=== PATIENT | male | born 1960 | race Caucasian/White ===

== ENCOUNTER 2022-04-01 08:51 | Emergency (ER) | payer MEDICARE, OTHER, SELFPAY ==
[2022-04-01] VITALS (26 sets, daily range): BP systolic 88–108; BP diastolic 57–67; PULSE 87–106; RESP 18–20; TEMP 36.5; O2SAT 92–96; BMI 28.2
--- NOTE | 2022-04-01 09:00 | PC.NURSE ---
MIGUEL ROLLE at for patient eval
--- NOTE | 2022-04-01 09:02 | HMH.EDGENADL ---
Discharge Plan Disposition Patient Disposition: Xfer Other Prescriptions Prescriptions: No Action bupropion HCl 300 mg tablet extended release 24 hr 300 mg PO DAILY pioglitazone 15 mg tablet 15 mg PO DAILY pantoprazole 40 mg tablet,delayed release (DR/EC) 40 mg PO DAILY metoprolol succinate 25 mg tablet extended release 24 hr 25 mg PO DAILY tamsulosin 0.4 mg capsule 0.4 mg PO DAILY glimepiride 4 mg tablet 4 mg PO .twice Rx Instructions: morning and bedtime Eliquis 5 mg tablet 5 mg PO BID atorvastatin 40 mg tablet 40 mg PO DAILY trazodone 50 mg tablet 50 mg PO DAILY aripiprazole 15 mg tablet 15 mg PO HS Lantus U-100 Insulin 100 unit/mL solution 40 unit SQ ONCE Rx Instructions: bedtime polyethylene glycol 3350 17 gram/dose powder 17 g PO BID PRN (Reason: constipation) docusate sodium 100 mg capsule 100 mg PO BID PRN acetaminophen [Pain Relief (acetaminophen)] 650 mg tablet extended release 650 mg PO Q8H PRN (Reason: pain) gabapentin 300 mg capsule 300 mg PO TID Qty: 90 5RF Clinical Impressions Clinical Impression: Enterocutaneous fistula, Cellulitis, Abscess of skin or subcutaneous tissue, Bowel obstruction, Ascites Instructions Patient Instructions: DI for Skin Abscess Discharge ED Provider: Epifanio Caballero Adult HPI General Chief complaint: Skin/Abscess/Foreign Body Stated complaint: Abscess Time Seen by Provider: 04/01/22 09:03 Mode of Arrival: EMS Source of Information: Patient Limitations: No Limitations Description of Symptoms (Recalled from ER Triage Doc. by RN): pt to ed c/o abd abscess. pt states he first noticed the abscess x3 weeks ago and states today it started draining. redness and drainage noted on arrival. History of Present Illness HPI narrative: Patient is a 61-year-old male presents with anterior abdominal discomfort for the past 3 weeks. States that he has had increasing erythema and purulence coming from anterior abdominal wound with increasing pain. Denies any systemic symptoms including fever malaise or other discomfort. Denies any significant history of abdominal surgeries. Denies history of fistulas. Denies history of intra-abdominal abscesses. States his pain is moderate currently. States he is never been to [facility] before and that his medical history is obtainable from his halfway where he stays. He does endorse a history of diabetes. However does not know further medical history. Exam is limited as he is a difficult historian. Related Data Home Medications Medication Instructions Recorded Confirmed acetaminophen 650 mg 650 mg PO Q8H PRN pain 09/08/20 09/08/20 tablet,extended release (Pain Relief (acetaminophen)) apixaban 5 mg tablet (Eliquis) 5 mg PO BID 09/08/20 09/08/20 aripiprazole 15 mg tablet 15 mg PO HS 09/08/20 09/08/20 atorvastatin 40 mg tablet 40 mg PO DAILY 09/08/20 09/08/20 bupropion HCl 300 mg 24 hr tablet, 300 mg PO DAILY 09/08/20 09/08/20 extended release docusate sodium 100 mg capsule 100 mg PO BID PRN 09/08/20 09/08/20 glimepiride 4 mg tablet 4 mg PO .twice 09/08/20 09/08/20 insulin glargine 100 unit/mL 40 unit SQ ONCE 09/08/20 09/08/20 subcutaneous solution (Lantus U-100 Insulin) metoprolol succinate 25 mg 25 mg PO DAILY 09/08/20 09/08/20 tablet,extended release 24 hr pantoprazole 40 mg tablet,delayed 40 mg PO DAILY 09/08/20 09/08/20 release pioglitazone 15 mg tablet 15 mg PO DAILY 09/08/20 09/08/20 polyethylene glycol 3350 17 17 g PO BID PRN constipation 09/08/20 09/08/20 gram/dose oral powder tamsulosin 0.4 mg capsule 0.4 mg PO DAILY 09/08/20 09/08/20 trazodone 50 mg tablet 50 mg PO DAILY 09/08/20 09/08/20 Previous Rx's Medication Instructions Recorded gabapentin 300 mg capsule 300 mg PO TID #90 caps 01/24/22 Allergies Allergy/AdvReac Type Severity Reaction Status Date / Time No
--- NOTE | 2022-04-01 09:05 | CT_ITS ---
FINAL REPORT TECHNIQUE: Axial CT images of the abdomen and pelvis were obtained after the administration of oral and iv contrast. Coronal reformatted images were also obtained and reviewed.This study was performed with techniques to keep radiation doses as low as reasonably achievable (ALARA). Individualized dose reduction techniques using automated exposure control or adjustment of mA and/or kV according to the patient's size were employed. CLINICAL HISTORY: concern for abscess, EC fistula etc COMPARISON: None FINDINGS: CT OF THE ABDOMEN AND PELVIS WITH CONTRAST Abdomen: There is mild bibasilar atelectasis.. The heart is normal in size. The liver has an unremarkable appearance, without evidence of mass or biliary ductal dilatation. There is nonspecific gallbladder wall thickening. The spleen is unremarkable. No adrenal mass is present. The pancreas has an unremarkable appearance. The kidneys are normal, without evidence of mass or hydronephrosis. The aorta is normal in caliber. There is a small amount of ascites. There are multiple air and fluid-filled distal small bowel loops measuring up to 6.3 cm in diameter. Pelvis: There are multiple radiodensities in the distal ileum which likely represent ingested material. There is a high-grade small bowel obstruction at this level. There is wall thickening of the distal ileum, likely inflammatory. The appendix normal. The urinary bladder is unremarkable. There is an enteric cutaneous fistula identified in the midline anterior pelvis extending from small bowel loop to skin surface. This is well visualized on axial images 112-127. There is an air in fluid collection identified adjacent to this measuring 31 mm in the subcutaneous tissue worrisome for small abscess. IMPRESSION: High-grade distal small-bowel obstruction. Wall thickening of the distal ileum, likely inflammatory. May represent inflammatory bowel disease or other inflammatory process. 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 Small free fluid. Reviewed, Interpreted and Dictated by Sergio Briscoe III, MD Transcribed by Mahi Herron Authenticated and . [facility]
[2022-04-01 09:55] LABS: Basophils % 0.3 % (0.1-2.0); Eosinophils # 0.1 K/mm3 (0.0-0.4); Eosinophils % 0.9 % (0.1-12.0); Hematocrit 39.9 % (42.0-52.0); Hemoglobin 12.6 g/dL (14.1-18.0); Lymphocytes # 0.9 K/mm3 (0.7-4.5); Lymphocytes % 7.1 % (10-50); Mean Corpuscular HGB Conc 31.7 g/dL (31.8-35.4); Mean Corpuscular Hemoglobin 25.9 pg (27.0-31.2); Mean Corpuscular Volume 81.9 fl (80-94); Mean Platelet Volume 6.4 fl (7.4-10.4); Monocytes % 8.4 % (1.7-9.3); Neutrophils # 10.2 K/mm3 (1.8-7.8); Neutrophils % 83.3 % (37.0-80.0); Platelet Count 291 K/mm3 (142-424); Red Blood Count 4.87 M/mm3 (4.60-6.20); Red Cell Distribution Width 15.2 % (11.5-17.5); White Blood Count 12.3 K/mm3 (4.8-10.8)
[2022-04-01 10:03] LABS: Chloride 105 mmol/L (98-107)
[2022-04-01 10:04] LABS: Potassium 4.8 mmoL/L (3.5-5.1); Sodium 134 mmol/L (136-145)
[2022-04-01 10:06] LABS: Alanine Aminotransferase 54 U/L (12-78); Alkaline Phosphatase 120 U/L (38-126); Aspartate Amino Transferase 54 U/L (17-59); Blood Urea Nitrogen 22 mg/dl (9-20); Creatinine Clearance Estimated 91 mL/min (50-200); Estimated Glomerular Filt Rate 62 ml/min (>60); GFR (African American) 74 ML/MIN (>60)
[2022-04-01 10:07] LABS: Albumin Level 2.7 g/dl (3.5-5.0); Albumin/Globulin Ratio 0.9 (1.1-1.8); Anion Gap 5.8 mEq/L (5-15); Calcium 7.7 mg/dl (8.4-10.2); Carbon Dioxide 28 mmol/L (22.0-30.0); Globulin 2.9 g/dL (1.3-3.2); Glucose 138 mg/dl (74-100); Lactic Acid 1.2 mmol/L (0.7-2.1); Total Protein,Serum 5.6 g/dl (6.3-8.2)
--- NOTE | 2022-04-01 10:59 | PC.NURSE ---
Rounded on patient, pt resting on ED stretcher at this time, reporting he is hungry but he is aware that we are unable to eat at this time. Call light within reach, no other needs
--- NOTE | 2022-04-01 11:00 | PC.NURSE ---
Paged Dr. Pittman for phone consult
--- NOTE | 2022-04-01 11:04 | PC.NURSE ---
MIGUEL ROLLE speaking with Dr Pittman
--- NOTE | 2022-04-01 11:07 | PC.NURSE ---
MIGUEL ROLLE speaking with DR. Pittman
--- NOTE | 2022-04-01 11:11 | PC.NURSE ---
Contacting [facility] for consult
--- NOTE | 2022-04-01 11:14 | PC.NURSE ---
Xray power-sharing images at this time to [facility]
--- NOTE | 2022-04-01 11:25 | PC.NURSE ---
MIGUEL ROLLE speaking with General Surgery at this time
--- NOTE | 2022-04-01 11:49 | PC.NURSE ---
Family at BS
--- NOTE | 2022-04-01 11:56 | PC.NURSE ---
called radiology r/t needing results of CT
--- NOTE | 2022-04-01 11:58 | PC.NURSE ---
pts friend that sits with him, Aishwaryakirk Wyman would like to be called when he is transported to . p: [phone]
[2022-04-01 11:59] LABS: Coronavirus 19, PCR Not Detected (NotDetected); Influenza A, PCR Not Detected (NotDetected); Influenza B, PCR Not Detected (NotDetected)
--- NOTE | 2022-04-01 16:15 | PC.NURSE ---
Went in to clean patient up with Pauline. Cleaned patient up, changed linens as well as applied abdominal pad to help with patient leaking from abdomen. Kevin SCHMIDT came in to assess patient abdomen and leaking before bandage placed. Call light within reach warm blankets given
--- NOTE | 2022-04-01 18:37 | PC.NURSE ---
patient aware that we are still waiting on to call back with a bed assignment. Call light within reach, no other needs at this time
--- NOTE | 2022-04-01 18:58 | PC.NURSE ---
Calling MDs to check on bed assignment at this time
--- NOTE | 2022-04-01 19:07 | PC.NURSE ---
[facility] stated no update on bed assignment, notified MIGUEL ROLLE
--- NOTE | 2022-04-01 19:10 | PC.NURSE ---
[facility] called back at this itme, states pt is accepted to [facility]. Updated ER MD
== END 2022-04-01 22:19 | disposition other institution (70) ==
PROVIDERS: Emergency Provider Student in an Organized Health Care Education/Training Program
DX: L02.211 Cutaneous abscess of abdominal wall (principal); K63.2 Fistula of intestine; R18.8 Other ascites; K56.609 Unspecified intestinal obstruction, unspecified as to partial versus complete obstruction; L03.311 Cellulitis of abdominal wall; F17.210 Nicotine dependence, cigarettes, uncomplicated
CPT/HCPCS: 74177; 80053; 83605; 85025; 87040; 87077; 87186; 96365; 99285; C9803; J2543; Q9967; U0003; U0005

== ENCOUNTER 2022-11-22 11:38 | Observation (INO) | payer MEDICARE, OTHER, SELFPAY ==
[2022-11-22] VITALS (17 sets, daily range): BP systolic 77–123; BP diastolic 52–75; PULSE 67–92; RESP 16–19; TEMP 36.3–37; O2SAT 93–100; BMI 25.0; BMI 32.8
--- NOTE | 2022-11-22 11:54 | PC.NURSE ---
Dr. Perez at BS
--- NOTE | 2022-11-22 12:00 | XR_ITS ---
FINAL REPORT CLINICAL HISTORY: pain swelling, 4/5 toes drainage FINDINGS: AP, oblique, and lateral views of the left ankle were obtained. There is no prior exam for comparison. There is no fracture or dislocation. The ankle mortise is intact. There is diffuse soft tissue edema. IMPRESSION: No acute osseous abnormality of the left ankle. Reviewed, Interpreted and Dictated by Celi Rosario MD Transcribed by Tiffany Angeles Authenticated and [facility]
--- NOTE | 2022-11-22 12:00 | XR_ITS ---
FINAL REPORT CLINICAL HISTORY: pain swelling, 4/5 toes drainage FINDINGS: AP, oblique and lateral views of the left foot were obtained. There is no prior exam for comparison. There is no acute fracture or dislocation. The joint spaces are preserved. There is subchondral osteopenia across the 4th metatarsophalangeal joint. No gross bone destruction is identified. There is prominent soft tissue edema. IMPRESSION: Subchondral osteopenia across the 4th metatarsophalangeal joint which can be seen with early osteomyelitis. Consider MRI. Reviewed, Interpreted and Dictated by Celi Rosario MD Transcribed by Tiffany Angeles Authenticated and [facility]
--- NOTE | 2022-11-22 12:04 | PC.NURSE ---
notified pharmacy of [facility] consult
--- NOTE | 2022-11-22 12:11 | HMH.EDGENADL ---
Discharge Plan Disposition Patient Disposition: Still a Patient Prescriptions Prescriptions: No Action bupropion HCl 300 mg tablet extended release 24 hr 300 mg PO DAILY pioglitazone 15 mg tablet 15 mg PO DAILY pantoprazole 40 mg tablet,delayed release (DR/EC) 40 mg PO DAILY metoprolol succinate 25 mg tablet extended release 24 hr 25 mg PO DAILY tamsulosin 0.4 mg capsule 0.4 mg PO DAILY glimepiride 4 mg tablet 4 mg PO .twice Rx Instructions: morning and bedtime Eliquis 5 mg tablet 5 mg PO BID atorvastatin 40 mg tablet 40 mg PO DAILY trazodone 50 mg tablet 50 mg PO DAILY aripiprazole 15 mg tablet 15 mg PO HS Lantus U-100 Insulin 100 unit/mL solution 40 unit SQ ONCE Rx Instructions: bedtime polyethylene glycol 3350 17 gram/dose powder 17 g PO BID PRN (Reason: constipation) docusate sodium 100 mg capsule 100 mg PO BID PRN acetaminophen [Pain Relief (acetaminophen)] 650 mg tablet extended release 650 mg PO Q8H PRN (Reason: pain) gabapentin 300 mg capsule 300 mg PO TID Qty: 90 5RF Referrals Follow up/Referrals: Provider,Referral, MD [Primary Care Provider] - See instructions Clinical Impressions Clinical Impression: Cellulitis of foot Discharge ED Provider: Ricardo Mitchell General Adult HPI <Chapo Perez MD - Last Filed: 11/22/22 16:17> General Chief complaint: Extremity Problem,Nontraumatic Stated complaint: swelling in leg Time Seen by Provider: 11/22/22 11:38 Mode of Arrival: EMS Source of Information: Patient Limitations: No Limitations Description of Symptoms (Recalled from ER Triage Doc. by RN): Pt reports swelling on L foot up to just below knee. Pt reports swelling for approx 1 week. Pt reports feels like has neuropathy in his foot. Skin is red in color. Pt denies known fevers. Abrasions noted to top of 4th and 5th toes. History of Present Illness HPI narrative: 62-year-old male history of hypertension, hyperlipidemia, diabetes, on Eliquis for unknown reason presenting with left lower extremity pain and swelling. Patient states that started about a week ago. Was started on an antibiotic which he thinks he has been taking. Fourth and fifth toenails fell off, although patient thinks he has sustained minor traumas by walking barefoot on concrete. Denies fevers or chills, nausea or vomiting, abdominal pain, but has had diarrhea since starting the antibiotic. Pain is mild, does not radiate, located specifically in the top of his foot. Related Data Home Medications Medication Instructions Recorded Confirmed acetaminophen 650 mg 650 mg PO Q8H PRN pain 09/08/20 09/08/20 tablet,extended release (Pain Relief (acetaminophen)) apixaban 5 mg tablet (Eliquis) 5 mg PO BID 09/08/20 09/08/20 aripiprazole 15 mg tablet 15 mg PO HS 09/08/20 09/08/20 atorvastatin 40 mg tablet 40 mg PO DAILY 09/08/20 09/08/20 bupropion HCl 300 mg 24 hr tablet, 300 mg PO DAILY 09/08/20 09/08/20 extended release docusate sodium 100 mg capsule 100 mg PO BID PRN 09/08/20 09/08/20 glimepiride 4 mg tablet 4 mg PO .twice 09/08/20 09/08/20 insulin glargine 100 unit/mL 40 unit SQ ONCE 09/08/20 09/08/20 subcutaneous solution (Lantus U-100 Insulin) metoprolol succinate 25 mg 25 mg PO DAILY 09/08/20 09/08/20 tablet,extended release 24 hr pantoprazole 40 mg tablet,delayed 40 mg PO DAILY 09/08/20 09/08/20 release pioglitazone 15 mg tablet 15 mg PO DAILY 09/08/20 09/08/20 polyethylene glycol 3350 17 17 g PO BID PRN constipation 09/08/20 09/08/20 gram/dose oral powder tamsulosin 0.4 mg capsule 0.4 mg PO DAILY 09/08/20 09/08/20 trazodone 50 mg tablet 50 mg PO DAILY 09/08/20 09/08/20 Previous Rx's Medication Instructions Recorded gabapentin 300 mg capsule 300 mg PO TID #90 caps 01/24/22 Allergies Allergy/AdvReac Type Severity Reaction Status Date / Time No Known Allergies Allergy Verified 09/08/20
[2022-11-22 12:27] LABS: Basophils % 0.2 % (0.1-2.0); Eosinophils # 0.1 K/mm3 (0.0-0.4); Eosinophils % 1.4 % (0.1-12.0); Hematocrit 38.8 % (42.0-52.0); Hemoglobin 11.9 g/dL (14.1-18.0); Lymphocytes # 1.3 K/mm3 (0.7-4.5); Lymphocytes % 18.4 % (10-50); Mean Corpuscular HGB Conc 30.7 g/dL (31.8-35.4); Mean Corpuscular Hemoglobin 27.1 pg (27.0-31.2); Mean Corpuscular Volume 88.3 fl (80-94); Mean Platelet Volume 8.1 fl (7.4-10.4); Monocytes # 0.5 K/mm3 (0.1-1.0); Monocytes % 6.5 % (1.7-9.3); Neutrophils # 5.2 K/mm3 (1.8-7.8); Neutrophils % 73.4 % (37.0-80.0); Platelet Count 240 K/mm3 (142-424); Red Blood Count 4.39 M/mm3 (4.60-6.20); Red Cell Distribution Width 15.4 % (11.5-17.5); White Blood Count 7.1 K/mm3 (4.8-10.8)
[2022-11-22 12:29] LABS: Alanine Aminotransferase 18 U/L (12-78); Albumin Level 3.3 g/dl (3.5-5.0); Albumin/Globulin Ratio 1.1 (1.1-1.8); Alkaline Phosphatase 97 U/L (38-126); Anion Gap 11.6 mEq/L (5-15); Aspartate Amino Transferase 19 U/L (17-59); Bilirubin,Total 0.8 mg/dl (0.2-1.3); Blood Urea Nitrogen 15 mg/dl (9-20); Calcium 8.1 mg/dl (8.4-10.2); Carbon Dioxide 23 mmol/L (22.0-30.0); Chloride 109 mmol/L (98-107); Creatine Kinase 69 U/L (55-170); Creatinine Clearance Estimated 89 mL/min (50-200); Estimated Glomerular Filt Rate 68 ml/min (>60); GFR (African American) 82 ML/MIN (>60); Glucose 117 mg/dl (74-100); Potassium 3.6 mmoL/L (3.5-5.1); Sodium 140 mmol/L (136-145); Total Protein,Serum 6.3 g/dl (6.3-8.2)
[2022-11-22 12:30] LABS: Lactic Acid 1.3 mmol/L (0.7-2.1)
[2022-11-22 12:32] LABS: Acetone, Serum (Rapid) None Detected (None Detect)
--- NOTE | 2022-11-22 12:35 | PC.NURSE ---
rad at for portable xrays
[2022-11-22 12:55] LABS: Erythrocyte Sedimentation Rate 13 mm/hr (0-20)
--- NOTE | 2022-11-22 13:35 | EXP.PHA.CONS ---
Pharmacy Consult Date: 11/22/22 Time: 13:35 Referring provider: DR. MCPHERSON Reason for Consult:: VANCOMYCIN Allergies Allergy/AdvReac Type Severity Reaction Status Date / Time No Known Allergies Allergy Verified 09/08/20 11:08 Home Medications Medication Instructions Recorded Confirmed Type acetaminophen 650 mg 650 mg PO Q8H PRN pain 09/08/20 09/08/20 History tablet,extended release (Pain Relief (acetaminophen)) apixaban 5 mg tablet (Eliquis) 5 mg PO BID 09/08/20 09/08/20 History aripiprazole 15 mg tablet 15 mg PO HS 09/08/20 09/08/20 History atorvastatin 40 mg tablet 40 mg PO DAILY 09/08/20 09/08/20 History bupropion HCl 300 mg 24 hr tablet, 300 mg PO DAILY 09/08/20 09/08/20 History extended release docusate sodium 100 mg capsule 100 mg PO BID PRN 09/08/20 09/08/20 History glimepiride 4 mg tablet 4 mg PO .twice 09/08/20 09/08/20 History insulin glargine 100 unit/mL 40 unit SQ ONCE 09/08/20 09/08/20 History subcutaneous solution (Lantus U-100 Insulin) metoprolol succinate 25 mg 25 mg PO DAILY 09/08/20 09/08/20 History tablet,extended release 24 hr pantoprazole 40 mg tablet,delayed 40 mg PO DAILY 09/08/20 09/08/20 History release pioglitazone 15 mg tablet 15 mg PO DAILY 09/08/20 09/08/20 History polyethylene glycol 3350 17 17 g PO BID PRN constipation 09/08/20 09/08/20 History gram/dose oral powder tamsulosin 0.4 mg capsule 0.4 mg PO DAILY 09/08/20 09/08/20 History trazodone 50 mg tablet 50 mg PO DAILY 09/08/20 09/08/20 History gabapentin 300 mg capsule 300 mg PO TID #90 caps 01/24/22 Rx New Prescriptions to Start Prescriptions: Height: 1.91 m Weight: 90.718 kg Laboratory Results:: Laboratory Results - last 24 hr 11/22/22 11:50: WBC 7.1, RBC 4.39 L, Hgb 11.9 L, Hct 38.8 L, MCV 88.3, MCH 27.1, MCHC 30.7 L, RDW 15.4, Plt Count 240, MPV 8.1, Neut % (Auto) 73.4, Lymph % (Auto) 18.4, Moffat % (Auto) 6.5, Eos % (Auto) 1.4, Baso % (Auto) 0.2, Neut # (Auto) 5.2, Lymph # (Auto) 1.3, Moffat # (Auto) 0.5, Eos # (Auto) 0.1, Baso # (Auto) 0.0, ESR 13, Sodium 140, Potassium 3.6, Chloride 109 H, Carbon Dioxide 23, Anion Gap 11.6, BUN 15, Creatinine 1.10, Estimated Creat Clear 89, Estimated GFR 68, Est GFR ( Amer) 82, Glucose 117 H, Lactate 1.3, Calcium 8.1 L, Total Bilirubin 0.8, AST 19, ALT 18, Alkaline Phosphatase 97, Total Creatine Kinase 69, Total Protein 6.3, Albumin 3.3 L, Globulin 3.0, Albumin/Globulin Ratio 1.1, Acetone Level None detected Assessment and Plan Assessment and plan all Dx Assessment and Plan for all problems:: Pharmacokinetic dosing service Objective: Patient: Floor: Age: 62 yo Serum creatinine: 1.1 mg/dL Height: 75.0 Inches Weight (kg): 90.781 Assessment: IBW (kg): 84.50 Dosing wt(kg): 90.781 Estimated Creatinine clearance (ml/min): 83.2 CRCL method: Cockcroft and Gault using ibw(default). Drug selected: Vancomycin Loading dose (mg): 0 Vd (liters): 72.6 (factor used: 0.8 L/kg) Nader (hr-1): 0.073 Half life (hrs): 9.50 Recommended dose: 1500 mg Interval: 12 hrs Infusion time (hrs): 2.0 Predicted peak (mcg/mL): 32.9 Predicted trough (mcg/mL): 15.85 Total body weight is being used for vancomycin dosing. Recommendations: VANCOMYCIN 1750 MG GIVEN IN ER. RECOMMEND Vancomycin 1500 mg q 12 hrs STARTING AT 2300 TONIGHT with an expected Cpeak of 32.9 mcg/ml and an expected Ctrough of 15.85 mcg/ml ----Vanco only - ignore for aminoglycosides----- CLvanco= 5.30 L/hr AUC 0-24 /FAYE Data: FAYE 0.5 mcg/mL: AUC/FAYE: 1132.1 FAYE 1.0 mcg/mL: AUC/FAYE: 566.0 --------- FAYE 1.5 mcg/mL: AUC/FAYE: 377.4 FAYE 2.0 mcg/mL: AUC/FAYE: 283.0
--- NOTE | 2022-11-22 15:09 | PC.NURSE ---
Rounded on patient. Assisted to bathroom. No other needs at this time.
[2022-11-22 15:42] LABS: C-Reactive Protein 1.6 mg/L (0-4)
--- NOTE | 2022-11-22 15:46 | CT_ITS ---
PROCEDURE INFORMATION: Exam: CT Left Lower Extremity With Contrast; Lower Leg Exam date and time: 11/22/2022 4:09 PM Age: 62 years old Clinical indication: Other: Cellulitis vs abcess; Additional info: R/O osteo and abscess. Fourth and 5th toe drainage. TECHNIQUE: Imaging protocol: CT of the left lower extremity with intravenous contrast was performed. Exam focused on the lower leg. Radiation optimization: All CT scans at this facility use at least one of these dose optimization techniques: automated exposure control; mA and/or kV adjustment per patient size (includes targeted exams where dose is matched to clinical indication); or iterative reconstruction. Contrast material: ISOVUE; Contrast volume: 120 ml; Contrast route: IV; REPORTING DATA: Count of CT and Cardiac NM exams in prior 12 months: This patient has received [address] and 0 known cardiac nuclear medicine studies in the 12 months prior to the current study. COMPARISON: CR XR left ankle and left foot 11/22/2022 12:43 PM FINDINGS: Bones/joints: No CT evidence of osteomyelitis. Soft tissues: Diffuse [id number] superficial soft tissue edema noted involving the foot more pronounced dorsally with superior extension into the left lower leg to the proximal calf level. No evident soft tissue air. Focal subdermal soft tissue lesion inferior to the distal 5th metatarsal measuring 3.0 x 2.2 x 2.4 cm. No underlying bone destruction to suggest osteomyelitis. IMPRESSION: 1. Diffuse [id number] soft tissue edema of the foot and most of the left lower leg consistent with cellulitis. No definite abscess. 2. Focal 3 cm soft tissue density lesion inferior to the distal 5th metatarsal. Favored consideration is inflammatory process consistent with a phlegmon. The possibility of a developing mass not related to inflammation or infection can not be totally excluded. Follow-up to ensure resolution of this finding may be indicated. If further imaging desired MRI scan may provide additional information.
--- NOTE | 2022-11-22 15:47 | PC.NURSE ---
ER MD Perez spoke with Dr. Rios requests ct on pt and admit after Ct, states to call him back if abscess on ct notified rad staff of CT orders
--- NOTE | 2022-11-22 16:46 | PC.NURSE ---
contacted rad to check on status of ct results, rad staff reports ct images just recently finished sending images so no results yet
--- NOTE | 2022-11-22 17:47 | PC.NURSE ---
notified warehouse distribution specialist of admission
--- NOTE | 2022-11-22 18:05 | PC.NURSE ---
Report called to Kimberly on Med Surg.
--- NOTE | 2022-11-22 18:52 | EXP.HP ---
History of Present Illness *Admission Date: 11/22/22 *Reason for visit:: Chief complaint: Left foot swollen *History of present illness: This is a 62-year-old male that presents to [facility] emergency department for concerns of left foot swelling and erythema over several days. He reports seeing his PCP approximately 1 week ago and started on Omnicef. He reports that his foot is not improving. He describes crescendo edema from his foot up to his knee with associated erythema. He describes a past medical history for chronic venous insufficiency and varicose veins to left lower extremity. He reports a previous left lower extremity DVT with subsequent PE and currently on chronic Eliquis. He also reports diabetes, hypertension and ongoing tobacco dependence. He reports no associated fever, chills, falls and recalls no injury. He reports decreased sensation to his lower extremity. In the ED his fourth and fifth toes identify abrasions that are attributed to his desire to ambulate barefooted. In the ED he was afebrile with stable vital signs with an A1c 6.0% normal white blood cell count and negative lactic acid. His CRP and ESR were normal. CT of the left foot identified edema and concerns for a phlegmon at the distal fifth metatarsal. No osteomyelitis was identified. He was started on IV cefepime and vancomycin and admitted to the hospitalist service. [facility] Medical History (Updated 11/22/22 @ 18:59 by Cornell Loza MD) Acid reflux Chronic venous insufficiency Diabetes DVT (deep venous thrombosis) Hernia HLD (hyperlipidemia) Neuropathy Pulmonary embolism Smoker Urinary retention Varicose veins of both lower extremities Family History Other No significant family history Social History Smoking Status: Current every day smoker alcohol intake: never current occupational status: disabled Travel in the last 8 weeks: None housing: senior living Review of Systems Review of Systems Review of systems:: pertinent systems reviewed and negative unless documented below Meds Home Medications and Allergies Home Medications Medication Instructions Recorded Confirmed Type acetaminophen 650 mg 650 mg PO Q8H PRN pain 09/08/20 09/08/20 History tablet,extended release (Pain Relief (acetaminophen)) apixaban 5 mg tablet (Eliquis) 5 mg PO BID Blood Thinner 09/08/20 11/22/22 History aripiprazole 15 mg tablet 15 mg PO HS . 09/08/20 11/22/22 History atorvastatin 40 mg tablet 40 mg PO DAILY Cholesterol 09/08/20 11/22/22 History bupropion HCl 300 mg 24 hr tablet, 300 mg PO DAILY . 09/08/20 11/22/22 History extended release glimepiride 4 mg tablet 4 mg PO .twice Diabetes 09/08/20 11/22/22 History insulin glargine 100 unit/mL 40 unit SQ ONCE Diabetes 09/08/20 11/22/22 History subcutaneous solution (Lantus U-100 Insulin) metoprolol succinate 25 mg 25 mg PO DAILY BP 09/08/20 11/22/22 History tablet,extended release 24 hr pantoprazole 40 mg tablet,delayed 40 mg PO DAILY gerd 09/08/20 11/22/22 History release polyethylene glycol 3350 17 17 g PO BID PRN constipation 09/08/20 11/22/22 History gram/dose oral powder tamsulosin 0.4 mg capsule 0.4 mg PO DAILY urinary 09/08/20 11/22/22 History trazodone 50 mg tablet 50 mg PO DAILY . 09/08/20 11/22/22 History gabapentin 300 mg capsule 300 mg PO TID neuropathy 11/22/22 11/22/22 History oxybutynin chloride 10 mg 10 mg PO DAILY urinary 11/22/22 11/22/22 History tablet,extended release 24 hr New Prescriptions to Start Prescriptions: Allergies Allergy/AdvReac Type Severity Reaction Status Date / Time No Known Allergies Allergy Verified 11/22/22 18:46 Exam Data for Last 24 hours Vital signs and Labs for Last 24 Hours: Temp Pulse Resp BP Pulse Ox O2 Del Method 98.6 F 76 18 123/75 96 Room Air 11/22/22 18:24 11/22
[2022-11-22 20:35] LABS: POC Glucose,Bedside 151 (70-110)
[2022-11-23 04:00] VITALS: BP 135/72; PULSE 79; RESP 18; TEMP 36.4; O2SAT 90; BMI 33.3
[2022-11-23 05:35] LABS: POC Glucose,Bedside 79 (70-110)
--- NOTE | 2022-11-23 05:48 | PC.NURSE ---
no acute changes t/o shift. pt has slept well. denies pain. took a shower. bed locked/lowest position.
[2022-11-23 06:42] LABS: Basophils % 0.2 % (0.1-2.0); Eosinophils # 0.1 K/mm3 (0.0-0.4); Eosinophils % 2.2 % (0.1-12.0); Hematocrit 35.5 % (42.0-52.0); Hemoglobin 10.8 g/dL (14.1-18.0); Lymphocytes # 1.5 K/mm3 (0.7-4.5); Lymphocytes % 31.6 % (10-50); Mean Corpuscular HGB Conc 30.4 g/dL (31.8-35.4); Mean Corpuscular Hemoglobin 27.5 pg (27.0-31.2); Mean Corpuscular Volume 90.6 fl (80-94); Mean Platelet Volume 7.1 fl (7.4-10.4); Monocytes # 0.4 K/mm3 (0.1-1.0); Monocytes % 7.5 % (1.7-9.3); Neutrophils # 2.8 K/mm3 (1.8-7.8); Neutrophils % 58.4 % (37.0-80.0); Platelet Count 199 K/mm3 (142-424); Red Blood Count 3.92 M/mm3 (4.60-6.20); Red Cell Distribution Width 15.2 % (11.5-17.5); White Blood Count 4.8 K/mm3 (4.8-10.8)
[2022-11-23 06:43] LABS: Anion Gap 12.8 mEq/L (5-15); Blood Urea Nitrogen 12 mg/dl (9-20); Calcium 8.1 mg/dl (8.4-10.2); Carbon Dioxide 20 mmol/L (22.0-30.0); Chloride 113 mmol/L (98-107); Creatinine Clearance Estimated 131 mL/min (50-200); Estimated Glomerular Filt Rate 76 ml/min (>60); GFR (African American) 92 ML/MIN (>60); Glucose 72 mg/dl (74-100); Potassium 3.8 mmoL/L (3.5-5.1); Sodium 142 mmol/L (136-145)
[2022-11-23 08:00] VITALS: BP 120/70; PULSE 86; RESP 16; TEMP 36.9; O2SAT 91
--- NOTE | 2022-11-23 11:13 | HMH.PTWOUND ---
Rehab Inpt Wound Evaluation Rehab IP Wound Evaluation Start: 11/22/22 18:42 Freq: ONCE Status: Active Protocol: Document 11/23/22 11:10 PHOANNIE (Rec: 11/23/22 11:13 PHORNE [id number]) Rehab PT Wound Assessment Subjective Subjective 62 yowm adm to [facility] with L LE cellulitis. He presents with mild erythema to the L lower leg, but no open sores except on the L 4th toe. 1+ pitting edema noted. Wound Left Anterior Toe - 4th Digit Wound Type Blister Is This a Chronic Wound No Wound Length (cm) 1.7 Wound Width (cm) 0.8 Wound Depth (cm) 0.1 Wound Bed Appearance [place] Wound Margins Description Well Defined Surrounding Tissue Appearance [place] Edema Type Pitting Edema Degree 1+ Query Text:1+ Trace, Barely Detectable, Rebound 15-30 seconds 2+ Moderate, Slight Indentation, Rebound 10-20 seconds 3+ Deep, Deeper Indentation, Rebound > 30 seconds 4+ Very Deep, Rebound > 60 seconds Drainage Amount None Primary Dressing Composite Comment polymem Wound Secondary Dressing Type Adhering Gauze Roll Wound Debridement Amount of Tissue None Removed Dressing Change Patient Tolerance Tolerated Well Plan/Recommendation Comment Pt requires no debridement at this time. No further need for wound care team treatment. RN made aware of dressing and needs once daily change. Eval Complexity Eval Charge Codes 58382 - High Complexity PHYSICIAN CERTIFICATION: I certify the specified therapy services for Avi Maximiliano are required, authorized, and reviewed every 30 days.
[2022-11-23 11:18] VITALS: BP 119/70; PULSE 74; RESP 16; TEMP 36.9; O2SAT 92
[2022-11-23 11:22] LABS: POC Glucose,Bedside 72 (70-110)
--- NOTE | 2022-11-23 13:41 | EXP.PN ---
Subjective *Date: 11/23/22 *Time: 14:49 Interval history: The patient is seen and examined today. I am accompanied by nursing staff. The patient reports no acute events since admission. He is tolerating his therapy with no adverse events. PT/wound care is due to see the patient. Orthopedics is due to see the patient. Nursing staff report that he remains afebrile with stable vital signs and saturating appropriately on room air. His morning CBC identifies a normal white blood cell count, stable hemoglobin and normal platelets. His chemistry panel is normal with creatinine 1.0. Venous Dopplers identify no DVT of the left lower extremity. Exam Data for Last 24 hours Vital signs and Labs for Last 24 Hours: Temp Pulse Resp BP Pulse Ox O2 Del Method 98.5 F 74 16 119/70 92 L Room Air 11/23/22 11:18 11/23/22 11:18 11/23/22 11:18 11/23/22 11:18 11/23/22 11:18 11/23/22 12:36 Laboratory Results - last 24 hr 11/22/22 11:50: Hemoglobin A1c 6.0, C-Reactive Protein 1.6 11/22/22 20:28: POC Glucose 151 H 11/23/22 05:25: POC Glucose 79 11/23/22 05:42: WBC 4.8 D, RBC 3.92 L, Hgb 10.8 L, Hct 35.5 L, MCV 90.6, MCH 27.5, MCHC 30.4 L, RDW 15.2, Plt Count 199, MPV 7.1 L, Neut % (Auto) 58.4, Lymph % (Auto) 31.6, [place] % (Auto) 7.5, Eos % (Auto) 2.2, Baso % (Auto) 0.2, Neut # (Auto) 2.8, Lymph # (Auto) 1.5, [place] # (Auto) 0.4, Eos # (Auto) 0.1, Baso # (Auto) 0.0, Sodium 142, Potassium 3.8, Chloride 113 H, Carbon Dioxide 20 L, Anion Gap 12.8, BUN 12, Creatinine 1.00, Estimated Creat Clear 131, Estimated GFR 76, Est GFR ( Amer) 92, Glucose 72 L D, Calcium 8.1 L 11/23/22 11:08: POC Glucose 72 I & O for Last 24 hours: Intake & Output 11/20/22 11/21/22 11/22/22 11/23/22 23:59 23:59 23:59 23:59 Intake Total 987 / 987 1114 / 1114 Output Total 0 / 0 0 / 0 Balance 987 / 987 1114 / 1114 Weight 119.884 kg 121.336 kg Constitutional Constitutional: no acute distress and cooperative *Routine HEENT Exam Head: Present normocephalic Eye: Present EOMI and PERRL ENT: Present mucous membranes moist *Routine Respiratory Exam Respiratory: Present rhonchi, normal respiratory effort and symmetric chest movement *Routine Cardiovascular Exam Cardiovascular: Present RRR, Normal S1 and Normal S2 *Routine Extremities Exam Extremities: Present full ROM and pulses intact *Routine Skin Exam Skin: Present wounds; Absent rash Comments: Left foot fourth and fifth digit with abrasion *Routine Neurological Exam Neurological: Present alert, oriented X3 and moving all extremities Routine Psychiatric Exam Psychiatric: Present normal affect, normal thought process and cooperative Assessment and Plan *Assessment and plan (1) Cellulitis of foot: Status: Acute Category: Medical Code(s): L03.119 - Cellulitis of unspecified part of limb (2) Chronic venous insufficiency: Status: Acute Category: Medical Code(s): I87.2 - Venous insufficiency (chronic) (peripheral) (3) Diabetes: Status: Acute Category: Medical Code(s): E11.9 - Type 2 diabetes mellitus without complications (4) Chronic anticoagulation: Status: Acute Category: Medical Code(s): Z79.01 - buttermaker (current) use of anticoagulants (5) Mood disorder: Status: Acute Category: Medical Code(s): F39 - Unspecified mood [affective] disorder (6) Tobacco dependence: Status: Acute Category: Medical Code(s): F17.200 - Nicotine dependence, unspecified, uncomplicated Plan This is a 62-year-old male that presents to the emergency department with concerns of left foot edema and erythema. He resides at [facility] and describes chronic disability. He enjoys ambulating with no issues. Problems addressed as follows: Left lower extremity cellulitis Phlegmon left foot Chronic venous insufficiency ED ESR & CRP normal ED CT of left lower extremity with concerns for p
--- NOTE | 2022-11-23 14:01 | HMH.PTEV ---
Physical Therapy Evaluation Rehab PT IP Evaluation Start: 11/23/22 13:40 Freq: ONCE Status: Active Protocol: Document 11/23/22 13:56 ISAAK (Rec: 11/23/22 14:01 ISAAK [id number]) Subjective/History History History 62 yowm adm to [facility] with L LE cellulitis. He reports he lives at local personal long-term and is independent with all mobility at baseline. Subjective Subjective Pt has no c/o this pm, except I've been sleepy all day. New diagnosis of cancer in past 12 No months? Rehab PT IP Eval Objective Appearance Patient Behavior Appropriate Patient Orientation Person,Place,Time Difficulty following instructions none Speech Pattern Clear Ambulation Patient Able to Ambulate Yes Ambulation Observation IP General Gait Pattern Observation No Deviations/Normal Ambulation Distance (feet) 50 Ambulation Assistive Device None Ambulation Ability Independent Balance Ability to Arise Able, uses arms to help Sitting Balance Steady, safe Standing Balance Steady, wide stance Dynamic Sitting Balance Ability Good Dynamic Standing Balance Ability Good Transfers Bed Transfer Ability Independent Chair Transfer Ability Independent Sit to Stand Bed Transfer Ability Independent Sit to Stand Chair Transfer Ability Independent Rehab PT IP prob,goals,plan Problems Date of Evaluation: 11/23/22 Discharge Plan PT Discharge Plan Pt is currently at baseline for all mobility and is appropriate to return to personal long-term once medically stable for d/c. Eval Complexity Eval Charge Codes 67716 - High Complexity PHYSICIAN CERTIFICATION: I certify the specified therapy services for Avi Maximiliano are required, authorized, and reviewed every 30 days.
--- NOTE | 2022-11-23 15:10 | P.CONPHA_ITS ---
Pharmacy Intervention Comments: MEDICATION RECONCILIATION COMPLETED ON PATIENT USING MAR FROM LONG TERM. -AMIE SANDS, LAMARD
--- NOTE | 2022-11-23 15:10 | HMH.PHAINT1 ---
Pharmacy Intervention Comments: MEDICATION RECONCILIATION COMPLETED ON PATIENT USING MAR FROM HALF-WAY. -AMIE SANDS, LAMARD
[2022-11-23 15:14] VITALS: BP 108/62; PULSE 80; RESP 16; TEMP 36.5; O2SAT 96
--- NOTE | 2022-11-23 15:55 | EXP.ORTH.CON ---
History of Present Illness *Admission Date: 11/22/22 *History of present illness: This is a 62-year-old male that presents to [facility] emergency department for concerns of left foot swelling and erythema over several days. He reports seeing his PCP approximately 1 week ago and started on Omnicef. He reports that his foot is not improving. He describes crescendo edema from his foot up to his knee with associated erythema. He describes a past medical history for chronic venous insufficiency and varicose veins to left lower extremity. He reports a previous left lower extremity DVT with subsequent PE and currently on chronic Eliquis. He also reports diabetes, hypertension and ongoing tobacco dependence. He reports no associated fever, chills, falls and recalls no injury. He reports decreased sensation to his lower extremity. In the ED his fourth and fifth toes identify abrasions that are attributed to his desire to ambulate barefooted. In the ED he was afebrile with stable vital signs with an A1c 6.0% normal white blood cell count and negative lactic acid. His CRP and ESR were normal. CT of the left foot identified edema and concerns for a phlegmon at the distal fifth metatarsal. No osteomyelitis was identified. He was started on IV cefepime and vancomycin and admitted to the hospitalist service. Ortho consulted regarding possible surgical intervention [facility] Disclaimer: The information contained in this section may have been updated after the patient was seen, as this information can be updated by other users. Medical History (Updated 11/22/22 @ 21:28 by Jyotsna Baez RN) Acid reflux Chronic venous insufficiency Depression Diabetes DVT (deep venous thrombosis) Hernia HLD (hyperlipidemia) Neuropathy Pulmonary embolism Smoker Urinary retention Varicose veins of both lower extremities Family History Other No significant family history Social History Smoking Status: Current every day smoker alcohol intake: never current occupational status: disabled Travel in the last 8 weeks: None housing: detention Meds Home Medications and Allergies Home Medications Medication Instructions Recorded Confirmed Type acetaminophen 650 mg 650 mg PO Q8HP PRN Mild Pain 09/08/20 11/23/22 History tablet,extended release (Pain (Scale Score 1-4) Relief (acetaminophen)) apixaban 5 mg tablet (Eliquis) 5 mg PO BID Blood Thinner/Afib 09/08/20 11/22/22 History aripiprazole 15 mg tablet 15 mg PO HS Mood 09/08/20 11/22/22 History atorvastatin 40 mg tablet 40 mg PO HS Cholesterol 09/08/20 11/23/22 History bupropion HCl 300 mg 24 hr tablet, 300 mg PO DAILY Mood 09/08/20 11/22/22 History extended release glimepiride 4 mg tablet 4 mg PO DAILY Diabetes 09/08/20 11/23/22 History insulin glargine 100 unit/mL 10 unit SQ HS Diabetes 09/08/20 11/23/22 History subcutaneous solution (Lantus U-100 Insulin) metoprolol succinate 25 mg 25 mg PO DAILY High Blood Pressure 09/08/20 11/22/22 History tablet,extended release 24 hr pantoprazole 40 mg tablet,delayed 40 mg PO DAILY Acid Reflux 09/08/20 11/22/22 History release polyethylene glycol 3350 17 17 g PO BIDP PRN constipation 09/08/20 11/23/22 History gram/dose oral powder tamsulosin 0.4 mg capsule 0.4 mg PO DAILY Prostate 09/08/20 11/22/22 History trazodone 50 mg tablet 50 mg PO HS Sleep 09/08/20 11/23/22 History oxybutynin chloride 10 mg 10 mg PO DAILY Bladder 11/22/22 11/22/22 History tablet,extended release 24 hr New Prescriptions to Start Prescriptions: Allergies Allergy/AdvReac Type Severity Reaction Status Date / Time No Known Allergies Allergy Verified 11/22/22 18:46 Ortho Exam (Inpt) Vital signs and Labs for Last 24 Hours: Temp Pulse Resp BP Pulse Ox O2 Del Method 97.7 F 80 16 108/62 L 96 Room Air 11/23
[2022-11-23 16:17] LABS: POC Glucose,Bedside 58 (70-110)
--- NOTE | 2022-11-23 17:04 | PC.NURSE ---
Pt A/O x4 on RA and activity as tolerated, Pt lower left extremity remains swollen with redness, wound care placed dressing to toes to left foot, Pt FSBS results have remained within range this shift and pt hasnt required coverage with insulin, Pt was NPO for a majority of the shift and has been advanced to a diabetic diet. Ortho consulted with Pt and with recommend antibiotic therapy7 at this time. Pt denies pain and has no other needs at this time.
--- NOTE | 2022-11-23 18:42 | CA_ITS ---
FINAL REPORT CLINICAL HISTORY: varicose veins and edema, cellulitis of LLE/foot. Prev PE and DVT, DM, HTN, smoker, Eliquis COMPARISON: None FINDINGS: DUPLEX VENOUS SONOGRAPHY OF THE LEFT LOWER EXTREMITY Multiple transverse and longitudinal scans were performed of the femoropopliteal deep venous system, with augmentation and compression maneuvers. HISTORY: Pain, edema and cellulitis. FINDINGS: Normal phasic flow was noted in the visualized deep venous system. No intraluminal increased echogenicity is noted to suggest thrombus. There is normal compression and augmentation of the venous structures. No abnormal venous collaterals are seen. Visualization of the calf veins is slightly limited secondary to soft tissue swelling in the calf. IMPRESSION: No evidence of deep venous thrombosis of the left lower extremity. Reviewed, Interpreted and Dictated by Celi Rosario MD Transcribed by Blanquita Jimenez Authenticated and [facility]
[2022-11-23 20:00] VITALS: BP 129/75; PULSE 80; RESP 19; TEMP 36.4; O2SAT 90
[2022-11-23 21:40] LABS: POC Glucose,Bedside 223 (70-110)
[2022-11-23 22:43] LABS: Vancomycin,Trough 15.2 ug/mL (5.0-10.0)
[2022-11-24 03:58] LABS: MANUAL DIFFERENTIAL MANUAL DIFFERENTIAL (MANUAL DIFF)
[2022-11-24 04:00] VITALS: BP 133/69; PULSE 78; RESP 19; TEMP 36.8; O2SAT 96; BMI 33.3
[2022-11-24 04:01] LABS: Basophils % 0.3 % (0.1-2.0); Eosinophils # 0.1 K/mm3 (0.0-0.4); Eosinophils % 1.4 % (0.1-12.0); Hematocrit 39.7 % (42.0-52.0); Lymphocytes # 1.1 K/mm3 (0.7-4.5); Lymphocytes % 15.5 % (10-50); Mean Corpuscular HGB Conc 30.6 g/dL (31.8-35.4); Mean Corpuscular Hemoglobin 27.3 pg (27.0-31.2); Mean Corpuscular Volume 89.3 fl (80-94); Mean Platelet Volume 8.6 fl (7.4-10.4); Monocytes # 0.5 K/mm3 (0.1-1.0); Monocytes % 7.4 % (1.7-9.3); Neutrophils # 5.2 K/mm3 (1.8-7.8); Neutrophils % 75.4 % (37.0-80.0); Platelet Count 248 K/mm3 (142-424); Red Blood Count 4.45 M/mm3 (4.60-6.20); Red Cell Distribution Width 15.3 % (11.5-17.5); White Blood Count 6.9 K/mm3 (4.8-10.8)
[2022-11-24 04:07] LABS: Potassium 3.7 mmoL/L (3.5-5.1); Sodium 143 mmol/L (136-145)
[2022-11-24 04:08] LABS: Chloride 111 mmol/L (98-107)
[2022-11-24 04:10] LABS: Anion Gap 10.7 mEq/L (5-15); Blood Urea Nitrogen 9 mg/dl (9-20); Carbon Dioxide 25 mmol/L (22.0-30.0); Creatinine Clearance Estimated 131 mL/min (50-200); Estimated Glomerular Filt Rate 98 ml/min (>60); GFR (African American) 119 ML/MIN (>60)
[2022-11-24 04:11] LABS: Calcium 8.1 mg/dl (8.4-10.2); Glucose 74 mg/dl (74-100)
[2022-11-24 04:44] LABS: Hemoglobin 12.1 g/dL (14.1-18.0)
[2022-11-24 04:50] LABS: Vancomycin,Peak 24.9 ug/ml (11-39)
[2022-11-24 06:06] LABS: Eosinophils % 1 % (0-3); Lymphocytes % 19 % (10-50); Monocytes % 2 % (2-9); Neutrophils % 77 % (42-76); Total Cells Counted 100
[2022-11-24 06:08] LABS: Acanthocytes 2+; Platelet Estimate Normal
[2022-11-24 06:09] LABS: Anisocytosis 1+
[2022-11-24 06:32] LABS: POC Glucose,Bedside 99 (70-110)
--- NOTE | 2022-11-24 07:53 | SW/DCPLANNER ---
Addendum entered by Martha Cordon 11/24/22 11:24: I arranged [employer] for this patient. Addendum entered by Martha Cordon 11/24/22 10:05: The plan for this patient is to return to [facility] today. I have updated Ana that patient will return and [facility] will be set up by once patient is ready for discharge today. Original Note: Patient currently resides at [facility]. PT evaluated patient yesterday and stated that once medically stable for discharge patient is physically able to return to [facility]. I will update Ana kelley/ Sonu this AM regarding patient and plans.
[2022-11-24 08:00] VITALS: BP 124/52; PULSE 75; RESP 17; TEMP 36.2; O2SAT 100
--- NOTE | 2022-11-24 09:39 | EXP.PHA.CONS ---
Pharmacy Consult Date: 11/24/22 Time: 09:39 Referring provider: DR. KNIGHT Reason for Consult:: VANCOMYCIN Allergies Allergy/AdvReac Type Severity Reaction Status Date / Time No Known Allergies Allergy Verified 11/22/22 18:46 Home Medications Medication Instructions Recorded Confirmed Type acetaminophen 650 mg 650 mg PO Q8HP PRN Mild Pain 09/08/20 11/23/22 History tablet,extended release (Pain (Scale Score 1-4) Relief (acetaminophen)) apixaban 5 mg tablet (Eliquis) 5 mg PO BID Blood Thinner/Afib 09/08/20 11/22/22 History aripiprazole 15 mg tablet 15 mg PO HS Mood 09/08/20 11/22/22 History atorvastatin 40 mg tablet 40 mg PO HS Cholesterol 09/08/20 11/23/22 History bupropion HCl 300 mg 24 hr tablet, 300 mg PO DAILY Mood 09/08/20 11/22/22 History extended release glimepiride 4 mg tablet 4 mg PO DAILY Diabetes 09/08/20 11/23/22 History insulin glargine 100 unit/mL 10 unit SQ HS Diabetes 09/08/20 11/23/22 History subcutaneous solution (Lantus U-100 Insulin) metoprolol succinate 25 mg 25 mg PO DAILY High Blood Pressure 09/08/20 11/22/22 History tablet,extended release 24 hr pantoprazole 40 mg tablet,delayed 40 mg PO DAILY Acid Reflux 09/08/20 11/22/22 History release polyethylene glycol 3350 17 17 g PO BIDP PRN constipation 09/08/20 11/23/22 History gram/dose oral powder tamsulosin 0.4 mg capsule 0.4 mg PO DAILY Prostate 09/08/20 11/22/22 History trazodone 50 mg tablet 50 mg PO HS Sleep 09/08/20 11/23/22 History oxybutynin chloride 10 mg 10 mg PO DAILY Bladder 11/22/22 11/22/22 History tablet,extended release 24 hr New Prescriptions to Start Prescriptions: Height: 1.91 m Weight: 121.336 kg Laboratory Results:: Laboratory Results - last 24 hr 11/23/22 11:08: POC Glucose 72 11/23/22 15:53: POC Glucose 58 L 11/23/22 21:31: POC Glucose 223 H 11/23/22 22:05: Vancomycin Trough 15.2 H 11/24/22 03:55: WBC 6.9 D, RBC 4.45 L, Hgb 12.1 L D, Hct 39.7 L, MCV 89.3, MCH 27.3, MCHC 30.6 L, RDW 15.3, Plt Count 248, MPV 8.6, Neut % (Auto) 75.4, Lymph % (Auto) 15.5, [place] % (Auto) 7.4, Eos % (Auto) 1.4, Baso % (Auto) 0.3, Neut # (Auto) 5.2, Lymph # (Auto) 1.1, [place] # (Auto) 0.5, Eos # (Auto) 0.1, Baso # (Auto) 0.0, Total Counted 100, Neutrophils % (Manual) 77 H, Lymphocytes % (Manual) 19, Monocytes % (Manual) 2, Eosinophils % (Manual) 1, Basophils % (Manual) 1.0, Platelet Estimate Normal, RBC Morphology Not Reportable, Anisocytosis 1+, Acanthocytes (Spur) 2+, Sodium 143, Potassium 3.7, Chloride 111 H, Carbon Dioxide 25, Anion Gap 10.7, BUN 9, Creatinine 0.80, Estimated Creat Clear 131, Estimated GFR 98, Est GFR ( Amer) 119 D, Glucose 74, Calcium 8.1 L, Vancomycin Peak 24.9 11/24/22 06:16: POC Glucose 99 Medical History: Medical History (Updated 11/22/22 @ 21:28 by Jyotsna Baez, BRAYAN) Acid reflux Chronic venous insufficiency Depression Diabetes DVT (deep venous thrombosis) Hernia HLD (hyperlipidemia) Neuropathy Pulmonary embolism Smoker Urinary retention Varicose veins of both lower extremities Assessment and Plan Assessment and plan all Dx Assessment and Plan for all problems:: PATIENT'S VANCOMYCIN LEVELS WERE 15.2 MCG/ML AND 24.9 MCG/ML FOR TROUGH AND PEAK, RESPECTIVELY. CONTINUE CURRENT DOSE AND INTERVAL.
--- NOTE | 2022-11-24 10:57 | EXP.DC.SUM ---
General Admission date:: 11/22/22 Discharge date: 11/24/22 HPI HPI HPI: This is a 62-year-old male that presents to [facility] emergency department for concerns of left foot swelling and erythema over several days. He reports seeing his PCP approximately 1 week ago and started on Omnicef. He reports that his foot is not improving. He describes crescendo edema from his foot up to his knee with associated erythema. He describes a past medical history for chronic venous insufficiency and varicose veins to left lower extremity. He reports a previous left lower extremity DVT with subsequent PE and currently on chronic Eliquis. He also reports diabetes, hypertension and ongoing tobacco dependence. He reports no associated fever, chills, falls and recalls no injury. He reports decreased sensation to his lower extremity. In the ED his fourth and fifth toes identify abrasions that are attributed to his desire to ambulate barefooted. In the ED he was afebrile with stable vital signs with an A1c 6.0% normal white blood cell count and negative lactic acid. His CRP and ESR were normal. CT of the left foot identified edema and concerns for a phlegmon at the distal fifth metatarsal. No osteomyelitis was identified. He was started on IV cefepime and vancomycin and admitted to the hospitalist service. Ortho consulted regarding possible surgical intervention Hospital Course Hospital Course Hospital Course: This is a 62-year-old male that presents to the emergency department with concerns of left foot edema and erythema. He resides at [facility] and describes chronic disability. He enjoys ambulating barefoot with no issues. Problems addressed as follows: Left lower extremity cellulitis Phlegmon left foot Chronic venous insufficiency ED ESR & CRP normal ED CT of left lower extremity with concerns for phlegmon at the distal fifth metatarsal Orthopedic consult reviewed Wound care consult IV cefepime IV vancomycin Transitioned to Levaquin 750 mg p.o. daily for 10 days on discharge Antiplatelet therapy Statin therapy Blood cultures no growth to date MRSA screen no growth to date Trending labs and inflammatory markers Venous Doppler left lower extremity with no identified DVT Topical wound care Pain control Chronic factor Xa inhibitor therapy I encouraged the patient to wear shoes daily Diabetes Routine blood sugar monitoring Hemoglobin A1c 6.0% Basal insulin therapy Sliding scale insulin therapy Carbohydrate controlled diet Please wear shoes to protect her feet Mood disorder Resident of [facility] Abilify therapy Wellbutrin therapy Trazodone therapy Routine nursing interaction Tobacco dependence Tobacco cessation education Nicotine replacement therapy The patient was evaluated by orthopedic surgery and no surgical intervention is recommended. The patient identified improvement in his lower extremity and inquired about discharge home. He will be discharged home on a course of Levaquin p.o. and advised to follow-up with his PCP in 1 week. He understands the importance of wearing shoes daily to protect his feet. I spent 35 minutes in [id number] time with the patient and nursing staff concerning the discharge process. We discussed the admitting diagnoses and hospital course. We discussed identified improvement and the patient's desire to be discharged. We reviewed inpatient studies and imaging. The patient voiced understanding on the importance of follow-up with his primary care provider and [employer] rede[employer] specialist(s). The patient plans to be compliant with the medication regimen prescribed and follow-up appointments. He understands that he can return to the emergency department with any sudden changes or concerns. Exam Data for Last 24 hours Vital signs and Labs for Last 24 Hours: Temp Pulse Resp BP Pulse Ox O2 Del Method 97.2 F L 75 17 124/52 L 100 Room Air 11/24/22 08:00 11/24
[2022-11-24 11:29] LABS: POC Glucose,Bedside 210 (70-110)
--- NOTE | 2022-11-25 13:34 | CARE MANAGER ---
Called and spoke with patient regarding recent discharge. He stated his is doing well. No concerns voiced at time of call.
[2022-12-04 09:17] LABS: MRSA DNA PCR Negative
== END 2022-11-24 14:33 | disposition home or self-care (01) ==
LOC: ER 17:46 → 2ND 22:23
PROVIDERS: Emergency Medicine; Admitting Provider Family Medicine; Emergency Provider Emergency Medicine; Visit Provider Family Medicine
DX: L03.116 Cellulitis of left lower limb (principal); I87.2 Venous insufficiency (chronic) (peripheral); E11.9 Type 2 diabetes mellitus without complications; Z79.01 Long term (current) use of anticoagulants; F39 Unspecified mood [affective] disorder; L03.90 Cellulitis, unspecified; L02.91 Cutaneous abscess, unspecified; F17.210 Nicotine dependence, cigarettes, uncomplicated; Z79.899 Other long term (current) drug therapy; Z79.4 Long term (current) use of insulin
CPT/HCPCS: 36415; 73610; 73630; 73701; 80048; 80053; 80202; 82009; 82550; 82962; 83036; 83605; 85007; 85014; 85018; 85025; 85048; 85049; 85651; 86140; 87040; 87641; 93971; 97163; 99285; G0378; Q9967

== ENCOUNTER 2023-04-06 13:37 | Inpatient (IN) | payer MEDICARE, OTHER, SELFPAY ==
[2023-04-06] VITALS (13 sets, daily range): BP systolic 88–111; BP diastolic 58–80; PULSE 79–107; RESP 11–25; TEMP 36.5–36.7; O2SAT 88–95; BMI 45.2; BMI 44.1
--- NOTE | 2023-04-06 14:02 | HMH.EDGENADL ---
Discharge Plan Disposition Patient Disposition: Home, Self-Care Prescriptions Prescriptions: No Action bupropion HCl 300 mg tablet extended release 24 hr 300 mg PO DAILY pantoprazole 40 mg tablet,delayed release (DR/EC) 40 mg PO DAILY metoprolol succinate 25 mg tablet extended release 24 hr 25 mg PO DAILY tamsulosin 0.4 mg capsule 0.4 mg PO DAILY glimepiride 4 mg tablet 4 mg PO DAILY Rx Instructions: morning and bedtime Eliquis 5 mg tablet 5 mg PO BID atorvastatin 40 mg tablet 40 mg PO HS trazodone 50 mg tablet 50 mg PO HS aripiprazole 15 mg tablet 15 mg PO HS Lantus U-100 Insulin 100 unit/mL solution 10 unit SQ HS polyethylene glycol 3350 17 gram/dose powder 17 g PO BIDP PRN (Reason: constipation) acetaminophen [Pain Relief (acetaminophen)] 650 mg tablet extended release 650 mg PO Q8HP PRN (Reason: Mild Pain (Scale Score 1-4)) aspirin 81 mg tablet,delayed release (DR/EC) See Rx Instructions .ROUTE .COMPLEX Qty: 30 11RF Dose Instruction: GIVE 1 TABLET BY MOUTH ONCE DAILY Rx Instructions: GIVE 1 TABLET BY MOUTH ONCE DAILY oxybutynin chloride 10 mg tablet extended release 24hr 10 mg PO DAILY levofloxacin 750 mg tablet 750 mg PO DAILY Qty: 10 0RF Referrals Follow up/Referrals: Provider,Referral, [Primary Care Provider] - See instructions Activity Restrictions/Add. Instructions Additional Instructions/Restrictions: Call your family doctor to establish care for this visit to the emergency department and schedule follow-up within 48 hours to ensure improvement. If you have any worsening of your condition or any other concerning signs or symptoms, return to the emergency department or your primary care doctor for further evaluation. Clinical Impressions Clinical Impression: Cellulitis of left lower extremity, Abdominal wall cellulitis, Cellulitis of right thigh, Cellulitis of left thigh, UTI (urinary tract infection), Hypoxic respiratory failure, Pulmonary edema, Pleural effusion Discharge ED Provider: Chapo Perez General Adult HPI <Chapo Perez MD - Last Filed: 04/06/23 15:02> General Chief complaint: Extremity Problem,Nontraumatic Stated complaint: CELLUTLITIS Time Seen by Provider: 04/06/23 13:40 Mode of Arrival: EMS Source of Information: Patient, EMS and Medical Record Limitations: No Limitations Description of Symptoms (Recalled from ER Triage Doc. by RN): pt is a resident at [facility] and came in today with left leg cellulitis and left leg pain as well as new onset urinary incontence History of Present Illness HPI narrative: 62-year-old male history of hypertension, hyper low EMEA, DVT, PE on Eliquis, schizophrenia presenting with left lower extremity swelling. Patient states that he has had redness and discomfort in his left lower extremity for the past few days. Started developing a blister on it today. Post on the blister, it popped and leaked out clear fluid. Because of this, came to the emergency department for further evaluation. No fevers, chills, nausea, vomiting, dysuria, hematuria, trauma to the area. Patient has again all of his medications as prescribed and as he should. Related Data Home Medications Medication Instructions Recorded Confirmed acetaminophen 650 mg 650 mg PO Q8HP PRN Mild Pain 09/08/20 11/23/22 tablet,extended release (Pain (Scale Score 1-4) Relief (acetaminophen)) apixaban 5 mg tablet (Eliquis) 5 mg PO BID Blood Thinner/Afib 09/08/20 11/22/22 aripiprazole 15 mg tablet 15 mg PO HS Mood 09/08/20 11/22/22 atorvastatin 40 mg tablet 40 mg PO HS Cholesterol 09/08/20 11/23/22 bupropion HCl 300 mg 24 hr tablet, 300 mg PO DAILY Mood 09/08/20 11/22/22 extended release glimepiride 4 mg tablet 4 mg PO DAILY Diabetes 09/08/20 11/23/22 insulin glargine 100 unit/mL 10 unit SQ HS Diabetes 09/08/20 11/23/22 subcutaneous solution (Lantus U-100 Insulin) metoprolol succinate 25 mg 25 mg PO DAILY High Blood Pressure 09/08/20 11/22/22 tablet,extended release 24 hr pantoprazole 40 mg tablet,delayed 40 mg PO DAILY Acid Reflux 09/08/20 11/22/22 release polyethylene glycol 3350 17 17 g PO BIDP PRN constipation 09/08/20 11/23/22 gram/dose oral powder tamsulosin 0.4 mg capsule 0.4 mg PO DAILY Prostate 09/08/20 11/22/22 trazodone 50 mg tablet 50 mg PO HS Sleep 09/08/20 11/23/22 oxybutynin chloride 10 mg 10 mg PO DAILY Bladder 11/22/22 11/22/22 tablet,extended release 24 hr Previous Rx's Medication Instructions Recorded levofloxacin 750 mg tablet 750 mg PO DAILY #10 tabs 11/24/22 aspirin 81 mg tablet,delayed See Rx Instructions .Route 12/07/22 release .COMPLEX #30 ea Allergies Allergy/AdvReac Type Severity Reaction Status Date / Time No Known Allergies Allergy Verified 11/22/22 18:46 PFS <Chapo Perez MD - Last Filed: 04/06/23 15:02> [facility] Disclaimer: The information contained in this section may have been updated after the patient was seen, as this information can be updated by other users. Medical History (Updated 04/06/23 @ 16:42 by Ky Caballero MD) Acid reflux Chronic venous insufficiency Depression Diabetes DVT (deep venous thrombosis) Hernia HLD (hyperlipidemia) Neuropathy Pulmonary embolism Smoker Urinary retention Varicose veins of both lower extremities Family History Other No significant family history Social History Smoking Status: Current every day smoker alcohol intake: never current occupational status: disabled Travel in the last 8 weeks: None housing: [facility] <Chapo Perez MD - Last Filed: 04/06/23 15:02> ROS Obtained: Yes All systems reviewed & no additional complaints except as documented Physical Exam <Chapo Perez MD - Last Filed: 04/06/23 15:02> General General appearance: alert, in no apparent distress and obese Head Head exam: atraumatic and normocephalic Eye Eye exam: Present normal appearance, PERRL and EOMI ENT ENT exam: Present mucous membranes moist Neck Neck exam: Present normal inspection, full ROM and trachea midline Respiratory Respiratory exam: Absent respiratory distress, wheezes, stridor, accessory muscle use or prolonged expiratory phase Cardiovascular Cardiovascular exam: Present normal rhythm Abdominal Exam Abdominal exam: Present soft; Absent distention, tenderness, guarding, rebound or rigidity Extremities Exam Extremities exam: Present edema and other (Tenderness, erythema, desquamated blister left lower extremity anteriorly. Warm, brisk capillary refill. Concern for cellulitis. Bilateral 2+ lower extremity pitting edema) Neurological Exam Neurological exam: Present alert, oriented X3, CN II-XII intact and normal gait; Absent motor sensory deficit Skin Skin exam: Present warm and dry; Absent diaphoresis or erythema Medical Decision Making <Chapo Perez MD - Last Filed: 04/06/23 15:02> Medical Records Medical records reviewed: Yes I reviewed the patient's medical records. Jacinto Inquiry Pt receiving controlled substance: No Jacinto was queried for this patient: No Vital Signs: 04/06/23 13:38 04/06/23 13:39 04/06/23 14:07 Temperature 98.0 F Temperature Source Oral Pulse Rate 105 H 86 Pulse Rate [Right Radial] 107 H Respiratory Rate 20 13 Blood Pressure 109/80 L 111/70 Blood Pressure [Right Arm] 109/80 L Blood Pressure Mean 87 85 Blood Pressure Mean [Right Arm] 89 02 Sat by Pulse Oximetry 94 L 93 L 90 L Oxygen Delivery Method Room Air 04/06/23 14:31 04/06/23 15:01 Temperature Temperature Source Pulse Rate 92 H 97 H Pulse Rate [Right Radial] Respiratory Rate 17 11 L Blood Pressure 88/67 L 105/58 L Blood Pressure [Right Arm] Blood Pressure Mean 74 73 Blood Pressure Mean [Right Arm] 02 Sat by Pulse Oximetry 89 L 88 L Oxygen Delivery Method Lab Data Lab Results 04/06/23 13:50: WBC 5.5, RBC 4.06 L, Hgb 9.5 L, Hct 32.5 L, MCV 80.0, MCH 23.5 L, MCHC 29.4 L, RDW 16.7, Plt Count 286, MPV 6.9 L, Neut % (Auto) 68.1, Lymph % (Auto) 18.8, [place] % (Auto) 11.0 H, Eos % (Auto) 1.8, Baso % (Auto) 0.3, Neut # (Auto) 3.7, Lymph # (Auto) 1.0, [place] # (Auto) 0.6, Eos # (Auto) 0.1, Baso # (Auto) 0.0, PT 14.6 H, INR 1.38 H, Sodium 134 L, Potassium 4.7, Chloride 106, Carbon Dioxide 26, Anion Gap 6.7, BUN 17, Creatinine 1.00, Estimated Creat Clear 92, Estimated GFR 76, Est GFR ( Amer) 92, Glucose 140 H, Lactate 1.4, Calcium 8.0 L, Total Bilirubin 1.3, AST 25, ALT 20, Alkaline Phosphatase 145 H, Total Protein 6.6, Albumin 3.1 L, Globulin 3.5 H, Albumin/Globulin Ratio 0.9 L 04/06/23 16:00: Urine Color Yellow, Urine Appearance Sl cloudy, Urine pH 8.5, Ur Specific [place] 1.015, Urine Protein 1+, Urine Glucose (UA) Negative, Urine Ketones Negative, Urine Blood 3+, Urine Nitrate Negative, Urine Bilirubin 1+ A, Urine Urobilinogen >=8.0, Ur Leukocyte Esterase 3+ A, Urine RBC 3-5, Urine WBC 20-50, Ur Squamous Epith Cells Occasional, Urine Bacteria 3+ 04/06/23 13:50 04/06/23 13:50 Orders (Tests/Meds): ED MEDICATIONS Generic Name Dose Route Start Last Admin Trade Name Freq PRN Reason Stop Dose Admin Piperacillin Sod/Tazobactam 50 mls @ 100 mls/hr 04/06/23 16:31 04/06/23 16:39 Sod 3.375 gm/ Sodium Chloride IV 04/06/23 17:00 100 mls/hr ONCE ONE Administration Discontinued Medications Generic Name Dose Route Start Last Admin Trade Name Freq PRN Reason Stop Dose Admin Dalbavancin 1,500 mg/ Dextrose 250 mls @ 500 mls/hr 04/06/23 14:45 04/06/23 15:04 IV 04/06/23 14:46 500 mls/hr ONCE ONE Administration Lactated Ringer's 1,000 mls @ 999 mls/hr 04/06/23 14:58 04/06/23 16:04 Lactated Ringer's 1000 Ml Bag IV 04/06/23 15:58 999 mls/hr .Q1H1M ONE Administration ORDERS Category Date Time Status CXR --portable [XR chest portable] Stat Exams 04/06/23 14:20 Completed POCUS Point of Care (ER Only) Stat Exams 04/06/23 16:30 Ordered BNP [Brain Natriuretic Peptide] Stat Lab 04/06/23 13:50 Received CBC w/Auto Diff [Complete Blood Count Auto Diff] Stat Lab 04/06/23 13:50 Completed CMP [Comprehensive Metabolic Panel] Stat Lab 04/06/23 13:50 Completed Lactic Acid Stat Lab 04/06/23 13:50 Completed PT INR [Prothrombin Time INR] Stat Lab 04/06/23 13:50 Completed UA [Urinalysis and Microscopic] Stat Lab 04/06/23 16:00 Completed Blood Culture Stat Micro 04/06/23 13:50 Received Urine Culture Stat Micro 04/06/23 16:00 Received CA venous doppler LE LT Stat Y 04/06/23 16:36 Ordered Medical Decision Narrative: 62-year-old male history of hypertension, hyper low EMEA, DVT, PE on Eliquis, schizophrenia presenting with left lower extremity swelling. Patient states that he has had redness and discomfort in his left lower extremity for the past few days. Started developing a blister on it today. Post on the blister, it popped and leaked out clear fluid. Because of this, came to the emergency department for further evaluation. No fevers, chills, nausea, vomiting, dysuria, hematuria, trauma to the area. Patient has again all of his medications as prescribed and as he should. History was obtained via conversation with patient and EMS. On arrival, patient hemodynamically stable, alert, oriented x4, appropriate, GCS 15, moving all extremities spontaneously, pupils equal and reactive to light. Full physical exam performed and significant for other relevant findings/NIHSS. Differential includes cellulitis, abscess, DVT, deep space infection, among others. Patient was given fluid bolus, dalbavancin for symptomatic management and correction of underlying abnormalities. Workup independently interpreted and significant for no leukocytosis, nonactionable CBC or chemistry. Kidney function stable. Lactate negative. Chest x-ray without acute cardiopulmonary airspace disease. See radiology read for full review of final results. On reevaluation, patient given Dalvance. Given patient presentation, workup, history, this most likely represents left lower extremity cellulitis. Because patient at baseline without signs or symptoms of clinical decompensation, deemed appropriate for discharge. Results were relayed to patient who voiced understanding and were agreeable to outpatient management and follow up. At the time of discharge the patient was hemodynamically stable, tolerating PO, and mobilizing appropriately. <Ky Caballero MD - Last Filed: 04/06/23 16:50> Vital Signs: 04/06/23 13:38 04/06/23 13:39 04/06/23 14:07 Temperature 98.0 F Temperature Source Oral Pulse Rate 105 H 86 Pulse Rate [Right Radial] 107 H Respiratory Rate 20 13 Blood Pressure 109/80 L 111/70 Blood Pressure [Right Arm] 109/80 L Blood Pressure Mean 87 85 Blood Pressure Mean [Right Arm] 89 02 Sat by Pulse Oximetry 94 L 93 L 90 L Oxygen Delivery Method Room Air 04/06/23 14:31 04/06/23 15:01 Temperature Temperature Source Pulse Rate 92 H 97 H Pulse Rate [Right Radial] Respiratory Rate 17 11 L Blood Pressure 88/67 L 105/58 L Blood Pressure [Right Arm] Blood Pressure Mean 74 73 Blood Pressure Mean [Right Arm] 02 Sat by Pulse Oximetry 89 L 88 L Oxygen Delivery Method Lab Data Lab results reviewed: Yes I reviewed the patient's lab results. Lab Results 04/06/23 13:50: WBC 5.5, RBC 4.06 L, Hgb 9.5 L, Hct 32.5 L, MCV 80.0, MCH 23.5 L, MCHC 29.4 L, RDW 16.7, Plt Count 286, MPV 6.9 L, Neut % (Auto) 68.1, Lymph % (Auto) 18.8, [place] % (Auto) 11.0 H, Eos % (Auto) 1.8, Baso % (Auto) 0.3, Neut # (Auto) 3.7, Lymph # (Auto) 1.0, [place] # (Auto) 0.6, Eos # (Auto) 0.1, Baso # (Auto) 0.0, PT 14.6 H, INR 1.38 H, Sodium 134 L, Potassium 4.7, Chloride 106, Carbon Dioxide 26, Anion Gap 6.7, BUN 17, Creatinine 1.00, Estimated Creat Clear 92, Estimated GFR 76, Est GFR ( Amer) 92, Glucose 140 H, Lactate 1.4, Calcium 8.0 L, Total Bilirubin 1.3, AST 25, ALT 20, Alkaline Phosphatase 145 H, Total Protein 6.6, Albumin 3.1 L, Globulin 3.5 H, Albumin/Globulin Ratio 0.9 L 04/06/23 16:00: Urine Color Yellow, Urine Appearance Sl cloudy, Urine pH 8.5, Ur Specific [place] 1.015, Urine Protein 1+, Urine Glucose (UA) Negative, Urine Ketones Negative, Urine Blood 3+, Urine Nitrate Negative, Urine Bilirubin 1+ A, Urine Urobilinogen >=8.0, Ur Leukocyte Esterase 3+ A, Urine RBC 3-5, Urine WBC 20-50, Ur Squamous Epith Cells Occasional, Urine Bacteria 3+ Orders (Tests/Meds): ED MEDICATIONS Generic Name Dose Route Start Last Admin Trade Name Freq PRN Reason Stop Dose Admin Piperacillin Sod/Tazobactam 50 mls @ 100 mls/hr 04/06/23 16:31 04/06/23 16:39 Sod 3.375 gm/ Sodium Chloride IV 04/06/23 17:00 100 mls/hr ONCE ONE Administration Discontinued Medications Generic Name Dose Route Start Last Admin Trade Name Freq PRN Reason Stop Dose Admin Dalbavancin 1,500 mg/ Dextrose 250 mls @ 500 mls/hr 04/06/23 14:45 04/06/23 15:04 IV 04/06/23 14:46 500 mls/hr ONCE ONE Administration Lactated Ringer's 1,000 mls @ 999 mls/hr 04/06/23 14:58 04/06/23 16:04 Lactated Ringer's 1000 Ml Bag IV 04/06/23 15:58 999 mls/hr .Q1H1M ONE Administration ORDERS Category Date Time Status CXR --portable [XR chest portable] Stat Exams 04/06/23 14:20 Completed POCUS Point of Care (ER Only) Stat Exams 04/06/23 16:30 Ordered BNP [Brain Natriuretic Peptide] Stat Lab 04/06/23 13:50 Received CBC w/Auto Diff [Complete Blood Count Auto Diff] Stat Lab 04/06/23 13:50 Completed CMP [Comprehensive Metabolic Panel] Stat Lab 04/06/23 13:50 Completed Lactic Acid Stat Lab 04/06/23 13:50 Completed PT INR [Prothrombin Time INR] Stat Lab 04/06/23 13:50 Completed UA [Urinalysis and Microscopic] Stat Lab 04/06/23 16:00 Completed Blood Culture Stat Micro 04/06/23 13:50 Received Urine Culture Stat Micro 04/06/23 16:00 Received CA venous doppler LE LT Stat Y 04/06/23 16:36 Ordered Medical Decision Narrative: 62-year-old male history of hypertension, hyper low EMEA, DVT, PE on Eliquis, schizophrenia presenting with left lower extremity swelling. Patient states that he has had redness and discomfort in his left lower extremity for the past few days. Started developing a blister on it today. Post on the blister, it popped and leaked out clear fluid. Because of this, came to the emergency department for further evaluation. No fevers, chills, nausea, vomiting, dysuria, hematuria, trauma to the area. Patient has again all of his medications as prescribed and as he should. History was obtained via conversation with patient and EMS. On arrival, patient hemodynamically stable, alert, oriented x4, appropriate, GCS 15, moving all extremities spontaneously, pupils equal and reactive to light. Full physical exam performed and significant for other relevant findings/NIHSS. Differential includes cellulitis, abscess, DVT, deep space infection, among others. Patient was given fluid bolus, dalbavancin for symptomatic management and correction of underlying abnormalities. Workup independently interpreted and significant for no leukocytosis, nonactionable CBC or chemistry. Kidney function stable. Lactate negative. Chest x-ray without acute cardiopulmonary airspace disease. See radiology read for full review of final results. On reevaluation, patient given Dalvance. Given patient presentation, workup, history, this most likely represents left lower extremity cellulitis. Because patient at baseline without signs or symptoms of clinical decompensation, deemed appropriate for discharge. Results were relayed to patient who voiced understanding and were agreeable to outpatient management and follow up. At the time of discharge the patient was hemodynamically stable, tolerating PO, and mobilizing appropriately. This is Dr. Caballero I took over from Dr. Perez at 3 PM. Patient has evidence of hypoxic respiratory failure with oxygen saturations in the mid 80s on room air. Chest x-ray is concerning for pulmonary edema. I did a limited bedside ultrasound the patient's heart and lungs demonstrating pulmonary edema and pleural effusion. Also patient has anasarca and diffuse body wall edema this is consistent likely with right atrial pressure elevations and undiagnosed diastolic heart dysfunction or heart failure. He will need further cardiac workup and diuresis. I will get some likely the patient has a DVT but he does have a history of DVT and we will get a left lower extremity ultrasound as well. He does take anticoagulation claims to be compliant with this. He was given dalbavancin by Dr. Perez for probable outpatient management of his cellulitis. However he has extensive cellulitis in his abdominal wall going into his perineum his thighs as well as his left lower extremity. No evidence of any significant skin breakdown concerning for Rony's gangrene. Also is not having any signs or symptoms of systemic illness. Holding off any type of CT imaging to evaluate that further. Patient also has a urinary tract infection will need gram-negative coverage for that reason Zosyn was added. Patient was given oxygen supplementation will require admission for all of the above reasons. Patient was discussed with Dr. Uziel Jones who agreed to accept the patient for further evaluation and treatment. <Ky Caballero MD - Last Filed: 04/06/23 16:50> Miscellaneous Procedure Procedure Performed: Limited cardiac ultrasound Indication: Dyspnea Identified structures: The heart was visualized in the parasternal long axis, parastenal short axis, apical four chamber and subxyphiod views. The IVC was visualized in the short axis and long axis at its entry into the right atrium. Findings: There are moderate to severe depression of LVEF no significant right heart strain, no pericardial effusion, significant right atrial enlargement IVC is plethoric with no respirophasic variation Impression: No evidence of heart failure with reduced ejection fraction but concern for diastolic heart dysfunction valvular dysfunction etc. will require a formal echo. Findings concerning for elevated right atrial pressures. Images were saved to permanent archive The study was technically adequate CPT: 33699-28 This study was performed by nd, and I personally interpreted all images/videos. Based on my clinical judgement, these images were added and did necessitate further imaging. Limited lung ultrasound A focused ultrasound exam of the pleural spaces was performed to evaluate for pneumothorax, pulmonary edema, pleural effusion and/or consolidation. The ultrasound was performed with the following indications, as noted in the H&P: Dyspnea hypoxic respiratory failure Identified structures: [RIGHT and/or LEFT] thoracic cavities were examined. Findings: Lung sliding present bilaterally there are B-lines throughout and a pleural effusion on the right side without focal consolidation Impression: B-lines throughout but the right-sided pleural effusion consistent with pulmonary edema and pleural effusion Images are saved to permanent archive The study was technically adequate CPT 97343-14 This study was performed by nd, and I personally interpreted all images/videos. Based on my clinical judgement, these images were adequate and did not necessitate further imaging. Critical Care <Chapo Perez MD - Last Filed: 04/06/23 15:02> Critical Care Time Critical Care Time: No <J Epifanio Caballero MD - Last Filed: 04/06/23 16:50> Critical Care Time Critical Care Time: Yes Attestation: On 04/06/23, the high probability of a clinically significant, sudden or life threatening deterioration of the following system(s) required my full and direct attention, intervention and personal management. The time I documented below is in addition to time spent performing reported procedures but includes the following listed in this critical care notation. Total Time Total Critical Care Time: 35
--- NOTE | 2023-04-06 14:09 | PC.NURSE ---
does not want the order for a doppler at this time.
[2023-04-06 14:15] LABS: Chloride 106 mmol/L (98-107); Sodium 134 mmol/L (136-145)
--- NOTE | 2023-04-06 14:15 | PC.NURSE ---
Pt placed in gown after bathing pt, redness noted t/o sacha area, upper lower extremity redness and lower left leg redness, warmth with open blister
[2023-04-06 14:16] LABS: Potassium 4.7 mmoL/L (3.5-5.1)
[2023-04-06 14:18] LABS: Alanine Aminotransferase 20 U/L (12-78); Albumin Level 3.1 g/dl (3.5-5.0); Albumin/Globulin Ratio 0.9 (1.1-1.8); Alkaline Phosphatase 145 U/L (38-126); Anion Gap 6.7 mEq/L (5-15); Aspartate Amino Transferase 25 U/L (17-59); Bilirubin,Total 1.3 mg/dl (0.2-1.3); Blood Urea Nitrogen 17 mg/dl (9-20); Carbon Dioxide 26 mmol/L (22.0-30.0); Creatinine Clearance Estimated 92 mL/min (50-200); Estimated Glomerular Filt Rate 76 ml/min (>60); GFR (African American) 92 ML/MIN (>60); Globulin 3.5 g/dL (1.3-3.2); Glucose 140 mg/dl (74-100); INR 1.38 (0.9-1.1); Lactic Acid 1.4 mmol/L (0.7-2.1); Prothrombin Time 14.6 seconds (10.1-12.5); Total Protein,Serum 6.6 g/dl (6.3-8.2)
--- NOTE | 2023-04-06 14:20 | XR_ITS ---
FINAL REPORT CLINICAL HISTORY: soa, smoker extremity swelling FINDINGS: SINGLE VIEW CHEST There is cardiomegaly with pulmonary vascular congestion. The mediastinum is unremarkable. There are partially improved pulmonary opacities consistent with improving edema or pneumonia. There is no pneumothorax. IMPRESSION: Improving edema or pneumonia. Reviewed, Interpreted and Dictated by Sergio Briscoe III, MD Transcribed by Tiffany Angeles Authenticated and [facility]
[2023-04-06 14:21] LABS: Basophils % 0.3 % (0.1-2.0); Eosinophils # 0.1 K/mm3 (0.0-0.4); Eosinophils % 1.8 % (0.1-12.0); Hematocrit 32.5 % (42.0-52.0); Hemoglobin 9.5 g/dL (14.1-18.0); Lymphocytes % 18.8 % (10-50); Mean Corpuscular HGB Conc 29.4 g/dL (31.8-35.4); Mean Corpuscular Hemoglobin 23.5 pg (27.0-31.2); Mean Platelet Volume 6.9 fl (7.4-10.4); Monocytes # 0.6 K/mm3 (0.1-1.0); Neutrophils # 3.7 K/mm3 (1.8-7.8); Neutrophils % 68.1 % (37.0-80.0); Platelet Count 286 K/mm3 (142-424); Red Blood Count 4.06 M/mm3 (4.60-6.20); Red Cell Distribution Width 16.7 % (11.5-17.5); White Blood Count 5.5 K/mm3 (4.8-10.8)
--- NOTE | 2023-04-06 14:25 | PC.NURSE ---
pt was stripped and all clothes placed in bags, pt was given a bed bath, fresh bed linens, gown and placed back on all monitors. pt was then given a comb for his hair and a bottle of water for a drink.
--- NOTE | 2023-04-06 14:35 | PC.NURSE ---
xray at bedside
[2023-04-06] MEDS: DALBAVANCIN HCL 1,500 MG in DEXTROSE 5 % IN WATER 250 ML 500 MG IV (15:04)
[2023-04-06 16:02] LABS: Microscopic, Urine URINE MICROSCOPIC (MICROSCOPIC)
[2023-04-06] MEDS: LACTATED RINGERS 1000ML 1,000 ML 999 ML IV (16:04)
[2023-04-06 16:08] LABS: Appearance,Urine SL CLOUDY (Clear); Blood, Urine 3+ (Negative); Color,Urine YELLOW (Yellow); Glucose,Urine (UA) Negative (Negative); Ketones,Urine Negative (Negative); Leukocyte Esterase,Urine 3+ (Negative); Nitrate,Urine Negative (Negative); PH,Urine 8.5 (5.0-8.5); Protein,Urine 1+ (Negative); Specific Gravity, Urine 1.015 (1.005-1.030); Urobilinogen,Urine >=8.0 EU/dl (0.2)
[2023-04-06 16:14] LABS: Bilirubin,Urine 1+ (Negative)
[2023-04-06 16:23] LABS: Bacteria,Urine 3+ /lpf; Squamous Epithelial Cell,Urine Occasional #/hpf (0-5); WBC,Urine 20-50 #/hpf (0-3)
--- NOTE | 2023-04-06 16:31 | PC.NURSE ---
pt placed on 2 L NC per
--- NOTE | 2023-04-06 16:36 | CA_ITS ---
FINAL REPORT TECHNIQUE: Color Doppler, duplex Doppler and compression sonography of the left lower extremity deep venous systems was performed. CLINICAL HISTORY: CELLULITIS,REDNESS,BLISTERS LEFT LOWER LEG,EDEMA,OBESITY FINDINGS: There is no evidence of deep venous thrombosis from the level of the groin to the calf. The veins are patent and compressible. IMPRESSION: No evidence of deep venous thrombosis left lower extremity. Reviewed, Interpreted and Dictated by Sergio Briscoe III, MD Transcribed by Tiffany Angeles Authenticated and [facility]
[2023-04-06] MEDS: PIPERACILLIN/TAZO 3.375 GM in 0.9 % SODIUM CHLORIDE 50 ML IV (16:39)
--- NOTE | 2023-04-06 16:48 | PC.NURSE ---
spoke with household appliance mechanic regarding admission and dta placed
[2023-04-06 16:53] LABS: NT Pro Brain Natriuretic Pep. 5950 pg/mL (0-125)
--- NOTE | 2023-04-06 16:54 | PC.NURSE ---
doppler at bedside
--- NOTE | 2023-04-06 17:10 | PC.NURSE ---
PNEUMATIC TUBE OPERATOR has attempted to call report to floor twice now
--- NOTE | 2023-04-06 17:18 | PC.NURSE ---
called report to Melvina SCHMIDT on 2nd floor and answered all questions
[2023-04-06 17:32] LABS: Thyroid Stimulating Hormone 5.52 uIU/mL (0.465-4.68)
--- NOTE | 2023-04-06 17:42 | P.HP_ITS ---
History of Present Illness *Admission Date: 04/06/23 *Reason for visit:: swelling, leg pain *History of present illness: Mr. Chappell is a 62-year-old male who resides at [facility]. He has a history of hypertension, hyperlipidemia, DVT, PE, schizophrenia, morbid obesity, diabetes. He presented to the ER because of worsening left lower extremity swelling and pain. Noted to have some redness and drainage from a ruptured blister. The redness and discomfort in his lower extremity have been worsening for the past few days. Developed a blister today and it ruptured leaking clear fluid. Came to the ER for further evaluation. Denies fever, chills, systemic symptoms. No nausea or vomiting. Does complain of shortness of breath and worsening swelling in his legs over the past few weeks. Workup in the ER concerning for cellulitis. Patient developed hypoxia in the ER which led to further evaluation showing concern for CHF exacerbation and volume overload with BNP of 5900. Initiated on oxygen. Received Dalvance in the ER for his cellulitis. Medicine consulted for admission and further management. After arriving to the floor, patient is alert and oriented x 4. Continues to complain of some pain in his leg. Smells frankly of urine. Stable on 2 L nasal cannula oxygen. [facility] Disclaimer: The information contained in this section may have been updated after the patient was seen, as this information can be updated by other users. Medical History Acid reflux Chronic venous insufficiency Depression Diabetes DVT (deep venous thrombosis) Hernia HLD (hyperlipidemia) Neuropathy Pulmonary embolism Smoker Urinary retention Varicose veins of both lower extremities Family History No significant family history Social History Smoking Status: Current every day smoker alcohol intake: never current occupational status: disabled Travel in the last 8 weeks: None housing: half-way Review of Systems Review of Systems Review of systems (narrative): 14 point review of systems performed, pertinent positives and negatives as per HPI Meds Home Medications and Allergies Home Medications Medication Instructions Recorded Confirmed Type acetaminophen 650 mg 650 mg PO Q8HP PRN Mild Pain 09/08/20 04/06/23 History tablet,extended release (Pain (Scale Score 1-4) Relief (acetaminophen)) apixaban 5 mg tablet (Eliquis) 5 mg PO BID Blood Thinner/Afib 09/08/20 04/06/23 History aripiprazole 15 mg tablet 15 mg PO HS Mood 09/08/20 04/06/23 History atorvastatin 40 mg tablet 40 mg PO HS Cholesterol 09/08/20 04/06/23 History bupropion HCl 300 mg 24 hr tablet, 300 mg PO DAILY Mood 09/08/20 04/06/23 History extended release glimepiride 4 mg tablet 4 mg PO DAILY Diabetes 09/08/20 04/06/23 History insulin glargine 100 unit/mL 10 unit SQ HS Diabetes 09/08/20 04/06/23 History subcutaneous solution (Lantus U-100 Insulin) metoprolol succinate 25 mg 25 mg PO DAILY High Blood Pressure 09/08/20 04/06/23 History tablet,extended release 24 hr pantoprazole 40 mg tablet,delayed 40 mg PO DAILY Acid Reflux 09/08/20 04/06/23 History release polyethylene glycol 3350 17 17 g PO BIDP PRN constipation 09/08/20 04/06/23 History gram/dose oral powder tamsulosin 0.4 mg capsule 0.4 mg PO DAILY Prostate 09/08/20 04/06/23 History trazodone 50 mg tablet 50 mg PO HS Sleep 09/08/20 04/06/23 History oxybutynin chloride 10 mg 10 mg PO DAILY Bladder 11/22/22 04/06/23 History tablet,extended release 24 hr aspirin 81 mg tablet,delayed See Rx Instructions .Route 12/07/22 04/06/23 Rx release .COMPLEX #30 ea New Prescriptions to Start Prescriptions: Allergies Allergy/AdvReac Type Severity Reaction Status Date / Time No Known Allergies Allergy Verified 11/22/22 18:46 Exam Data for Last 24 hours Vital signs and Labs for Last 24 Hours: Temp Pulse Resp BP Pulse Ox O2 Del Method 98.0 F 100 H 17 99/59 L 94 L Room Air 04/06/23 13:38 04/06/23 17:30 04/06/23 17:30 04/06/23 17:30 04/06/23 17:30 04/06/23 17:30 Laboratory Results - last 24 hr 04/06/23 13:00: TSH 5.52 H 04/06/23 13:50: WBC 5.5, RBC 4.06 L, Hgb 9.5 L, Hct 32.5 L, MCV 80.0, MCH 23.5 L , MCHC 29.4 L, RDW 16.7, Plt Count 286, MPV 6.9 L, Neut % (Auto) 68.1, Lymph % (Auto) 18.8, [place] % (Auto) 11.0 H, Eos % (Auto) 1.8, Baso % (Auto) 0.3, Neut # (Auto) 3.7, Lymph # (Auto) 1.0, [place] # (Auto) 0.6, Eos # (Auto) 0.1, Baso # (Auto) 0.0, PT 14.6 H, INR 1.38 H, Sodium 134 L, Potassium 4.7, Chloride 106, Carbon Dioxide 26, Anion Gap 6.7, BUN 17, Creatinine 1.00, Estimated Creat Clear 92, Estimated GFR 76, Est GFR ( Amer) 92, Glucose 140 H, Lactate 1.4, Calcium 8.0 L, Total Bilirubin 1.3, AST 25, ALT 20, Alkaline Phosphatase 145 H, NT-Pro-B Natriuret Pep 5950 H, Total Protein 6.6, Albumin 3.1 L, Globulin 3.5 H, Albumin/Globulin Ratio 0.9 L 04/06/23 16:00: Urine Color Yellow, Urine Appearance Sl cloudy, Urine pH 8.5, Ur Specific [place] 1.015, Urine Protein 1+, Urine Glucose (UA) Negative, Urine Ketones Negative, Urine Blood 3+, Urine Nitrate Negative, Urine Bilirubin 1+ A, Urine Urobilinogen >=8.0, Ur Leukocyte Esterase 3+ A, Urine RBC 3-5, Urine WBC 20-50, Ur Squamous Epith Cells Occasional, Urine Bacteria 3+ I & O for Last 24 hours: Intake & Output 04/03/23 04/04/23 04/05/23 04/06/23 23:59 23:59 23:59 23:59 Weight 164.2 kg Constitutional Constitutional: no acute distress, morbidly obese, chronically ill appearing, disheveled and cooperative *Routine HEENT Exam Head: Present normocephalic and atraumatic Eye: Present EOMI and PERRL ENT: Present mucous membranes moist *Routine Neck Exam Neck: Present supple and trachea midline; Absent lymphadenopathy *Routine Respiratory Exam Respiratory: Present crackles, normal respiratory effort and symmetric chest movement; Absent respiratory distress or rhonchi *Routine Cardiovascular Exam Cardiovascular: Present RRR, Normal S1 and Normal S2; Absent murmur *Routine Abdominal Exam Abdominal: Present soft and normoactive bowel sounds; Absent tenderness or distended Comments: Edema of pannus with mild erythema *Routine Rectal Exam Rectal:: deferred *Routine Genitalia Exam Genitalia:: deferred *Routine Extremities Exam Extremities: Present edema (3+ lower extremity edema, ruptured blister left [place] with significant erythema and weeping of serous fluid), full ROM, pulses intact and normal capillary refill; Absent cyanosis or clubbing *Routine Skin Exam Skin: Present erythema and warm; Absent rash *Routine Neurological Exam Neurological: Present alert, oriented X3, moving all extremities, vision grossly intact, hearing grossly intact and normal speech; Absent sensory deficit or motor deficit Routine Psychiatric Exam Psychiatric: Present normal affect, normal thought process and cooperative Assessment and Plan *Assessment and plan (1) Hypoxic respiratory failure: Status: Acute Category: Medical Code(s): J96.91 - Respiratory failure, unspecified with hypoxia (2) Pulmonary edema: Status: Acute Category: Medical Code(s): J81.1 - Chronic pulmonary edema (3) CHF (congestive heart failure): Status: Acute Category: Medical Code(s): I50.9 - Heart failure, unspecified (4) Cellulitis of left lower extremity: Status: Acute Category: Medical Code(s): L03.116 - Cellulitis of left lower limb (5) UTI (urinary tract infection): Status: Acute Category: Medical Code(s): N39.0 - Urinary tract infection, site not specified (6) Pleural effusion: Status: Acute Category: Medical Code(s): J90 - Pleural effusion, not elsewhere classified (7) Chronic anticoagulation: Status: Acute Category: Medical Code(s): 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 Lyn is a 62-year-old male with history of diabetes, hypertension, mood or/schizophrenia who presented to our with swelling and redness in his legs. Workup in the ER concerning for CHF exacerbation, volume overload, pulmonary edema, cellulitis of his legs, and UTI with abnormal urine. Discussed case with ER physician, request admission for further management and workup including cardiology evaluation. Medicine agreed to admit. Problems addressed as follows: Volume overload/pleural effusions Pulmonary edema CHF exacerbation, unspecified -Initiated on Bumex 1 mg IV x 1. Will continue twice daily beginning in the morning. -Cardiology consulted, will see patient in the morning. Echocardiogram ordered and pending. -Given significant edema up to abdomen, elevated BNP of 5900, patient clinically has CHF. Will monitor for improvement with diuresis. -Continue home twice daily, Lipitor 40 mg nightly, aspirin 81 mg daily, met oprolol succinate 25 mg daily - Strict ins and outs Cellulitis UTI -Received Dalvance in the ER. No systemic signs of infection, White cell count normal, anemic with hemoglobin of 9.5. -Further antibiotics at this time. -Urine grossly abnormal with leuk esterase and nitrate and 3+ bacteria. Continue Zosyn 3 times daily pending urine culture Schizophrenia: Continue Abilify 15 mg nightly, bupropion 300 mg daily, trazodone 50 mg nightly BPH: Continue tamsulosin 0.4 mg nightly Electrolytes within normal range, kidney function stable with creatinine 1.0 and BUN of 17. Diabetes: A1c pending, TSH elevated at 5.5. Initiating sliding scale insulin with fingersticks ACHS GERD: Continue home pantoprazole 40 mg daily. full code diabetic diet eliquis
--- NOTE | 2023-04-06 18:38 | PC.WOUNDNOTE ---
LLE LEFT UPPER THIGH NEAR ABD RT INNER LEG NEAR GROIN
[2023-04-06] MEDS: BUMETANIDE 1MG/4ML VIAL 1 MG IV (18:46)
[2023-04-06 19:40] LABS: Hemoglobin A1C 6.2 % (4.0-6.0)
[2023-04-06 20:33] LABS: POC Glucose,Bedside 160 (70-110)
[2023-04-06] MEDS: PIPERCILLIN/TAZO 3.375 GM in 0.9 % SODIUM CHLORIDE 50 ML IV (20:33)
[2023-04-06] MEDS: TRAZODONE 50MG TABLET 50 MG PO (20:34)
[2023-04-06] MEDS: APIXABAN 5MG TABLET 5 MG PO (20:34)
[2023-04-06] MEDS: ATORVASTATIN 40MG TABLET 40 MG PO (20:34)
[2023-04-06] MEDS: humaLOG 100 UNITS/ML 3ML VIAL (SSI) SQ (20:35)
[2023-04-07] MEDS: PIPERCILLIN/TAZO 3.375 GM in 0.9 % SODIUM CHLORIDE 50 ML IV (03:40)
[2023-04-07 04:00] VITALS: BP 116/73; PULSE 97; RESP 18; TEMP 36.6; O2SAT 95; BMI 43.7
[2023-04-07 05:11] LABS: POC Glucose,Bedside 146 (70-110)
--- NOTE | 2023-04-07 06:00 | CA_ITS ---
APPROVED REPORT EXAM: Comprehensive 2D, Doppler, and color-flow Echocardiogram Scarrer: Shea Monreal RDCS Ht: 6 ft 3 in Wt: 362lbs BSA: 2.82 BP: 99/56 mmHg Indications: CHF,COPD,H/O PE,HTN,HLP,DM,SOA 2D Dimensions LA Volume 209.70 mL LA Volume Index 74.120055 mL/m2 (M/F) 16-34 M-Mode Dimensions RVDd 3.39 cm (0.9-2.6) LA Diam 4.00 cm (1.9-4.0) LVDd 5.30 cm (3.5-5.7) LVDs 3.48 cm (3.5-5.7) IVSd 1.10 cm (0.6-1.1) PWd 0.98 cm (0.6-1.1) EF (Teich) 62.90% FS 34.30% EDV (Teich) 135.30 mL ESV (Teich) 50.20 mL LV Diastology E Decel Time 170 (160-240 msec) E/A Ratio 3.4 Mitral Valve MV E Max Juan Carlos. 106.0 (40-130 cm/s) MV A Velocity 31.0 (40-130 cm/s) E/A Ratio 3.40 MV PHT 50.0 ms Tricuspid Valve TR P. Velocity 341.00 cm/s RAP Estimate 10.00 mmHg RVSP 56.60 mmHg Left Ventricle The left ventricle is normal size. The left ventricular systolic function is normal. The left ventricular ejection fraction is within the normal range. There is increased LV wall thickness. Septal flattening is present, consistent with increased RV volume/pressure overload. Diastolic function is indeterminate due to atrial fibrillation. LVEF is 50-55%. Right Ventricle The right ventricle is severely dilated. There is moderate to severe reduction in RV function. Atria The left atrium is moderately dilated. The right atrium is moderately dilated. There is no Doppler evidence of interatrial shunt. Aortic Valve The aortic valve is mildly thickened. There is no aortic valvular stenosis. Trace aortic regurgitation. Mitral Valve The mitral valve leaflets are mildly thickened. No evidence of mitral valve stenosis. Mild mitral regurgitation. Tricuspid Valve The tricuspid valve leaflets are thin and pliable. At least moderate tricuspid regurgitation is present. The TR jet is eccentric and may be underestimated. RVSP is 41 mmHg + RA pressure. There is a hepatic vein systolic flow reversal present, suggestive of significant TR. Pulmonic Valve The pulmonary valve is normal in structure. Mild pulmonic regurgitation. Great Vessels The aortic root is normal in size. The ascending aorta is not well-visualized. The IVC is not well-visualized. Pericardium There is no pericardial effusion. Other Information Study Quality: Fair Conclusion Normal LV systolic function. Severely dilated RV with moderate to severe reduction in RV function. Septal flattening is present, consistent with increased RV volume/pressure overload. Mild MR. At least moderate TR is present. The TR severity may be underestimated due to eccentric TR jet. Mild PI. Elevated RVSP 41 mmHg + RA pressure. Electronically signed by : Breanna Guerrero MD 04/10/2023 00:53:22
[2023-04-07 06:47] LABS: Basophils % 0.2 % (0.1-2.0); Eosinophils # 0.1 K/mm3 (0.0-0.4); Eosinophils % 1.4 % (0.1-12.0); Hematocrit 29.5 % (42.0-52.0); Hemoglobin 9.2 g/dL (14.1-18.0); Lymphocytes # 0.8 K/mm3 (0.7-4.5); Lymphocytes % 12.3 % (10-50); Mean Corpuscular HGB Conc 31.2 g/dL (31.8-35.4); Mean Corpuscular Hemoglobin 24.2 pg (27.0-31.2); Mean Corpuscular Volume 77.7 fl (80-94); Mean Platelet Volume 8.4 fl (7.4-10.4); Monocytes # 0.6 K/mm3 (0.1-1.0); Monocytes % 9.2 % (1.7-9.3); Neutrophils # 4.8 K/mm3 (1.8-7.8); Neutrophils % 76.9 % (37.0-80.0); Platelet Count 282 K/mm3 (142-424); Red Cell Distribution Width 17.1 % (11.5-17.5); White Blood Count 6.2 K/mm3 (4.8-10.8)
[2023-04-07 06:56] LABS: Chloride 110 mmol/L (98-107); Potassium 4.4 mmoL/L (3.5-5.1); Sodium 135 mmol/L (136-145)
[2023-04-07 06:58] LABS: Alanine Aminotransferase 19 U/L (12-78); Aspartate Amino Transferase 27 U/L (17-59)
[2023-04-07 06:59] LABS: Albumin Level 2.8 g/dl (3.5-5.0); Albumin/Globulin Ratio 0.8 (1.1-1.8); Alkaline Phosphatase 139 U/L (38-126); Anion Gap 8.4 mEq/L (5-15); Bilirubin,Total 1.2 mg/dl (0.2-1.3); Calcium 7.9 mg/dl (8.4-10.2); Carbon Dioxide 21 mmol/L (22.0-30.0); Chol/HDL Ratio 2.8 (1-3.5); Cholesterol 54 mg/dl (140-200); Globulin 3.3 g/dL (1.3-3.2); Glucose 144 mg/dl (74-100); HDL Cholesterol 19 mg/dl (40-60); Magnesium 2.1 mg/dl (1.6-2.3); Total Protein,Serum 6.1 g/dl (6.3-8.2); Triglycerides 41 mg/dl (30-150); VLDL Cholesterol 8 mg/dL (0-40)
[2023-04-07 07:03] LABS: Blood Urea Nitrogen 17 mg/dl (9-20)
[2023-04-07 07:04] LABS: Creatinine Clearance Estimated 83 mL/min (50-200); Estimated Glomerular Filt Rate 68 ml/min (>60); GFR (African American) 82 ML/MIN (>60)
[2023-04-07 07:10] LABS: Direct LDL Cholesterol 32.87 mg/dL (100-129)
[2023-04-07 08:00] VITALS: BP 100/69; PULSE 96; RESP 18; TEMP 36.6; O2SAT 100
--- NOTE | 2023-04-07 08:02 | P.PN_ITS ---
Subjective *Date: 04/07/23 *Time: 12:35 Interval history: Patient on 1 L oxygen on rounds this morning, able to wean to room air. No fevers overnight. Tolerating p.o. intake. Having adequate urine output, -1 L since admission. Denies any chest pain or shortness of breath. Legs still q uite swollen. Therapy evaluating today. Medical Exam Vital signs and Labs for Last 24 Hours: Vital Signs Temp Pulse Pulse Resp BP BP Pulse Ox 04/07/23 06:24 04/07/23 04:00 97.8 F 97 H 18 116/73 95 04/07/23 04:52 04/07/23 03:00 04/07/23 01:00 04/06/23 23:00 04/06/23 21:00 04/06/23 20:00 90 L 04/06/23 20:00 97.7 F 85 20 101/70 L 90 L 04/06/23 17:11 04/06/23 18:30 04/06/23 17:59 98 F 86 21 105/65 L 93 L 04/06/23 17:45 98.0 F 97 H 19 105/65 L 04/06/23 17:30 100 H 17 99/59 L 94 L 04/06/23 17:00 79 21 106/64 L 92 L 04/06/23 16:30 93 H 17 103/59 L 95 04/06/23 16:15 89 25 H 101/66 L 94 L 04/06/23 16:01 89 23 98/71 L 95 04/06/23 15:01 97 H 11 L 105/58 L 88 L 04/06/23 14:31 92 H 17 88/67 L 89 L 04/06/23 14:07 86 13 111/70 90 L 04/06/23 13:39 105 H 109/80 L 93 L 04/06/23 13:38 98.0 F 107 H 20 109/80 L 94 L O2 Del Method O2 Flow Rate 04/07/23 06:24 Nasal Cannula 2 04/07/23 04:00 Room Air 04/07/23 04:52 Nasal Cannula 2 04/07/23 03:00 Nasal Cannula 2 04/07/23 01:00 Nasal Cannula 2 04/06/23 23:00 Nasal Cannula 2 04/06/23 21:00 Nasal Cannula 2 04/06/23 20:00 Nasal Cannula 2 04/06/23 20:00 Nasal Cannula 04/06/23 17:11 Nasal Cannula 2 04/06/23 18:30 Nasal Cannula 2 04/06/23 17:59 Nasal Cannula 2 04/06/23 17:45 Nasal Cannula 2 04/06/23 17:30 Room Air 04/06/23 17:00 Room Air 04/06/23 16:30 Room Air 04/06/23 16:15 Room Air 04/06/23 16:01 Room Air 04/06/23 15:01 04/06/23 14:31 04/06/23 14:07 04/06/23 13:39 04/06/23 13:38 Room Air Intake and Output 04/06/23 04/07/23 04/07/23 23:59 07:59 15:59 Intake Total 270 / 560 340 / 340 Output Total 850 / 1450 900 / 900 Balance -580 / -890 -560 / -560 Intake: Intake, Oral Amount 270 / 510 240 / 240 Intake, Total IV Amount 100 / 100 Piperacillin/Tazo 3.375 gm In 0 100 / 100 .9 % Sodium Chloride 50 ml @ 100 mls/hr IV ONCE ONE Rx#: [id number] Output: Output, Urine Amount 850 / 1450 900 / 900 Other: Number of Unmeasured Voids 0 0 Weight 160.118 kg 159.755 kg Patient Weight 04/07/23 23:59 Weight 159.755 kg Laboratory Results - last 24 hr 04/06/23 13:00: Hemoglobin A1c 6.2 H, TSH 5.52 H 04/06/23 13:50: WBC 5.5, RBC 4.06 L, Hgb 9.5 L, Hct 32.5 L, MCV 80.0, MCH 23.5 L , MCHC 29.4 L, RDW 16.7, Plt Count 286, MPV 6.9 L, Neut % (Auto) 68.1, Lymph % (Auto) 18.8, [place] % (Auto) 11.0 H, Eos % (Auto) 1.8, Baso % (Auto) 0.3, Neut # (Auto) 3.7, Lymph # (Auto) 1.0, [place] # (Auto) 0.6, Eos # (Auto) 0.1, Baso # (Auto) 0.0, PT 14.6 H, INR 1.38 H, Sodium 134 L, Potassium 4.7, Chloride 106, Carbon Dioxide 26, Anion Gap 6.7, BUN 17, Creatinine 1.00, Estimated Creat Clear 92, Estimated GFR 76, Est GFR ( Amer) 92, Glucose 140 H, Lactate 1.4, Calcium 8.0 L, Total Bilirubin 1.3, AST 25, ALT 20, Alkaline Phosphatase 145 H, NT-Pro-B Natriuret Pep 5950 H, Total Protein 6.6, Albumin 3.1 L, Globulin 3.5 H, Albumin/Globulin Ratio 0.9 L 04/06/23 16:00: Urine Color Yellow, Urine Appearance Sl cloudy, Urine pH 8.5, Ur Specific [place] 1.015, Urine Protein 1+, Urine Glucose (UA) Negative, Urine Ketones Negative, Urine Blood 3+, Urine Nitrate Negative, Urine Bilirubin 1+ A, Urine Urobilinogen >=8.0, Ur Leukocyte Esterase 3+ A, Urine RBC 3-5, Urine WBC 20-50, Ur Squamous Epith Cells Occasional, Urine Bacteria 3+ 04/06/23 20:22: POC Glucose 160 H 04/07/23 05:02: POC Glucose 146 H 04/07/23 06:33: WBC 6.2, RBC 3.80 L, Hgb 9.2 L, Hct 29.5 L, MCV 77.7 L, MCH 24.2 L, MCHC 31.2 L, RDW 17.1, Plt Count 282, MPV 8.4, Neut % (Auto) 76.9, Lymph % (Auto) 12.3, [place] % (Auto) 9.2, Eos % (Auto) 1.4, Baso % (Auto) 0.2, Neut # (Auto) 4.8, Lymph # (Auto) 0.8, [place] # (Auto) 0.6, Eos # (Auto) 0.1, Baso # (Auto) 0.0, Sodium 135 L, Potassium 4.4, Chloride 110 H, Carbon Dioxide 21 L, Anion Gap 8.4, BUN 17, Creatinine 1.10, Estimated Creat Clear 83, Estimated GFR 68, Est GFR ( Amer) 82, Glucose 144 H, Calcium 7.9 L, Magnesium 2.1, Total Bilirubin 1.2, AST 27, ALT 19, Alkaline Phosphatase 139 H, Total Protein 6.1 L, Albumin 2.8 L, Globulin 3.3 H, Albumin/Globulin Ratio 0.8 L, Triglycerides 41, Cholesterol 54 L, LDL Cholesterol Direct 32.87 L, VLDL Cholesterol 8, HDL Cholesterol 19 L, Cholesterol/HDL Ratio 2.8 I & O for Labs for Last 24 Hours: Intake & Output 04/04/23 04/05/23 04/06/23 04/07/23 23:59 23:59 23:59 23:59 Intake Total 270 / 560 340 / 340 Output Total 850 / 1450 900 / 900 Balance -580 / -890 -560 / -560 Weight 160.118 kg 159.755 kg Constitutional: Present no acute distress, morbidly obese, chronically ill appearing and cooperative Head: Present atraumatic and normocephalic ENT: Present normal exam Neck: Present normal inspection Respiratory: Present crackles (In bases) and normal respiratory effort; Absent rhonchi or wheezes Cardiac: Present Regular Rhythm and Tachycardia GI: Present soft and normal bowel sounds; Absent distention or tenderness Extremities: Present normal inspection, full ROM, tenderness (Left leg) and edema (Erythema and extensive edema in bilateral lower extremities, left worse than right. Edema 3+. Has edema in lower abdomen as well) Skin: Present intact; Absent erythema Neuro: Present Grossly Intact, alert, awake, oriented x 3 and moves all extremities Assessment and Plan *Assessment and plan (1) CHF (congestive heart failure): Status: Acute Category: Medical Code(s): I50.9 - Heart failure, unspecified (2) Cellulitis of left lower extremity: Status: Acute Category: Medical Code(s): L03.116 - Cellulitis of left lower limb (3) Pulmonary edema: Status: Acute Category: Medical Code(s): J81.1 - Chronic pulmonary edema (4) Hypoxic respiratory failure: Status: Acute Category: Medical Code(s): J96.91 - Respiratory failure, unspecified with hypoxia (5) UTI (urinary tract infection): Status: Acute Category: Medical Code(s): N39.0 - Urinary tract infection, site not specified (6) Pleural effusion: Status: Acute Category: Medical Code(s): J90 - Pleural effusion, not elsewhere classified (7) Chronic anticoagulation: Status: Acute Category: Medical Code(s): 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 Lyn is a 62-year-old male with history of diabetes, hypertension, mood or/schizophrenia who presented to our with swelling and redness in his legs. Workup in the ER concerning for CHF exacerbation, volume overload, pulmonary edema, cellulitis of his legs, and UTI with abnormal urine. Discussed case with ER physician, request admission for further management and workup including cardiology evaluation. Responding to diuresis. Afebrile overnight. Continues to require inpatient management for treatment of heart failure. Problems a ddressed as follows: Volume overload/pleural effusions Pulmonary edema CHF exacerbation, unspecified -Continue Bumex IV 1 mg twice daily. Echocardiogram obtained, awaiting formal read. Cardiology evaluating patient today. Discussed case, recommend continuing diuresis. Hold on Entresto/PANDA or ARB at this time due to soft blood pressures. Continue Toprol. Will consider adding Jardiance if his urinary incontinence improves. -Continue Lipitor, aspirin, Eliquis - Strict ins and outs Cellulitis UTI -Received Dalvance in the ER. No systemic signs of infection, White cell count normal at 6.2 this morning. Hemoglobin 9.2. Repeat CBC, CMP, magnesium ordered for the morning. -Urine grossly abnormal with leuk esterase and nitrate and 3+ bacteria. Transition to levofloxacin. Plan for 5 days of antibiotics. Urine culture still pending. Schizophrenia: Continue Abilify 15 mg nightly, bupropion 300 mg daily, trazodone 50 mg nightly BPH: Continue tamsulosin 0.4 mg nightly Electrolytes within normal range, kidney function stable with creatinine 1.1 and BUN of 17. Diabetes: A1c 6.2, TSH elevated at 5.5. Continue sliding scale insulin with fingersticks ACHS GERD: Continue home pantoprazole 40 mg daily. PT and OT consulted for therapy eval. Wound consulted to assist with lymphedema and weeping leg. Appreciate their recommendations. full code diabetic diet eliquis
--- NOTE | 2023-04-07 08:25 | P.CONPHA_ITS ---
Pharmacy Intervention Comments: MEDICATION RECONCILIATION COMPLETED ON PATIENT USING MAR FROM ASSISTED. -AMIE SANDS, LAMARD
--- NOTE | 2023-04-07 08:25 | HMH.PHAINT1 ---
Pharmacy Intervention Comments: MEDICATION RECONCILIATION COMPLETED ON PATIENT USING MAR FROM [facility]. -AMIE SANDS, LAMARD
[2023-04-07] MEDS: PANTOPRAZOLE 40MG TABLET 40 MG PO (08:26)
[2023-04-07] MEDS: APIXABAN 5MG TABLET 5 MG PO ×2 (08:26→20:56)
[2023-04-07] MEDS: TAMSULOSIN 0.4MG CAPSULE 0.400000000000000022 MG PO (08:26)
[2023-04-07] MEDS: buPROPion HCl SR 150MG TAB 150 MG PO ×2 (08:26→20:55)
[2023-04-07] MEDS: BUMETANIDE 1MG/4ML VIAL 1 MG IV ×2 (08:26→16:09)
[2023-04-07] MEDS: METOPROLOL SUCCINATE XL 25MG TABLET 25 MG PO (08:26)
[2023-04-07] MEDS: ASPIRIN EC 81MG TABLET 81 MG PO (08:26)
--- NOTE | 2023-04-07 09:47 | HMH.OTEV ---
OT Inpatient Evaluation Rehab OT IP Evaluation Start: 04/07/23 08:01 Freq: ONCE Status: Active Protocol: Document 04/07/23 09:40 [facility] (Rec: 04/07/23 09:47 [facility] [id number]) Rehab OT IP Assessment Subjective History Pt oriented x 3 on arrival. Pt agreeable to engage in therapy evaluation. Pt admitted on 04/06/23 due to cellulitis, UTI, and hypoxic. H&P Mr. Chappell is a 62-year-old male who resides at [facility]. He has a history of hypertension, hyperlipidemia, DVT, PE, schizophrenia, morbid obesity, diabetes. He presented to the ER because of worsening left lower extremity swelling and pain. Noted to have some redness and drainage from a ruptured blister. The redness and discomfort in his lower extremity have been worsening for the past few days. Developed a blister today and it ruptured leaking clear fluid. Came to the ER for further evaluation. Denies fever, chills, systemic symptoms. No nausea or vomiting. Does complain of shortness of breath and worsening swelling in his legs over the past few weeks. Workup in the ER concerning for cellulitis. Patient developed hypoxia in the ER which led to further evaluation showing concern for CHF exacerbation and volume overload with BNP of 5900. Initiated on oxygen. Received [facility] in the ER for his cellulitis. Medicine consulted for admission and further management. Subjective I am going to need help Prior to being in the hospital , pt lived at [facility]. Pt claims normally he is independent with all ADLs such as dressing, bathing, and feeding. Pt reports staff completes all IADLs. Objective Patient Orientation Person,Place,Birthday Right Upper Extremity Gross ROM WFL Left Upper Extremity Gross ROM WFL Bed Mobility bed mobility-scooting,bed mobility - supine/sit Assist Level Moderate x 2 (50% assist) Transfer Training Sit/Stand/Step Transfer Assist Level Moderate x 2 (50% assist) Chair Transfer Ability Moderate x 2 (50% assist) Chair Transfer Technique Sit to/from Ambulatory Rehab OT IP prob,goals,plan Problems Date of Evaluation: 04/07/23 OT IP Problems Bed Mobility,Transfers,Balance ,Self care,Safety Rehab Potential Rehab Potential Good Equipment Needs Assistive Devices Rolling / Wheeled Walker Plan OT intervention Plan Bed Mobility,Transfers,Balance ,Self care,Safety,Therapeutic Exercise OT Plan Frequency Daily Duration LOS Discharge Goals Bed Mobility Ability Assistance x1 Sit to Stand Chair Transfer Ability Minimal x 1 (25% assist) Chair Transfer Ability Minimal x 1 (25% assist) Chair Transfer Technique Sit to/from Ambulatory Chair Transfer Assistive Devices Rolling Walker Feeding Ability Assist with Tray Set Up Lower Body Dressing Ability Moderate Assistance Upper Body Dressing Ability Contact Guard Bathing Ability Moderate Assistance Performing Toilet Hygiene Ability Moderate Assistance Overall Commode/Toilet Transfer Ability Moderate Assistance Commode/Toilet Transfer Technique Sit to/from Ambulatory Commode/Toilet Transfer Assistive Grab Bars Devices Oral Care Assist Minimal Assistance Decrease in Endurance No Discharge Plan OT Discharge Plan Pt will continue to be seen for OT services while at [facility]. Pt woudl benefit most from short term rehab at [facility] following discharge. Continued skilled therapy is important in order for patient to improve strength, safety, endurance, ADL independence, and functional transfers to reach PLOF. Eval Complexity Eval Charge Codes 45466 - Moderate Complexity PHYSICIAN CERTIFICATION: I certify the specified therapy services for Avi Viera are required, authorized, and reviewed every 30 days.
--- NOTE | 2023-04-07 10:07 | HMH.PTWOUND ---
Rehab Inpt Wound Evaluation Rehab IP Wound Evaluation Start: 04/07/23 08:01 Freq: ONCE Status: Active Protocol: Document 04/07/23 10:01 [email or web address] (Rec: 04/07/23 10:07 [facility] [id number]) Rehab PT Wound Assessment Subjective Subjective 62 yowm adm to [facility] with cellulitis of L LE, pulmonary edema, and hypoxia. He has PMH of HTN, HLD< DVT, PE, MO, DM, schizophrenia. He is resident of a local personal jail . He presents with anterior L lower leg wound with increased drainage on admission. Wound Left Funes Wound Type Stasis Ulcer Is This a Chronic Wound Yes Wound Length (cm) 10.0 Wound Width (cm) 10.0 Wound Depth (cm) 0.1 Wound Bed Appearance Topaz Wound Margins Description Indistinct Surrounding Tissue Appearance Bright Red Edema Type Pitting Edema Degree 2+ Query Text:1+ Trace, Barely Detectable, Rebound 15-30 seconds 2+ Moderate, Slight Indentation, Rebound 10-20 seconds 3+ Deep, Deeper Indentation, Rebound > 30 seconds 4+ Very Deep, Rebound > 60 seconds Edema Appearance Weeping,Puffy,Red Wound Drainage Description Serous Drainage Amount Large Wound Topical Solution/Irrigant Saline Irrigant Primary Dressing Absorbant Pad Comment optilock Wound Secondary Dressing Type Unna Boot Comment 2 layer calamine compression wrap system. Wound Debridement Method Gauze,Mechanical Wound Debridement Amount of Tissue Minimal Removed Dressing Change Patient Tolerance Tolerated Well Plan/Recommendation Comment Unna Boot to be changed once every 4-5 days as needed depending on drainage from the L LE and continued pitting edema. Eval Complexity Eval Charge Codes 22455 - High Complexity PHYSICIAN CERTIFICATION: I certify the specified therapy services for Avi Maximiliano are required, authorized, and reviewed every 30 days.
--- NOTE | 2023-04-07 10:12 | HMH.PTEV ---
Physical Therapy Evaluation Rehab PT IP Evaluation Start: 04/07/23 08:01 Freq: ONCE Status: Active Protocol: Document 04/07/23 10:01 [facility] (Rec: 04/07/23 10:10 [id number]) Subjective/History History History Per H & P: Mr. Chappell is a 62-year-old male who resides at [facility]. He has a history of hypertension, hyperlipidemia, DVT, PE, schizophrenia, morbid obesity, diabetes. He presented to the ER because of worsening left lower extremity swelling and pain. Noted to have some redness and drainage from a ruptured blister. The redness and discomfort in his lower extremity have been worsening for the past few days... Subjective Subjective PLOF for pt report: No prior AD use. IND with functional mobility. Lived at [facility]. Staff completed all IADLs. New diagnosis of cancer in past 12 No months? Rehab PT IP Eval Objective Appearance Patient Behavior Appropriate,Cooperative Patient Orientation Person,Birthday Difficulty following instructions mild Speech Pattern Clear,Appropriate Ambulation Patient Able to Ambulate No Balance Ability to Arise Able, uses arms to help Sitting Balance Steady, safe Standing Balance Unsteady Transfers Bed Transfer Ability Moderate x 1 (50% assist) Chair Transfer Ability Moderate x 2 (50% assist) Sit to Stand Bed Transfer Ability Moderate x 2 (50% assist) Rehab PT IP prob,goals,plan Problems Date of Evaluation: 04/07/23 PT IP Problems Bed Mobility,Transfers,Gait, Balance,Self care,Safety Rehab Potential Rehab Potential Good Equipment Needs Assistive Devices Rolling / Wheeled Walker Plan PT Intervention Plan Bed Mobility,Transfers,Gait, Balance,Self care,Safety, Therapeutic Exercise Other Intervention Plan 1-2 times PT Plan Frequency Daily Duration LOS Discharge Goals Bed Transfer Ability Minimal x 1 (25% assist) Sit to Stand Chair Transfer Ability Moderate x 1 (50% assist) Ambulation Assistive Device Rolling Walker Ambulation Distance (feet) 10 Discharge Plan PT Discharge Plan PT recommending pt d/c to short-term rehab placement d/t current level of functional mobility. Pt requires Mod A x 2 for transfers and did not ambulate d/t weakness and FOF. Pt would benefit from skilled PT while at [facility] to prevent further functional decline. Eval Complexity Eval Charge Codes 26394 - High Complexity PHYSICIAN CERTIFICATION: I certify the specified therapy services for Avi Maximiliano are required, authorized, and reviewed every 30 days.
[2023-04-07] MEDS: LEVOFLOXACIN/D5W 750 MG/150 ML 750 MG/150 ML PIGGYBACK 100 MG IV (10:54)
[2023-04-07] MEDS: humaLOG 100 UNITS/ML 3ML VIAL (SSI) SQ (11:51)
--- NOTE | 2023-04-07 12:06 | EXP.CARD.CON ---
History of Present Illness History of Present Illness Consult date: 04/07/23 Requesting physician: Son Jones Chief complaint: BLE edema History of present illness: This is a 62-year-old white gentleman who resides at [facility]. He has a history of hypertension, hyperlipidemia, DVT, PE, diabetes and schizophrenia. The patient states that he has been having worsening bilateral lower extremity edema for approximately 2 to 3 weeks. He states that this significantly worsened within the last week. He states that his legs are painful and red. He also has been having blisters to his lower extremities and the one on his left leg ruptured a few days ago. The patient states that his legs have been leaking fluid there so edematous. He states the edema goes all the way up to his scrotum. He denies any chest pain or pressure. He denies any shortness of breath. He denies any fever, chills, nausea, vomiting, diarrhea, PND or orthopnea. He does report that he has been urinating on himself intermittently as well which is very unusual for him. [facility] Disclaimer: The information contained in this section may have been updated after the patient was seen, as this information can be updated by other users. Medical History Acid reflux Chronic venous insufficiency Depression Diabetes DVT (deep venous thrombosis) Hernia HLD (hyperlipidemia) Neuropathy Pulmonary embolism Smoker Urinary retention Varicose veins of both lower extremities Family History No significant family history Social History Smoking Status: Current every day smoker alcohol intake: never current occupational status: disabled Travel in the last 8 weeks: None housing: [facility] Exam Data for Last 24 hours Vital signs and Labs for Last 24 Hours: Temp Pulse Resp BP Pulse Ox O2 Del Method O2 Flow Rate 97.9 F 96 H 18 100/69 L 100 Room Air 2 04/07/23 08:00 04/07/23 08:00 04/07/23 08:00 04/07/23 08:00 04/07/23 08:00 04/07/23 09:00 04/07/23 06:24 Laboratory Results - last 24 hr 04/06/23 13:00: Hemoglobin A1c 6.2 H, TSH 5.52 H 04/06/23 13:50: WBC 5.5, RBC 4.06 L, Hgb 9.5 L, Hct 32.5 L, MCV 80.0, MCH 23.5 L, MCHC 29.4 L, RDW 16.7, Plt Count 286, MPV 6.9 L, Neut % (Auto) 68.1, Lymph % (Auto) 18.8, [place] % (Auto) 11.0 H, Eos % (Auto) 1.8, Baso % (Auto) 0.3, Neut # (Auto) 3.7, Lymph # (Auto) 1.0, [place] # (Auto) 0.6, Eos # (Auto) 0.1, Baso # (Auto) 0.0, PT 14.6 H, INR 1.38 H, Sodium 134 L, Potassium 4.7, Chloride 106, Carbon Dioxide 26, Anion Gap 6.7, BUN 17, Creatinine 1.00, Estimated Creat Clear 92, Estimated GFR 76, Est GFR ( Amer) 92, Glucose 140 H, Lactate 1.4, Calcium 8.0 L, Total Bilirubin 1.3, AST 25, ALT 20, Alkaline Phosphatase 145 H, NT-Pro-B Natriuret Pep 5950 H, Total Protein 6.6, Albumin 3.1 L, Globulin 3.5 H, Albumin/Globulin Ratio 0.9 L 04/06/23 16:00: Urine Color Yellow, Urine Appearance Sl cloudy, Urine pH 8.5, Ur Specific [place] 1.015, Urine Protein 1+, Urine Glucose (UA) Negative, Urine Ketones Negative, Urine Blood 3+, Urine Nitrate Negative, Urine Bilirubin 1+ A, Urine Urobilinogen >=8.0, Ur Leukocyte Esterase 3+ A, Urine RBC 3-5, Urine WBC 20-50, Ur Squamous Epith Cells Occasional, Urine Bacteria 3+ 04/06/23 20:22: POC Glucose 160 H 04/07/23 05:02: POC Glucose 146 H 04/07/23 06:33: WBC 6.2, RBC 3.80 L, Hgb 9.2 L, Hct 29.5 L, MCV 77.7 L, MCH 24.2 L, MCHC 31.2 L, RDW 17.1, Plt Count 282, MPV 8.4, Neut % (Auto) 76.9, Lymph % (Auto) 12.3, [place] % (Auto) 9.2, Eos % (Auto) 1.4, Baso % (Auto) 0.2, Neut # (Auto) 4.8, Lymph # (Auto) 0.8, [place] # (Auto) 0.6, Eos # (Auto) 0.1, Baso # (Auto) 0.0, Sodium 135 L, Potassium 4.4, Chloride 110 H, Carbon Dioxide 21 L, Anion Gap 8.4, BUN 17, Creatinine 1.10, Estimated Creat Clear 83, Estimated GFR 68, Est GFR ( Amer) 82, Glucose 144 H, Calcium 7.9 L, Magnesium 2.1, Total Bilirubin 1.2, AST 27, ALT 19, Alkaline Phosphatase 139 H, Total Protein 6.1 L, Albumin 2.8 L, Globulin 3.3 H, Albumin/Globulin Ratio 0.8 L, Triglycerides 41, Cholesterol 54 L, LDL Cholesterol Direct 32.87 L, VLDL Cholesterol 8, HDL Cholesterol 19 L, Cholesterol/HDL Ratio 2.8 I & O for Last 24 hours: Intake & Output 04/05/23 04/06/23 04/07/23 04/08/23 11:59 11:59 11:59 11:59 Intake Total 850 / 850 Output Total 2950 / 2950 Balance -2099 / -2099 Weight 352 lb 3.2 oz Meds Home Medications and Allergies Home Medications Medication Instructions Recorded Confirmed Type acetaminophen 650 mg 650 mg PO Q8HP PRN Mild Pain 09/08/20 04/06/23 History tablet,extended release (Pain (Scale Score 1-4) Relief (acetaminophen)) apixaban 5 mg tablet (Eliquis) 5 mg PO BID Blood Thinner/Afib 09/08/20 04/06/23 History aripiprazole 15 mg tablet 15 mg PO HS Mood 09/08/20 04/06/23 History atorvastatin 40 mg tablet 40 mg PO HS Cholesterol 09/08/20 04/06/23 History bupropion HCl 300 mg 24 hr tablet, 300 mg PO DAILY Mood 09/08/20 04/06/23 History extended release glimepiride 4 mg tablet 4 mg PO DAILY Diabetes 09/08/20 04/06/23 History insulin glargine 100 unit/mL 10 unit SQ HS Diabetes 09/08/20 04/06/23 History subcutaneous solution (Lantus U-100 Insulin) metoprolol succinate 25 mg 25 mg PO DAILY High Blood Pressure 09/08/20 04/06/23 History tablet,extended release 24 hr pantoprazole 40 mg tablet,delayed 40 mg PO DAILY Acid Reflux 09/08/20 04/06/23 History release polyethylene glycol 3350 17 17 g PO BIDP PRN constipation 09/08/20 04/06/23 History gram/dose oral powder tamsulosin 0.4 mg capsule 0.4 mg PO DAILY Prostate 09/08/20 04/06/23 History trazodone 50 mg tablet 50 mg PO HS Sleep 09/08/20 04/06/23 History oxybutynin chloride 10 mg 10 mg PO DAILY Bladder 11/22/22 04/06/23 History tablet,extended release 24 hr aspirin 81 mg tablet,delayed 81 mg PO DAILY Heart Health 04/07/23 04/07/23 History release New Prescriptions to Start Prescriptions: Allergies Allergy/AdvReac Type Severity Reaction Status Date / Time No Known Allergies Allergy Verified 11/22/22 18:46
--- NOTE | 2023-04-07 12:10 | P.CONCA_ITS ---
History of Present Illness History of Present Illness Consult date: 04/07/23 Requesting physician: Son Jones Chief complaint: BLE edema History of present illness: This is a 62-year-old white gentleman who resides at [facility]. He has a history of hypertension, hyperlipidemia, DVT, PE, diabetes and schizophrenia. The patient states that he has been having worsening bilateral lower extremity edema for approximately 2 to 3 weeks. He states that this significantly worsened within the last week. He states that his legs are painful and red. He also has been having blisters to his lower extremities and the one on his left leg ruptured a few days ago. The patient states that his legs have been leaking fluid there so edematous. He states the edema goes all the way up to his scrotum. He denies any chest pain or pressure. He denies any shortness of breath. He denies any fever, chills, nausea, vomiting, diarrhea, PND or orthopnea. He does report that he has been urinating on himself intermittently as well which is very unusual for him. [facility] Disclaimer: The information contained in this section may have been updated after the patient was seen, as this information can be updated by other users. Medical History (Updated 04/07/23 @ 12:18 by Goldie Durbin APRN) (HFpEF) heart failure with preserved ejection fraction Acid reflux Chronic venous insufficiency Depression Diabetes DVT (deep venous thrombosis) Edema Hernia HLD (hyperlipidemia) Neuropathy Pulmonary embolism Scrotal edema Smoker Urinary retention Varicose veins of both lower extremities Family History No significant family history Social History Smoking Status: Current every day smoker alcohol intake: never current occupational status: disabled Travel in the last 8 weeks: None housing: care home Review of Systems Review of Systems Review of systems:: pertinent systems reviewed and negative unless documented below Constitutional Constitutional: Reports system reviewed and no additional complaints, except as documented and Reports lethargy Eyes Eyes: Reports system reviewed and no additional complaints, except as documented ENT Ears, Nose, Mouth, and Throat: Reports system reviewed and no additional complaints, except as documented *Cardiovascular Cardiovascular: Reports system reviewed and no additional complaints, except as documented, Denies chest pain, Denies dyspnea, Reports leg edema (weeping legs, blisters and erythema) and Reports leg ulcers *Respiratory Respiratory: Reports system reviewed and no additional complaints, except as documented and Denies dyspnea *Gastrointestinal Gastrointestinal: Reports system reviewed and no additional complaints, except as documented *Genitourinary Genitourinary: Reports system reviewed and no additional complaints, except as documented, Reports urinary incontinence and Reports urinary urgency *Musculoskeletal Musculoskeletal: Reports system reviewed and no additional complaints, except as documented Comments: leg pain Integumentary/Breasts Skin/Breast: Reports system reviewed and no additional complaints, except as documented, Reports erythema and Reports lesions *Neurologic Neurologic: Reports system reviewed and no additional complaints, except as documented Psychiatric Psychiatric: Reports system reviewed and no additional complaints, except as documented Endocrine Endocrine: Reports system reviewed and no additional complaints, except as documented Hematologic/Lymphatic Hematologic/Lymphatic: Reports system reviewed and no additional complaints, except as documented Allergic/Immunologic Allergic/Immunologic: Reports system reviewed and no additional complaints, except as documented Exam Data for Last 24 hours Vital signs and Labs for Last 24 Hours: Temp Pulse Resp BP Pulse Ox O2 Del Method O2 Flow Rate 97.9 F 96 H 18 100/69 L 100 Room Air 2 04/07/23 08:00 04/07/23 08:00 04/07/23 08:00 04/07/23 08:00 04/07/23 08:00 04/07/23 09:00 04/07/23 06:24 Laboratory Results - last 24 hr 04/06/23 13:00: Hemoglobin A1c 6.2 H, TSH 5.52 H 04/06/23 13:50: WBC 5.5, RBC 4.06 L, Hgb 9.5 L, Hct 32.5 L, MCV 80.0, MCH 23.5 L , MCHC 29.4 L, RDW 16.7, Plt Count 286, MPV 6.9 L, Neut % (Auto) 68.1, Lymph % (Auto) 18.8, [place] % (Auto) 11.0 H, Eos % (Auto) 1.8, Baso % (Auto) 0.3, Neut # (Auto) 3.7, Lymph # (Auto) 1.0, [place] # (Auto) 0.6, Eos # (Auto) 0.1, Baso # (Auto) 0.0, PT 14.6 H, INR 1.38 H, Sodium 134 L, Potassium 4.7, Chloride 106, Carbon Dioxide 26, Anion Gap 6.7, BUN 17, Creatinine 1.00, Estimated Creat Clear 92, Estimated GFR 76, Est GFR ( Amer) 92, Glucose 140 H, Lactate 1.4, Calcium 8.0 L, Total Bilirubin 1.3, AST 25, ALT 20, Alkaline Phosphatase 145 H, NT-Pro-B Natriuret Pep 5950 H, Total Protein 6.6, Albumin 3.1 L, Globulin 3.5 H, Albumin/Globulin Ratio 0.9 L 04/06/23 16:00: Urine Color Yellow, Urine Appearance Sl cloudy, Urine pH 8.5, Ur Specific [place] 1.015, Urine Protein 1+, Urine Glucose (UA) Negative, Urine Ketones Negative, Urine Blood 3+, Urine Nitrate Negative, Urine Bilirubin 1+ A, Urine Urobilinogen >=8.0, Ur Leukocyte Esterase 3+ A, Urine RBC 3-5, Urine WBC 20-50, Ur Squamous Epith Cells Occasional, Urine Bacteria 3+ 04/06/23 20:22: POC Glucose 160 H 04/07/23 05:02: POC Glucose 146 H 04/07/23 06:33: WBC 6.2, RBC 3.80 L, Hgb 9.2 L, Hct 29.5 L, MCV 77.7 L, MCH 24.2 L, MCHC 31.2 L, RDW 17.1, Plt Count 282, MPV 8.4, Neut % (Auto) 76.9, Lymph % (Auto) 12.3, [place] % (Auto) 9.2, Eos % (Auto) 1.4, Baso % (Auto) 0.2, Neut # (Auto) 4.8, Lymph # (Auto) 0.8, [place] # (Auto) 0.6, Eos # (Auto) 0.1, Baso # (Auto) 0.0, Sodium 135 L, Potassium 4.4, Chloride 110 H, Carbon Dioxide 21 L, Anion Gap 8.4, BUN 17, Creatinine 1.10, Estimated Creat Clear 83, Estimated GFR 68, Est GFR ( Amer) 82, Glucose 144 H, Calcium 7.9 L, Magnesium 2.1, Total Bilirubin 1.2, AST 27, ALT 19, Alkaline Phosphatase 139 H, Total Protein 6.1 L, Albumin 2.8 L, Globulin 3.3 H, Albumin/Globulin Ratio 0.8 L, Triglycerides 41, Cholesterol 54 L, LDL Cholesterol Direct 32.87 L, VLDL Cholesterol 8, HDL Cholesterol 19 L, Cholesterol/HDL Ratio 2.8 I & O for Last 24 hours: Intake & Output 04/04/23 04/05/23 04/06/23 04/07/23 23:59 23:59 23:59 23:59 Intake Total 270 / 560 580 / 580 Output Total 850 / 1450 2100 / 2100 Balance -580 / -890 -1520 / -1520 Weight 353 lb 352 lb 3.2 oz Constitutional Constitutional: no acute distress and average body habitus *Routine HEENT Exam Head: Present normocephalic and atraumatic ENT: Present mucous membranes moist *Routine Neck Exam Neck: Present supple, full ROM and normal carotid upstroke; Absent JVD, carotid bruit or lymphadenopathy *Routine Respiratory Exam Respiratory: Present CTA bilaterally, normal respiratory effort, able to speak in complete sentences and symmetric chest movement *Routine Cardiovascular Exam Cardiovascular: Present RRR, Normal S1 and Normal S2; Absent murmur or gallop *Routine Abdominal Exam Abdominal: Present soft and normoactive bowel sounds; Absent tenderness, distended or organomegaly *Routine Extremities Exam Extremities: Present edema (gross BLE edema with weeping), full ROM, pulses intact and normal capillary refill; Absent cyanosis or clubbing *Routine Skin Exam Skin: Present intact, erythema (BLEs) and wounds (ruptured blisters ) *Routine Neurological Exam Neurological: Present alert, oriented X3 and CN II-XII intact; Absent sensory deficit or motor deficit Routine Psychiatric Exam Psychiatric: Present normal affect Meds Home Medications and Allergies Home Medications Medication Instructions Recorded Confirmed Type acetaminophen 650 mg 650 mg PO Q8HP PRN Mild Pain 09/08/20 04/06/23 History tablet,extended release (Pain (Scale Score 1-4) Relief (acetaminophen)) apixaban 5 mg tablet (Eliquis) 5 mg PO BID Blood Thinner/Afib 09/08/20 04/06/23 History aripiprazole 15 mg tablet 15 mg PO HS Mood 09/08/20 04/06/23 History atorvastatin 40 mg tablet 40 mg PO HS Cholesterol 09/08/20 04/06/23 History bupropion HCl 300 mg 24 hr tablet, 300 mg PO DAILY Mood 09/08/20 04/06/23 History extended release glimepiride 4 mg tablet 4 mg PO DAILY Diabetes 09/08/20 04/06/23 History insulin glargine 100 unit/mL 10 unit SQ HS Diabetes 09/08/20 04/06/23 History subcutaneous solution (Lantus U-100 Insulin) metoprolol succinate 25 mg 25 mg PO DAILY High Blood Pressure 09/08/20 04/06/23 History tablet,extended release 24 hr pantoprazole 40 mg tablet,delayed 40 mg PO DAILY Acid Reflux 09/08/20 04/06/23 History release polyethylene glycol 3350 17 17 g PO BIDP PRN constipation 09/08/20 04/06/23 History gram/dose oral powder tamsulosin 0.4 mg capsule 0.4 mg PO DAILY Prostate 09/08/20 04/06/23 History trazodone 50 mg tablet 50 mg PO HS Sleep 09/08/20 04/06/23 History oxybutynin chloride 10 mg 10 mg PO DAILY Bladder 11/22/22 04/06/23 History tablet,extended release 24 hr aspirin 81 mg tablet,delayed 81 mg PO DAILY Heart Health 04/07/23 04/07/23 History release New Prescriptions to Start Prescriptions: Allergies Allergy/AdvReac Type Severity Reaction Status Date / Time No Known Allergies Allergy Verified 11/22/22 18:46 Assessment and Plan *Assessment and plan (1) (HFpEF) heart failure with preserved ejection fraction: Status: Acute Qualifiers: Heart failure chronicity: acute Qualified Code(s): I50.31 - Acute diastolic (congestive) heart failure Category: Medical Code(s): I50.30 - Unspecified diastolic (congestive) heart failure (2) Cellulitis of left lower extremity: Status: Acute Category: Medical Code(s): L03.116 - Cellulitis of left lower limb (3) Diabetes: Status: Chronic Qualifiers: Diabetes mellitus type: type 2 Diabetes mellitus fci insulin use: with manager long term care use Diabetes mellitus complication status: with other specified complication Qualified Code(s): E11.69 - Type 2 diabetes mellitus with other specified complication; Z79.4 - termite exterminator (current) use of insulin Category: Medical Code(s): E11.9 - Type 2 diabetes mellitus without complications (4) HLD (hyperlipidemia): Status: Acute Qualifiers: Hyperlipidemia type: mixed hyperlipidemia Qualified Code(s): E78.2 - Mixed hyperlipidemia Category: Medical Code(s): E78.5 - Hyperlipidemia, unspecified (5) Tobacco dependence: Status: Acute Category: Medical Code(s): F17.200 - Nicotine dependence, unspecified, uncomplicated (6) Edema: Status: Acute Qualifiers: Edema type: generalized Qualified Code(s): R60.1 - Generalized edema Category: Medical Code(s): R60.9 - Edema, unspecified (7) Scrotal edema: Status: Acute Category: Medical Code(s): N50.89 - Other specified disorders of the male genital organs (8) UTI (urinary tract infection): Status: Acute Qualifiers: Urinary tract infection type: site unspecified Hematuria presence: with hematuria Qualified Code(s): N39.0 - Urinary tract infection, site not specified; R31.9 - Hematuria, unspecified Category: Medical Code(s): N39.0 - Urinary tract infection, site not specified Plan Plan: 1. The patient was admitted to the hospital with an acute exacerbation of HFpEF as well as bilateral lower extremity cellulitis. The patient has a normal ejection fraction. Will continue to diurese him with Bumex 1 mg IV twice daily. 2. The patient has cellulitis to the bilateral lower extremities. He is getting antibiotics. Will defer. 3. The patient also has a UTI for which he is getting antibiotics. Will defer. 4. The patient has been having issues with urinary incontinence which may be secondary to the UTI. Will hold off on starting Jardiance at this time due to his urinary incontinence. Once that his urinary incontinence has improved on an outpatient basis we can consider adding Jardiance. 5. His blood pressure is too low to add Entresto or an ARB at this time. 6. Continue Toprol. 7. The patient has known hyperlipidemia. He is on a statin. His LDL is 32. 8. The patient does have a history of PE and DVTs. His venous duplex was negative for DVTs at this time. He is on Eliquis. 9. Further recommendations will be made pending the patient's response to treatment. Thank you for the opportunity to participate in the care of this patient. All recommendations and orders are per Dr. Guerrero.
[2023-04-07 16:00] VITALS: BP 88/47; PULSE 95; RESP 20; TEMP 36.3; O2SAT 92
[2023-04-07 16:22] LABS: POC Glucose,Bedside 157 (70-110)
[2023-04-07 16:22] LABS: POC Glucose,Bedside 126 (70-110)
[2023-04-07 18:11] VITALS: BP 92/57
[2023-04-07 20:00] VITALS: BP 95/52; PULSE 86; RESP 20; TEMP 36.6; O2SAT 90
[2023-04-07 20:22] LABS: POC Glucose,Bedside 147 (70-110)
[2023-04-07] MEDS: ATORVASTATIN 40MG TABLET 40 MG PO (20:56)
[2023-04-07] MEDS: ARIPiprazole 10MG TABLET 15 MG PO (20:56)
[2023-04-07] MEDS: TRAZODONE 50MG TABLET 50 MG PO (20:56)
[2023-04-08 04:00] VITALS: BP 92/57; PULSE 79; RESP 18; TEMP 36.4; O2SAT 87; BMI 43.9
[2023-04-08 05:41] LABS: POC Glucose,Bedside 136 (70-110)
[2023-04-08 07:15] LABS: Basophils % 0.1 % (0.1-2.0); Eosinophils # 0.1 K/mm3 (0.0-0.4); Eosinophils % 1.9 % (0.1-12.0); Hematocrit 29.8 % (42.0-52.0); Hemoglobin 9.1 g/dL (14.1-18.0); Lymphocytes # 0.9 K/mm3 (0.7-4.5); Mean Corpuscular HGB Conc 30.6 g/dL (31.8-35.4); Mean Corpuscular Hemoglobin 23.9 pg (27.0-31.2); Mean Corpuscular Volume 78.2 fl (80-94); Mean Platelet Volume 8.6 fl (7.4-10.4); Monocytes # 0.6 K/mm3 (0.1-1.0); Monocytes % 10.4 % (1.7-9.3); Neutrophils # 3.9 K/mm3 (1.8-7.8); Neutrophils % 70.5 % (37.0-80.0); Platelet Count 295 K/mm3 (142-424); Red Blood Count 3.81 M/mm3 (4.60-6.20); Red Cell Distribution Width 17.1 % (11.5-17.5); White Blood Count 5.5 K/mm3 (4.8-10.8)
[2023-04-08 07:19] LABS: Chloride 107 mmol/L (98-107); Potassium 4.6 mmoL/L (3.5-5.1); Sodium 137 mmol/L (136-145)
[2023-04-08 07:22] LABS: Alanine Aminotransferase 19 U/L (12-78); Albumin Level 2.7 g/dl (3.5-5.0); Albumin/Globulin Ratio 0.8 (1.1-1.8); Alkaline Phosphatase 125 U/L (38-126); Anion Gap 8.6 mEq/L (5-15); Aspartate Amino Transferase 25 U/L (17-59); Blood Urea Nitrogen 20 mg/dl (9-20); Calcium 8.3 mg/dl (8.4-10.2); Carbon Dioxide 26 mmol/L (22.0-30.0); Creatinine Clearance Estimated 76 mL/min (50-200); Estimated Glomerular Filt Rate 61 ml/min (>60); GFR (African American) 74 ML/MIN (>60); Globulin 3.3 g/dL (1.3-3.2); Glucose 124 mg/dl (74-100)
[2023-04-08 08:00] VITALS: BP 100/51; PULSE 84; RESP 20; TEMP 36.4; O2SAT 91
--- NOTE | 2023-04-08 08:10 | EXP.ACUTE.PN ---
Subjective *Date: 04/08/23 *Time: 12:23 Interval history: Patient feels pretty good today per his report. No chest pain or shortness of breath. No nausea or vomiting. Legs feeling somewhat better. Diuresing well. -3.5 L in the past 24 hours. Tolerating p.o. intake Medical Exam Vital signs and Labs for Last 24 Hours: Vital Signs Temp Pulse Resp BP Pulse Ox O2 Del Method O2 Flow Rate 04/08/23 04:00 97.6 F 79 18 92/57 L 87 L Room Air 04/08/23 06:13 Nasal Cannula 2 04/08/23 05:00 Nasal Cannula 04/08/23 03:00 Nasal Cannula 2 04/08/23 01:00 Nasal Cannula 2 04/07/23 23:00 Nasal Cannula 2 04/07/23 21:00 Nasal Cannula 2 04/07/23 20:00 90 L Nasal Cannula 2 04/07/23 20:00 97.9 F 86 20 95/52 L 90 L Nasal Cannula 2 04/07/23 18:17 Nasal Cannula 2 04/07/23 18:11 92/57 L 04/07/23 17:00 Nasal Cannula 2 04/07/23 16:00 97.4 F L 95 H 20 88/47 L 92 L Nasal Cannula 2 04/07/23 15:00 Nasal Cannula 2 04/07/23 12:52 Nasal Cannula 2 04/07/23 11:00 Nasal Cannula 2 04/07/23 09:00 Room Air Intake and Output 04/07/23 04/08/23 04/08/23 23:59 07:59 15:59 Intake Total 240 / 1300 240 / 240 Output Total 700 / 4600 1000 / 1000 Balance -460 / -3300 -760 / -760 Intake: Intake, Oral Amount 240 / 1200 240 / 240 Output: Output, Urine Amount 700 / 4600 1000 / 1000 Other: Number of Unmeasured Voids 1 0 Weight 160.175 kg Patient Weight 04/08/23 23:59 Weight 160.175 kg Laboratory Results - last 24 hr 04/07/23 11:49: POC Glucose 157 H 04/07/23 16:12: POC Glucose 126 H 04/07/23 20:10: POC Glucose 147 H 04/08/23 05:31: POC Glucose 136 H 04/08/23 06:29: WBC 5.5, RBC 3.81 L, Hgb 9.1 L, Hct 29.8 L, MCV 78.2 L, MCH 23.9 L, MCHC 30.6 L, RDW 17.1, Plt Count 295, MPV 8.6, Neut % (Auto) 70.5, Lymph % (Auto) 17.0, [place] % (Auto) 10.4 H, Eos % (Auto) 1.9, Baso % (Auto) 0.1, Neut # (Auto) 3.9, Lymph # (Auto) 0.9, [place] # (Auto) 0.6, Eos # (Auto) 0.1, Baso # (Auto) 0.0, Sodium 137, Potassium 4.6, Chloride 107, Carbon Dioxide 26, Anion Gap 8.6, BUN 20, Creatinine 1.20, Estimated Creat Clear 76, Estimated GFR 61, Est GFR ( Amer) 74, Glucose 124 H, Calcium 8.3 L, Magnesium 2.0, Total Bilirubin 1.0, AST 25, ALT 19, Alkaline Phosphatase 125, Total Protein 6.0 L, Albumin 2.7 L, Globulin 3.3 H, Albumin/Globulin Ratio 0.8 L I & O for Labs for Last 24 Hours: Intake & Output 04/05/23 04/06/23 04/07/23 04/08/23 23:59 23:59 23:59 23:59 Intake Total 270 / 560 1060 / 1300 240 / 240 Output Total 850 / 1450 4600 / 4600 1000 / 1000 Balance -580 / -890 -3540 / -3300 -760 / -760 Weight 160.118 kg 159.755 kg 160.175 kg Constitutional: Present no acute distress, morbidly obese, chronically ill appearing and cooperative Head: Present atraumatic and normocephalic ENT: Present normal exam Neck: Present normal inspection Respiratory: Present crackles (In bases) and normal respiratory effort; Absent rhonchi or wheezes Cardiac: Present Regular Rhythm and Tachycardia GI: Present soft and normal bowel sounds; Absent distention or tenderness Extremities: Present normal inspection, full ROM, tenderness (Left leg) and edema (Unna boot on left lower extremity, 3+ edema in lower extremities, 1+ edema in abdominal pannus) Skin: Present intact; Absent erythema Neuro: Present Grossly Intact, alert, awake, oriented x 3 and moves all extremities Assessment and Plan *Assessment and plan (1) CHF (congestive heart failure): Status: Acute Qualifiers: Heart failure chronicity: acute on chronic Heart failure type: diastolic Qualified Code(s): I50.33 - Acute on chronic diastolic (congestive) heart failure Category: Medical Code(s): I50.9 - Heart failure, unspecified (2) Cellulitis of left lower extremity: Status: Acute Category: Medical Code(s): L03.116 - Cellulitis of left lower limb (3) Pulmonary edema: Status: Acute Category: Medical Code(s): J81.1 - Chronic pulmonary edema (4) Hypoxic respiratory failure: Status: Acute Category: Medical Code(s): J96.91 - Respiratory failure, unspecified with hypoxia (5) UTI (urinary tract infection): Status: Acute Qualifiers: Hematuria presence: with hematuria Urinary tract infection type: site unspecified Qualified Code(s): N39.0 - Urinary tract infection, site not specified; R31.9 - Hematuria, unspecified Category: Medical Code(s): N39.0 - Urinary tract infection, site not specified (6) Pleural effusion: Status: Acute Category: Medical Code(s): J90 - Pleural effusion, not elsewhere classified (7) Chronic anticoagulation: Status: Acute Category: Medical Code(s): Z79.01 - penitentiary (current) use of anticoagulants (8) Mood disorder: Status: Acute Category: Medical Code(s): F39 - Unspecified mood [affective] disorder (9) Tobacco dependence: Status: Acute Category: Medical Code(s): F17.200 - Nicotine dependence, unspecified, uncomplicated (10) Diabetes: Status: Chronic Qualifiers: Diabetes mellitus complication status: with other specified complication Diabetes mellitus supervisor intermediates insulin use: with prison use Diabetes mellitus type: type 2 Qualified Code(s): E11.69 - Type 2 diabetes mellitus with other specified complication; Z79.4 - middle or intermediate school principal (current) use of insulin Category: Medical Code(s): E11.9 - Type 2 diabetes mellitus without complications Plan Mr. Lyn is a 62-year-old male with history of diabetes, hypertension, mood or/schizophrenia who presented to our with swelling and redness in his legs. Workup in the ER concerning for CHF exacerbation, volume overload, pulmonary edema, cellulitis of his legs, and UTI with abnormal urine. Discussed case with ER physician, request admission for further management and workup including cardiology evaluation. Responding to diuresis. Afebrile overnight. Continues to require inpatient management for treatment of heart failure. Problems addressed as follows: Volume overload/pleural effusions Pulmonary edema CHF exacerbation, unspecified -Continue Bumex IV 1 mg twice daily. Echocardiogram obtained, awaiting formal read. Cardiology assisting with care. Continue diuresis. Hold on Entresto/PANDA or ARB at this time due to soft blood pressures. Continue Toprol. Will consider adding Jardiance if his urinary incontinence improves. -Continue Lipitor, aspirin, Eliquis - Strict ins and outs -Kidney function remained stable with creatinine 1.2, BUN of 20. Magnesium 2.0 and potassium within normal range. Repeat CBC, CMP, magnesium ordered for the morning. Cellulitis UTI -Received [place] in the ER. No systemic signs of infection, White cell count normal at 6.2 this morning. Hemoglobin 9.2. Repeat CBC, CMP, magnesium ordered for the morning. -Urine grossly abnormal with leuk esterase and nitrate and 3+ bacteria. Transition to levofloxacin. Plan for 5 days of antibiotics. Urine culture still pending. Schizophrenia: Continue Abilify 15 mg nightly, bupropion 300 mg daily, trazodone 50 mg nightly BPH: Continue tamsulosin 0.4 mg nightly Electrolytes within normal range, kidney function stable with creatinine 1.1 and BUN of 17. Diabetes: A1c 6.2, TSH elevated at 5.5. Continue sliding scale insulin with fingersticks ACHS GERD: Continue home pantoprazole 40 mg daily. PT and OT consulted for therapy eval. Wound consulted to assist with lymphedema and weeping leg. Appreciate their recommendations. full code diabetic diet eliquis
[2023-04-08] MEDS: PANTOPRAZOLE 40MG TABLET 40 MG PO (08:11)
[2023-04-08] MEDS: APIXABAN 5MG TABLET 5 MG PO ×2 (08:11→21:09)
[2023-04-08] MEDS: ASPIRIN EC 81MG TABLET 81 MG PO (08:11)
[2023-04-08] MEDS: buPROPion HCl SR 150MG TAB 150 MG PO ×2 (08:11→21:11)
[2023-04-08] MEDS: TAMSULOSIN 0.4MG CAPSULE 0.400000000000000022 MG PO (08:11)
[2023-04-08] MEDS: METOPROLOL SUCCINATE XL 25MG TABLET 25 MG PO (08:11)
[2023-04-08] MEDS: BUMETANIDE 1MG/4ML VIAL 1 MG IV ×2 (08:12→15:44)
[2023-04-08] MEDS: humaLOG 100 UNITS/ML 3ML VIAL (SSI) SQ (11:12)
[2023-04-08] MEDS: LEVOFLOXACIN/D5W 750 MG/150 ML 750 MG/150 ML PIGGYBACK 100 MG IV (11:21)
[2023-04-08 12:06] LABS: POC Glucose,Bedside 192 (70-110)
[2023-04-08] MEDS: ACETAMINOPHEN 325MG TAB 650 MG PO (12:18)
[2023-04-08 13:00] VITALS: BMI 43.9
[2023-04-08 16:00] VITALS: BP 109/55; PULSE 65; RESP 18; TEMP 36.6; O2SAT 94
[2023-04-08 17:54] LABS: POC Glucose,Bedside 77 (70-110)
[2023-04-08 20:00] VITALS: BP 105/52; PULSE 81; RESP 18; TEMP 36.6; O2SAT 93
[2023-04-08] MEDS: ARIPiprazole 10MG TABLET 15 MG PO (21:10)
[2023-04-08 21:11] LABS: POC Glucose,Bedside 89 (70-110)
[2023-04-08] MEDS: ATORVASTATIN 40MG TABLET 40 MG PO (21:11)
[2023-04-08] MEDS: TRAZODONE 50MG TABLET 50 MG PO (21:11)
[2023-04-09 04:00] VITALS: BP 103/60; PULSE 77; RESP 19; TEMP 36.6; O2SAT 91; BMI 43.2
[2023-04-09 06:48] LABS: POC Glucose,Bedside 119 (70-110)
--- NOTE | 2023-04-09 07:52 | EXP.ACUTE.PN ---
Subjective *Date: 04/09/23 *Time: 13:43 Interval history: Diuresing well, -10 L since admission. On 1 L nasal cannula oxygen this morning. Tolerating p.o. intake. Necessitating 2 people to get up and go to the bathroom. Feeling some improvement with the weight loss secondary to diuresis. Legs still feel heavy. No chest pain, nausea, vomiting, shortness of breath. Having bowel movements. Medical Exam Vital signs and Labs for Last 24 Hours: Vital Signs Temp Pulse Resp BP Pulse Ox O2 Del Method O2 Flow Rate 04/09/23 07:00 Nasal Cannula 1 04/09/23 05:00 Nasal Cannula 1 04/09/23 04:00 97.8 F 77 19 103/60 L 91 L Room Air 04/09/23 03:00 Nasal Cannula 1 04/09/23 01:00 Nasal Cannula 1 04/08/23 23:00 Nasal Cannula 1 04/08/23 21:00 Nasal Cannula 1 04/08/23 21:00 Nasal Cannula 1 04/08/23 20:00 97.8 F 81 18 105/52 L 93 L Nasal Cannula 2 04/08/23 19:00 Nasal Cannula 2 04/08/23 17:00 Nasal Cannula 2 04/08/23 15:00 Nasal Cannula 2 04/08/23 16:00 97.8 F 65 18 109/55 L 94 L Nasal Cannula 04/08/23 13:00 Nasal Cannula 2 04/08/23 11:00 Nasal Cannula 2 04/08/23 09:00 Nasal Cannula 2 04/08/23 08:00 Nasal Cannula 2 04/08/23 08:00 97.6 F 84 20 100/51 L 91 L Nasal Cannula Intake and Output 04/08/23 04/08/23 04/09/23 15:59 23:59 07:59 Intake Total 1020 / 1890 630 / 1890 440 / 440 Output Total 2500 / 7200 2900 / 7200 2150 / 2150 Balance -1480 / -5310 -2270 / -5310 -1710 / -1710 Intake: Intake, Oral Amount 1020 / 1740 480 / 1740 440 / 440 Infusion Intake 150 / 150 Levofloxacin/D5w 750 mg/150 ml 150 / 150 750 mg In 150 ml @ 100 mls/hr IV Q24H [facility] Rx#:[id number] Output: Output, Urine Amount 2500 / 7200 2900 / 7200 2150 / 2150 Other: Number of Voids 0 Number of Unmeasured Voids 0 0 0 Number of Bowel Movements 1 1 Weight 160.175 kg 157.652 kg Patient Weight 04/09/23 23:59 Weight 157.652 kg Laboratory Results - last 24 hr 04/08/23 06:29: WBC 5.5, RBC 3.81 L, Hgb 9.1 L, Hct 29.8 L, MCV 78.2 L, MCH 23.9 L, MCHC 30.6 L, RDW 17.1, Plt Count 295, MPV 8.6, Neut % (Auto) 70.5, Lymph % (Auto) 17.0, [place] % (Auto) 10.4 H, Eos % (Auto) 1.9, Baso % (Auto) 0.1, Neut # (Auto) 3.9, Lymph # (Auto) 0.9, [place] # (Auto) 0.6, Eos # (Auto) 0.1, Baso # (Auto) 0.0 04/08/23 11:12: POC Glucose 192 H 04/08/23 15:47: POC Glucose 77 04/08/23 21:04: POC Glucose 89 04/09/23 05:39: POC Glucose 119 H I & O for Labs for Last 24 Hours: Intake & Output 04/06/23 04/07/23 04/08/23 04/09/23 23:59 23:59 23:59 23:59 Intake Total 270 / 560 1060 / 1300 1890 / 1890 440 / 440 Output Total 850 / 1450 4600 / 4600 6400 / 7200 2150 / 2150 Balance -580 / -890 -3540 / -3300 -4510 / -5310 -1710 / -1710 Weight 160.118 kg 159.755 kg 160.175 kg 157.652 kg Constitutional: Present no acute distress, morbidly obese, chronically ill appearing and cooperative Head: Present atraumatic and normocephalic ENT: Present normal exam Neck: Present normal inspection Respiratory: Present crackles (In bases) and normal respiratory effort; Absent rhonchi or wheezes Cardiac: Present Regular Rhythm and Tachycardia GI: Present soft and normal bowel sounds; Absent distention or tenderness Extremities: Present normal inspection, full ROM, tenderness (Left leg) and edema (3+ edema in lower extremities, 1+ edema in abdominal pannus) Comment:: Left lower extremity with Unna boot in place Skin: Present intact; Absent erythema Neuro: Present Grossly Intact, alert, awake, oriented x 3 and moves all extremities Assessment and Plan *Assessment and plan (1) CHF (congestive heart failure): Status: Acute Qualifiers: Heart failure chronicity: acute on chronic Heart failure type: diastolic Qualified Code(s): I50.33 - Acute on chronic diastolic (congestive) heart failure Category: Medical Code(s): I50.9 - Heart failure, unspecified (2) Cellulitis of left lower extremity: Status: Acute Category: Medical Code(s): L03.116 - Cellulitis of left lower limb (3) Pulmonary edema: Status: Acute Category: Medical Code(s): J81.1 - Chronic pulmonary edema (4) Hypoxic respiratory failure: Status: Acute Category: Medical Code(s): J96.91 - Respiratory failure, unspecified with hypoxia (5) UTI (urinary tract infection): Status: Acute Qualifiers: Hematuria presence: with hematuria Urinary tract infection type: site unspecified Qualified Code(s): N39.0 - Urinary tract infection, site not specified; R31.9 - Hematuria, unspecified Category: Medical Code(s): N39.0 - Urinary tract infection, site not specified (6) Pleural effusion: Status: Acute Category: Medical Code(s): J90 - Pleural effusion, not elsewhere classified (7) Chronic anticoagulation: Status: Acute Category: Medical Code(s): Z79.01 - intermediate card tender (current) use of anticoagulants (8) Mood disorder: Status: Acute Category: Medical Code(s): F39 - Unspecified mood [affective] disorder (9) Tobacco dependence: Status: Acute Category: Medical Code(s): F17.200 - Nicotine dependence, unspecified, uncomplicated (10) Diabetes: Status: Chronic Qualifiers: Diabetes mellitus complication status: with other specified complication Diabetes mellitus long term care administrator insulin use: with snf use Diabetes mellitus type: type 2 Qualified Code(s): E11.69 - Type 2 diabetes mellitus with other specified complication; Z79.4 - intermediate (current) use of insulin Category: Medical Code(s): E11.9 - Type 2 diabetes mellitus without complications Plan Mr. Lyn is a 62-year-old male with history of diabetes, hypertension, mood or/schizophrenia who presented to our with swelling and redness in his legs. Workup in the ER concerning for CHF exacerbation, volume overload, pulmonary edema, cellulitis of his legs, and UTI with abnormal urine. Discussed case with ER physician, request admission for further management and workup including cardiology evaluation. Responding to diuresis. Afebrile overnight. Continues to require inpatient management for treatment of heart failure. Will need placement when medically stable given debility and need for assistance with ADLs. Cannot return to his personal-group home in his current condition. Problems addressed as follows: Volume overload/pleural effusions Pulmonary edema CHF exacerbation, unspecified -Continue Bumex IV 1 mg twice daily. Echocardiogram obtained, awaiting formal read. Cardiology assisting with care. Continue diuresis. Hold on Entresto/PANDA or ARB at this time due to soft blood pressures. Continue Toprol. Will consider adding Jardiance if his urinary incontinence improves. -Continue Lipitor, aspirin, Eliquis - Strict ins and outs, close monitoring for electrolyte disturbance -Kidney function remained stable with creatinine 1.1, BUN of 23. Magnesium 1.9 and potassium 4.5. Repeat CBC, CMP, magnesium ordered for the morning. Cellulitis UTI -Received Dalvance in the ER. No systemic signs of infection, White cell count normal at 5.9, hemoglobin 9.6. Repeat CBC, CMP, magnesium ordered for the morning. -Urine positive for Proteus, greater than 100k CFU, continue levofloxacin. Plan for 5 days of antibiotics. Sensitivity still Schizophrenia: Continue Abilify 15 mg nightly, bupropion 300 mg daily, trazodone 50 mg nightly BPH: Continue tamsulosin 0.4 mg nightly Electrolytes within normal range, kidney function stable with creatinine 1.1 and BUN of 17. Diabetes: A1c 6.2, TSH elevated at 5.5. Continue sliding scale insulin with fingersticks ACHS GERD: Continue home pantoprazole 40 mg daily. PT and OT consulted for therapy eval. Wound care consulted to assist with lymphedema and weeping leg. Appreciate their recommendations. full code diabetic diet eliquis
[2023-04-09 08:00] VITALS: BP 112/58; PULSE 82; RESP 20; TEMP 36.8; O2SAT 90
[2023-04-09] MEDS: PANTOPRAZOLE 40MG TABLET 40 MG PO (08:10)
[2023-04-09] MEDS: TAMSULOSIN 0.4MG CAPSULE 0.400000000000000022 MG PO (08:10)
[2023-04-09] MEDS: buPROPion HCl SR 150MG TAB 150 MG PO ×2 (08:10→21:16)
[2023-04-09] MEDS: BUMETANIDE 1MG/4ML VIAL 1 MG IV (08:10)
[2023-04-09] MEDS: APIXABAN 5MG TABLET 5 MG PO ×2 (08:10→21:16)
[2023-04-09] MEDS: METOPROLOL SUCCINATE XL 25MG TABLET 25 MG PO (08:10)
[2023-04-09] MEDS: ASPIRIN EC 81MG TABLET 81 MG PO (08:10)
[2023-04-09 08:41] LABS: Basophils % 0.3 % (0.1-2.0); Eosinophils # 0.2 K/mm3 (0.0-0.4); Eosinophils % 2.8 % (0.1-12.0); Hemoglobin 9.6 g/dL (14.1-18.0); Lymphocytes # 0.8 K/mm3 (0.7-4.5); Lymphocytes % 14.5 % (10-50); Mean Corpuscular HGB Conc 35.6 g/dL (31.8-35.4); Mean Corpuscular Hemoglobin 28.2 pg (27.0-31.2); Mean Corpuscular Volume 79.1 fl (80-94); Monocytes # 0.4 K/mm3 (0.1-1.0); Monocytes % 7.9 % (1.7-9.3); Neutrophils % 74.6 % (37.0-80.0); Platelet Count 252 K/mm3 (142-424); Red Blood Count 3.41 M/mm3 (4.60-6.20); Red Cell Distribution Width 17.2 % (11.5-17.5); White Blood Count 5.4 K/mm3 (4.8-10.8)
[2023-04-09 08:46] LABS: Magnesium 1.9 mg/dl (1.6-2.3)
[2023-04-09 08:50] LABS: Alanine Aminotransferase 20 U/L (12-78); Albumin/Globulin Ratio 0.9 (1.1-1.8); Alkaline Phosphatase 131 U/L (38-126); Anion Gap 10.5 mEq/L (5-15); Aspartate Amino Transferase 30 U/L (17-59); Blood Urea Nitrogen 23 mg/dl (9-20); Calcium 8.5 mg/dl (8.4-10.2); Carbon Dioxide 27 mmol/L (22.0-30.0); Chloride 105 mmol/L (98-107); Creatinine Clearance Estimated 83 mL/min (50-200); Estimated Glomerular Filt Rate 68 ml/min (>60); GFR (African American) 82 ML/MIN (>60); Globulin 3.5 g/dL (1.3-3.2); Glucose 134 mg/dl (74-100); Potassium 4.5 mmoL/L (3.5-5.1); Sodium 138 mmol/L (136-145); Total Protein,Serum 6.5 g/dl (6.3-8.2)
[2023-04-09] MEDS: humaLOG 100 UNITS/ML 3ML VIAL (SSI) SQ ×2 (10:50→21:25)
[2023-04-09] MEDS: LEVOFLOXACIN/D5W 750 MG/150 ML 750 MG/150 ML PIGGYBACK 100 MG IV (11:13)
[2023-04-09 16:00] VITALS: BP 127/78; PULSE 83; RESP 19; TEMP 36.6; O2SAT 94
[2023-04-09 20:00] VITALS: BP 111/60; PULSE 87; RESP 16; TEMP 36.6; O2SAT 91
[2023-04-09] MEDS: ARIPiprazole 10MG TABLET 15 MG PO (21:16)
[2023-04-09] MEDS: TRAZODONE 50MG TABLET 50 MG PO (21:16)
[2023-04-09] MEDS: ATORVASTATIN 40MG TABLET 40 MG PO (21:16)
[2023-04-09 22:01] LABS: POC Glucose,Bedside 178 (70-110)
[2023-04-10 04:00] VITALS: BP 102/54; PULSE 75; RESP 20; TEMP 36.3; O2SAT 89; BMI 42.9
[2023-04-10 06:07] LABS: POC Glucose,Bedside 150 (70-110)
[2023-04-10 07:15] LABS: Basophils % 0.2 % (0.1-2.0); Eosinophils # 0.2 K/mm3 (0.0-0.4); Eosinophils % 3.6 % (0.1-12.0); Hematocrit 29.6 % (42.0-52.0); Hemoglobin 9.2 g/dL (14.1-18.0); Lymphocytes # 0.9 K/mm3 (0.7-4.5); Lymphocytes % 15.4 % (10-50); Mean Corpuscular HGB Conc 31.2 g/dL (31.8-35.4); Mean Corpuscular Hemoglobin 24.1 pg (27.0-31.2); Mean Corpuscular Volume 77.4 fl (80-94); Mean Platelet Volume 8.2 fl (7.4-10.4); Monocytes # 0.5 K/mm3 (0.1-1.0); Monocytes % 9.3 % (1.7-9.3); Neutrophils % 71.4 % (37.0-80.0); Platelet Count 271 K/mm3 (142-424); Red Blood Count 3.83 M/mm3 (4.60-6.20); Red Cell Distribution Width 17.2 % (11.5-17.5); White Blood Count 5.5 K/mm3 (4.8-10.8)
--- NOTE | 2023-04-10 07:43 | EXP.PHA.PN ---
Subjective *Date: 04/10/23 *Time: 07:43 Medical Exam Vital signs and Labs for Last 24 Hours: Vital Signs Temp Pulse Resp BP Pulse Ox O2 Del Method O2 Flow Rate 04/10/23 07:00 Nasal Cannula 1 04/10/23 05:00 Nasal Cannula 2 04/10/23 04:00 97.4 F L 75 20 102/54 L 89 L Nasal Cannula 2 04/10/23 03:00 Nasal Cannula 1 04/10/23 01:00 Nasal Cannula 1 04/09/23 23:00 Nasal Cannula 1 04/09/23 21:00 Nasal Cannula 1 04/09/23 21:00 Nasal Cannula 1 04/09/23 20:00 97.9 F 87 16 111/60 91 L Nasal Cannula 2 04/09/23 16:00 97.8 F 83 19 127/78 94 L Nasal Cannula 04/09/23 18:45 Nasal Cannula 1 04/09/23 17:00 Nasal Cannula 1 04/09/23 15:00 Nasal Cannula 1 04/09/23 12:51 Nasal Cannula 1 04/09/23 11:00 Nasal Cannula 1 04/09/23 08:00 98.2 F 82 20 112/58 L 90 L Nasal Cannula 04/09/23 09:00 Nasal Cannula 1 04/09/23 08:00 Nasal Cannula 1 Intake and Output 04/09/23 04/09/23 04/10/23 15:59 23:59 07:59 Intake Total 1200 / 2390 750 / 2390 Output Total 0 / 3550 1400 / 3550 450 / 450 Balance 1200 / -1160 -650 / -1160 -450 / -450 Intake: Intake, Oral Amount 1200 / 2240 600 / 2240 Infusion Intake 150 / 150 Levofloxacin/D5w 750 mg/150 ml 150 / 150 750 mg In 150 ml @ 100 mls/hr IV Q24H [facility] Rx#:[id number] Output: Output, Urine Amount 0 / 3550 1400 / 3550 450 / 450 Other: Number of Voids 0 Number of Unmeasured Voids 0 Number of Bowel Movements 1 Weight 156.716 kg Patient Weight 04/10/23 23:59 Weight 156.716 kg Laboratory Results - last 24 hr 04/09/23 08:05: WBC 5.4, RBC 3.41 L, Hgb 9.6 L, Hct 27.0 L, MCV 79.1 L, MCH 28.2, MCHC 35.6 H, RDW 17.2, Plt Count 252, MPV 8.0, Neut % (Auto) 74.6, Lymph % (Auto) 14.5, [place] % (Auto) 7.9, Eos % (Auto) 2.8, Baso % (Auto) 0.3, Neut # (Auto) 4.0, Lymph # (Auto) 0.8, [place] # (Auto) 0.4, Eos # (Auto) 0.2, Baso # (Auto) 0.0, Sodium 138, Potassium 4.5, Chloride 105, Carbon Dioxide 27, Anion Gap 10.5, BUN 23 H, Creatinine 1.10, Estimated Creat Clear 83, Estimated GFR 68, Est GFR ( Amer) 82, Glucose 134 H, Calcium 8.5, Magnesium 1.9, Total Bilirubin 1.0, AST 30, ALT 20, Alkaline Phosphatase 131 H, Total Protein 6.5, Albumin 3.0 L D, Globulin 3.5 H, Albumin/Globulin Ratio 0.9 L 04/09/23 21:13: POC Glucose 178 H 04/10/23 05:53: POC Glucose 150 H 04/10/23 06:25: WBC 5.5, RBC 3.83 L, Hgb 9.2 L, Hct 29.6 L, MCV 77.4 L, MCH 24.1 L, MCHC 31.2 L, RDW 17.2, Plt Count 271, MPV 8.2, Neut % (Auto) 71.4, Lymph % (Auto) 15.4, [place] % (Auto) 9.3, Eos % (Auto) 3.6, Baso % (Auto) 0.2, Neut # (Auto) 4.0, Lymph # (Auto) 0.9, [place] # (Auto) 0.5, Eos # (Auto) 0.2, Baso # (Auto) 0.0 I & O for Labs for Last 24 Hours: Intake & Output 04/07/23 04/08/23 04/09/23 04/10/23 23:59 23:59 23:59 23:59 Intake Total 1060 / 1300 1890 / 1890 2390 / 2390 Output Total 4600 / 4600 6400 / 7200 3550 / 3550 450 / 450 Balance -3540 / -3300 -4510 / -5310 -1160 / -1160 -450 / -450 Weight 159.755 kg 160.175 kg 157.652 kg 156.716 kg Microbiology Reports for the Last 24 Hours: Microbiology 04/06/23 16:00 Urine,Clean Catch Urine Culture - Preliminary The patient's infection will respond to the chosen ABx?: Yes Is the patient receiving the right drug, dose, and route?: Yes Could a more targeted ABx be ordered?: No (WBC WNL, PROTEUS IN URINE CX. CONTINUE CURRENT ABX.)
[2023-04-10 08:00] VITALS: BP 100/61; PULSE 67; RESP 18; TEMP 36.6; O2SAT 94
[2023-04-10 08:32] LABS: Chloride 105 mmol/L (98-107); Potassium 4.5 mmoL/L (3.5-5.1); Sodium 136 mmol/L (136-145)
[2023-04-10 08:34] LABS: Alanine Aminotransferase 21 U/L (12-78); Alkaline Phosphatase 122 U/L (38-126); Aspartate Amino Transferase 26 U/L (17-59); Bilirubin,Total 0.8 mg/dl (0.2-1.3); Blood Urea Nitrogen 21 mg/dl (9-20); Creatinine Clearance Estimated 83 mL/min (50-200); Estimated Glomerular Filt Rate 68 ml/min (>60); GFR (African American) 82 ML/MIN (>60)
[2023-04-10 08:35] LABS: Albumin Level 2.7 g/dl (3.5-5.0); Albumin/Globulin Ratio 0.8 (1.1-1.8); Anion Gap 8.5 mEq/L (5-15); Calcium 8.3 mg/dl (8.4-10.2); Carbon Dioxide 27 mmol/L (22.0-30.0); Globulin 3.4 g/dL (1.3-3.2); Glucose 127 mg/dl (74-100); Total Protein,Serum 6.1 g/dl (6.3-8.2)
[2023-04-10 09:17] LABS: Magnesium 1.9 mg/dl (1.6-2.3)
--- NOTE | 2023-04-10 09:17 | SW/DCPLANNER ---
Addendum entered by [facility] 04/12/23 12:39: I have arranged [facility] [employer] for this patient: confirmation #[id number]. Addendum entered by [facility] 04/12/23 09:06: Per Zoraida kelley/ [facility] this patient has been approved SNF level of care for today. I will update MD. Addendum entered by [facility] 04/10/23 15:39: Zoraida kelley/ [facility] is starting a precert on this patient. Addendum entered by [facility] 04/10/23 13:24: [facility] is not able to accept patient due to insurance. Original Note: I spoke w/ patient regarding plans once medically stable for discharge. PT evaluated patient and recommended SNF level of care. Patient is agreeable to short term placement and prefer information to be faxed to the following facilities: [facility], [facility], [facility], [facility] and [facility]. Patient also ask that I call and update his friend Aishwarya: I have informed Aishwarya of situation. I will continue to follow up w/ Sonu montgomery, patient and .
[2023-04-10] MEDS: BUMETANIDE 1MG/4ML VIAL 1 MG IV ×2 (09:41→15:34)
[2023-04-10] MEDS: TAMSULOSIN 0.4MG CAPSULE 0.400000000000000022 MG PO (09:42)
[2023-04-10] MEDS: APIXABAN 5MG TABLET 5 MG PO ×2 (09:42→21:21)
[2023-04-10] MEDS: ASPIRIN EC 81MG TABLET 81 MG PO (09:42)
[2023-04-10] MEDS: buPROPion HCl SR 150MG TAB 150 MG PO ×2 (09:42→21:21)
[2023-04-10] MEDS: PANTOPRAZOLE 40MG TABLET 40 MG PO (09:42)
[2023-04-10] MEDS: METOPROLOL SUCCINATE XL 25MG TABLET 25 MG PO (09:42)
--- NOTE | 2023-04-10 10:25 | PC.NURSE ---
PT IS SITTING UP IN THE CHAIR THIS AM. ALERT AND ORIENTED X4. PT FOLLOWS COMMANDS AND ANSWERS QUESTIONS. UNNA BOOT TO THE LLE CHANGED THIS MORNING. PT AMBULATED TO THE BATHROOM WITH 1 ASSIST. 2+ PITTING EDEMA NOTED FROM WAIST TO BLE. EATING AND DRINKING WELL. TAKES ALL MEDICATION W/O DIFFICULTY. STAFF HAS BEEN ASSISTING PT WITH SHOWERS. WILL CONTINUE TO MONITOR.
[2023-04-10] MEDS: LEVOFLOXACIN/D5W 750 MG/150 ML 750 MG/150 ML PIGGYBACK 100 MG IV (11:08)
[2023-04-10 11:17] LABS: POC Glucose,Bedside 138 (70-110)
--- NOTE | 2023-04-10 14:00 | EXP.CARD.PN ---
Subjective Subjective Date: 04/10/23 Time: 08:00 Principal diagnosis: Cellulitis, Right sided heart failure Interval history: Patient doing well, has diuresed greater than 11 L. No complaints this morning. Morning labs reviewed. Exam Data for Last 24 hours Vital signs and Labs for Last 24 Hours: Temp Pulse Resp BP Pulse Ox O2 Del Method O2 Flow Rate 97.9 F 67 18 100/61 L 94 L Nasal Cannula 1 04/10/23 08:00 04/10/23 08:00 04/10/23 08:00 04/10/23 08:00 04/10/23 08:00 04/10/23 13:00 04/10/23 07:00 Laboratory Results - last 24 hr 04/09/23 21:13: POC Glucose 178 H 04/10/23 05:53: POC Glucose 150 H 04/10/23 06:25: WBC 5.5, RBC 3.83 L, Hgb 9.2 L, Hct 29.6 L, MCV 77.4 L, MCH 24.1 L, MCHC 31.2 L, RDW 17.2, Plt Count 271, MPV 8.2, Neut % (Auto) 71.4, Lymph % (Auto) 15.4, [place] % (Auto) 9.3, Eos % (Auto) 3.6, Baso % (Auto) 0.2, Neut # (Auto) 4.0, Lymph # (Auto) 0.9, [place] # (Auto) 0.5, Eos # (Auto) 0.2, Baso # (Auto) 0.0, Sodium 136, Potassium 4.5, Chloride 105, Carbon Dioxide 27, Anion Gap 8.5, BUN 21 H, Creatinine 1.10, Estimated Creat Clear 83, Estimated GFR 68, Est GFR ( Amer) 82, Glucose 127 H, Calcium 8.3 L, Magnesium 1.9, Total Bilirubin 0.8, AST 26, ALT 21, Alkaline Phosphatase 122, Total Protein 6.1 L, Albumin 2.7 L, Globulin 3.4 H, Albumin/Globulin Ratio 0.8 L 04/10/23 11:07: POC Glucose 138 H I & O for Last 24 hours: Intake & Output 04/07/23 04/08/23 04/09/23 04/10/23 23:59 23:59 23:59 23:59 Intake Total 1060 / 1300 1890 / 1890 2390 / 2390 820 / 820 Output Total 4600 / 4600 6400 / 7200 3550 / 3550 450 / 450 Balance -3540 / -3300 -4510 / -5310 -1160 / -1160 370 / 370 Weight 352 lb 3.2 oz 353 lb 2.007 oz 347 lb 9 oz 345 lb 8 oz Microbiology Reports for the Last 24 Hours: Microbiology 04/06/23 13:50 Blood Blood Culture - Preliminary 04/06/23 13:50 Blood Blood Culture - Preliminary Constitutional Constitutional: no acute distress *Routine Respiratory Exam Respiratory: Present CTA bilaterally and symmetric chest movement *Routine Cardiovascular Exam Cardiovascular: Present RRR, Normal S1 and Normal S2 *Routine Abdominal Exam Abdominal: Present soft and normoactive bowel sounds; Absent tenderness *Routine Extremities Exam Extremities: Present edema, full ROM and normal capillary refill *Routine Skin Exam Skin: Present intact, dry and warm Detailed Neck Exam: Thyroids Thyroid: Absent bruit Progress Note: A&P Assessment and plan (1) CHF (congestive heart failure): Status: Acute (2) Cellulitis of left lower extremity: Status: Acute (3) Pulmonary edema: Status: Acute (4) Hypoxic respiratory failure: Status: Acute (5) UTI (urinary tract infection): Status: Acute (6) Pleural effusion: Status: Acute (7) Chronic anticoagulation: Status: Acute (8) Mood disorder: Status: Acute (9) Tobacco dependence: Status: Acute (10) Diabetes: Status: Chronic Assessment and Plan Assessment and Plan for All Diagnoses:: Acute on chronic right-sided heart failure NYHA II-III mild MR Moderate TR Elevated RVSP of 41 Bilateral Lower extremity edema -Echo from 03/2023: Normal ejection fraction, severely dilated RV and reduced function, evidence of RV pressure overload, mild MR, moderate TR, mild PI, elevated RVSP at 41 -Continue to diurese with Bumex 1 mg IV twice daily and monitor I's and O's -No Jardiance currently due to UTI Hypertension -Currently well-controlled. Continue metoprolol 25 mg daily Hyperlipidemia -LDL 32 continue atorvastatin 40 mg daily History of DVT/PE -Venous Doppler negative for DVT -Continue Eliquis 5 mg p.o. twice daily CV summary 04/10/2023: Continue with aggressive diuresis for lower extremity edema and shortness of air.
--- NOTE | 2023-04-10 14:36 | EXP.ACUTE.PN ---
Subjective *Date: 04/10/23 *Time: 14:36 Interval history: Patient denies any chest pain. Legs still heavy but feeling better. Not having as much weeping from his left lower extremity. Stable on 1 L. Diuresing well, negative over 10 L since admission. Medical Exam Vital signs and Labs for Last 24 Hours: Vital Signs Temp Pulse Resp BP Pulse Ox O2 Del Method O2 Flow Rate 04/10/23 08:00 Nasal Cannula 04/10/23 13:00 Nasal Cannula 04/10/23 11:00 Nasal Cannula 04/10/23 09:00 Nasal Cannula 04/10/23 08:00 97.9 F 67 18 100/61 L 94 L Nasal Cannula 04/10/23 07:00 Nasal Cannula 1 04/10/23 05:00 Nasal Cannula 2 04/10/23 04:00 97.4 F L 75 20 102/54 L 89 L Nasal Cannula 2 04/10/23 03:00 Nasal Cannula 1 04/10/23 01:00 Nasal Cannula 1 04/09/23 23:00 Nasal Cannula 1 04/09/23 21:00 Nasal Cannula 1 04/09/23 21:00 Nasal Cannula 1 04/09/23 20:00 97.9 F 87 16 111/60 91 L Nasal Cannula 2 04/09/23 16:00 97.8 F 83 19 127/78 94 L Nasal Cannula 04/09/23 18:45 Nasal Cannula 1 04/09/23 17:00 Nasal Cannula 1 04/09/23 15:00 Nasal Cannula 1 Intake and Output 04/09/23 04/10/23 04/10/23 23:59 07:59 15:59 Intake Total 750 / 2390 820 / 820 Output Total 1400 / 3550 450 / 450 Balance -650 / -1160 -450 / 370 820 / 370 Intake: Intake, Oral Amount 600 / 2240 820 / 820 Infusion Intake 150 / 150 Levofloxacin/D5w 750 mg/150 ml 150 / 150 750 mg In 150 ml @ 100 mls/hr IV Q24H [facility] Rx#:[id number] Output: Output, Urine Amount 1400 / 3550 450 / 450 Other: Number of Unmeasured Voids 0 Number of Bowel Movements 1 Weight 156.716 kg Patient Weight 04/10/23 23:59 Weight 156.716 kg Laboratory Results - last 24 hr 04/09/23 21:13: POC Glucose 178 H 04/10/23 05:53: POC Glucose 150 H 04/10/23 06:25: WBC 5.5, RBC 3.83 L, Hgb 9.2 L, Hct 29.6 L, MCV 77.4 L, MCH 24.1 L, MCHC 31.2 L, RDW 17.2, Plt Count 271, MPV 8.2, Neut % (Auto) 71.4, Lymph % (Auto) 15.4, [place] % (Auto) 9.3, Eos % (Auto) 3.6, Baso % (Auto) 0.2, Neut # (Auto) 4.0, Lymph # (Auto) 0.9, [place] # (Auto) 0.5, Eos # (Auto) 0.2, Baso # (Auto) 0.0, Sodium 136, Potassium 4.5, Chloride 105, Carbon Dioxide 27, Anion Gap 8.5, BUN 21 H, Creatinine 1.10, Estimated Creat Clear 83, Estimated GFR 68, Est GFR ( Amer) 82, Glucose 127 H, Calcium 8.3 L, Magnesium 1.9, Total Bilirubin 0.8, AST 26, ALT 21, Alkaline Phosphatase 122, Total Protein 6.1 L, Albumin 2.7 L, Globulin 3.4 H, Albumin/Globulin Ratio 0.8 L 04/10/23 11:07: POC Glucose 138 H I & O for Labs for Last 24 Hours: Intake & Output 04/07/23 04/08/23 04/09/23 04/10/23 23:59 23:59 23:59 23:59 Intake Total 1060 / 1300 1890 / 1890 2390 / 2390 820 / 820 Output Total 4600 / 4600 6400 / 7200 3550 / 3550 450 / 450 Balance -3540 / -3300 -4510 / -5310 -1160 / -1160 370 / 370 Weight 159.755 kg 160.175 kg 157.652 kg 156.716 kg Microbiology Reports for the Last 24 Hours: Microbiology 04/06/23 13:50 Blood Blood Culture - Preliminary 04/06/23 13:50 Blood Blood Culture - Preliminary Constitutional: Present no acute distress, morbidly obese, chronically ill appearing and cooperative Head: Present atraumatic and normocephalic ENT: Present normal exam Neck: Present normal inspection Respiratory: Present crackles (In bases) and normal respiratory effort; Absent rhonchi or wheezes Cardiac: Present Regular Rhythm and Tachycardia GI: Present soft and normal bowel sounds; Absent distention or tenderness Extremities: Present normal inspection, full ROM, tenderness (Left leg) and edema (2+ edema in lower extremities, 1+ edema in abdominal pannus) Comment:: Left lower extremity with Unna boot in place Skin: Present intact; Absent erythema Neuro: Present Grossly Intact, alert, awake, oriented x 3 and moves all extremities Assessment and Plan *Assessment and plan (1) CHF (congestive heart failure): Status: Acute Qualifiers: Heart failure type: diastolic Heart failure chronicity: acute on chronic Qualified Code(s): I50.33 - Acute on chronic diastolic (congestive) heart failure Category: Medical Code(s): I50.9 - Heart failure, unspecified (2) Cellulitis of left lower extremity: Status: Acute Category: Medical Code(s): L03.116 - Cellulitis of left lower limb (3) Pulmonary edema: Status: Acute Category: Medical Code(s): J81.1 - Chronic pulmonary edema (4) Hypoxic respiratory failure: Status: Acute Category: Medical Code(s): J96.91 - Respiratory failure, unspecified with hypoxia (5) UTI (urinary tract infection): Status: Acute Qualifiers: Hematuria presence: with hematuria Urinary tract infection type: site unspecified Qualified Code(s): N39.0 - Urinary tract infection, site not specified; R31.9 - Hematuria, unspecified Category: Medical Code(s): N39.0 - Urinary tract infection, site not specified (6) Pleural effusion: Status: Acute Category: Medical Code(s): J90 - Pleural effusion, not elsewhere classified (7) Chronic anticoagulation: Status: Acute Category: Medical Code(s): Z79.01 - long term care administrator (current) use of anticoagulants (8) Mood disorder: Status: Acute Category: Medical Code(s): F39 - Unspecified mood [affective] disorder (9) Tobacco dependence: Status: Acute Category: Medical Code(s): F17.200 - Nicotine dependence, unspecified, uncomplicated (10) Diabetes: Status: Chronic Qualifiers: Diabetes mellitus type: type 2 Diabetes mellitus manager terminal insulin use: with fdc use Diabetes mellitus complication status: with other specified complication Qualified Code(s): E11.69 - Type 2 diabetes mellitus with other specified complication; Z79.4 - long term care administrator (current) use of insulin Category: Medical Code(s): E11.9 - Type 2 diabetes mellitus without complications Plan Mr. Lyn is a 62-year-old male with history of diabetes, hypertension, mood or/schizophrenia who presented to our with swelling and redness in his legs. Workup in the ER concerning for CHF exacerbation, volume overload, pulmonary edema, cellulitis of his legs, and UTI with abnormal urine. Discussed case with ER physician, request admission for further management and workup including cardiology evaluation. Responding to diuresis. Afebrile overnight. Continues to require inpatient management for treatment of heart failure. Will need placement when medically stable given debility and need for assistance with ADLs. Cannot return to his personal[facility] in his current condition. Problems addressed as follows: Volume overload/pleural effusions Pulmonary edema CHF exacerbation, unspecified -Continue Bumex IV 1 mg twice daily. Echocardiogram obtained, awaiting formal read. Cardiology assisting with care. Continue diuresis. Hold on Entresto/PANDA or ARB at this time due to soft blood pressures. Continue Toprol. Will consider adding Jardiance if his urinary incontinence improves. -Continue Lipitor, aspirin, Eliquis -Discussed case with cardiology today, recommend continuing diuresis. No plan for invasive intervention. - Strict ins and outs, close monitoring for electrolyte disturbance -Kidney function remained stable with creatinine 1.1, BUN of 21. potassium 4.5. Repeat CBC, CMP, magnesium ordered for the morning. Cellulitis UTI -Received Dalvance in the ER. No systemic signs of infection, White cell count normal at 5.5, hemoglobin 9.2. Repeat CBC, CMP, magnesium ordered for the morning. -Urine positive for Proteus, greater than 100k CFU, complete 5 days of levofloxacin, last dose of antibiotic today Schizophrenia: Continue Abilify 15 mg nightly, bupropion 300 mg daily, trazodone 50 mg nightly BPH: Continue tamsulosin 0.4 mg nightly Electrolytes within normal range, kidney function stable with creatinine 1.1 and BUN of 17. Diabetes: A1c 6.2, TSH elevated at 5.5. Continue sliding scale insulin with fingersticks ACHS GERD: Continue home pantoprazole 40 mg daily. PT and OT consulted for therapy eval. Wound care consulted to assist with lymphedema and weeping leg. Appreciate their recommendations. full code diabetic diet [place]
[2023-04-10 16:00] VITALS: BP 102/66; PULSE 86; RESP 19; TEMP 36.7; O2SAT 90
[2023-04-10 20:00] VITALS: BP 96/59; PULSE 83; RESP 18; TEMP 36.9; O2SAT 90
[2023-04-10 20:34] LABS: POC Glucose,Bedside 165 (70-110)
[2023-04-10] MEDS: ATORVASTATIN 40MG TABLET 40 MG PO (21:21)
[2023-04-10] MEDS: TRAZODONE 50MG TABLET 50 MG PO (21:21)
[2023-04-10] MEDS: ARIPiprazole 10MG TABLET 15 MG PO (21:21)
[2023-04-10] MEDS: humaLOG 100 UNITS/ML 3ML VIAL (SSI) SQ (21:22)
[2023-04-11 04:00] VITALS: BP 105/54; PULSE 76; RESP 16; TEMP 36.9; O2SAT 91; BMI 42.3
[2023-04-11 06:22] LABS: POC Glucose,Bedside 117 (70-110)
[2023-04-11 06:47] LABS: Basophils % 0.3 % (0.1-2.0); Eosinophils # 0.2 K/mm3 (0.0-0.4); Eosinophils % 3.4 % (0.1-12.0); Hematocrit 28.6 % (42.0-52.0); Hemoglobin 8.8 g/dL (14.1-18.0); Lymphocytes # 0.9 K/mm3 (0.7-4.5); Lymphocytes % 13.9 % (10-50); Mean Corpuscular HGB Conc 30.8 g/dL (31.8-35.4); Mean Corpuscular Hemoglobin 23.5 pg (27.0-31.2); Mean Corpuscular Volume 76.2 fl (80-94); Mean Platelet Volume 8.2 fl (7.4-10.4); Monocytes # 0.6 K/mm3 (0.1-1.0); Monocytes % 8.7 % (1.7-9.3); Neutrophils # 5.1 K/mm3 (1.8-7.8); Neutrophils % 73.8 % (37.0-80.0); Platelet Count 265 K/mm3 (142-424); Red Blood Count 3.75 M/mm3 (4.60-6.20); Red Cell Distribution Width 17.2 % (11.5-17.5); White Blood Count 6.8 K/mm3 (4.8-10.8)
[2023-04-11 06:50] LABS: Chloride 104 mmol/L (98-107); Potassium 4.5 mmoL/L (3.5-5.1); Sodium 134 mmol/L (136-145)
[2023-04-11 06:53] LABS: Anion Gap 6.5 mEq/L (5-15); Blood Urea Nitrogen 22 mg/dl (9-20); Carbon Dioxide 28 mmol/L (22.0-30.0); Creatinine Clearance Estimated 92 mL/min (50-200); Estimated Glomerular Filt Rate 76 ml/min (>60); GFR (African American) 92 ML/MIN (>60)
[2023-04-11 06:54] LABS: Calcium 8.2 mg/dl (8.4-10.2); Glucose 107 mg/dl (74-100); Magnesium 1.8 mg/dl (1.6-2.3)
--- NOTE | 2023-04-11 07:50 | PC.NURSE ---
Patients room air is 83 at rest.
[2023-04-11 07:59] VITALS: BP 92/44; PULSE 102; RESP 18; TEMP 36.8; O2SAT 90
[2023-04-11 08:00] VITALS: O2SAT 92
[2023-04-11 08:08] LABS: Iron 10 ug/dL (49-181)
[2023-04-11 08:16] LABS: Total Iron Binding Capacity 350 ug/dL (261-462)
[2023-04-11] MEDS: IRON SUCROSE COMPLEX 200 MG in 0.9 % SODIUM CHLORIDE 100 ML 220 MG IV (08:17)
[2023-04-11] MEDS: BUMETANIDE 1MG/4ML VIAL 1 MG IV (08:19)
[2023-04-11] MEDS: TAMSULOSIN 0.4MG CAPSULE 0.400000000000000022 MG PO (08:19)
[2023-04-11] MEDS: MAGNESIUM OXIDE 400MG TABLET 400 MG PO (08:19)
[2023-04-11] MEDS: APIXABAN 5MG TABLET 5 MG PO ×2 (08:20→20:40)
[2023-04-11] MEDS: PANTOPRAZOLE 40MG TABLET 40 MG PO (08:20)
[2023-04-11] MEDS: buPROPion HCl SR 150MG TAB 150 MG PO ×2 (08:20→20:40)
[2023-04-11] MEDS: METOPROLOL SUCCINATE XL 25MG TABLET 25 MG PO (08:20)
[2023-04-11] MEDS: ASPIRIN EC 81MG TABLET 81 MG PO (08:20)
[2023-04-11 08:43] LABS: Ferritin 26.2 ng/ml (17.9-464)
[2023-04-11] MEDS: levoFLOXacin 750 MG TABLET PO (09:52)
[2023-04-11 10:10] LABS: POC Glucose,Bedside 213 (70-110)
--- NOTE | 2023-04-11 10:27 | P.CONCA_ITS ---
History of Present Illness History of Present Illness Consult date: 04/11/23 Requesting physician: Son Jones Consult reason: shortness of breath Chief complaint: soa, volume overload, cellulitis History of present illness: Patient doing well this morning. Has diuresed over 12 L this admission. Morning labs reviewed. Patient awaiting placement. [facility] Disclaimer: The information contained in this section may have been updated after the patient was seen, as this information can be updated by other users. Medical History (Updated 04/08/23 @ 08:11 by Son Jones MD) (HFpEF) heart failure with preserved ejection fraction Acid reflux Chronic venous insufficiency Depression Diabetes DVT (deep venous thrombosis) Edema Hernia HLD (hyperlipidemia) Neuropathy Pulmonary embolism Scrotal edema Smoker Urinary retention Varicose veins of both lower extremities Family History No significant family history Social History Smoking Status: Current every day smoker alcohol intake: never current occupational status: disabled Travel in the last 8 weeks: None housing: group home Review of Systems Review of Systems Review of systems:: pertinent systems reviewed and negative unless documented below *Neurologic Neurologic: Reports system reviewed and no additional complaints, except as documented Exam Data for Last 24 hours Vital signs and Labs for Last 24 Hours: Temp Pulse Resp BP Pulse Ox O2 Del Method O2 Flow Rate 98.2 F 102 H 18 92/44 L 92 L Nasal Cannula 1 04/11/23 07:59 04/11/23 07:59 04/11/23 07:59 04/11/23 07:59 04/11/23 08:00 04/11/23 08:40 04/11/23 08:40 Laboratory Results - last 24 hr 04/10/23 11:07: POC Glucose 138 H 04/10/23 20:25: POC Glucose 165 H 04/11/23 05:47: WBC 6.8, RBC 3.75 L, Hgb 8.8 L, Hct 28.6 L, MCV 76.2 L, MCH 23.5 L, MCHC 30.8 L, RDW 17.2, Plt Count 265, MPV 8.2, Neut % (Auto) 73.8, Lymph % (Auto) 13.9, [place] % (Auto) 8.7, Eos % (Auto) 3.4, Baso % (Auto) 0.3, Neut # (Auto) 5.1, Lymph # (Auto) 0.9, [place] # (Auto) 0.6, Eos # (Auto) 0.2, Baso # (Auto) 0.0, Sodium 134 L, Potassium 4.5, Chloride 104, Carbon Dioxide 28, Anion Gap 6.5, BUN 22 H, Creatinine 1.00, Estimated Creat Clear 92, Estimated GFR 76, Est GFR ( Amer) 92, Glucose 107 H, Calcium 8.2 L, Magnesium 1.8, Iron 10 L, TIBC 350, Iron Saturation 2.73216 L, Ferritin 26.2 04/11/23 06:07: POC Glucose 117 H 04/11/23 09:59: POC Glucose 213 H I & O for Last 24 hours: Intake & Output 04/08/23 04/09/23 04/10/23 04/11/23 23:59 23:59 23:59 23:59 Intake Total 1890 / 1890 2390 / 2390 1570 / 1570 340 / 340 Output Total 6400 / 7200 3550 / 3550 2850 / 3150 1175 / 1175 Balance -4510 / -5310 -1160 / -1160 -1280 / -1580 -835 / -835 Weight 353 lb 2.007 oz 347 lb 9 oz 345 lb 8 oz 340 lb 4.8 oz Microbiology Reports for the Last 24 Hours: Microbiology 04/06/23 13:50 Blood Blood Culture - Preliminary 04/06/23 13:50 Blood Blood Culture - Preliminary Constitutional Constitutional: no acute distress *Routine Respiratory Exam Respiratory: Present CTA bilaterally and symmetric chest movement *Routine Cardiovascular Exam Cardiovascular: Present RRR, Normal S1 and Normal S2 *Routine Abdominal Exam Abdominal: Present soft and normoactive bowel sounds; Absent tenderness *Routine Extremities Exam Extremities: Present edema, full ROM and normal capillary refill *Routine Skin Exam Skin: Present intact, dry and warm Detailed Neck Exam: Thyroids Thyroid: Absent bruit Meds Home Medications and Allergies Home Medications Medication Instructions Recorded Confirmed Type acetaminophen 650 mg 650 mg PO Q8HP PRN Mild Pain 09/08/20 04/06/23 History tablet,extended release (Pain (Scale Score 1-4) Relief (acetaminophen)) apixaban 5 mg tablet (Eliquis) 5 mg PO BID Blood Thinner/Afib 09/08/20 04/06/23 History aripiprazole 15 mg tablet 15 mg PO HS Mood 09/08/20 04/06/23 History atorvastatin 40 mg tablet 40 mg PO HS Cholesterol 09/08/20 04/06/23 History bupropion HCl 300 mg 24 hr tablet, 300 mg PO DAILY Mood 09/08/20 04/06/23 Hi story extended release glimepiride 4 mg tablet 4 mg PO DAILY Diabetes 09/08/20 04/06/23 History insulin glargine 100 unit/mL 10 unit SQ HS Diabetes 09/08/20 04/06/23 History subcutaneous solution (Lantus U-100 Insulin) metoprolol succinate 25 mg 25 mg PO DAILY High Blood Pressure 09/08/20 04/06/23 History tablet,extended release 24 hr pantoprazole 40 mg tablet,delayed 40 mg PO DAILY Acid Reflux 09/08/20 04/06/23 History release polyethylene glycol 3350 17 17 g PO BIDP PRN constipation 09/08/20 04/06/23 History gram/dose oral powder tamsulosin 0.4 mg capsule 0.4 mg PO DAILY Prostate 09/08/20 04/06/23 History trazodone 50 mg tablet 50 mg PO HS Sleep 09/08/20 04/06/23 History oxybutynin chloride 10 mg 10 mg PO DAILY Bladder 11/22/22 04/06/23 History tablet,extended release 24 hr aspirin 81 mg tablet,delayed 81 mg PO DAILY Heart Health 04/07/23 04/07/23 History release New Prescriptions to Start Prescriptions: Allergies Allergy/AdvReac Type Severity Reaction Status Date / Time No Known Allergies Allergy Verified 11/22/22 18:46 Assessment and Plan *Assessment and plan (1) Edema: Status: Acute Qualifiers: Edema type: generalized Qualified Code(s): R60.1 - Generalized edema Category: Medical Code(s): R60.9 - Edema, unspecified (2) HLD (hyperlipidemia): Status: Acute Qualifiers: Hyperlipidemia type: mixed hyperlipidemia Qualified Code(s): E78.2 - Mixed hyperlipidemia Category: Medical Code(s): E78.5 - Hyperlipidemia, unspecified (3) (HFpEF) heart failure with preserved ejection fraction: Status: Acute Qualifiers: Heart failure chronicity: acute Qualified Code(s): I50.31 - Acute diastolic (congestive) heart failure Category: Medical Code(s): I50.30 - Unspecified diastolic (congestive) heart failure (4) Cellulitis of left lower extremity: Status: Acute Category: Medical Code(s): L03.116 - Cellulitis of left lower limb (5) UTI (urinary tract infection): Status: Acute Qualifiers: Hematuria presence: with hematuria Urinary tract infection type: site unspecified Qualified Code(s): N39.0 - Urinary tract infection, site not specified; R31.9 - Hematuria, unspecified Category: Medical Code(s): N39.0 - Urinary tract infection, site not specified (6) Chronic anticoagulation: Status: Acute Category: Medical Code(s): Z79.01 - terminologist (current) use of anticoagulants Plan Acute on chronic right-sided heart failure NYHA II-III Mild MR Moderate TR Elevated RVSP of 41 Bilateral Lower extremity edema -Echo from 03/2023: Normal ejection fraction, severely dilated RV and reduced function, evidence of RV pressure overload, mild MR, moderate TR, mild PI, elevated RVSP at 41 -Patient has diuresed over 12 L and is down greater than 20lbs this admission -Will transition patient to Bumex 1 mg oral twice daily -No Jardiance currently due to UTI and incontinence -BP too low to initiate Entresto at this time -Patient would benefit from outpatient pulmonary consult and home sleep study evaluation Hypertension -Currently hypotensive with systolic in the 90s but asymptomatic -Currently well-controlled. Continue metoprolol 25 mg daily Hyperlipidemia -LDL 32 continue atorvastatin 40 mg daily History of DVT/PE -Venous Doppler negative for DVT -Continue Eliquis 5 mg p.o. twice daily CV summary 04/11/2023: Patient is CV stable for discharge. Will transition patient from IV Bumex to oral. Please continue medications as listed below. Patient currently awaiting placement for discharge. Please have patient follow- up in cardiology clinic in 1 week for reevaluation post discharge. Consider addition of Jardiance at follow-up after UTI and incontinence has resolved. 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 Patient would also benefit from outpatient pulmonology consult and home sleep study evaluation. Cardiac meds: Aspirin 81mg daily Bumex 1 mg oral twice daily Metoprolol succinate 25 mg p.o. daily Atorvastatin 40 mg p.o. daily Eliquis 5 mg p.o. twice daily
[2023-04-11] MEDS: humaLOG 100 UNITS/ML 3ML VIAL (SSI) SQ ×2 (10:32→20:42)
--- NOTE | 2023-04-11 14:54 | PC.NURSE ---
Pt. aox 4, up with assist times 2, pt. right leg wrapped with lety per md. verbal, family called twice today to check on patient.
[2023-04-11 15:08] VITALS: BP 102/51; PULSE 82; RESP 18; TEMP 36.7; O2SAT 90
[2023-04-11] MEDS: BUMETANIDE 1 MG TABLET PO (15:42)
[2023-04-11 15:54] LABS: POC Glucose,Bedside 131 (70-110)
[2023-04-11 20:00] VITALS: BP 99/53; PULSE 84; RESP 16; TEMP 36.4; O2SAT 90
--- NOTE | 2023-04-11 20:01 | EXP.ACUTE.PN ---
Subjective *Date: 04/11/23 *Time: 20:01 Interval history: Patient doing well, only 1 L oxygen. Diuresing well. -12 L since admission, -1.7 overnight. No nausea or vomiting. Tolerating p.o. intake. Starting to gain a little bit more strength and be more mobile but still necessitating assistance. Denies fever, chest pain, diarrhea. Medical Exam Vital signs and Labs for Last 24 Hours: Vital Signs Temp Pulse Resp BP Pulse Ox O2 Del Method O2 Flow Rate 04/11/23 17:39 Nasal Cannula 1 04/11/23 16:57 Nasal Cannula 1 04/11/23 15:08 98.1 F 82 18 102/51 L 90 L Nasal Cannula 1 04/11/23 14:15 Nasal Cannula 1 04/11/23 12:22 Nasal Cannula 1 04/11/23 11:00 Nasal Cannula 1 04/11/23 08:00 92 L Nasal Cannula 1 04/11/23 08:40 Nasal Cannula 1 04/11/23 07:59 98.2 F 102 H 18 92/44 L 90 L Nasal Cannula 1 04/11/23 07:00 Nasal Cannula 1 04/11/23 05:00 Nasal Cannula 1 04/11/23 04:00 98.5 F 76 16 105/54 L 91 L Nasal Cannula 04/11/23 03:00 Nasal Cannula 1 04/11/23 01:00 Nasal Cannula 1 04/10/23 23:00 Nasal Cannula 1 04/10/23 21:00 Nasal Cannula 1 04/10/23 22:05 Nasal Cannula 1 Intake and Output 04/11/23 04/11/23 04/11/23 07:59 15:59 23:59 Intake Total 240 / 850 340 / 850 270 / 850 Output Total 900 / 1525 275 / 1525 350 / 1525 Balance -660 / -675 65 / -675 -80 / -675 Intake: Intake, Oral Amount 240 / 750 240 / 750 270 / 750 Intake, Total IV Amount 100 / 100 Iron Sucrose Complex 200 mg In 100 / 100 0.9 % Sodium Chloride 100 ml @ 220 mls/hr IV ONCE ONE Rx#: [id number] Output: Output, Urine Amount 900 / 1525 275 / 1525 350 / 1525 Other: Number of Unmeasured Voids 0 1 0 Number of Bowel Movements 1 Weight 154.357 kg Patient Weight 04/11/23 23:59 Weight 154.357 kg Laboratory Results - last 24 hr 04/10/23 20:25: POC Glucose 165 H 04/11/23 05:47: WBC 6.8, RBC 3.75 L, Hgb 8.8 L, Hct 28.6 L, MCV 76.2 L, MCH 23.5 L, MCHC 30.8 L, RDW 17.2, Plt Count 265, MPV 8.2, Neut % (Auto) 73.8, Lymph % (Auto) 13.9, [place] % (Auto) 8.7, Eos % (Auto) 3.4, Baso % (Auto) 0.3, Neut # (Auto) 5.1, Lymph # (Auto) 0.9, [place] # (Auto) 0.6, Eos # (Auto) 0.2, Baso # (Auto) 0.0, Sodium 134 L, Potassium 4.5, Chloride 104, Carbon Dioxide 28, Anion Gap 6.5, BUN 22 H, Creatinine 1.00, Estimated Creat Clear 92, Estimated GFR 76, Est GFR ( Amer) 92, Glucose 107 H, Calcium 8.2 L, Magnesium 1.8, Iron 10 L, TIBC 350, Iron Saturation 2.14082 L, Ferritin 26.2 04/11/23 06:07: POC Glucose 117 H 04/11/23 09:59: POC Glucose 213 H 04/11/23 15:47: POC Glucose 131 H I & O for Labs for Last 24 Hours: Intake & Output 04/08/23 04/09/23 04/10/23 04/11/23 23:59 23:59 23:59 23:59 Intake Total 1890 / 1890 2390 / 2390 1570 / 1570 850 / 850 Output Total 6400 / 7200 3550 / 3550 2850 / 3150 1525 / 1525 Balance -4510 / -5310 -1160 / -1160 -1280 / -1580 -675 / -675 Weight 160.175 kg 157.652 kg 156.716 kg 154.357 kg Microbiology Reports for the Last 24 Hours: Microbiology 04/06/23 13:50 Blood Blood Culture - Preliminary 04/06/23 13:50 Blood Blood Culture - Preliminary Constitutional: Present no acute distress, morbidly obese, chronically ill appearing and cooperative Head: Present atraumatic and normocephalic ENT: Present normal exam Neck: Present normal inspection Respiratory: Present crackles (In bases) and normal respiratory effort; Absent rhonchi or wheezes Cardiac: Present Regular Rhythm and Tachycardia GI: Present soft and normal bowel sounds; Absent distention or tenderness Extremities: Present normal inspection, full ROM, tenderness (Left leg) and edema (2+ edema in lower extremities to just below the knees) Comment:: Left lower extremity with Unna boot in place Skin: Present intact; Absent erythema Neuro: Present Grossly Intact, alert, awake, oriented x 3 and moves all extremities Assessment and Plan *Assessment and plan (1) CHF (congestive heart failure): Status: Acute Qualifiers: Heart failure type: diastolic Heart failure chronicity: acute on chronic Qualified Code(s): I50.33 - Acute on chronic diastolic (congestive) heart failure Category: Medical Code(s): I50.9 - Heart failure, unspecified (2) Cellulitis of left lower extremity: Status: Acute Category: Medical Code(s): L03.116 - Cellulitis of left lower limb (3) Pulmonary edema: Status: Acute Category: Medical Code(s): J81.1 - Chronic pulmonary edema (4) Hypoxic respiratory failure: Status: Acute Category: Medical Code(s): J96.91 - Respiratory failure, unspecified with hypoxia (5) UTI (urinary tract infection): Status: Acute Qualifiers: Hematuria presence: with hematuria Urinary tract infection type: site unspecified Qualified Code(s): N39.0 - Urinary tract infection, site not specified; R31.9 - Hematuria, unspecified Category: Medical Code(s): N39.0 - Urinary tract infection, site not specified (6) Pleural effusion: Status: Acute Category: Medical Code(s): J90 - Pleural effusion, not elsewhere classified (7) Chronic anticoagulation: Status: Acute Category: Medical Code(s): Z79.01 - jail (current) use of anticoagulants (8) Mood disorder: Status: Acute Category: Medical Code(s): F39 - Unspecified mood [affective] disorder (9) Tobacco dependence: Status: Acute Category: Medical Code(s): F17.200 - Nicotine dependence, unspecified, uncomplicated (10) Diabetes: Status: Chronic Qualifiers: Diabetes mellitus type: type 2 Diabetes mellitus ferry terminal agent insulin use: with ferry terminal agent use Diabetes mellitus complication status: with other specified complication Qualified Code(s): E11.69 - Type 2 diabetes mellitus with other specified complication; Z79.4 - termite technician (current) use of insulin Category: Medical Code(s): E11.9 - Type 2 diabetes mellitus without complications Plan Mr. Lyn is a 62-year-old male with history of diabetes, hypertension, mood or/schizophrenia who presented to our with swelling and redness in his legs. Workup in the ER concerning for CHF exacerbation, volume overload, pulmonary edema, cellulitis of his legs, and UTI with abnormal urine. Discussed case with ER physician, request admission for further management and workup including cardiology evaluation. Responding to diuresis. Afebrile overnight. Continues to require inpatient management for treatment of heart failure. Patient improving. Stable for discharge. Awaiting pre-CERT for rehab facility. Problems addressed as follows: Volume overload/pleural effusions Pulmonary edema CHF exacerbation, unspecified -Echo from this visit with normal ejection fraction, severely dilated RV with reduced function. Evidence of RV pressure overload. Mild MR, moderate TR, elevated RVSP at 41. Continue aggressive diuresis with Bumex 1 mg orally twice daily. No Jardiance currently due to UTI and incontinence. Will hold on Entresto at this time. Cardiology assisting with care. Discussed case this morning. Recommendations as mentioned. -Continue Lipitor, aspirin, Eliquis - Strict ins and outs, close monitoring for electrolyte disturbance -Kidney function remained stable with creatinine 1.0, BUN of 22. potassium 4.5, magnesium 1.8. Repeat CBC, CMP, magnesium ordered for the morning. Cellulitis UTI -Received [place] in the ER. No systemic signs of infection, White cell count normal at 5.5, hemoglobin 9.2. Repeat CBC, CMP, magnesium ordered for the morning. -Urine positive for Proteus, greater than 100k CFU, completing Levaquin on 04/13 Schizophrenia: Continue Abilify 15 mg nightly, bupropion 300 mg daily, trazodone 50 mg nightly BPH: Continue tamsulosin 0.4 mg nightly Electrolytes within normal range, kidney function stable with creatinine 1.1 and BUN of 17. Diabetes: A1c 6.2, TSH elevated at 5.5. Continue sliding scale insulin with fingersticks ACHS GERD: Continue home pantoprazole 40 mg daily. PT and OT consulted for therapy eval. Wound care consulted to assist with lymphedema and weeping leg. Appreciate their recommendations. full code diabetic diet [place]
[2023-04-11] MEDS: TRAZODONE 50MG TABLET 50 MG PO (20:39)
[2023-04-11] MEDS: ATORVASTATIN 40MG TABLET 40 MG PO (20:40)
[2023-04-11] MEDS: ARIPiprazole 10MG TABLET 15 MG PO (20:40)
[2023-04-11] MEDS: ACETAMINOPHEN 325MG TAB 650 MG PO (20:41)
[2023-04-11 20:42] LABS: POC Glucose,Bedside 164 (70-110)
[2023-04-12 04:00] VITALS: BP 85/49; PULSE 78; RESP 16; TEMP 36.4; O2SAT 94; BMI 41.9
[2023-04-12 06:10] LABS: POC Glucose,Bedside 107 (70-110)
[2023-04-12 06:36] LABS: Basophils % 0.2 % (0.1-2.0); Eosinophils # 0.2 K/mm3 (0.0-0.4); Hematocrit 28.9 % (42.0-52.0); Hemoglobin 8.9 g/dL (14.1-18.0); Lymphocytes # 0.8 K/mm3 (0.7-4.5); Lymphocytes % 13.4 % (10-50); Mean Corpuscular HGB Conc 30.6 g/dL (31.8-35.4); Mean Corpuscular Hemoglobin 23.7 pg (27.0-31.2); Mean Corpuscular Volume 77.3 fl (80-94); Mean Platelet Volume 8.4 fl (7.4-10.4); Monocytes # 0.5 K/mm3 (0.1-1.0); Monocytes % 9.1 % (1.7-9.3); Neutrophils # 4.4 K/mm3 (1.8-7.8); Neutrophils % 74.4 % (37.0-80.0); Platelet Count 233 K/mm3 (142-424); Red Blood Count 3.74 M/mm3 (4.60-6.20); Red Cell Distribution Width 17.2 % (11.5-17.5); White Blood Count 5.9 K/mm3 (4.8-10.8)
[2023-04-12 06:47] LABS: Chloride 103 mmol/L (98-107); Potassium 4.6 mmoL/L (3.5-5.1); Sodium 135 mmol/L (136-145)
[2023-04-12 06:50] LABS: Alanine Aminotransferase 21 U/L (12-78); Albumin Level 2.7 g/dl (3.5-5.0); Albumin/Globulin Ratio 0.8 (1.1-1.8); Alkaline Phosphatase 113 U/L (38-126); Anion Gap 7.6 mEq/L (5-15); Aspartate Amino Transferase 32 U/L (17-59); Bilirubin,Total 0.9 mg/dl (0.2-1.3); Blood Urea Nitrogen 24 mg/dl (9-20); Calcium 8.1 mg/dl (8.4-10.2); Carbon Dioxide 29 mmol/L (22.0-30.0); Creatinine Clearance Estimated 76 mL/min (50-200); Estimated Glomerular Filt Rate 61 ml/min (>60); GFR (African American) 74 ML/MIN (>60); Globulin 3.3 g/dL (1.3-3.2); Glucose 93 mg/dl (74-100)
[2023-04-12 06:51] LABS: Magnesium 1.8 mg/dl (1.6-2.3)
[2023-04-12 08:00] VITALS: BP 88/41; PULSE 81; RESP 19; TEMP 36.9; O2SAT 91
[2023-04-12] MEDS: MAGNESIUM OXIDE 400MG TABLET 400 MG PO (08:35)
[2023-04-12] MEDS: TAMSULOSIN 0.4MG CAPSULE 0.400000000000000022 MG PO (08:37)
[2023-04-12] MEDS: PANTOPRAZOLE 40MG TABLET 40 MG PO (08:37)
[2023-04-12] MEDS: ASPIRIN EC 81MG TABLET 81 MG PO (08:37)
[2023-04-12] MEDS: buPROPion HCl SR 150MG TAB 150 MG PO (08:37)
[2023-04-12] MEDS: METOPROLOL SUCCINATE XL 25MG TABLET 25 MG PO (08:38)
[2023-04-12] MEDS: APIXABAN 5MG TABLET 5 MG PO (08:39)
[2023-04-12] MEDS: BUMETANIDE 1 MG TABLET PO (08:39)
--- NOTE | 2023-04-12 11:00 | EXP.DC.SUM ---
General Admission date:: 04/08/23 Discharge date: 04/12/23 HPI HPI HPI: Mr. Chappell is a 62-year-old male who resides at [facility]. He has a history of hypertension, hyperlipidemia, DVT, PE, schizophrenia, morbid obesity, diabetes. He presented to the ER because of worsening left lower extremity swelling and pain. Noted to have some redness and drainage from a ruptured blister. The redness and discomfort in his lower extremity have been worsening for the past few days. Developed a blister today and it ruptured leaking clear fluid. Came to the ER for further evaluation. Denies fever, chills, systemic symptoms. No nausea or vomiting. Does complain of shortness of breath and worsening swelling in his legs over the past few weeks. Workup in the ER concerning for cellulitis. Patient developed hypoxia in the ER which led to further evaluation showing concern for CHF exacerbation and volume overload with BNP of 5900. Initiated on oxygen. Received Dalvance in the ER for his cellulitis. Medicine consulted for admission and further management. After arriving to the floor, patient is alert and oriented x 4. Continues to complain of some pain in his leg. Smells frankly of urine. Stable on 2 L nasal cannula oxygen. Hospital Course Hospital Course Hospital Course: Patient was seen and evaluated at the bedside on the day of discharge. Patient is stable for discharge. Patient wishes to be discharged. All patient questions were answered and patient was given time to ask questions. Patient was discharged in stable condition. Patient understands that she can return to ER in case of any sudden changes in health. Total time spent on DC - 38 mins Mr. Lyn is a 62-year-old male with history of diabetes, hypertension, mood or/schizophrenia who presented to our with swelling and redness in his legs. Workup in the ER concerning for CHF exacerbation, volume overload, pulmonary edema, cellulitis of his legs, and UTI with abnormal urine. Discussed case with ER physician, request admission for further management and workup including cardiology evaluation. Responding to diuresis. Afebrile overnight. Continues to require inpatient management for treatment of heart failure. Patient improving. Stable for discharge. Awaiting pre-CERT for rehab facility. Problems addressed as follows: Volume overload/pleural effusions - improved Pulmonary edema - improved CHF exacerbation, unspecified- improved - DC on Bumex, stable for discharge Cellulitis UTI DC on oral Levaquin, ceftin Schizophrenia: Continue Abilify 15 mg nightly, bupropion 300 mg daily, trazodone 50 mg nightly BPH: Continue tamsulosin 0.4 mg nightly Electrolytes within normal range, kidney function stable with creatinine 1.1 and BUN of 17. Diabetes: A1c 6.2, TSH elevated at 5.5. Continue sliding scale insulin with fingersticks ACHS GERD: Continue home pantoprazole 40 mg daily. full code diabetic diet eliquis Exam Data for Last 24 hours Vital signs and Labs for Last 24 Hours: Temp Pulse Resp BP Pulse Ox O2 Del Method O2 Flow Rate 98.4 F 81 19 88/41 L 91 L Nasal Cannula 2 04/12/23 08:00 04/12/23 08:00 04/12/23 08:00 04/12/23 08:00 04/12/23 08:00 04/12/23 09:00 04/12/23 09:00 Laboratory Results - last 24 hr 04/11/23 15:47: POC Glucose 131 H 04/11/23 20:30: POC Glucose 164 H 04/12/23 05:44: WBC 5.9, RBC 3.74 L, Hgb 8.9 L, Hct 28.9 L, MCV 77.3 L, MCH 23.7 L, MCHC 30.6 L, RDW 17.2, Plt Count 233, MPV 8.4, Neut % (Auto) 74.4, Lymph % (Auto) 13.4, Barnwell % (Auto) 9.1, Eos % (Auto) 3.0, Baso % (Auto) 0.2, Neut # (Auto) 4.4, Lymph # (Auto) 0.8, Barnwell # (Auto) 0.5, Eos # (Auto) 0.2, Baso # (Auto) 0.0, Sodium 135 L, Potassium 4.6, Chloride 103, Carbon Dioxide 29, Anion Gap 7.6, BUN 24 H, Creatinine 1.20, Estimated Creat Clear 76, Estimated GFR 61, Est GFR ( Amer) 74, Glucose 93, Calcium 8.1 L, Magnesium 1.8, Total Bilirubin 0.9, AST 32, ALT 21, Alkaline Phosphatase 113, Total Protein 6.0 L, Albumin 2.7 L, Globulin 3.3 H, Albumin/Globulin Ratio 0.8 L 02/14/24 05:51: POC Glucose 107 I & O for Last 24 hours: Intake & Output 04/09/23 04/10/23 04/11/23 04/12/23 23:59 23:59 23:59 23:59 Intake Total 2390 / 2390 1570 / 1570 850 / 1290 680 / 680 Output Total 3550 / 3550 2850 / 3150 2024 / 2024 500 / 500 Balance -1160 / -1160 -1280 / -1580 -1175 / -735 180 / 180 Weight 157.652 kg 156.716 kg 154.357 kg 152.906 kg Microbiology Reports for the Last 24 Hours: Microbiology 04/06/23 16:00 Urine,Clean Catch Urine Culture - Final 04/06/23 13:50 Blood Blood Culture - Preliminary 04/06/23 13:50 Blood Blood Culture - Preliminary Constitutional Constitutional: no acute distress *Routine HEENT Exam Head: Present normocephalic Eye: Present EOMI and PERRL ENT: Present mucous membranes moist *Routine Neck Exam Neck: Present supple; Absent lymphadenopathy *Routine Respiratory Exam Respiratory: Present CTA bilaterally *Routine Cardiovascular Exam Cardiovascular: Present RRR *Routine Abdominal Exam Abdominal: Present soft and normoactive bowel sounds; Absent tenderness *Routine Extremities Exam Extremities: Absent cyanosis, clubbing or edema *Routine Skin Exam Skin: Present warm; Absent rash *Routine Neurological Exam Neurological: Present alert and oriented X3 Results Data Completed and Pending Labs on day of discharge: Labs from last 24 hours 04/12/23 04/12/23 04/11/23 05:51 05:44 20:30 WBC 5.9 RBC 3.74 L Hgb 8.9 L Hct 28.9 L MCV 77.3 L MCH 23.7 L MCHC 30.6 L RDW 17.2 Plt Count 233 MPV 8.4 Neut % (Auto) 74.4 Lymph % (Auto) 13.4 Barnwell % (Auto) 9.1 Eos % (Auto) 3.0 Baso % (Auto) 0.2 Neut # (Auto) 4.4 Lymph # (Auto) 0.8 Barnwell # (Auto) 0.5 Eos # (Auto) 0.2 Baso # (Auto) 0.0 Sodium 135 L Potassium 4.6 Chloride 103 Carbon Dioxide 29 Anion Gap 7.6 BUN 24 H Creatinine 1.20 Estimated Creat Clear 76 Estimated GFR 61 Est GFR ( Amer) 74 Glucose 93 POC Glucose 107 164 H Calcium 8.1 L Magnesium 1.8 Total Bilirubin 0.9 AST 32 ALT 21 Alkaline Phosphatase 113 Total Protein 6.0 L Albumin 2.7 L Globulin 3.3 H Albumin/Globulin Ratio 0.8 L 04/11/23 15:47 WBC RBC Hgb Hct MCV MCH MCHC RDW Plt Count MPV Neut % (Auto) Lymph % (Auto) Barnwell % (Auto) Eos % (Auto) Baso % (Auto) Neut # (Auto) Lymph # (Auto) Barnwell # (Auto) Eos # (Auto) Baso # (Auto) Sodium Potassium Chloride Carbon Dioxide Anion Gap BUN Creatinine Estimated Creat Clear Estimated GFR Est GFR ( Amer) Glucose POC Glucose 131 H Calcium Magnesium Total Bilirubin AST ALT Alkaline Phosphatase Total Protein Albumin Globulin Albumin/Globulin Ratio Preliminary micro results at discharge 04/06/23 13:50 Blood Culture - Preliminary Blood 04/06/23 13:50 Blood Culture - Preliminary Blood DS: Diagnosis Discharge Diagnosis (1) CHF (congestive heart failure): Status: Acute Code(s): I50.9 - Heart failure, unspecified Qualifiers: Heart failure chronicity: acute on chronic Heart failure type: diastolic Qualified Code(s): I50.33 - Acute on chronic diastolic (congestive) heart failure (2) Cellulitis of left lower extremity: Status: Acute Code(s): L03.116 - Cellulitis of left lower limb (3) Pulmonary edema: Status: Acute Code(s): J81.1 - Chronic pulmonary edema (4) Hypoxic respiratory failure: Status: Acute Code(s): J96.91 - Respiratory failure, unspecified with hypoxia (5) UTI (urinary tract infection): Status: Acute Code(s): N39.0 - Urinary tract infection, site not specified Qualifiers: Hematuria presence: with hematuria Urinary tract infection type: site unspecified Qualified Code(s): N39.0 - Urinary tract infection, site not specified; R31.9 - Hematuria, unspecified (6) Pleural effusion: Status: Acute Code(s): J90 - Pleural effusion, not elsewhere classified (7) Chronic anticoagulation: Status: Acute Code(s): Z79.01 - assisted (current) use of anticoagulants (8) Mood disorder: Status: Acute Code(s): F39 - Unspecified mood [affective] disorder (9) Tobacco dependence: Status: Acute Code(s): F17.200 - Nicotine dependence, unspecified, uncomplicated (10) Diabetes: Status: Chronic Code(s): E11.9 - Type 2 diabetes mellitus without complications Qualifiers: Diabetes mellitus complication status: with other specified complication 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: with fdc use Diabetes mellitus type: type 2 Qualified Code(s): E11.69 - Type 2 diabetes mellitus with other specified complication; 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 Meds Home Medications and Allergies Home Medications Medication Instructions Recorded Confirmed Type acetaminophen 650 mg 650 mg PO Q8HP PRN Mild Pain 09/08/20 04/06/23 History tablet,extended release (Pain (Scale Score 1-4) Relief (acetaminophen)) apixaban 5 mg tablet (Eliquis) 5 mg PO BID Blood Thinner/Afib 09/08/20 04/06/23 History aripiprazole 15 mg tablet 15 mg PO HS Mood 09/08/20 04/06/23 History atorvastatin 40 mg tablet 40 mg PO HS Cholesterol 09/08/20 04/06/23 History bupropion HCl 300 mg 24 hr tablet, 300 mg PO DAILY Mood 09/08/20 04/06/23 History extended release glimepiride 4 mg tablet 4 mg PO DAILY Diabetes 09/08/20 04/06/23 History insulin glargine 100 unit/mL 10 unit SQ HS Diabetes 09/08/20 04/06/23 History subcutaneous solution (Lantus U-100 Insulin) metoprolol succinate 25 mg 25 mg PO DAILY High Blood Pressure 09/08/20 04/06/23 History tablet,extended release 24 hr pantoprazole 40 mg tablet,delayed 40 mg PO DAILY Acid Reflux 09/08/20 04/06/23 History release polyethylene glycol 3350 17 17 g PO BIDP PRN constipation 09/08/20 04/06/23 History gram/dose oral powder tamsulosin 0.4 mg capsule 0.4 mg PO DAILY Prostate 09/08/20 04/06/23 History trazodone 50 mg tablet 50 mg PO HS Sleep 09/08/20 04/06/23 History oxybutynin chloride 10 mg 10 mg PO DAILY Bladder 11/22/22 04/06/23 History tablet,extended release 24 hr aspirin 81 mg tablet,delayed 81 mg PO DAILY Heart [facility] 04/07/23 04/07/23 History release bumetanide 1 mg tablet 1 mg PO BIDL 30 days #60 tabs 04/12/23 Rx levofloxacin 750 mg tablet 750 mg PO 1100 5 days #5 tabs 04/12/23 Rx New Prescriptions to Start Prescriptions: bumetanide Abeba David levofloxacin Abeba David Allergies Allergy/AdvReac Type Severity Reaction Status Date / Time No Known Allergies Allergy Verified 11/22/22 18:46 Discharge Plan Disposition Patient Disposition: [facility] Discharge Order Discharge Orders: Discharge Order (Routine); Ordered 04/12/23 Ordered By: Abeba David Follow up Plan Follow up with: Provider,Referral, [Primary Care Provider] - 2 weeks Prescriptions/Medication Reconciliation: New bumetanide 1 mg Tablet 1 mg PO BIDL 30 Days Qty: 60 0RF levofloxacin 750 mg Tablet 750 mg PO 1100 5 Days Qty: 5 0RF Continued bupropion HCl 300 mg tablet extended release 24 hr 300 mg PO DAILY pantoprazole 40 mg tablet,delayed release (DR/EC) 40 mg PO DAILY metoprolol succinate 25 mg tablet extended release 24 hr 25 mg PO DAILY tamsulosin 0.4 mg capsule 0.4 mg PO DAILY glimepiride 4 mg tablet 4 mg PO DAILY Eliquis 5 mg tablet 5 mg PO BID atorvastatin 40 mg tablet 40 mg PO HS trazodone 50 mg tablet 50 mg PO HS aripiprazole 15 mg tablet 15 mg PO HS Lantus U-100 Insulin 100 unit/mL solution 10 unit SQ HS polyethylene glycol 3350 17 gram/dose powder 17 g PO BIDP PRN (Reason: constipation) acetaminophen [Pain Relief (acetaminophen)] 650 mg tablet extended release 650 mg PO Q8HP PRN (Reason: Mild Pain (Scale Score 1-4)) oxybutynin chloride 10 mg tablet extended release 24hr 10 mg PO DAILY aspirin 81 mg tablet,delayed release (DR/EC) 81 mg PO DAILY Problem Reconciliation Problems Reviewed?: Yes Patient Discharge Instructions ACTIVITY: Ambulate as tolerated DIET: advance to your usual diet Patient Instructions: DI for Cellulitis -- Adult, DI for Urinary Tract Infection (UTI), DI for Respiratory Failure Providers Primary Care Provider: Provider,Referral Admit Provider: Son Jones Attending Provider: Son Jones
[2023-04-12] MEDS: levoFLOXacin 750 MG TABLET PO (11:22)
[2023-04-12] MEDS: humaLOG 100 UNITS/ML 3ML VIAL (SSI) SQ (11:33)
[2023-04-12 11:37] LABS: POC Glucose,Bedside 185 (70-110)
--- NOTE | 2023-04-12 13:01 | PC.NURSE ---
report called to BRAYAN Munoz at [facility].
== END 2023-04-12 15:45 | DRG 291 ==
LOC: ER 15:54 → 2ND 17:19
PROVIDERS: Student in an Organized Health Care Education/Training Program; Admitting Provider Internal Medicine Adolescent Medicine; Emergency Provider Emergency Medicine; Visit Provider Internal Medicine Adolescent Medicine
DX: I11.0 Hypertensive heart disease with heart failure (principal); I50.31 Acute diastolic (congestive) heart failure; J96.91 Respiratory failure, unspecified with hypoxia; L03.116 Cellulitis of left lower limb; N39.0 Urinary tract infection, site not specified; Z68.41 Body mass index [BMI] 40.0-44.9, adult; Z79.01 Long term (current) use of anticoagulants; F39 Unspecified mood [affective] disorder; F17.200 Nicotine dependence, unspecified, uncomplicated; Z79.4 Long term (current) use of insulin; E78.2 Mixed hyperlipidemia; N50.89 Other specified disorders of the male genital organs; R31.9 Hematuria, unspecified; E66.01 Morbid (severe) obesity due to excess calories; F20.9 Schizophrenia, unspecified; K21.9 Gastro-esophageal reflux disease without esophagitis; Z79.84 Long term (current) use of oral hypoglycemic drugs; Z86.718 Personal history of other venous thrombosis and embolism; Z86.711 Personal history of pulmonary embolism; E11.40 Type 2 diabetes mellitus with diabetic neuropathy, unspecified; I08.0 Rheumatic disorders of both mitral and aortic valves
CPT/HCPCS: 36415; 71045; 80048; 80053; 80061; 81001; 82728; 82962; 83036; 83540; 83550; 83605; 83735; 83880; 84443; 85025; 85610; 87040; 87086; 93306; 93971; 97116; 97163; 97166; 97530; 97535; 99291; J0875; J1756; J1956; J2543

== ENCOUNTER 2024-04-29 15:22 | Inpatient (IN) | payer MEDICARE, SELFPAY ==
[2024-04-29] VITALS (11 sets, daily range): BP systolic 82–132; BP diastolic 47–78; PULSE 82–109; RESP 20; TEMP 36.8–37.1; O2SAT 93–100; BMI 37.5
--- NOTE | 2024-04-29 15:29 | XR_ITS ---
FINAL REPORT CLINICAL HISTORY: edema COMPARISON: 04/06/2023 FINDINGS: SINGLE VIEW CHEST: No acute pulmonary opacity is present. There is no evidence of effusion or pneumothorax. Mediastinum is unremarkable. Mild cardiomegaly is present, stable when compared to the prior chest x-ray. IMPRESSION: Mild cardiomegaly without acute abnormality. Reviewed, Interpreted and Dictated by Tamie Kaur MD Transcribed by Blanquita Jimenez Authenticated and . [facility]
--- NOTE | 2024-04-29 15:29 | CA_ITS ---
FINAL REPORT TECHNIQUE: Compression shelby scale and Doppler evaluation CLINICAL HISTORY: Pain and swelling RLE x 5 days. Bruising noted but denies trauma. History of PE several years ago. DM, smoker. Currently taking Eliquis daily. COMPARISON: None FINDINGS: Femoral and popliteal veins show normal compressibility and flow. Visualized portion of the calf veins are patent by Doppler exam. IMPRESSION: No evidence of right lower extremity deep venous thrombosis Reviewed, Interpreted and Dictated by Tamie Kaur MD Transcribed by Mahi Herron Authenticated and . [facility]
--- NOTE | 2024-04-29 15:32 | HMH.EDGENADL ---
Discharge Plan Disposition Patient Disposition: Admitted Clinical Impressions Clinical Impression: Cellulitis of right lower extremity, Hematoma of right thigh, Acute on chronic anemia Discharge ED Provider: Yusra De La Torre General Adult HPI General Chief complaint: Extremity Injury, Lower Stated complaint: edema in legs Time Seen by Provider: 04/29/24 15:29 History of Present Illness HPI narrative: This patient is a 63-year-old male with a history of hypertension, hyperlipidemia, CHF, history of PE on Eliquis, insulin-dependent diabetes, GERD, schizophrenia presenting to the emergency department for evaluation with concern for right lower extremity pain and swelling. It was initially noticed 4 days ago with no traumatic injury prior to this. He denies any other concerns or complaints, such as fevers, chills, chest pain, shortness of breath, abdominal pain, vomiting, changes in bowel movements, or other concerns. He arrives from [facility] where he is currently residing. Typically he lives at [place] and gets his medications from them there. He arrives by EMS who noted he was stable en route. Related Data Home Medications ?Medication ?Instructions ?Recorded ?Confirmed acetaminophen 650 mg 650 mg PO Q8HP PRN Mild Pain 09/08/20 04/06/23 tablet,extended release (Pain (Scale Score 1-4) Relief (acetaminophen)) apixaban 5 mg tablet (Eliquis) 5 mg PO BID Blood Thinner/Afib 09/08/20 04/06/23 aripiprazole 15 mg tablet 15 mg PO HS Mood 09/08/20 04/06/23 atorvastatin 40 mg tablet 40 mg PO HS Cholesterol 09/08/20 04/06/23 bupropion HCl 300 mg 24 hr tablet, 300 mg PO DAILY Mood 09/08/20 04/06/23 extended release glimepiride 4 mg tablet 4 mg PO DAILY Diabetes 09/08/20 04/06/23 insulin glargine 100 unit/mL 10 unit SQ HS Diabetes 09/08/20 04/06/23 subcutaneous solution (Lantus U-100 Insulin) metoprolol succinate 25 mg 25 mg PO DAILY High Blood Pressure 09/08/20 04/06/23 tablet,extended release 24 hr pantoprazole 40 mg tablet,delayed 40 mg PO DAILY Acid Reflux 09/08/20 04/06/23 release polyethylene glycol 3350 17 17 g PO BIDP PRN constipation 09/08/20 04/06/23 gram/dose oral powder tamsulosin 0.4 mg capsule 0.4 mg PO DAILY Prostate 09/08/20 04/06/23 trazodone 50 mg tablet 50 mg PO HS Sleep 09/08/20 04/06/23 oxybutynin chloride 10 mg 10 mg PO DAILY Bladder 11/22/22 04/06/23 tablet,extended release 24 hr aspirin 81 mg tablet,delayed 81 mg PO DAILY Heart Health 04/07/23 04/07/23 release Previous Rx's ?Medication ?Instructions ?Recorded bumetanide 1 mg tablet 1 mg PO BIDL 30 days #60 tabs 04/12/23 levofloxacin 750 mg tablet 750 mg PO 1100 5 days #5 tabs 04/12/23 Allergies Allergy/AdvReac Type Severity Reaction Status Date / Time No Known Allergies Allergy Verified 11/22/22 18:46 [facility] Disclaimer: The information contained in this section may have been updated after the patient was seen, as this information can be updated by other users. Medical History Scrotal edema Edema (HFpEF) heart failure with preserved ejection fraction Pleural effusion Pulmonary edema Hypoxic respiratory failure UTI (urinary tract infection) Cellulitis of left thigh Cellulitis of right thigh Abdominal wall cellulitis Depression Tobacco dependence Mood disorder Chronic anticoagulation Varicose veins of both lower extremities Chronic venous insufficiency Hernia Urinary retention HLD (hyperlipidemia) Acid reflux Smoker Neuropathy Pulmonary embolism DVT (deep venous thrombosis) Diabetes Family History Other No significant family history Social History Smoking Status: Current every day smoker alcohol intake: never current occupational status: disabled Travel in the last 8 weeks: None housing: long term Other Medical History Have you received the Flu Vaccine for this season: No Have you received the Pneumonia Vaccine: No ROS Obtained: Yes All systems reviewed & no additional complaints except as documented Physical Exam General General appearance: alert and in no apparent distress Head Head exam: atraumatic and normocephalic Eye Eye exam: Present normal appearance, PERRL and EOMI ENT ENT exam: Present normal exam, normal oropharynx, mucous membranes moist and normal external ear exam Neck Neck exam: Present normal inspection, full ROM and trachea midline; Absent tenderness Chest Chest inspection: Present normal inspection and symmetric chest wall rise; Absent tenderness Respiratory Respiratory exam: Present normal lung sounds bilaterally; Absent respiratory distress, wheezes, stridor or accessory muscle use Cardiovascular Cardiovascular exam: Present regular rate and normal rhythm Abdominal Exam Abdominal exam: Present soft; Absent distention, tenderness or guarding Extremities Exam Extremities exam: Present full ROM, tenderness, normal capillary refill, edema (Right greater than left lower extremity edema. Mild erythema and warmth of the right lower extremity as well. All compartments soft. Neurovascularly intact distally.) and other (Extremely large hematoma to the posterior lateral aspect of the right thigh extending to the knee) Back Exam Back exam: Present normal inspection and full ROM; Absent tenderness Neurological Exam Neurological exam: Present alert, oriented X3, CN II-XII intact and normal gait; Absent motor sensory deficit Psychiatric Psychiatric exam: Present normal affect and normal mood Skin Skin exam: Present warm and dry Medical Decision Making Medical Records Medical records reviewed: Yes I reviewed the patient's medical records. Screening: Per USPSTF and CDC recommendations, given the prevalence of disease in our region, it is our hospital?s policy to screen for HIV and viral Hepatitis for all patients aged 18 and over and those with ongoing risk factors. [place] Inquiry Pt receiving controlled substance: No Vital Signs: 04/29/24 15:23 04/29/24 16:01 04/29/24 16:30 Temperature 98.2 F Temperature Source Oral Pulse Rate 95 H 89 Pulse Rate [Left Radial] 98 H Respiratory Rate 20 Blood Pressure 101/47 L 93/56 L Blood Pressure [Right Arm] 113/54 L Blood Pressure Mean 65 68 Blood Pressure Mean [Right Arm] 73 02 Sat by Pulse Oximetry 98 100 99 Oxygen Delivery Method Room Air 04/29/24 17:01 04/29/24 17:33 04/29/24 18:00 Temperature Temperature Source Pulse Rate 82 82 82 Pulse Rate [Left Radial] Respiratory Rate Blood Pressure 82/59 L 98/64 L 106/65 L Blood Pressure [Right Arm] Blood Pressure Mean 64 73 74 Blood Pressure Mean [Right Arm] 02 Sat by Pulse Oximetry 93 L 93 L 93 L Oxygen Delivery Method 04/29/24 20:01 04/29/24 20:30 04/29/24 21:00 Temperature Temperature Source Pulse Rate 91 H 109 H 86 Pulse Rate [Left Radial] Respiratory Rate Blood Pressure 85/59 L 95/58 L 95/56 L Blood Pressure [Right Arm] Blood Pressure Mean 65 62 Blood Pressure Mean [Right Arm] 02 Sat by Pulse Oximetry 94 L 93 L 97 Oxygen Delivery Method 04/29/24 22:02 Temperature 98.7 F Temperature Source Pulse Rate 87 Pulse Rate [Left Radial] Respiratory Rate 20 Blood Pressure 132/78 Blood Pressure [Right Arm] Blood Pressure Mean Blood Pressure Mean [Right Arm] 02 Sat by Pulse Oximetry Oxygen Delivery Method Room Air Lab Data Lab results reviewed: Yes I reviewed the patient's lab results. Lab Results 04/29/24 15:31: VBG pH 7.39, VBG pCO2 40.9, VBG pO2 34.5, VBG HCO3 24.3, VBG Total CO2 25.6, VBG O2 Saturation 60.2, VBG Base Excess -0.6, VBG Lactic Acid 0.8 04/29/24 15:41: Urine Color Yellow, Urine Appearance Clear, Urine pH 6.0, Ur Specific [place] 1.020, Urine Protein Negative, Urine Glucose (UA) Trace, Urine Ketones Negative, Urine Blood Negative, Urine Nitrate Negative, Urine Bilirubin Negative, Urine Urobilinogen 2.0, Ur Leukocyte Esterase Negative, Urine RBC None, Urine WBC Occasional, Ur Squamous Epith Cells None, Urine Bacteria Trace 04/29/24 16:55: WBC 9.3, RBC 2.83 L, Hgb 7.8 L, Hct 24.1 L, MCV 85.2, MCH 27.6, MCHC 32.4, RDW 14.4, Plt Count 317, MPV 9.2, Neut % (Auto) 79.2, Lymph % (Auto) 10.2, [place] % (Auto) 8.8, Eos % (Auto) 1.0, Baso % (Auto) 0.1, Neut # (Auto) 7.4, Lymph # (Auto) 1.0, [place] # (Auto) 0.8, Eos # (Auto) 0.1, Baso # (Auto) 0.0, ESR > 140 H, PT 10.8, INR 0.98, APTT 27.5, Sodium 134 L, Potassium 3.4 L, Chloride 100, Carbon Dioxide 30, Anion Gap 7.4, BUN 30 H, Creatinine 0.90, Estimated Creat Clear 146, Estimated GFR 85, Est GFR ( Amer) 103, Glucose 167 H, Calcium 8.6, Magnesium 1.8, Total Bilirubin 1.1, AST 77 H, ALT 54, Alkaline Phosphatase 96, Total Creatine Kinase 83, Troponin I < 0.01, C-Reactive Protein 170.6 H, NT-Pro-B Natriuret Pep 3960 H, Total Protein 6.3, Albumin 3.4 L, Globulin 2.9, Albumin/Globulin Ratio 1.2, TSH 2.58, Thyroxine (T4) 6.1 04/29/24 18:35: Troponin I < 0.01 04/29/24 16:55 04/29/24 16:55 Orders (Tests/Meds): ED MEDICATIONS Generic Name Dose Route Start Last Admin Trade Name Freq PRN Reason Stop Dose Admin Acetaminophen 650 mg 04/29/24 22:01 Acetaminophen 325mg Tab PO 05/29/24 22:00 Q4HP PRN Fever or Mild Pain (1-3) Apixaban 5 mg 04/30/24 09:00 04/30/24 00:05 Apixaban 5mg Tablet PO 05/30/24 08:59 5 mg BID JUANITA Administration Atorvastatin Calcium 40 mg 04/30/24 21:00 04/30/24 00:06 Atorvastatin 40mg Tablet PO 05/30/24 20:59 40 mg HS JUANITA Administration Bumetanide 1 mg 04/30/24 09:00 Bumetanide 1 Mg Tablet PO 05/30/24 08:59 BIDL JUANITA Insulin Glargine 10 unit 04/30/24 21:00 04/30/24 00:02 Insulin Glargine 100 Units/Ml 10ml Vial SUBCUT 05/30/24 20:59 10 unit HS JUANITA Administration Insulin Human Lispro 0 unit 04/30/24 06:00 04/30/24 00:03 Humalog 100 Units/Ml 10ml Vial (Ssi) SUBCUT 05/30/24 05:59 4 unit ACHS JUANITA Administration Protocol Metoprolol Succinate 25 mg 04/30/24 09:00 Metoprolol Succinate Xl 25mg Tablet PO 05/30/24 08:59 DAILY JUANITA Miscellaneous 1 each 04/29/24 21:15 04/29/24 21:26 Vancomycin Consult Request NOTAPPLIC 05/29/24 21:14 1 each CONSULT PHARMACY JUANITA Administration Non-Formulary Medication 15 mg 04/30/24 21:00 Aripiprazole PO 05/30/24 20:59 HS [facility] Non-Formulary Medication 300 mg 04/30/24 09:00 Bupropion Hcl PO 05/30/24 08:59 DAILY JUANITA Pantoprazole Sodium 40 mg 04/30/24 21:00 Pantoprazole 40mg Tablet PO 05/30/24 20:59 HS JUANITA Sodium Chloride 10 ml 04/29/24 19:21 04/29/24 19:22 Sodium Chloride 0.9% 10ml Syr (Rad Only) IV 05/29/24 19:20 10 ml NEEDED PRN Administration Maintain IV Site Tamsulosin HCl 0.4 mg 04/30/24 09:00 Tamsulosin 0.4mg Capsule PO 05/30/24 08:59 DAILY JUANITA Trazodone HCl 50 mg 04/30/24 21:00 04/30/24 00:06 Trazodone 50mg Tablet PO 05/30/24 20:59 50 mg HS JUANITA Administration Discontinued Medications Generic Name Dose Route Start Last Admin Trade Name Freq PRN Reason Stop Dose Admin Cefepime HCl 2 gm/ Sodium 100 mls @ 200 mls/hr 04/29/24 21:03 04/29/24 21:13 Chloride IV 04/29/24 21:32 200 mls/hr ONCE ONE Administration Vancomycin HCl 2,500 mg/ 500 mls @ 250 mls/hr 04/29/24 21:15 Sodium Chloride IV 04/29/24 23:14 ONCE ONE Iopamidol 190 ml 04/29/24 19:21 04/29/24 19:22 Iopamidol-370 (76%);100ml Bottle IV 04/29/24 19:22 190 ml ONCE ONE Administration Sodium Chloride 100 ml 04/29/24 19:21 04/29/24 19:22 0.9 % Sodium Chloride 50 Ml Vial IV 04/29/24 19:22 100 ml ONCE ONE Administration ORDERS Category Date Time Status CT angio abdomen/femoral Stat Cat Scan 04/29/24 16:[address] angio chest PE protocol Stat Cat Scan 04/29/24 16:[address] cervical spine wo con Stat Cat Scan 04/29/24 16:[address] head/brain wo con Stat Cat Scan 04/29/24 16:44 Completed CXR --portable [XR chest portable] Stat Exams 04/29/24 15:29 Completed Femur XR right 2 views [XR femur RT 2V] Stat Exams 04/29/24 16:44 Completed Hip XR right minimum 2 views [XR hip RT 2-3V w/pelvis] Exams 04/29/24 16:44 Completed Stat Knee XR right 3 views [XR knee RT 3V] Stat Exams 04/29/24 16:44 Completed Tibia/fibula XR right 2 views [XR tibia fibula RT 2V] Exams 04/29/24 16:44 Completed Stat BNP [NT Pro Brain Natriuretic Pep.] Stat Lab 04/29/24 16:55 Completed Basic Metabolic Panel AMLAB Lab 04/30/24 06:00 Ordered Basic Metabolic Panel AMLAB Lab 05/01/24 06:00 Ordered Basic Metabolic Panel AMLAB Lab 05/02/24 06:00 Ordered CK [Creatine Kinase] Stat Lab 04/29/24 16:55 Completed CRP [C-Reactive Protein] Stat Lab 04/29/24 16:55 Completed Complete Blood Count Auto Diff AMLAB Lab 04/30/24 06:00 Ordered Complete Blood Count Auto Diff AMLAB Lab 05/01/24 06:00 Ordered Complete Blood Count Auto Diff AMLAB Lab 05/02/24 06:00 Ordered Complete Blood Count Auto Diff Stat Lab 04/29/24 16:55 Completed Comprehensive Metabolic Panel Stat Lab 04/29/24 16:55 Completed ESR [Erythrocyte Sedimentation Rate] Stat Lab 04/29/24 16:55 Completed Lipid Panel AMLAB Lab 04/30/24 06:00 Ordered MAG [Magnesium] Stat Lab 04/29/24 16:55 Completed PT INR [Prothrombin Time INR] Stat Lab 04/29/24 16:55 Completed PTT [Activated Partial Thrombo Time] Stat Lab 04/29/24 16:55 Completed Phosphorous AMLAB Lab 04/30/24 06:00 Ordered T4 (Thyroxine) Stat Lab 04/29/24 16:55 Completed TSH [Thyroid Stimulating Hormone] Stat Lab 04/29/24 16:55 Completed Trop I [Troponin I] Stat Lab 04/29/24 16:55 Completed Troponin I Q3H Lab 04/29/24 18:35 Completed UA [Urinalysis and Microscopic] Stat Lab 04/29/24 15:41 Completed Blood Culture Stat Micro 04/29/24 21:25 Received VBG [Venous Blood Gas] Stat RT 04/29/24 15:31 Completed CA venous doppler LE RT Stat Y 04/29/24 15:29 Completed ECG Data Tracing #1: I reviewed this ECG and interpreted as documented below: Sinus rhythm with a ventricular rate of 94 bpm. some motion artifact noted. PVC noted. No acute ST changes concerning for ischemia ECG initial impression date: 04/29/24 ECG initial impression time: 17:01 Medical Decision Narrative: In summary, this patient is a 63-year-old male presenting to the Emergency Department for evaluation of atraumatic right greater than left lower extremity pain and swelling. Differential diagnoses considered include but are not limited to cellulitis, DVT, venous insufficiency, CHF exacerbation. Ruling out the most morbid conditions drove assessment. It should be noted patient's history includes hypertension, hyperlipidemia, heart failure, prior PE on Eliquis, diabetes, schizophrenia which may or may not be at goal therapy. This complicates all aspects of care by increasing patient's risk for morbidity. I reviewed patient's past medical records and noted admission a year ago for CHF exacerbation. Reviewed patient's medication list and noted he is on Bumex for volume overload as well as on Eliquis for history of PE. On exam, the patient is lying in bed in no acute distress. His right greater than left lower extremity swelling with mild erythema and warmth. All compartment soft, neurovascularly intact distally. He was then undressed to reveal extremely large hematoma to the right posterior lateral thigh with some hematoma of the knee as well. He denies any trauma still stating that it just came up randomly 4 days ago. No reported recent history of falls. Workup included evaluation to evaluate for infectious, metabolic, cardiac etiologies of lower extremity swelling as well as chest x-ray to evaluate for pulmonary edema and right lower extremity DVT ultrasound. To evaluate for potential traumatic injury, ordered CT head and C-spine without contrast, CT angiogram of the chest, CT angio of the abdomen pelvis with runoff of the lower extremity arteries. I independently interpreted ultrasound and CTs prior to the radiologist read and noted significant right lower extremity swelling as well as a hematoma. I am concerned for cellulitis based on the amount of stranding that he has. I do not see a blood clot, intracranial hemorrhage, or other traumatic injury. Please see their read for final interpretation. Labs were obtained that demonstrated acute on chronic anemia slightly worsened from prior lab evaluation. He has very mild hyponatremia and hypokalemia. BNP is elevated but not as high as prior labs have been. Inflammatory markers are significantly elevated. On reassessment, patient is lying in bed in no acute distress with reassuring vital signs on cardiac telemetry. He remains neurovascularly intact in his right lower extremity, and he is nontoxic-appearing. At this time, I feel the patient likely has a significant hematoma over his right lower extremity with concerns for infection/cellulitis. Given that he is a poor historian with poor understanding of his medical conditions, I feel he would benefit from admission for IV antibiotics and continued monitoring, especially given his borderline transfuse will anemia. I had an interactive discussion with the hospitalist who admitted the patient in stable condition. I did administer IV vancomycin and cefepime prior to admission. Critical Care Critical Care Time Critical Care Time: No
[2024-04-29 15:53] LABS: Microscopic, Urine URINE MICROSCOPIC (MICROSCOPIC)
[2024-04-29 15:55] LABS: Appearance,Urine CLEAR (Clear); Bilirubin,Urine Negative (Negative); Blood, Urine Negative (Negative); Color,Urine YELLOW (Yellow); Glucose,Urine (UA) TRACE (Negative); Ketones,Urine Negative (Negative); Leukocyte Esterase,Urine Negative (Negative); Nitrate,Urine Negative (Negative); Protein,Urine Negative (Negative)
[2024-04-29 16:20] LABS: Bacteria,Urine Trace /lpf; WBC,Urine Occasional #/hpf (0-3)
--- NOTE | 2024-04-29 16:44 | XR_ITS ---
PROCEDURE INFORMATION: Exam: XR Right Hip Exam date and time: 04/29/2024 5:01 PM Age: 63 years old Clinical indication: Pelvic pain; Additional info: Poor historian, large hematoma R thigh TECHNIQUE: Imaging protocol: Radiologic exam of the right hip. Views: 2 or 3 views hip with pelvis when performed. COMPARISON: CT ABDOMEN PELVIS W CON 04/01/2022 10:36 AM FINDINGS: Bones/joints: Joint space is well preserved. No fractures, dislocations, or focal bone lesions. Soft tissues: No soft tissue masses or radiopaque foreign bodies. IMPRESSION: No bone or joint abnormalities in the right hip and pelvis.
--- NOTE | 2024-04-29 16:44 | CT_ITS ---
PROCEDURE INFORMATION: Exam: CT Cervical Spine Without Contrast Exam date and time: 04/29/2024 7:07 PM Age: 63 years old Clinical indication: Neck pain; Additional info: Trauma eval, poor historian, large hematoma R thigh TECHNIQUE: Imaging protocol: Computed tomography of the cervical spine without contrast. Radiation optimization: All CT scans at this facility use at least one of these dose optimization techniques: automated exposure control; mA and/or kV adjustment per patient size (includes targeted exams where dose is matched to clinical indication); or iterative reconstruction. COMPARISON: CT CERVICAL SPINE WO CON 04/29/2024 7:07 PM FINDINGS: Bones: No acute fracture or traumatic subluxation. No spondylolisthesis. The atlantooccipital and atlantoaxial articulations are intact. Occipital condyles are intact. Facet joint alignments are maintained. Age-related degenerative disc disease. Multilevel degenerative changes of the cervical spine. Lungs: Lung apices are normal. Soft tissues: No prevertebral soft tissue swelling. IMPRESSION: No acute fracture or traumatic subluxation.
--- NOTE | 2024-04-29 16:44 | CT_ITS ---
PROCEDURE INFORMATION: Exam: CTA Abdominal Aorta and Bilateral Lower Extremities (Run-off) With Contrast Exam date and time: 04/29/2024 7:22 PM Age: 63 years old Clinical indication: Other: Large R thigh hematoma TECHNIQUE: Imaging protocol: Computed tomographic angiography of the of the abdominal aorta, pelvis and bilateral lower extremities with contrast. 3D rendering (Not supervised by radiologist): MIP and/or 3D reconstructed images were created by the technologist. Radiation optimization: All CT scans at this facility use at least one of these dose optimization techniques: automated exposure control; mA and/or kV adjustment per patient size (includes targeted exams where dose is matched to clinical indication); or iterative reconstruction. Contrast material: ISOVUE; Contrast volume: 120 ml; Contrast route: INTRAVENOUS (IV); COMPARISON: CT ABDOMEN PELVIS W CON 04/01/2022 10:36 AM FINDINGS: Aorta: No aortic aneurysm. No aortic dissection. Celiac trunk and mesenteric arteries: No occlusion or significant stenosis. Renal arteries: No occlusion or significant stenosis. Right iliac arteries: No occlusion or significant stenosis. Right femoral/popliteal arteries: No occlusion or significant stenosis. Right infrapopliteal arteries: No occlusion or significant stenosis. Left iliac arteries: No occlusion or significant stenosis. Left femoral/popliteal arteries: No occlusion or significant stenosis. Left infrapopliteal arteries: No occlusion or significant stenosis. Liver: No mass. Gallbladder and biliary ducts: Layering gallstones and/or sludge. Pancreas: Unremarkable. No mass. No ductal dilation. Spleen: Normal. No splenomegaly. Adrenal glands: Normal. No mass. Kidneys and ureters: Normal. No mass. Stomach and bowel: Unremarkable. No obstruction. No mucosal thickening. Appendix: No evidence of appendicitis. Urinary bladder: Unremarkable. No mass. Reproductive: Unremarkable as visualized. Intraperitoneal space: Unremarkable. No free air. No significant fluid collection. Lymph nodes: No lymphadenopathy. Bones/joints: No acute fracture. No dislocation. Soft tissues: There is stranding in the soft tissues of the right lateral hip and thigh extending down into the calf, ankle and foot. There is a large hematoma without contrast extravasation which in the right vastus lateralis muscle measuring 11.4 chest by 6.3 x soft score 26 cm craniocaudal. Soft tissue swelling involving the left calf, ankle and foot. IMPRESSION: 1. There is a large hematoma without contrast extravasation which in the right vastus lateralis muscle measuring 11.4 chest by 6.3 x soft score 26 cm craniocaudal. 2. No high-grade stenosis or occlusion involving bilateral lower extremity runoffs. No contrast extravasation. 3. Soft tissue swelling involving bilateral calf, ankle and foot without soft tissue gas or abscess. These findings could reflect mild cellulitis
--- NOTE | 2024-04-29 16:44 | XR_ITS ---
PROCEDURE INFORMATION: Exam: XR Right Tibia and Fibula Exam date and time: 04/29/2024 5:01 PM Age: 63 years old Clinical indication: Pain; Lower leg; Right; Additional info: Poor historian, large hematoma R thigh TECHNIQUE: Imaging protocol: Radiologic exam of the right tibia and fibula. Views: 2 views. (4 images) COMPARISON: CR XR TIBIA FIBULA RT 2V 04/29/2024 5:01 PM FINDINGS: Bones/joints: No fractures, dislocations, or bone lesions. No significant joint space narrowing or widening. Achilles heel spur. Soft tissues: No soft tissue gas, radiopaque foreign bodies, or masses. IMPRESSION: No acute findings in the right tibia and fibula.
--- NOTE | 2024-04-29 16:44 | CT_ITS ---
PROCEDURE INFORMATION: Exam: CT Head Without Contrast Exam date and time: 04/29/2024 7:05 PM Age: 63 years old Clinical indication: Altered mental status/memory loss; Additional info: Trauma eval, poor historian, large hematoma R thigh TECHNIQUE: Imaging protocol: Computed tomography of the head without contrast. Radiation optimization: All CT scans at this facility use at least one of these dose optimization techniques: automated exposure control; mA and/or kV adjustment per patient size (includes targeted exams where dose is matched to clinical indication); or iterative reconstruction. COMPARISON: No relevant prior studies available. FINDINGS: Brain: Age-related involutional changes and chronic microvascular ischemic disease. 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 Right cerebellar chronic lacunar infarcts. No evidence for acute transcortical infarct. No mass effect or midline shift. No extra-axial collection. No acute intracranial hemorrhage. Basal cisterns are patent. Cerebral ventricles: No ventriculomegaly. Paranasal sinuses: Visualized sinuses are unremarkable. No fluid levels. Mastoid air cells: Visualized mastoid air cells are well aerated. Bones: Unremarkable. No acute fracture. Soft tissues: Unremarkable. IMPRESSION: No evidence for acute transcortical infarct, acute intracranial hemorrhage, or mass effect.
--- NOTE | 2024-04-29 16:44 | XR_ITS ---
PROCEDURE INFORMATION: Exam: XR Right Knee Exam date and time: 04/29/2024 5:01 PM Age: 63 years old Clinical indication: Other: Large hematoma R thigh; Additional info: Poor historian, large hematoma R thigh TECHNIQUE: Imaging protocol: Radiologic exam of the right knee. Views: 3 views. COMPARISON: CR XR KNEE RT 3V 04/29/2024 5:01 PM FINDINGS: Bones/joints: Joint spaces are well preserved. No fractures, dislocations, or focal bone lesions. Soft tissues: Mottled soft tissue edema in the distal thigh. Vasculature: Arterial calcifications. IMPRESSION: 1. No acute findings in the right knee. 2. Soft tissue edema in the distal right thigh.
--- NOTE | 2024-04-29 16:44 | XR_ITS ---
PROCEDURE INFORMATION: Exam: XR Right Femur Exam date and time: 04/29/2024 5:01 PM Age: 63 years old Clinical indication: Other: Large hematoma R thigh; Additional info: Poor historian, large hematoma R thigh TECHNIQUE: Imaging protocol: Radiologic exam of the right femur. Views: 2 views. COMPARISON: CT ABDOMEN PELVIS W CON 04/01/2022 10:36 AM FINDINGS: Bones/joints: No fractures, dislocations, or focal bone lesions in the femur. Soft tissues: Mottled soft tissues in the thigh. No distinct masses, radiopaque foreign bodies, or soft tissue gas. Vasculature: Arterial calcifications. IMPRESSION: 1. No acute findings in the right femur. 2. Soft tissue swelling in the right thigh.
--- NOTE | 2024-04-29 16:44 | CT_ITS ---
PROCEDURE INFORMATION: Exam: CTA Chest With Contrast Exam date and time: 04/29/2024 7:09 PM Age: 63 years old Clinical indication: Shortness of breath; Additional info: Trauma eval, poor historian, large hematoma R thigh TECHNIQUE: Imaging protocol: Computed tomographic angiography of the chest with contrast. Exam focused on the arteries. 3D rendering (Not supervised by radiologist): MIP and/or 3D reconstructed images were created by the technologist. Radiation optimization: All CT scans at this facility use at least one of these dose optimization techniques: automated exposure control; mA and/or kV adjustment per patient size (includes targeted exams where dose is matched to clinical indication); or iterative reconstruction. Contrast material: ISOVUE; Contrast volume: 70 ml; Contrast route: INTRAVENOUS (IV); COMPARISON: CR XR CHEST PORTABLE 04/29/2024 3:51 PM FINDINGS: Pulmonary arteries: Linear hypodense area in the right lower lobe segmental branch likely reflecting a web and possible chronic pulmonary embolism. No acute pulmonary emboli. Aorta: Unremarkable. No aortic aneurysm. No aortic dissection. Lungs: Unremarkable. No consolidation. No masses. Pleural spaces: Unremarkable. No pneumothorax. No pleural effusion. Heart: Cardiomegaly Lymph nodes: Unremarkable. No enlarged lymph nodes. Bones/joints: Multilevel anterior bridging osteophyte formation. No acute fracture. Soft tissues: Unremarkable. IMPRESSION: No acute findings.
--- NOTE | 2024-04-29 16:58 | ECG_ITS ---
APPROVED REPORT Exam: Resting ECG HR:94 bpm ECG Measurements Heart Rate 94 AXES QRSd 118 QRS -14 QT 393 T 1 QTc 445 Conclusion ATRIAL FIBRILLATION WITH ABERRANT CONDUCTION OR VENTRICULAR PREMATURE COMPLEXES INCOMPLETE RIGHT BUNDLE BRANCH BLOCK [90+ ms QRS DURATION, TERMINAL R IN V1/V2, 40+ ms S IN I/aVL/V4/V5/V6] NONSPECIFIC ST & T-WAVE ABNORMALITY ABNORMAL RHYTHM ECG UNCONFIRMED REPORT Electronically signed by : ELEN OREILLY, 04/29/2024 23:05:12
--- NOTE | 2024-04-29 17:05 | PC.NURSE ---
pt asked for us to notifiy sister, tried to call, it would not go thru
[2024-04-29 17:12] LABS: Lactate Venous 0.8 mmol/L (0.4-2.0); VBG Base Excess -0.6 mmol/L (-2.4-2.3); VBG HCO3 24.3 mmol/L (23-30); VBG Oxygen Saturation 60.2 % (50-70); VBG PCO2 40.9 mmol/L (35-51); VBG PH 7.39 mmol/L (7.31-7.41); VBG PO2 34.5 mmol/L (28-40); VBG Total CO2 25.6 mmol/L (23-27)
[2024-04-29 17:30] LABS: Activated Partial Thrombo Time 27.5 seconds (22.5-28.5); INR 0.98 (0.9-1.1); Prothrombin Time 10.8 seconds (9.2-12.1)
[2024-04-29 17:31] LABS: Basophils % 0.1 % (0.1-2.0); Eosinophils # 0.1 K/mm3 (0.0-0.4); Hematocrit 24.1 % (42.0-52.0); Hemoglobin 7.8 g/dL (14.1-18.0); Lymphocytes % 10.2 % (10-50); Mean Corpuscular HGB Conc 32.4 g/dL (31.8-35.4); Mean Corpuscular Hemoglobin 27.6 pg (27.0-31.2); Mean Corpuscular Volume 85.2 fl (80-94); Mean Platelet Volume 9.2 fl (7.4-10.4); Monocytes # 0.8 K/mm3 (0.1-1.0); Monocytes % 8.8 % (1.7-9.3); Neutrophils # 7.4 K/mm3 (1.8-7.8); Neutrophils % 79.2 % (37.0-80.0); Platelet Count 317 K/mm3 (142-424); Red Blood Count 2.83 M/mm3 (4.60-6.20); Red Cell Distribution Width 14.4 % (11.5-17.5); White Blood Count 9.3 K/mm3 (4.8-10.8)
[2024-04-29 17:53] LABS: Alanine Aminotransferase 54 U/L (12-78); Albumin Level 3.4 g/dl (3.5-5.0); Albumin/Globulin Ratio 1.2 (1.1-1.8); Alkaline Phosphatase 96 U/L (38-126); Anion Gap 7.4 mEq/L (5-15); Aspartate Amino Transferase 77 U/L (17-59); Bilirubin,Total 1.1 mg/dl (0.2-1.3); Blood Urea Nitrogen 30 mg/dl (9-20); Calcium 8.6 mg/dl (8.4-10.2); Carbon Dioxide 30 mmol/L (22.0-30.0); Chloride 100 mmol/L (98-107); Creatine Kinase 83 U/L (55-170); Creatinine Clearance Estimated 146 mL/min (50-200); Estimated Glomerular Filt Rate 85 ml/min (>60); GFR (African American) 103 ML/MIN (>60); Globulin 2.9 g/dL (1.3-3.2); Glucose 167 mg/dl (74-100); Magnesium 1.8 mg/dl (1.6-2.3); Potassium 3.4 mmoL/L (3.5-5.1); Sodium 134 mmol/L (136-145); Total Protein,Serum 6.3 g/dl (6.3-8.2)
[2024-04-29 17:59] LABS: C-Reactive Protein 170.6 mg/L (0-4)
[2024-04-29 18:09] LABS: NT Pro Brain Natriuretic Pep. 3960 pg/mL (0-125)
[2024-04-29 18:13] LABS: T4 (Thyroxine) 6.1 ug/dl (5.53-11.0)
[2024-04-29 18:24] LABS: Troponin I < 0.01 ng/ml (0.00-0.034)
[2024-04-29 18:27] LABS: Thyroid Stimulating Hormone 2.58 uIU/mL (0.465-4.68)
[2024-04-29 18:38] LABS: Erythrocyte Sedimentation Rate > 140 mm/hr (0-20)
[2024-04-29] MEDS: SODIUM CHLORIDE 0.9% 10ML SYR (RAD ONLY) 10 ML IV (19:22)
[2024-04-29] MEDS: IOPAMIDOL-370 (76%);100ML BOTTLE 190 ML IV (19:22)
[2024-04-29] MEDS: 0.9 % SODIUM CHLORIDE 50 ML VIAL 100 ML IV (19:22)
--- NOTE | 2024-04-29 19:30 | PC.NURSE ---
Pt back from CT
--- NOTE | 2024-04-29 19:35 | PC.NURSE ---
[facility] shared images to [facility]
[2024-04-29 20:13] LABS: Troponin I < 0.01 ng/ml (0.00-0.034)
--- NOTE | 2024-04-29 21:05 | PC.NURSE ---
Dr. De La Torre called hosp. and they told her they'll have to call her back.
[2024-04-29] MEDS: CEFEPIME HCL 2 GM in 0.9 % SODIUM CHLORIDE 100 ML IV (21:13)
[2024-04-29] MEDS: VANCOMYCIN CONSULT REQUEST 1 EACH NOTAPPLIC (21:26)
--- NOTE | 2024-04-29 21:46 | PC.NURSE ---
attempted to call report, nurse stated she would call me back
--- NOTE | 2024-04-29 22:14 | PC.NURSE ---
Patient arrived to floor via stretcher from ED at 22:03.
[2024-04-29 23:57] LABS: POC Glucose,Bedside 205 (70-110)
[2024-04-30] MEDS: INSULIN GLARGINE 100 UNITS/ML 10ML VIAL 10 UNIT SUBCUT ×2 (00:02→21:17)
[2024-04-30] MEDS: humaLOG 100 UNITS/ML 10ML VIAL (SSI) SUBCUT ×4 (00:03→21:17)
[2024-04-30] MEDS: APIXABAN 5MG TABLET 5 MG PO (00:05)
[2024-04-30] MEDS: TRAZODONE 50MG TABLET 50 MG PO ×2 (00:06→21:19)
[2024-04-30] MEDS: ATORVASTATIN 40MG TABLET 40 MG PO ×2 (00:06→21:19)
[2024-04-30] MEDS: VANCOMYCIN HCL 2,500 MG in 0.9 % SODIUM CHLORIDE 500 ML 250 MG IV (00:16)
[2024-04-30] MEDS: ACETAMINOPHEN 325MG TAB 650 MG PO ×2 (01:15→18:42)
--- NOTE | 2024-04-30 01:57 | P.HP_ITS ---
History of Present Illness *Admission Date: 04/30/24 *Reason for visit:: Right leg pain *History of present illness: A 63-year-old male with a history of hypertension, hyperlipidemia, congestive heart failure (CHF), prior pulmonary embolism (PE) on Eliquis, insulin-dependent diabetes mellitus (IDDM), gastroesophageal reflux disease (GERD), and schizophrenia presents to the emergency department on April 29, 2024, for evaluation of right lower extremity pain and swelling. Symptoms began 4 days ago without preceding trauma, per patient report. He denies fevers, chills, chest pain, shortness of breath, abdominal pain, vomiting, changes in bowel movements, or other complaints. He resides at [facility], having recently transitioned from [place], where he typically receives medications. EMS transported him, noting stability en route. Vital signs on arrival were not fully detailed but reassuring on cardiac telemetry per reassessment. Physical exam revealed right greater than left lower extremity swelling with mild erythema and warmth, compartments soft, and neuro vascular status intact distally. Undressing uncovered a large hematoma on the right posterolateral thigh and knee, which the patient denies resulted from trauma, insisting it appeared spontaneously. No recent falls reported, though he is a poor historian. Past records show a CHF exacerbation admission one year ago; medications include Bumex (volume overload) and Eliquis (PE history). Labs at 15:31 (VBG) showed pH 7.39, pCO2 40.9 mmHg, pO2 34.5 mmHg, O2 sat 60.2% (mild hypoxia), lactic acid 0.8 mmol/L. Urinalysis was unremarkable (trace glucose, urobilinogen 2.0). At 16:55, CBC revealed acute on chronic anemia (Hgb 7.8 g/dL, Hct 24.1%, RBC 2.83 x10?/?L), WBC 9.3 x10?/?L, and platelets 317 x10?/?L. Chemistry showed mild hyponatremia (Na 134 mmol/L), hypokalemia (K 3.4 mmol/L), BUN 30 mg/dL, Cr 0.90 mg/dL (GFR 85), glucose 167 mg/dL, and normal troponin (<0.01 ng/mL). Inflammatory markers were elevated (ESR >140 mm/h, CRP 170.6 mg/L), NT-pro-BNP 3960 pg/mL (elevated but lower than prior), and AST 77 U/L. Imaging (CT head/C-spine, chest CTA, abdomen/pelvis CTA with runoff) and right lower extremity DVT ultrasound were ordered; preliminary interpretation noted significant right thigh/hip swelling and hematoma with stranding, no DVT, intracranial hemorrhage, or arterial occlusion. [facility] Disclaimer: The information contained in this section may have been updated after the patient was seen, as this information can be updated by other users. Medical History Scrotal edema Edema (HFpEF) heart failure with preserved ejection fraction Pleural effusion Pulmonary edema Hypoxic respiratory failure UTI (urinary tract infection) Cellulitis of left thigh Cellulitis of right thigh Abdominal wall cellulitis Depression Tobacco dependence Mood disorder Chronic anticoagulation Varicose veins of both lower extremities Chronic venous insufficiency Hernia Urinary retention HLD (hyperlipidemia) Acid reflux Smoker Neuropathy Pulmonary embolism DVT (deep venous thrombosis) Diabetes Family History Other No significant family history Social History Smoking Status: Current some day smoker alcohol intake: never current occupational status: disabled Travel in the last 8 weeks: None housing: [facility] Contact w/someone who lives/traveled outside [place] past 30 days?: No Other Medical History Have you received the Flu Vaccine for this season: No Have you received the Pneumonia Vaccine: No Review of Systems Review of Systems Review of systems (narrative): 13 point review system negative except as listed in [facility] Meds Home Medications and Allergies Home Medications ?Medication ?Instructions ?Recorded ?Confirmed ?Type apixaban 5 mg tablet (Eliquis) 5 mg PO BID Blood Thinner/Afib 09/08/20 04/30/24 History atorvastatin 40 mg tablet 40 mg PO HS Cholesterol 09/08/20 04/30/24 History glimepiride 4 mg tablet 4 mg PO DAILY Diabetes 09/08/20 04/30/24 History insulin glargine 100 unit/mL 10 unit SQ HS Diabetes 09/08/20 04/30/24 History subcutaneous solution (Lantus U-100 Insulin) tamsulosin 0.4 mg capsule 0.4 mg PO DAILY Prostate 09/08/20 04/30/24 History trazodone 50 mg tablet 50 mg PO HS Sleep 09/08/20 04/30/24 History oxybutynin chloride 10 mg 10 mg PO DAILY Bladder 11/22/22 04/30/24 History tablet,extended release 24 hr aspirin 81 mg tablet,delayed 81 mg PO DAILY Heart Health 04/07/23 04/30/24 History release bumetanide 1 mg tablet 1 mg PO BIDL 30 days #60 tabs 04/12/23 04/30/24 Rx aripiprazole 10 mg tablet 10 mg PO HS 04/30/24 04/30/24 History bupropion HCl 150 mg 24 hr tablet, 150 mg PO DAILY 04/30/24 04/30/24 History extended release gabapentin 100 mg capsule 100 mg PO DAILY 04/30/24 04/30/24 History mirtazapine 7.5 mg tablet 7.5 mg PO HS 04/30/24 04/30/24 History olanzapine 5 mg disintegrating 5 mg PO HS 04/30/24 04/30/24 History tablet omeprazole 20 mg capsule,delayed 20 mg PO HS 04/30/24 04/30/24 History release oxcarbazepine 300 mg tablet 300 mg PO BID 04/30/24 04/30/24 History sertraline 100 mg tablet 100 mg PO BID 04/30/24 04/30/24 History New Prescriptions to Start Prescriptions: Allergies Allergy/AdvReac Type Severity Reaction Status Date / Time No Known Allergies Allergy Verified 11/22/22 18:46 Exam Data for Last 24 hours Vital signs and Labs for Last 24 Hours: Temp Pulse Resp BP Pulse Ox O2 Del Method 98.4 F 94 H 20 103/57 L 100 Room Air 04/29/24 22:59 04/29/24 22:59 04/29/24 22:02 04/29/24 22:59 04/29/24 22:59 04/29/24 22:59 Laboratory Results - last 24 hr 04/29/24 15:31: VBG pH 7.39, VBG pCO2 40.9, VBG pO2 34.5, VBG HCO3 24.3, VBG Total CO2 25.6, VBG O2 Saturation 60.2, VBG Base Excess -0.6, VBG Lactic Acid 0.8 04/29/24 15:41: Urine Color Yellow, Urine Appearance Clear, Urine pH 6.0, Ur Specific [place] 1.020, Urine Protein Negative, Urine Glucose (UA) Trace, Urine Ketones Negative, Urine Blood Negative, Urine Nitrate Negative, Urine Bilirubin Negative, Urine Urobilinogen 2.0, Ur Leukocyte Esterase Negative, Urine RBC None, Urine WBC Occasional, Ur Squamous Epith Cells None, Urine Bacteria Trace 04/29/24 16:55: WBC 9.3, RBC 2.83 L, Hgb 7.8 L, Hct 24.1 L, MCV 85.2, MCH 27.6, MCHC 32.4, RDW 14.4, Plt Count 317, MPV 9.2, Neut % (Auto) 79.2, Lymph % (Auto) 10.2, Alexander % (Auto) 8.8, Eos % (Auto) 1.0, Baso % (Auto) 0.1, Neut # (Auto) 7.4, Lymph # (Auto) 1.0, Alexander # (Auto) 0.8, Eos # (Auto) 0.1, Baso # (Auto) 0.0, ESR > 140 H, PT 10.8, INR 0.98, APTT 27.5, Sodium 134 L, Potassium 3.4 L, Chloride 100, Carbon Dioxide 30, Anion Gap 7.4, BUN 30 H, Creatinine 0.90, Estimated Creat Clear 146, Estimated GFR 85, Est GFR ( Amer) 103, Glucose 167 H, Calcium 8.6, Magnesium 1.8, Total Bilirubin 1.1, AST 77 H, ALT 54, Alkaline Phosphatase 96, Total Creatine Kinase 83, Troponin I < 0.01, C-Reactive Protein 170.6 H, NT-Pro-B Natriuret Pep 3960 H, Total Protein 6.3, Albumin 3.4 L, Globulin 2.9, Albumin/Globulin Ratio 1.2, TSH 2.58, Thyroxine (T4) 6.1 04/29/24 18:35: Troponin I < 0.01 04/29/24 23:50: POC Glucose 205 H I & O for Last 24 hours: Intake & Output 04/27/24 04/28/24 04/29/24 04/30/24 23:59 23:59 23:59 23:59 Weight 136.078 kg Constitutional Constitutional: no acute distress and average body habitus *Routine HEENT Exam Head: Present normocephalic Eye: Present EOMI and PERRL ENT: Present mucous membranes moist *Routine Neck Exam Neck: Present supple; Absent lymphadenopathy *Routine Respiratory Exam Respiratory: Present CTA bilaterally *Routine Cardiovascular Exam Cardiovascular: Present RRR *Routine Abdominal Exam Abdominal: Present soft and normoactive bowel sounds; Absent tenderness *Routine Rectal Exam Rectal:: deferred *Routine Genitalia Exam Genitalia:: deferred *Routine Extremities Exam Extremities: Present edema (Right thigh); Absent cyanosis or clubbing Comments: Ecchymosis upper medial aspect of right lower extremity *Routine Skin Exam Skin: Present warm; Absent rash Comments: Signs of healed cellulitis to bilateral lower extremities *Routine Neurological Exam Neurological: Present alert and oriented X3 Assessment and Plan *Assessment and plan (1) Acute on chronic anemia: Status: Acute Category: Medical Code(s): D64.9 - Anemia, unspecified (2) Hematoma of right thigh: Status: Acute Category: Medical Code(s): S70.11XA - Contusion of right thigh, initial encounter (3) Cellulitis of right lower extremity: Status: Acute Category: Medical Code(s): L03.115 - Cellulitis of right lower limb (4) HLD (hyperlipidemia): Status: Acute Qualifiers: Hyperlipidemia type: mixed hyperlipidemia Qualified Code(s): E78.2 - Mixed hyperlipidemia Category: Medical Code(s): E78.5 - Hyperlipidemia, unspecified (5) (HFpEF) heart failure with preserved ejection fraction: Status: Acute Qualifiers: Heart failure chronicity: acute Qualified Code(s): I50.31 - Acute diastolic (congestive) heart failure Category: Medical Code(s): I50.30 - Unspecified diastolic (congestive) heart failure (6) CHF (congestive heart failure): Status: Acute Qualifiers: Heart failure chronicity: acute on chronic Heart failure type: diastolic Qualified Code(s): I50.33 - Acute on chronic diastolic (congestive) heart failure Category: Medical Code(s): I50.9 - Heart failure, unspecified (7) Cellulitis of left lower extremity: Status: Acute Category: Medical Code(s): L03.116 - Cellulitis of left lower limb Plan * Right Lower Extremity Pain and Swelling with Hematoma * Atraumatic right > left LE swelling and pain x 4 days, large right posterolateral thigh/knee hematoma, mild erythema/warmth, compartments soft, neurovascularly intact. CT prelim: swelling at thigh/hip, hematoma with stranding, no arterial occlusion. Patient denies trauma; poor historian (schizophrenia). PMH: PE on Eliquis (INR 0.98), CHF. Differential: Spontaneous hematoma (Eliquis-related bleed), occult trauma (unreported fall), cellulitis (erythema, CRP 170.6, ESR >140), venous insufficiency (CHF, NT-pro-BNP 3960); DVT/PE ruled out (negative US, chest CTA). * Surgical consult for hematoma evaluation (size, stranding??evacuation vs. observation); urgent if compartment syndrome develops (soft now). * IV vancomycin (15 mg/kg, ~1.5 g) and cefepime (2 g) given; suspect hematoma versus cellulitis, continue with IV Zosyn every 8 * Reassess neurovascular status compartment firmness; every 24 CBC * Hold Eliquis * Acute on Chronic Anemia * Hgb 7.8, Hct 24.1, RBC 2.83 (worsened from prior), MCV 85.2 (normocytic). No melena/hematochezia; INR 0.98 on Eliquis. Differential: Hematoma-related blood loss (Eliquis), chronic anemia exacerbation (CHF, inflammation?ESR >140), occult GI bleed (Eliquis, GERD). * Transfuse 1 unit PRBC if Hgb <7 or symptomatic (stable now, monitor); type/crossmatch prepared. * Reticulocyte count, iron studies, B12/folate to assess chronic component; repeat CBC q12h. * Vitals q8h, watch for tachycardia/hypotension. * Congestive Heart Failure (Stable, Possible Mild Exacerbation) * NT-pro-BNP 3960 (elevated, lower than prior CHF admission), history of CHF on Bumex, no SOB/chest pain, VBG O2 sat 60.2% (mild hypoxia). Bilateral LE swelling (R>L), no pulmonary edema on chest CTA. Differential: Mild CHF exacerbation (NT-pro-BNP, swelling), baseline CHF fluid (Bumex), venous stasis; PE ruled out (negative CTA). * Order TTE to assess EF, RV function; compare to prior. * Continue Bumex * Fluid restriction to 1.5 L/day; monitor I/Os, daily weights. * Cardiac telemetry 24 hours, reassess for SOB/rales q4h. * Consult cardiology if TTE shows worsening function. * Cellulitis (Suspected) * Right LE erythema, warmth, CRP 170.6, ESR >140, WBC 9.3 (Neut # 7.4). No fever, nontoxic. CT prelim: stranding around hematoma. Differential: Cellulitis (infectious?skin breach?), inflammatory response (hematoma alone), early abscess (stranding); DVT ruled out (negative US). * IV Zosyn every 8 * Blood cultures, wound culture if drainage develops. * LE exam q4h for spreading erythema, fever; CRP/ESR trend in 24 hours. * Insulin-Dependent Diabetes Mellitus * Glucose 167, IDDM history, trace urine glucose. No ketones/acidosis (VBG pH 7.39). Differential: Stress hyperglycemia, poor baseline control. * Sliding scale, continue Lantus 10 units nightly * Before meals and at bedtime Accu-Cheks * Mild Electrolyte Abnormalities * Na 134 (hyponatremia), K 3.4 (hypokalemia). Differential: CHF (diur etic?Bumex), dilutional (fluid overload), dietary * Electrolyte replacement protocol. * Telemetry for arrhythmia (K 3.4 mild risk). * Avoid hypotonic fluids (NS only if needed). * Disposition * Right LE hematoma/swelling, anemia (Hgb 7.8), NT-pro-BNP 3960, cellulitis concern require admission; PE/DVT ruled out (negative CTA, US). * Admit to medicine with telemetry for IV antibiotics, imaging finalization, Hgb monitoring. * Hold anticoagulant
[2024-04-30 04:00] VITALS: BMI 37.3
[2024-04-30] MEDS: POTASSIUM CHLORIDE 20MEQ TAB 40 MEQ PO ×2 (04:00→09:21)
[2024-04-30] MEDS: MAGNESIUM SULFATE IN WATER 2 GM/50 ML PIGGYBACK IV (04:44)
[2024-04-30] MEDS: PIPERCILLIN/TAZO 3.375 GM in 0.9 % SODIUM CHLORIDE 50 ML IV ×5 (05:01→21:26)
[2024-04-30 07:26] LABS: Basophils % 0.3 % (0.1-2.0); Eosinophils # 0.2 K/mm3 (0.0-0.4); Eosinophils % 2.3 % (0.1-12.0); Hematocrit 23.9 % (42.0-52.0); Hemoglobin 7.4 g/dL (14.1-18.0); Lymphocytes % 14.9 % (10-50); Mean Corpuscular Hemoglobin 26.8 pg (27.0-31.2); Mean Corpuscular Volume 86.6 fl (80-94); Mean Platelet Volume 9.3 fl (7.4-10.4); Monocytes # 0.7 K/mm3 (0.1-1.0); Monocytes % 10.2 % (1.7-9.3); Neutrophils # 4.9 K/mm3 (1.8-7.8); Neutrophils % 71.7 % (37.0-80.0); Platelet Count 307 K/mm3 (142-424); Red Blood Count 2.76 M/mm3 (4.60-6.20); Red Cell Distribution Width 14.3 % (11.5-17.5); White Blood Count 6.9 K/mm3 (4.8-10.8)
[2024-04-30 07:27] LABS: Reticulocyte % (Auto) 3.6 % (0.9-3.2)
[2024-04-30 07:53] LABS: Anion Gap 6.7 mEq/L (5-15); Blood Urea Nitrogen 25 mg/dl (9-20); Calcium 8.3 mg/dl (8.4-10.2); Carbon Dioxide 29 mmol/L (22.0-30.0); Chloride 103 mmol/L (98-107); Chol/HDL Ratio 3.4 (1-3.5); Cholesterol 79 mg/dl (140-200); Creatinine Clearance Estimated 146 mL/min (50-200); Estimated Glomerular Filt Rate 98 ml/min (>60); GFR (African American) 118 ML/MIN (>60); Glucose 99 mg/dl (74-100); HDL Cholesterol 23 mg/dl (40-60); Phosphorous 2.6 mg/dl (2.5-4.5); Potassium 3.7 mmoL/L (3.5-5.1); Sodium 135 mmol/L (136-145); Triglycerides 62 mg/dl (30-150); VLDL Cholesterol 12 mg/dL (0-40)
[2024-04-30 08:00] VITALS: BP 105/53; PULSE 100; RESP 18; TEMP 36.6; O2SAT 95
[2024-04-30 08:03] LABS: Total Iron Binding Capacity 236 ug/dL (261-462)
--- NOTE | 2024-04-30 08:03 | PC.NURSE ---
Pt. was admitted overnight with c/o right leg hematoma and cellulititis. Pt. alert and orientated x 4. Pt. on room air. Up to bedsidfe commode with assist. Pt. unable to put weight on right leg. rt. leg swollen and bruised. Pt. slept well ofernight.
[2024-04-30 08:04] LABS: Direct LDL Cholesterol 36.82 mg/dL (100-129)
[2024-04-30 08:42] LABS: Vitamin B12 521 pg/mL (239-931)
[2024-04-30 09:20] LABS: Iron 36 ug/dL (49-181)
[2024-04-30] MEDS: TAMSULOSIN 0.4MG CAPSULE 0.4 MG PO (09:20)
[2024-04-30] MEDS: buPROPion HCl SR 150MG TAB 150 MG PO (09:20)
--- NOTE | 2024-04-30 10:08 | P.PN_ITS ---
Subjective *Date: 04/30/24 *Time: 21:11 Interval history: Denies chest pain or shortness of breath. Alert and oriented at baseline. Stable on room air. No fever. Tolerating p.o. intake. Ortho evaluated. Working with therapy. Able to ambulate with assistance. Medical Exam Vital signs and Labs for Last 24 Hours: Vital Signs Temp Pulse Pulse Resp BP BP Pulse Ox 04/30/24 09:00 04/30/24 08:00 04/30/24 08:00 97.9 F 100 H 18 105/53 L 95 04/30/24 07:00 04/30/24 05:00 04/30/24 03:00 04/30/24 01:00 04/29/24 23:00 04/29/24 22:59 98.4 F 94 H 103/57 L 100 04/29/24 22:45 04/29/24 22:02 98.7 F 87 20 132/78 04/29/24 21:00 86 95/56 L 97 04/29/24 20:30 109 H 95/58 L 93 L 04/29/24 20:01 91 H 85/59 L 94 L 04/29/24 18:00 82 106/65 L 93 L 04/29/24 17:33 82 98/64 L 93 L 04/29/24 17:01 82 82/59 L 93 L 04/29/24 16:30 89 93/56 L 99 04/29/24 16:01 95 H 101/47 L 100 04/29/24 15:23 98.2 F 98 H 20 113/54 L 98 O2 Del Method 04/30/24 09:00 Room Air 04/30/24 08:00 Room Air 04/30/24 08:00 Room Air 04/30/24 07:00 Room Air 04/30/24 05:00 Room Air 04/30/24 03:00 Room Air 04/30/24 01:00 Room Air 04/29/24 23:00 Room Air 04/29/24 22:59 Room Air 04/29/24 22:45 Room Air 04/29/24 22:02 Room Air 04/29/24 21:00 04/29/24 20:30 04/29/24 20:01 04/29/24 18:00 04/29/24 17:33 04/29/24 17:01 04/29/24 16:30 04/29/24 16:01 04/29/24 15:23 Room Air Intake and Output 04/29/24 04/30/24 04/30/24 23:59 07:59 15:59 Intake Total 650 / 650 Output Total 0 / 0 0 / 450 450 / 450 Balance 0 / 650 650 / 200 -450 / 200 Intake: Intake, Total IV Amount 650 / 650 Cefepime HCl 2 gm In 0.9 % 100 / 100 Sodium Chloride 100 ml @ 200 mls/hr IV ONCE ONE Rx#:[id number] Pipercillin/Tazo 3.375 gm In 0. 50 / 50 9 % Sodium Chloride 50 ml @ 100 mls/hr IV Q8H [facility] Rx#:[id number] Vancomycin HCl 2,500 mg In 0.9 500 / 500 % Sodium Chloride 500 ml @ 250 mls/hr IV ONCE ONE Rx#:[id number] Output: Output, Urine Amount 0 / 0 0 / 450 450 / 450 Other: Number of Unmeasured Voids 1 1 Number of Bowel Movements 1 1 Weight 136.078 kg Patient Weight 04/30/24 23:59 Weight 136.078 kg Laboratory Results - last 24 hr 04/29/24 15:31: VBG pH 7.39, VBG pCO2 40.9, VBG pO2 34.5, VBG HCO3 24.3, VBG Total CO2 25.6, VBG O2 Saturation 60.2, VBG Base Excess -0.6, VBG Lactic Acid 0.8 04/29/24 15:41: Urine Color Yellow, Urine Appearance Clear, Urine pH 6.0, Ur Specific [place] 1.020, Urine Protein Negative, Urine Glucose (UA) Trace, Urine Ketones Negative, Urine Blood Negative, Urine Nitrate Negative, Urine Bilirubin Negative, Urine Urobilinogen 2.0, Ur Leukocyte Esterase Negative, Urine RBC None, Urine WBC Occasional, Ur Squamous Epith Cells None, Urine Bacteria Trace 04/29/24 16:55: WBC 9.3, RBC 2.83 L, Hgb 7.8 L, Hct 24.1 L, MCV 85.2, MCH 27.6, MCHC 32.4, RDW 14.4, Plt Count 317, MPV 9.2, Neut % (Auto) 79.2, Lymph % (Auto) 10.2, [place] % (Auto) 8.8, Eos % (Auto) 1.0, Baso % (Auto) 0.1, Neut # (Auto) 7.4, Lymph # (Auto) 1.0, [place] # (Auto) 0.8, Eos # (Auto) 0.1, Baso # (Auto) 0.0, ESR > 140 H, PT 10.8, INR 0.98, APTT 27.5, Sodium 134 L, Potassium 3.4 L, Chloride 100, Carbon Dioxide 30, Anion Gap 7.4, BUN 30 H, Creatinine 0.90, Estimated Creat Clear 146, Estimated GFR 85, Est GFR ( Amer) 103, Glucose 167 H, Calcium 8.6, Magnesium 1.8, Total Bilirubin 1.1, AST 77 H, ALT 54, Alkaline Phosphatase 96, Total Creatine Kinase 83, Troponin I < 0.01, C-Reactive Protein 170.6 H, NT-Pro-B Natriuret Pep 3960 H, Total Protein 6.3, Albumin 3.4 L, Globulin 2.9, Albumin/Globulin Ratio 1.2, TSH 2.58, Thyroxine (T4) 6.1 04/29/24 18:35: Troponin I < 0.01 04/29/24 23:50: POC Glucose 205 H 04/30/24 06:12: WBC 6.9 D, RBC 2.76 L, Hgb 7.4 L, Hct 23.9 L, MCV 86.6, MCH 26.8 L, MCHC 31.0 L, RDW 14.3, Plt Count 307, MPV 9.3, Neut % (Auto) 71.7, Lymph % (Auto) 14.9, [place] % (Auto) 10.2 H, Eos % (Auto) 2.3, Baso % (Auto) 0.3, Neut # (Auto) 4.9, Lymph # (Auto) 1.0, [place] # (Auto) 0.7, Eos # (Auto) 0.2, Baso # (Auto) 0.0, Retic Count (auto) 3.6 H, Sodium 135 L, Potassium 3.7, Chloride 103, Carbon Dioxide 29, Anion Gap 6.7, BUN 25 H, Creatinine 0.80, Estimated Creat Clear 146, Estimated GFR 98, Est GFR ( Amer) 118, Glucose 99 D, Calcium 8.3 L, Phosphorus 2.6, Iron 36 L, TIBC 236 L, Iron Saturation [id number], Triglycerides 62, Cholesterol 79 L, LDL Cholesterol Direct 36.82 L, VLDL Cholesterol 12, HDL Cholesterol 23 L, Cholesterol/HDL Ratio 3.4, Vitamin B12 521 I & O for Labs for Last 24 Hours: Intake & Output 04/27/24 04/28/24 04/29/24 04/30/24 23:59 23:59 23:59 23:59 Intake Total 650 / 650 Output Total 0 / 0 450 / 450 Balance 0 / 650 200 / 200 Weight 136.078 kg 136.078 kg Constitutional: Present no acute distress, obese, chronically ill appearing and cooperative Head: Present atraumatic and normocephalic ENT: Present normal exam Neck: Present normal inspection Respiratory: Present normal respiratory effort; Absent rhonchi, wheezes or crackles Cardiac: Present Reg Rate and Rhythm GI: Present soft and normal bowel sounds; Absent distention or tenderness Extremities: Present normal inspection, full ROM, tenderness (right thigh, large hematoma) and edema (1+ edema in lower extremities to knees) Comment:: Left lower extremity with Unna boot in place Skin: Present intact and ecchymosis (right thigh); Absent erythema Neuro: Present Grossly Intact, alert, awake and moves all extremities Comment:: baseline orientation Assessment and Plan *Assessment and plan (1) Acute on chronic anemia: Status: Acute Category: Medical Code(s): D64.9 - Anemia, unspecified (2) Hematoma of right thigh: Status: Acute Qualifiers: Encounter type: initial encounter Qualified Code(s): S70.11XA - Contusion of right thigh, initial encounter Category: Medical Code(s): S70.11XA - Contusion of right thigh, initial encounter (3) Cellulitis of right lower extremity: Status: Acute Category: Medical Code(s): L03.115 - Cellulitis of right lower limb (4) HLD (hyperlipidemia): Status: Acute Qualifiers: Hyperlipidemia type: mixed hyperlipidemia Qualified Code(s): E78.2 - Mixed hyperlipidemia Category: Medical Code(s): E78.5 - Hyperlipidemia, unspecified (5) (HFpEF) heart failure with preserved ejection fraction: Status: Acute Qualifiers: Heart failure chronicity: acute Qualified Code(s): I50.31 - Acute diastolic (congestive) heart failure Category: Medical Code(s): I50.30 - Unspecified diastolic (congestive) heart failure (6) CHF (congestive heart failure): Status: Acute Qualifiers: Heart failure chronicity: acute on chronic Heart failure type: diastolic Qualified Code(s): I50.33 - Acute on chronic diastolic (congestive) heart failure Category: Medical Code(s): I50.9 - Heart failure, unspecified (7) Cellulitis of left lower extremity: Status: Acute Category: Medical Code(s): L03.116 - Cellulitis of left lower limb Plan 60-year-old male who resides at [facility]. Presented with right lower extremity pain and swelling concerning for hematoma. Orthopedics consulted to evaluate today. Hemodynamically stable. Continues to require patient management for monitoring of hemoglobin levels. Problems addressed as follows: Right thigh hematoma Acute on chronic anemia -Review of CT of abdomen pelvis with runoff shows hematoma with no extravasation in right thigh. Hemoglobin relatively stable at 7.4. No active signs of extravasation or bleeding at this time. Thigh tender however. -Ortho consulted and evaluated today. In discussion they recommend no need for debridement at this time. No concern for active bleeding. Continue to hold anticoagulation. -Therapy evaluated, ambulated with therapy. Stable discharge back to personal senior care when medically stable for discharge -Hemoglobin threshold for transfusion less than 7. Repeat CBC, CMP, magnesium ordered for the morning. White count normal at 6.9, low concern for cellulitis. Did not continue antibiotics today -CRP remains elevated at 170. Congestive Heart Failure (Stable, Possible Mild Exacerbation) - NT-pro-BNP 3960 (elevated, lower than prior CHF admission), history of CHF on Bumex, no SOB/chest pain, VBG O2 sat 60.2% (mild hypoxia). Bilateral LE swelling (R>L), no pulmonary edema on chest CTA. Differential: Mild CHF exacerbation (NT-pro-BNP, swelling), baseline CHF fluid (Bumex), venous stasis; PE ruled out (negative CTA). -Resume Bumex twice daily. Insulin-Dependent Diabetes Mellitus -Morning glucose 99. Appears well-controlled. Continue sliding scale insulin with fingersticks ACHS. Continue Lantus 10 units nightly -Diabetes last month 6.8. Appears well-controlled on current regimen Mild Electrolyte Abnormalities -Sodium 135, potassium 3.7, magnesium 2.6. Kidney function normal with BUN 25, creatinine 0.8. Repeat CBC, CMP, magnesium ordered for the morning to monitor electrolytes. Full code Diabetic diet Holding anticoagulation
[2024-04-30 10:29] LABS: POC Glucose,Bedside 197 (70-110)
--- NOTE | 2024-04-30 12:02 | P.CONS_ITS ---
History of Present Illness *Admission Date: 04/30/24 *History of present illness: A 63-year-old male with a history of hypertension, hyperlipidemia, congestive heart failure (CHF), prior pulmonary embolism (PE) on Eliquis, insulin-dependent diabetes mellitus (IDDM), gastroesophageal reflux disease (GERD), and schizophrenia presents to the emergency department on April 29, 2024, for evaluation of right lower extremity pain and swelling. Symptoms began 4 days ago without preceding trauma, per patient report. He denies fevers, chills, chest pain, shortness of breath, abdominal pain, vomiting, changes in bowel movements, or other complaints. He resides at [facility], having recently transitioned from [place], where he typically receives medications. EMS transported him, noting stability en route. Vital signs on arrival were not fully detailed but reassuring on cardiac telemetry per reassessment. Physical exam revealed right greater than left lower extremity swelling with mild erythema and warmth, compartments soft, and neurovascular status intact distally. Undressing uncovered a large hematoma on the right posterolateral thigh and knee, which the patient denies resulted from trauma, insisting it appeared spontaneously. No recent falls reported, though he is a poor historian. Past records show a CHF exacerbation admission one year ago; medications include Bumex (volume overload) and Eliquis (PE history). Labs at 15:31 (VBG) showed pH 7.39, pCO2 40.9 mmHg, pO2 34.5 mmHg, O2 sat 60.2% (mild hypoxia), lactic acid 0.8 mmol/L. Urinalysis was unremarkable (trace glucose, urobilinogen 2.0). At 16:55, CBC revealed acute on chronic anemia (Hgb 7.8 g/dL, Hct 24.1%, RBC 2.83 x10?/?L), WBC 9.3 x10?/?L, and platelets 317 x10?/?L. Chemistry showed mild hyponatremia (Na 134 mmol/L), hypokalemia (K 3.4 mmol/L), BUN 30 mg/dL, Cr 0.90 mg/dL (GFR 85), glucose 167 mg/dL, and normal troponin (<0.01 ng/mL). Inflammatory markers were elevated (ESR >140 mm/h, CRP 170.6 mg/L), NT-pro-BNP 3960 pg/mL (elevated but lower than prior), and AST 77 U/L. Imaging (CT head/C-spine, chest CTA, abdomen/pelvis CTA with runoff) and right lower extremity DVT ultrasound were ordered; preliminary interpretation noted significant right thigh/hip swelling and hematoma with stranding, no DVT, intracranial hemorrhage, or arterial occlusion. [facility] Disclaimer: The information contained in this section may have been updated after the patient was seen, as this information can be updated by other users. Medical History Scrotal edema Edema (HFpEF) heart failure with preserved ejection fraction Pleural effusion Pulmonary edema Hypoxic respiratory failure UTI (urinary tract infection) Cellulitis of left thigh Cellulitis of right thigh Abdominal wall cellulitis Depression Tobacco dependence Mood disorder Chronic anticoagulation Varicose veins of both lower extremities Chronic venous insufficiency Hernia Urinary retention HLD (hyperlipidemia) Acid reflux Smoker Neuropathy Pulmonary embolism DVT (deep venous thrombosis) Diabetes Family History Other No significant family history Social History Smoking Status: Current some day smoker alcohol intake: never current occupational status: disabled Travel in the last 8 weeks: None housing: detention Contact w/someone who lives/traveled outside [place] past 30 days?: No Meds Home Medications and Allergies Home Medications ?Medication ?Instructions ?Recorded ?Confirmed ?Type apixaban 5 mg tablet (Eliquis) 5 mg PO BID Blood Thinner/Afib 09/08/20 04/30/24 History atorvastatin 40 mg tablet 40 mg PO HS Cholesterol 09/08/20 04/30/24 History glimepiride 4 mg tablet 4 mg PO DAILY Diabetes 09/08/20 04/30/24 History insulin glargine 100 unit/mL 10 unit SQ HS Diabetes 09/08/20 04/30/24 History subcutaneous solution (Lantus U-100 Insulin) tamsulosin 0.4 mg capsule 0.4 mg PO DAILY Prostate 09/08/20 04/30/24 History trazodone 50 mg tablet 50 mg PO HS Sleep 09/08/20 04/30/24 History oxybutynin chloride 10 mg 10 mg PO DAILY Bladder 11/22/22 04/30/24 History tablet,extended release 24 hr aspirin 81 mg tablet,delayed 81 mg PO DAILY Heart Health 04/07/23 04/30/24 History release bumetanide 1 mg tablet 1 mg PO BIDL 30 days #60 tabs 04/12/23 04/30/24 Rx aripiprazole 10 mg tablet 10 mg PO HS 04/30/24 04/30/24 History bupropion HCl 150 mg 24 hr tablet, 150 mg PO DAILY 04/30/24 04/30/24 History extended release gabapentin 100 mg capsule 100 mg PO DAILY 04/30/24 04/30/24 History olanzapine 5 mg disintegrating 5 mg PO HS 04/30/24 04/30/24 History tablet omeprazole 20 mg capsule,delayed 20 mg PO HS 04/30/24 04/30/24 History release oxcarbazepine 300 mg tablet 300 mg PO BID 04/30/24 04/30/24 History sertraline 100 mg tablet 100 mg PO BID 04/30/24 04/30/24 History New Prescriptions to Start Prescriptions: Allergies Allergy/AdvReac Type Severity Reaction Status Date / Time No Known Allergies Allergy Verified 11/22/22 18:46 Ortho Exam (Inpt) Vital signs and Labs for Last 24 Hours: Temp Pulse Resp BP Pulse Ox O2 Del Method 97.9 F 100 H 18 105/53 L 95 Room Air 04/30/24 08:00 04/30/24 08:00 04/30/24 08:00 04/30/24 08:00 04/30/24 08:00 04/30/24 10:24 Laboratory Results - last 24 hr 04/29/24 15:31: VBG pH 7.39, VBG pCO2 40.9, VBG pO2 34.5, VBG HCO3 24.3, VBG Total CO2 25.6, VBG O2 Saturation 60.2, VBG Base Excess -0.6, VBG Lactic Acid 0.8 04/29/24 15:41: Urine Color Yellow, Urine Appearance Clear, Urine pH 6.0, Ur Specific [place] 1.020, Urine Protein Negative, Urine Glucose (UA) Trace, Urine Ketones Negative, Urine Blood Negative, Urine Nitrate Negative, Urine Bilirubin Negative, Urine Urobilinogen 2.0, Ur Leukocyte Esterase Negative, Urine RBC None, Urine WBC Occasional, Ur Squamous Epith Cells None, Urine Bacteria Trace 04/29/24 16:55: WBC 9.3, RBC 2.83 L, Hgb 7.8 L, Hct 24.1 L, MCV 85.2, MCH 27.6, MCHC 32.4, RDW 14.4, Plt Count 317, MPV 9.2, Neut % (Auto) 79.2, Lymph % (Auto) 10.2, [place] % (Auto) 8.8, Eos % (Auto) 1.0, Baso % (Auto) 0.1, Neut # (Auto) 7.4, Lymph # (Auto) 1.0, [place] # (Auto) 0.8, Eos # (Auto) 0.1, Baso # (Auto) 0.0, ESR > 140 H, PT 10.8, INR 0.98, APTT 27.5, Sodium 134 L, Potassium 3.4 L, Chloride 100, Carbon Dioxide 30, Anion Gap 7.4, BUN 30 H, Creatinine 0.90, Estimated Creat Clear 146, Estimated GFR 85, Est GFR ( Amer) 103, Glucose 167 H, Calcium 8.6, Magnesium 1.8, Total Bilirubin 1.1, AST 77 H, ALT 54, Alkaline Phosphatase 96, Total Creatine Kinase 83, Troponin I < 0.01, C-Reactive Protein 170.6 H, NT-Pro-B Natriuret Pep 3960 H, Total Protein 6.3, Albumin 3.4 L, Globulin 2.9, Albumin/Globulin Ratio 1.2, TSH 2.58, Thyroxine (T4) 6.1 04/29/24 18:35: Troponin I < 0.01 04/29/24 23:50: POC Glucose 205 H 04/30/24 06:12: WBC 6.9 D, RBC 2.76 L, Hgb 7.4 L, Hct 23.9 L, MCV 86.6, MCH 26.8 L, MCHC 31.0 L, RDW 14.3, Plt Count 307, MPV 9.3, Neut % (Auto) 71.7, Lymph % (Auto) 14.9, [place] % (Auto) 10.2 H, Eos % (Auto) 2.3, Baso % (Auto) 0.3, Neut # (Auto) 4.9, Lymph # (Auto) 1.0, [place] # (Auto) 0.7, Eos # (Auto) 0.2, Baso # (Auto) 0.0, Retic Count (auto) 3.6 H, Sodium 135 L, Potassium 3.7, Chloride 103, Carbon Dioxide 29, Anion Gap 6.7, BUN 25 H, Creatinine 0.80, Estimated Creat Clear 146, Estimated GFR 98, Est GFR ( Amer) 118, Glucose 99 D, Calcium 8.3 L, Phosphorus 2.6, Iron 36 L, TIBC 236 L, Iron Saturation 15.66181, Triglycerides 62, Cholesterol 79 L, LDL Cholesterol Direct 36.82 L, VLDL Cholesterol 12, HDL Cholesterol 23 L, Cholesterol/HDL Ratio 3.4, Vitamin B12 521 04/30/24 10:22: POC Glucose 197 H I & O for Labs for Last 24 Hours: Intake & Output 04/27/24 04/28/24 04/29/24 04/30/24 23:59 23:59 23:59 23:59 Intake Total 650 / 650 Output Total 0 / 0 450 / 450 Balance 0 / 650 200 / 200 Weight 300 lb 300 lb 0.01 oz Findings:: Right thigh: There is ecchymosis along the lateral aspect of the mid thigh going down to the posterior aspect and lateral aspect of the knee. Moderate amount of swelling. Compartments are soft and compressible. There is no significant redness or cellulitis present along the lateral aspect of the thigh. He is able to bend his knee to 90 degrees with some pain on the medial aspect of the knee. There is also some bruising on the medial aspect of the knee that slight and some bruising below the knee on the lateral aspect. Results Labs 04/30/24 06:12 04/30/24 06:12 Labs: Abnormal lab results 04/29/24 04/29/24 04/30/24 Range/Units 16:55 23:50 06:12 RBC 2.83 L 2.76 L (4.60-6.20) M/mm3 Hgb 7.8 L 7.4 L (14.1-18.0) g/dL Hct 24.1 L 23.9 L (42.0-52.0) % MCH 26.8 L (27.0-31.2) pg MCHC 31.0 L (31.8-35.4) g/dL [place] % (Auto) 10.2 H (1.7-9.3) % ESR > 140 H (0-20) mm/hr Retic Count (auto) 3.6 H (0.9-3.2) % Sodium 134 L 135 L (136-145) mmol/L Potassium 3.4 L (3.5-5.1) mmoL/L BUN 30 H 25 H (9-20) mg/dl Glucose 167 H (74-100) mg/dl POC Glucose 205 H (70-110) Calcium 8.3 L (8.4-10.2) mg/dl Iron 36 L (49-181) ug/dL TIBC 236 L (261-462) ug/dL AST 77 H (17-59) U/L C-Reactive Protein 170.6 H (0-4) mg/L NT-Pro-B Natriuret Pep 3960 H (0-125) pg/mL Albumin 3.4 L (3.5-5.0) g/dl Cholesterol 79 L (140-200) mg/dl LDL Cholesterol Direct 36.82 L (100-129) mg/dL HDL Cholesterol 23 L (40-60) mg/dl 04/30/24 Range/Units 10:22 RBC (4.60-6.20) M/mm3 Hgb (14.1-18.0) g/dL Hct (42.0-52.0) % MCH (27.0-31.2) pg MCHC (31.8-35.4) g/dL [place] % (Auto) (1.7-9.3) % ESR (0-20) mm/hr Retic Count (auto) (0.9-3.2) % Sodium (136-145) mmol/L Potassium (3.5-5.1) mmoL/L BUN (9-20) mg/dl Glucose (74-100) mg/dl POC Glucose 197 H (70-110) Calcium (8.4-10.2) mg/dl Iron (49-181) ug/dL TIBC (261-462) ug/dL AST (17-59) U/L C-Reactive Protein (0-4) mg/L NT-Pro-B Natriuret Pep (0-125) pg/mL Albumin (3.5-5.0) g/dl Cholesterol (140-200) mg/dl LDL Cholesterol Direct (100-129) mg/dL HDL Cholesterol (40-60) mg/dl H & H 04/29/24 04/30/24 Range/Units 16:55 06:12 Hgb 7.8 L 7.4 L (14.1-18.0) g/dL Hct 24.1 L 23.9 L (42.0-52.0) % Coagulation 04/29/24 Range/Units 16:55 INR 0.98 (0.9-1.1) All other labs normal. Assessment and Plan *Assessment and plan (1) Hematoma of right thigh: Status: Acute Qualifiers: Encounter type: initial encounter Qualified Code(s): S70.11XA - Contusion of right thigh, initial encounter Category: Medical Code(s): S70.11XA - Contusion of right thigh, initial encounter Plan Patient has clinically improved from yesterday to today for the ability to weight-bear and walk with physical therapy. He reports that the swelling has decreased. His pain level is less. There is a large hematoma present on the thigh area the compartments are soft there is no impending compartment syndrome. The swelling is starting to come down and resolve according to the patient. We will continue to monitor this there is no significant cellulitis around the leg area. I reviewed the CT scan showing large hematoma. Clinically he is improving. Will continue to monitor this closely and watch. Defer any need for surgical intervention at this point control the swelling locally which seems to be resolving and improving.
[2024-04-30] MEDS: BUMETANIDE 1 MG TABLET PO (12:07)
--- NOTE | 2024-04-30 12:47 | SW/DCPLANNER ---
Addendum entered by Martha Cordon 05/01/24 10:08: Per Amrita patient will return to [facility]. Addendum entered by Martha Cordon 05/01/24 10:07: I have updated Ana/Amrita kelley/ Aiden West that patient will return today. Original Note: Patient currently resides at [facility]. PT/OT evaluated patient and stated that patient is safe to return to [facility] once medically stable for discharge. Discharge date is unknown at this time.
--- NOTE | 2024-04-30 13:09 | HMH.PTEV ---
Physical Therapy Evaluation Rehab PT IP Evaluation Start: 04/30/24 09:38 Freq: ONCE Status: Active Protocol: Document 04/30/24 10:40 ISAAK (Rec: 04/30/24 13:09 [id number]) Subjective/History History History 63-year-old male with a history of hypertension, hyperlipidemia, congestive heart failure (CHF), prior pulmonary embolism (PE) on Eliquis, insulin-dependent diabetes mellitus (IDDM), gastroesophageal reflux disease (GERD), and schizophrenia presents to the emergency department on April 29, 2024, for evaluation of right lower extremity pain and swelling. Symptoms began 4 days ago without preceding trauma, per patient report. He denies fevers, chills, chest pain, shortness of breath, abdominal pain, vomiting, changes in bowel movements, or other complaints. He resides at [facility], having recently transitioned from [place], where he typically receives medications. He reports he is typically independent with all mobility without AD at baseline. Subjective Subjective Pt presents awake, supine in bed, agrees to mobility assessment this am. [facility] How much help from another person do you currently need... Turning from your back to your side None while in a flat bed without using bedrails? Moving from lying on back to sitting on None the side of a flat bed without using bedrails? Moving to and from a bed to a chair ( None including a wheelchair)? Standing up from a chair using your arms None ? (e.g., wheelchair, bedside chair) Walking in hospital room? None Climbing 3-5 steps with a railing? A little Mobility Score 23 Mobility Level [facility] Mobility Calculator Mobility 7 Walk 25 feet or more Rehab PT IP Eval Objective Appearance Patient Behavior Appropriate Patient Orientation Person,Place,Time Difficulty following instructions none Speech Pattern Clear Ambulation Patient Able to Ambulate Yes Ambulation Observation IP General Gait Pattern Observation Antalgic Gait Ambulation Distance (feet) 25 Ambulation Assistive Device Rolling Walker Ambulation Ability Supervision/Stand by Balance Ability to Arise Able, uses arms to help Sitting Balance Steady, safe Standing Balance Steady, wide stance Dynamic Sitting Balance Ability Good Dynamic Standing Balance Ability Fair Transfers Bed Transfer Ability Supervision/Stand by Chair Transfer Ability Supervision/Stand by Sit to Stand Bed Transfer Ability Supervision/Stand by Sit to Stand Chair Transfer Ability Supervision/Stand by Rehab PT IP prob,goals,plan Problems Date of Evaluation: 04/30/24 PT IP Problems Transfers,Gait Rehab Potential Rehab Potential Good Equipment Needs Assistive Devices Rolling / Wheeled Walker Plan PT Intervention Plan Transfers,Gait,Therapeutic Exercise PT Plan Frequency Daily Duration LOS Discharge Goals Bed Transfer Ability Independent Sit to Stand Chair Transfer Ability Independent Ambulation Assistive Device Rolling Walker Ambulation Distance (feet) 50 Discharge Plan PT Discharge Plan Pt is currently appropriate to return to personal long-term once medically stable for d/c. Recommend home health therapy after d/c. Skilled inpatient therapy is indicated to improve transfers and ambulation in order to return pt to [facility]. Eval Complexity Eval Charge Codes 57141 - High Complexity PHYSICIAN CERTIFICATION: I certify the specified therapy services for Avi Viera are required, authorized, and reviewed every 30 days.
[2024-04-30 16:00] VITALS: BP 111/63; PULSE 94; RESP 16; TEMP 36.4; O2SAT 100
[2024-04-30 16:27] LABS: POC Glucose,Bedside 280 (70-110)
--- NOTE | 2024-04-30 18:50 | PC.NURSE ---
Aox 4, up with assistance, on RA, right leg with bruising, fsbg achs, ortho consult, PT and OT consult, 20g r ac sl, pt. up in chair, tylenol given.
[2024-04-30 20:00] VITALS: BP 90/51; PULSE 91; RESP 16; TEMP 36.6; O2SAT 95
[2024-04-30] MEDS: SERTRALINE 100MG TABLET 100 MG PO (21:18)
[2024-04-30] MEDS: OLANZapine 5 MG ODT TABLET SL (21:19)
[2024-04-30] MEDS: buPROPion HCL 75 MG TABLET PO (21:19)
[2024-04-30] MEDS: OXcarbazepine 300MG TABLET 300 MG PO (21:19)
[2024-04-30] MEDS: PANTOPRAZOLE 40MG TABLET 40 MG PO (21:19)
[2024-04-30] MEDS: ARIPiprazole 10MG TABLET 10 MG PO ×2 (21:20)
[2024-04-30 21:23] LABS: POC Glucose,Bedside 253 (70-110)
[2024-05-01] VITALS: BP 104/57; PULSE 91; RESP 15; TEMP 37; O2SAT 98
[2024-05-01] MEDS: PIPERCILLIN/TAZO 3.375 GM in 0.9 % SODIUM CHLORIDE 50 ML IV ×2 (03:57→08:04)
[2024-05-01 04:00] VITALS: BMI 34.4
[2024-05-01] MEDS: SODIUM CHLORIDE 0.9% 10ML SYR (RAD ONLY) 10 ML IV (04:02)
--- NOTE | 2024-05-01 05:20 | PC.NURSE ---
Pt. is alert and orientated x 4. Pt. on room air. Pt. has right thigh and knee pain. right thigh and knee swollen, and bruised. Right later thigh hip to knee hematoma. some bruising noted to medial right thigh. knee also bruised. Pt. c/o pain when trying to stand and put weight on the leg. Pt. able to move leg with some discomfort. noted. Pt. sat up in chair for more than 1/2 of the shift. Dozing on and off. IV antibiotics given. VSS. Personal items and call huffman in reach.
[2024-05-01 05:22] LABS: POC Glucose,Bedside 189 (70-110)
[2024-05-01] MEDS: humaLOG 100 UNITS/ML 10ML VIAL (SSI) SUBCUT ×2 (05:35→11:44)
[2024-05-01 06:25] LABS: Basophils % 0.3 % (0.1-2.0); Eosinophils # 0.2 K/mm3 (0.0-0.4); Eosinophils % 3.1 % (0.1-12.0); Hematocrit 23.6 % (42.0-52.0); Hemoglobin 7.3 g/dL (14.1-18.0); Lymphocytes % 13.9 % (10-50); Mean Corpuscular HGB Conc 30.9 g/dL (31.8-35.4); Mean Corpuscular Hemoglobin 26.8 pg (27.0-31.2); Mean Corpuscular Volume 86.8 fl (80-94); Mean Platelet Volume 9.1 fl (7.4-10.4); Monocytes # 0.6 K/mm3 (0.1-1.0); Monocytes % 9.1 % (1.7-9.3); Neutrophils % 72.6 % (37.0-80.0); Platelet Count 344 K/mm3 (142-424); Red Blood Count 2.72 M/mm3 (4.60-6.20); Red Cell Distribution Width 14.3 % (11.5-17.5); White Blood Count 6.8 K/mm3 (4.8-10.8)
[2024-05-01 07:03] LABS: Anion Gap 8.2 mEq/L (5-15); Blood Urea Nitrogen 23 mg/dl (9-20); Calcium 8.6 mg/dl (8.4-10.2); Carbon Dioxide 26 mmol/L (22.0-30.0); Chloride 106 mmol/L (98-107); Creatinine Clearance Estimated 133 mL/min (50-200); Estimated Glomerular Filt Rate 85 ml/min (>60); GFR (African American) 103 ML/MIN (>60); Glucose 152 mg/dl (74-100); Potassium 4.2 mmoL/L (3.5-5.1); Sodium 136 mmol/L (136-145)
[2024-05-01 08:00] VITALS: BP 97/55; PULSE 71; RESP 17; TEMP 36.7; O2SAT 97
[2024-05-01] MEDS: OXcarbazepine 300MG TABLET 300 MG PO (08:03)
[2024-05-01] MEDS: ACETAMINOPHEN 325MG TAB 650 MG PO (08:03)
[2024-05-01] MEDS: TAMSULOSIN 0.4MG CAPSULE 0.4 MG PO (08:03)
[2024-05-01] MEDS: SERTRALINE 100MG TABLET 100 MG PO (08:03)
[2024-05-01] MEDS: GABAPENTIN 100MG CAPSULE 100 MG PO (08:04)
[2024-05-01] MEDS: buPROPion HCL 75 MG TABLET PO (08:04)
[2024-05-01] MEDS: BUMETANIDE 1 MG TABLET PO (08:04)
--- NOTE | 2024-05-01 09:52 | P.DS_ITS ---
General Admission date:: 04/29/24 Discharge date: 05/01/24 HPI HPI HPI: A 63-year-old male with a history of hypertension, hyperlipidemia, congestive heart failure (CHF), prior pulmonary embolism (PE) on Eliquis, insulin-dependent diabetes mellitus (IDDM), gastroesophageal reflux disease (GERD), and schizophrenia presents to the emergency department on April 29, 2024, for evaluation of right lower extremity pain and swelling. Symptoms began 4 days ago without preceding trauma, per patient report. He denies fevers, chills, chest pain, shortness of breath, abdominal pain, vomiting, changes in bowel movements, or other complaints. He resides at [facility], having recently transitioned from [facility], where he typically receives medications. EMS transported him, noting stability en route. Vital signs on arrival were not fully detailed but reassuring on cardiac telemetry per reassessment. Physical exam revealed right greater than left lower extremity swelling with mild erythema and warmth, compartments soft, and neurovascular status intact distally. Undressing uncovered a large hematoma on the right posterolateral thigh and knee, which the patient denies resulted from trauma, insisting it appeared spontaneously. No recent falls reported, though he is a poor historian. Past records show a CHF exacerbation admission one year ago; medications include Bumex (volume overload) and Eliquis (PE history). Labs at 15:31 (VBG) showed pH 7.39, pCO2 40.9 mmHg, pO2 34.5 mmHg, O2 sat 60.2% (mild hypoxia), lactic acid 0.8 mmol/L. Urinalysis was unremarkable (trace glucose, urobilinogen 2.0). At 16:55, CBC revealed acute on chronic anemia (Hgb 7.8 g/dL, Hct 24.1%, RBC 2.83 x10?/?L), WBC 9.3 x10?/?L, and platelets 317 x10?/?L. Chemistry showed mild hyponatremia (Na 134 mmol/L), hypokalemia (K 3.4 mmol/L), BUN 30 mg/dL, Cr 0.90 mg/dL (GFR 85), glucose 167 mg/dL, and normal troponin (<0.01 ng/mL). Inflammatory markers were elevated (ESR >140 mm/h, CRP 170.6 mg/L), NT-pro-BNP 3960 pg/mL (elevated but lower than prior), and AST 77 U/L. Imaging (CT head/C-spine, chest CTA, abdomen/pelvis CTA with runoff) and right lower extremity DVT ultrasound were ordered; preliminary interpretation noted significant right thigh/hip swelling and hematoma with stranding, no DVT, intracranial hemorrhage, or arterial occlusion. Hospital Course Hospital Course Hospital Course: 60-year-old male who resides at [facility]. Presented with right lower extremity pain and swelling concerning for hematoma. Orthopedics consulted to evaluate. No active signs of bleeding or extravasation on imaging. Hemoglobin remained stable. Patient working with therapy and able to ambulate independe ntly. Will provide walker at discharge. Stable discharge home with further management as an outpatient. Problems addressed as follows: Right thigh hematoma Acute on chronic anemia -Review of CT of abdomen pelvis with runoff shows hematoma with no extravasation in right thigh. Hemoglobin relatively stable at 7.2-7.4 during admission. No active signs of extravasation or bleeding while admitted. Orthopedics was consulted to evaluate thigh, no need for debridement at this time. Does not appear to have active bleeding. Recommend continuing to hold anticoagulation. Patient reports being on anticoagulation for a blood clot several years ago. States it was just never stopped. Therapy evaluated patient, he is independently mobile. Would benefit from having a walker however. Walker or dered and provided at discharge. White count normalized. No active signs of infection. Low concern for cellulitis. Suspect white count reactive to inflammation and thigh. No further antibiotics at discharge. Stable to discharge back to personal assisted Congestive Heart Failure (Stable, Possible Mild Exacerbation) - NT-pro-BNP 3960 (elevated, lower than prior CHF admission), history of CHF on Bumex, no SOB/chest pain, VBG O2 sat 60.2% (mild hypoxia). Bilateral LE swelling (R>L), no pulmonary edema on chest CTA. Differential: Mild CHF exacerbation (NT-pro-BNP, swelling), baseline CHF fluid (Bumex), venous stasis; PE ruled out (negative CTA). Continue Bumex twice daily 2 mg p.o. Has significant edema in right lower extremity. Insulin-Dependent Diabetes Mellitus -Glucoses well-controlled during admission. Continued his Lantus 10 units nightly. Diabetes controlled with A1c of 6.8 last month. No changes Mild Electrolyte Abnormalities -Electrolytes normalized during admission. Kidney function normal with BUN 23, creatinine 0.9. Would benefit from repeat CBC, CMP, magnesium in 2 weeks to monitor stability of hemoglobin and kidney function and electrolytes. Total time spent on discharge 32 minutes in counseling, documentation, chart review, and direct care with patient. Exam Data for Last 24 hours Vital signs and Labs for Last 24 Hours: Temp Pulse Resp BP Pulse Ox O2 Del Method 98.1 F 71 17 97/55 L 97 Room Air 05/01/24 08:00 05/01/24 08:00 05/01/24 08:00 05/01/24 08:00 05/01/24 08:00 05/01/24 08:49 Laboratory Results - last 24 hr 04/30/24 10:22: POC Glucose 197 H 04/30/24 16:20: POC Glucose 280 H 04/30/24 20:58: POC Glucose 253 H 05/01/24 05:13: WBC 6.8, RBC 2.72 L, Hgb 7.3 L, Hct 23.6 L, MCV 86.8, MCH 26.8 L , MCHC 30.9 L, RDW 14.3, Plt Count 344, MPV 9.1, Neut % (Auto) 72.6, Lymph % (Auto) 13.9, [place] % (Auto) 9.1, Eos % (Auto) 3.1, Baso % (Auto) 0.3, Neut # (Auto) 5.0, Lymph # (Auto) 1.0, [place] # (Auto) 0.6, Eos # (Auto) 0.2, Baso # (Auto) 0.0, Sodium 136, Potassium 4.2, Chloride 106, Carbon Dioxide 26, Anion Gap 8.2, BUN 23 H, Creatinine 0.90, Estimated Creat Clear 133, Estimated GFR 85, Est GFR ( Amer) 103, Glucose 152 H D, Calcium 8.6 05/01/24 05:14: POC Glucose 189 H I & O for Last 24 hours: Intake & Output 04/28/24 04/29/24 04/30/24 05/01/24 23:59 23:59 23:59 23:59 Intake Total 1950 / 3000 1650 / 1650 Output Total 0 / 0 950 / 950 150 / 150 Balance 0 / 650 1000 / 2049 1500 / 1500 Weight 136.078 kg 136.078 kg 124.466 kg Microbiology Reports for the Last 24 Hours: Microbiology 04/29/24 12:15 Foot,Right Gram Stain - Final 04/29/24 21:25 Blood Blood Culture - Preliminary NO GROWTH AFTER 24 HOURS 04/29/24 21:25 Blood Blood Culture - Preliminary NO GROWTH AFTER 24 HOURS Constitutional Constitutional: no acute distress, obese, chronically ill appearing and cooperative *Routine HEENT Exam Head: Present normocephalic Eye: Present EOMI and PERRL ENT: Present mucous membranes moist *Routine Neck Exam Neck: Present supple; Absent lymphadenopathy *Routine Respiratory Exam Respiratory: Present CTA bilaterally; Absent rhonchi, wheezes or crackles *Routine Cardiovascular Exam Cardiovascular: Present RRR *Routine Abdominal Exam Abdominal: Present soft and normoactive bowel sounds; Absent tenderness *Routine Rectal Exam Patient deferred: visual exam *Routine Exam Patient deferred: penile exam *Routine Extremities Exam Extremities: Present edema (2+ edema in right lower extremity up to hip. Large ecchymoses right thigh with tracking down to right lower leg. No signs of cell ulitis; no edema in left); Absent cyanosis or clubbing *Routine Skin Exam Skin: Present intact, warm and ecchymosis (Diffusely in right leg, prominent in right thigh); Absent rash *Routine Neurological Exam Neurological: Present alert, oriented X3 and moving all extremities; Absent altered mental status Results Data Completed and Pending Labs on day of discharge: Labs from last 24 hours 05/01/24 05/01/24 04/30/24 05:14 05:13 20:58 WBC 6.8 RBC 2.72 L Hgb 7.3 L Hct 23.6 L MCV 86.8 MCH 26.8 L MCHC 30.9 L RDW 14.3 Plt Count 344 MPV 9.1 Neut % (Auto) 72.6 Lymph % (Auto) 13.9 [place] % (Auto) 9.1 Eos % (Auto) 3.1 Baso % (Auto) 0.3 Neut # (Auto) 5.0 Lymph # (Auto) 1.0 [place] # (Auto) 0.6 Eos # (Auto) 0.2 Baso # (Auto) 0.0 Sodium 136 Potassium 4.2 Chloride 106 Carbon Dioxide 26 Anion Gap 8.2 BUN 23 H Creatinine 0.90 Estimated Creat Clear 133 Estimated GFR 85 Est GFR ( Amer) 103 Glucose 152 H D POC Glucose 189 H 253 H Calcium 8.6 04/30/24 04/30/24 16:20 10:22 WBC RBC Hgb Hct MCV MCH MCHC RDW Plt Count MPV Neut % (Auto) Lymph % (Auto) [place] % (Auto) Eos % (Auto) Baso % (Auto) Neut # (Auto) Lymph # (Auto) [place] # (Auto) Eos # (Auto) Baso # (Auto) Sodium Potassium Chloride Carbon Dioxide Anion Gap BUN Creatinine Estimated Creat Clear Estimated GFR Est GFR ( Amer) Glucose POC Glucose 280 H 197 H Calcium Preliminary micro results at discharge 04/29/24 21:25 Blood Culture - Preliminary Blood NO GROWTH AFTER 24 HOURS 04/29/24 21:25 Blood Culture - Preliminary Blood NO GROWTH AFTER 24 HOURS DS: Diagnosis Discharge Diagnosis (1) Acute on chronic anemia: Status: Acute Code(s): D64.9 - Anemia, unspecified (2) Hematoma of right thigh: Status: Acute Code(s): S70.11XA - Contusion of right thigh, initial encounter Qualifiers: Encounter type: initial encounter Qualified Code(s): S70.11XA - Contusion of right thigh, initial encounter (3) Cellulitis of right lower extremity: Status: Acute Code(s): L03.115 - Cellulitis of right lower limb (4) HLD (hyperlipidemia): Status: Acute Code(s): E78.5 - Hyperlipidemia, unspecified Qualifiers: Hyperlipidemia type: mixed hyperlipidemia Qualified Code(s): E78.2 - Mixed hyperlipidemia (5) (HFpEF) heart failure with preserved ejection fraction: Status: Acute Code(s): I50.30 - Unspecified diastolic (congestive) heart failure Qualifiers: Heart failure chronicity: acute Qualified Code(s): I50.31 - Acute diastolic (congestive) heart failure (6) CHF (congestive heart failure): Status: Acute Code(s): I50.9 - Heart failure, unspecified Qualifiers: Heart failure chronicity: acute on chronic Heart failure type: diastolic Qualified Code(s): I50.33 - Acute on chronic diastolic (congestive) heart failure (7) Cellulitis of left lower extremity: Status: Acute Code(s): L03.116 - Cellulitis of left lower limb Meds Home Medications and Allergies Home Medications ?Medication ?Instructions ?Recorded ?Confirmed ?Type atorvastatin 40 mg tablet 40 mg PO HS Cholesterol 09/08/20 04/30/24 History glimepiride 4 mg tablet 4 mg PO DAILY Diabetes 09/08/20 04/30/24 History insulin glargine 100 unit/mL 25 unit SQ HS Diabetes 09/08/20 05/01/24 History subcutaneous solution (Lantus U-100 Insulin) tamsulosin 0.4 mg capsule 0.4 mg PO HS Prostate 09/08/20 05/01/24 History trazodone 50 mg tablet 50 mg PO HS Sleep 09/08/20 04/30/24 History oxybutynin chloride 10 mg 10 mg PO HS Bladder 11/22/22 05/01/24 History tablet,extended release 24 hr aspirin 81 mg tablet,delayed 81 mg PO DAILY Heart Health 04/07/23 04/30/24 History release bupropion HCl 150 mg 24 hr tablet, 150 mg PO DAILY 04/30/24 04/30/24 History extended release gabapentin 100 mg capsule 100 mg PO HS 04/30/24 05/01/24 History omeprazole 20 mg capsule,delayed 20 mg PO HS 04/30/24 04/30/24 History release oxcarbazepine 300 mg tablet 300 mg PO BID 04/30/24 04/30/24 History sertraline 100 mg tablet 150 mg PO BID 04/30/24 05/01/24 History acetaminophen 325 mg tablet 325 mg PO Q8HP PRN MILD PAIN/FEVER 05/01/24 05/01/24 History aripiprazole 10 mg tablet 10 mg PO HS 05/01/24 05/01/24 History bumetanide 2 mg tablet 2 mg PO 0800,199905/01/24 05/01/24 History ergocalciferol (vitamin D2) 1,250 1,250 mcg PO FR 05/01/24 05/01/24 History mcg (50,000 unit) capsule (Vitamin D2) ferrous sulfate 325 mg (65 mg 325 mg PO DAILY 05/01/24 05/01/24 History iron) tablet nystatin 100,000 unit/gram topical 1 applic topical BID 05/01/24 05/01/24 History cream olanzapine 5 mg disintegrating 5 mg PO HS 05/01/24 05/01/24 History tablet polyethylene glycol 3350 17 gram 17 g PO BIDP PRN Constipation 05/01/24 05/01/24 History oral powder packet (Miralax) New Prescriptions to Start Prescriptions: Allergies Allergy/AdvReac Type Severity Reaction Status Date / Time No Known Allergies Allergy Verified 11/22/22 18:46 Discharge Plan Disposition Patient Disposition: Home, Self-Care Condition: Fair Discharge Order Discharge Orders: Discharge Order (Routine); Ordered 05/01/24 Ordered By: Son Jones Follow up Plan Follow up with: Steven Rios DO [Staff Physician] - 05/14/24 1:45 pm Prescriptions/Medication Reconciliation: Continued tamsulosin 0.4 mg capsule 0.4 mg PO HS glimepiride 4 mg tablet 4 mg PO DAILY atorvastatin 40 mg tablet 40 mg PO HS trazodone 50 mg tablet 50 mg PO HS Lantus U-100 Insulin 100 unit/mL solution 25 unit SQ HS oxybutynin chloride 10 mg tablet extended release 24hr 10 mg PO HS aspirin 81 mg tablet,delayed release (DR/EC) 81 mg PO DAILY bupropion HCl 150 mg tablet extended release 24 hr 150 mg PO DAILY sertraline 100 mg tablet 150 mg PO BID oxcarbazepine 300 mg tablet 300 mg PO BID omeprazole 20 mg capsule,delayed release(DR/EC) 20 mg PO HS gabapentin 100 mg capsule 100 mg PO HS bumetanide 2 mg tablet 2 mg PO 0800,2000 ferrous sulfate 325 mg (65 mg iron) Tablet 325 mg PO DAILY acetaminophen 325 mg Tablet 325 mg PO Q8HP PRN (Reason: MILD PAIN/FEVER) polyethylene glycol 3350 [Miralax] 17 gram Powder In Packet 17 g PO BIDP PRN (Reason: Constipation) nystatin 100,000 unit/gram Cream 1 applic TOPICAL BID ergocalciferol (vitamin D2) [Vitamin D2] 1,250 mcg (50,000 unit) Capsule 1,250 mcg PO FR olanzapine 5 mg tablet,disintegrating 5 mg PO HS aripiprazole 10 mg tablet 10 mg PO HS Discontinued Eliquis 5 mg tablet 5 mg PO BID bumetanide 1 mg Tablet 1 mg PO DAILYP PRN (Reason: WEIGHT GAIN OF 3 LBS OR MORE OVERNIGHT.) Problem Reconciliation Problems Reviewed?: Yes Patient Discharge Instructions ACTIVITY: Continue current activity DIET: continue same diet Patient Instructions: DI for Cellulitis -- Adult, DI for Hematoma (Bruise) Print Language: Azeri Providers Primary Care Provider: Gonzalez Moran Admit Provider: Mynor Ascencio Attending Provider: Mynor Ascencio
--- NOTE | 2024-05-01 10:21 | CARE MANAGER ---
Patient requires a rolling walker for safe ambulation, in which a cane will not provide enough stability.
[2024-05-01 10:38] LABS: POC Glucose,Bedside 293 (70-110)
[2024-05-01 14:43] LABS: Magnesium 2.1 mg/dl (1.6-2.3)
[2024-05-01 16:12] LABS: Folate, RBC 1389 ng/mL (>498); Hematocrit 24.4 % (37.5-51.0)
--- NOTE | 2024-05-02 10:34 | SW/DCPLANNER ---
Patient is a [facility] resident and they have stated that he is doing well. Shyann CARRIZALES Evaporator Helper
== END 2024-05-01 13:31 | disposition home or self-care (01) | DRG 604 ==
LOC: ER 21:04 → 2ND 22:16
PROVIDERS: Internal Medicine Adolescent Medicine; Nurse Practitioner Family; Admitting Provider Student in an Organized Health Care Education/Training Program; Emergency Provider Emergency Medicine; PCP Nurse Practitioner Acute Care; Visit Provider Student in an Organized Health Care Education/Training Program
DX: S70.11XA Contusion of right thigh, initial encounter (principal); I50.33 Acute on chronic diastolic (congestive) heart failure; F20.9 Schizophrenia, unspecified; I11.0 Hypertensive heart disease with heart failure; E78.2 Mixed hyperlipidemia; E11.40 Type 2 diabetes mellitus with diabetic neuropathy, unspecified; F17.210 Nicotine dependence, cigarettes, uncomplicated; D64.89 Other specified anemias; I83.93 Asymptomatic varicose veins of bilateral lower extremities; E66.9 Obesity, unspecified; Z68.34 Body mass index [BMI] 34.0-34.9, adult; Z79.02 Long term (current) use of antithrombotics/antiplatelets; Z79.4 Long term (current) use of insulin; Z79.84 Long term (current) use of oral hypoglycemic drugs; Z79.82 Long term (current) use of aspirin; Z79.899 Other long term (current) drug therapy; Z86.718 Personal history of other venous thrombosis and embolism
CPT/HCPCS: 36415; 70450; 71045; 71275; 72125; 73502; 73552; 73562; 73590; 75635; 80048; 80053; 80061; 81001; 82550; 82607; 82747; 82803; 82962; 83540; 83550; 83735; 83880; 84100; 84436; 84443; 84484; 85014; 85025; 85044; 85610; 85651; 85730; 86140; 87040; 87070; 87077; 87205; 93005; 93971; 97116; 97163; 97165; 99285; J2543; J3370; J3475; Q9967

== ENCOUNTER 2024-05-21 23:30 | Inpatient (IN) | payer MEDICARE, SELFPAY ==
--- NOTE | 2024-05-21 23:13 | CT_ITS ---
PROCEDURE INFORMATION: Exam: CT Head Without Contrast Exam date and time: 05/21/2024 11:57 PM Age: 63 years old Clinical indication: Altered mental status/memory loss; Additional info: AMS, sepsis workup TECHNIQUE: Imaging protocol: Computed tomography of the head without contrast. Radiation optimization: All CT scans at this facility use at least one of these dose optimization techniques: automated exposure control; mA and/or kV adjustment per patient size (includes targeted exams where dose is matched to clinical indication); or iterative reconstruction. COMPARISON: CT HEAD/BRAIN WO CON 04/29/2024 7:05 PM FINDINGS: Brain: No acute intracranial hemorrhage, midline shift, or mass effect. Diffuse brain parenchymal volume loss. Redemonstrated area of encephalomalacia within the right occipital lobe. Stable hypodensities within the basal ganglia and cerebellum which may represent old lacunar infarcts. Similar pattern of hypodensities within the cerebral white matter consistent with chronic small-vessel ischemic changes. Cerebral ventricles: No ventriculomegaly. Paranasal sinuses: Minimal scattered mucosal thickening. Mastoid air cells: Visualized mastoid air cells are well aerated. Bones: Unremarkable. No acute fracture. Soft tissues: Unremarkable. IMPRESSION: No acute intracranial findings.
--- NOTE | 2024-05-21 23:13 | XR_ITS ---
PROCEDURE INFORMATION: Exam: XR Chest Exam date and time: 05/21/2024 11:51 PM Age: 63 years old Clinical indication: Other: Sepsis workup TECHNIQUE: Imaging protocol: Radiologic exam of the chest. Views: 1 view. COMPARISON: CT ANGIO CHEST PE PROTOCOL 04/29/2024 7:09 PM FINDINGS: Lungs: No focal consolidation. No mass. Pleural spaces: No pleural effusion. No pneumothorax. Heart/Mediastinum: The heart is markedly enlarged. Bones/joints: Unremarkable. There is no acute fracture present. IMPRESSION: 1. Severe cardiomegaly. 2. No acute cardiac or pulmonary process.
[2024-05-21 23:14] VITALS: BP 113/59; PULSE 133; RESP 16; TEMP 38.4; O2SAT 95; BMI 37.5
--- NOTE | 2024-05-21 23:18 | CT_ITS ---
PROCEDURE INFORMATION: Exam: CTA Chest With Contrast Exam date and time: 05/22/2024 12:06 AM Age: 63 years old Clinical indication: Other: Tachy; Additional info: Tachy febrile hypoxic TECHNIQUE: Imaging protocol: Computed tomographic angiography of the chest with contrast. Exam focused on the arteries. 3D rendering (Not supervised by radiologist): MIP and/or 3D reconstructed images were created by the technologist. Radiation optimization: All CT scans at this facility use at least one of these dose optimization techniques: automated exposure control; mA and/or kV adjustment per patient size (includes targeted exams where dose is matched to clinical indication); or iterative reconstruction. Contrast material: ISOVUE; Contrast volume: 70 ml; Contrast route: INTRAVENOUS (IV); COMPARISON: CT ANGIO CHEST PE PROTOCOL 04/29/2024 7:09 PM FINDINGS: Pulmonary arteries: Normal. No pulmonary emboli. Aorta: Unremarkable. No aortic aneurysm. No aortic dissection. Lungs: Unremarkable. No consolidation. No masses. Pleural spaces: Unremarkable. No pneumothorax. No pleural effusion. Heart: The heart is markedly enlarged. Lymph nodes: Unremarkable. No enlarged lymph nodes. Bones/joints: Unremarkable. No acute fracture. Soft tissues: Unremarkable. IMPRESSION: 1. No evidence for a pulmonary embolism, aortic dissection, aortic aneurysm, or underlying pneumonia. 2. Severe cardiomegaly.
--- NOTE | 2024-05-21 23:18 | ECG_ITS ---
APPROVED REPORT Exam: Resting ECG HR:121 bpm ECG Measurements Heart Rate 121 AXES QRSd 152 QRS 217 QT 346 T 63 QTc 418 Conclusion ATRIAL FIBRILLATION WITH RAPID VENTRICULAR RESPONSE INDETERMINATE AXIS RIGHT BUNDLE BRANCH BLOCK [120+ ms QRS DURATION, UPRIGHT V1, 40+ ms S IN I/aVL/V4/V5/V6] ABNORMAL ECG INTERPRETATION BASED ON A DEFAULT AGE OF 40 YEARS No STEMI Electronically signed by : LIVAN PAZ, 05/22/2024 06:53:21
[2024-05-21 23:30] LABS: Basophils % 0.2 % (0.1-2.0); Hemoglobin 7.8 g/dL (14.1-18.0); Lymphocytes # 0.4 K/mm3 (0.7-4.5); Lymphocytes % 3.1 % (10-50); Mean Corpuscular HGB Conc 31.2 g/dL (31.8-35.4); Mean Corpuscular Hemoglobin 26.8 pg (27.0-31.2); Mean Corpuscular Volume 85.9 fl (80-94); Mean Platelet Volume 8.7 fl (7.4-10.4); Monocytes # 0.6 K/mm3 (0.1-1.0); Monocytes % 4.6 % (1.7-9.3); Neutrophils # 12.2 K/mm3 (1.8-7.8); Neutrophils % 91.1 % (37.0-80.0); Platelet Count 196 K/mm3 (142-424); Red Blood Count 2.91 M/mm3 (4.60-6.20); Red Cell Distribution Width 15.9 % (11.5-17.5); White Blood Count 13.4 K/mm3 (4.8-10.8)
[2024-05-21] MEDS: ACETAMINOPHEN 1,000MG/100ML VIAL 1000 MG IV (23:31)
[2024-05-21] MEDS: PIPERACILLIN/TAZO 4.5 GM in 0.9 % SODIUM CHLORIDE 100 ML IV (23:31)
[2024-05-21] MEDS: LACTATED RINGERS 1000ML 1,000 ML 1000 ML IV (23:31)
[2024-05-21 23:32] LABS: MANUAL DIFFERENTIAL MANUAL DIFFERENTIAL (MANUAL DIFF)
[2024-05-21 23:32] LABS: Microscopic, Urine URINE MICROSCOPIC (MICROSCOPIC)
--- NOTE | 2024-05-21 23:32 | CT_ITS ---
PROCEDURE INFORMATION: Exam: CTA Abdominal Aorta and Bilateral Lower Extremities (Run-off) With Contrast Exam date and time: 05/22/2024 12:11 AM Age: 63 years old Clinical indication: Other: Swelling /redness legs; Additional info: Sepsis, incontinence, swelling/redness legs, AMS TECHNIQUE: Imaging protocol: Computed tomographic angiography of the of the abdominal aorta, pelvis and bilateral lower extremities with contrast. 3D rendering (Not supervised by radiologist): MIP and/or 3D reconstructed images were created by the technologist. Radiation optimization: All CT scans at this facility use at least one of these dose optimization techniques: automated exposure control; mA and/or kV adjustment per patient size (includes targeted exams where dose is matched to clinical indication); or iterative reconstruction. Contrast material: ISOVUE; Contrast volume: 100 ml; Contrast route: INTRAVENOUS (IV); COMPARISON: CT ANGIO ABDOMEN/FEMORAL 04/29/2024 7:22 PM FINDINGS: Aorta: No aortic aneurysm. No aortic dissection. Celiac trunk and mesenteric arteries: No occlusion or significant stenosis. Renal arteries: No occlusion or significant stenosis. Right iliac arteries: No occlusion or significant stenosis. Right femoral/popliteal arteries: No occlusion or significant stenosis. Right infrapopliteal arteries: Mild atherosclerotic disease. No occlusion or significant stenosis. Left iliac arteries: No occlusion or significant stenosis. Left femoral/popliteal arteries: No occlusion or significant stenosis. Left infrapopliteal arteries: Mild atherosclerotic disease. No occlusion or significant stenosis. Liver: No mass. Gallbladder and biliary ducts: Unremarkable. No calcified stones. No ductal dilation. Pancreas: Unremarkable. No mass. No ductal dilation. Spleen: Normal. No splenomegaly. Adrenal glands: Normal. No mass. Kidneys and ureters: Normal. No mass. Stomach and bowel: Unremarkable. No obstruction. No mucosal thickening. Appendix: No evidence of appendicitis. Urinary bladder: Unremarkable. No mass. Reproductive: Unremarkable as visualized. Intraperitoneal space: Unremarkable. No free air. No significant fluid collection. Lymph nodes: No lymphadenopathy. Bones/joints: No acute fracture. No dislocation. Soft tissues: Thin-walled fluid collection within the lateral aspect of the right quadriceps muscle that measures 9.0 x 3.7 x 17 cm. Mild edema within the subcutaneous fat of the lower extremities. IMPRESSION: 1. Mild atherosclerotic disease within the calf arteries. The vascular structures are otherwise unremarkable. There is no aneurysm, dissection, or occlusion. There is three-vessel runoff to the bilateral lower extremities. 2. Thin-walled fluid collection within the lateral aspect of the right quadriceps muscle that measures 9.0 x 3.7 x 17 cm. This was a hematoma on the previous examination. 3. The remainder of the examination is unremarkable. There is no inflammatory process seen within the chest, abdomen, or pelvis.
[2024-05-21 23:33] LABS: Appearance,Urine CLEAR (Clear); Bilirubin,Urine Negative (Negative); Blood, Urine TRACE-L (Negative); Color,Urine YELLOW (Yellow); Glucose,Urine (UA) 100 (Negative); Ketones,Urine Negative (Negative); Leukocyte Esterase,Urine Negative (Negative); Nitrate,Urine Negative (Negative); Protein,Urine TRACE (Negative); Specific Gravity, Urine 1.015 (1.005-1.030); Urobilinogen,Urine >=8.0 EU/dl (0.2)
--- NOTE | 2024-05-21 23:34 | [facility].EDGENADL ---
Discharge Plan Disposition Patient Disposition: Admitted Condition: Serious Prescriptions Prescriptions: No Action tamsulosin 0.4 mg capsule 0.4 mg PO HS glimepiride 4 mg tablet 4 mg PO DAILY atorvastatin 40 mg tablet 40 mg PO HS trazodone 50 mg tablet 50 mg PO HS Lantus U-100 Insulin 100 unit/mL solution 25 unit SQ HS oxybutynin chloride 10 mg tablet extended release 24hr 10 mg PO HS aspirin 81 mg tablet,delayed release (DR/EC) 81 mg PO DAILY bupropion HCl 150 mg tablet extended release 24 hr 150 mg PO DAILY sertraline 100 mg tablet 150 mg PO BID oxcarbazepine 300 mg tablet 300 mg PO BID omeprazole 20 mg capsule,delayed release(DR/EC) 20 mg PO HS gabapentin 100 mg capsule 100 mg PO HS bumetanide 2 mg tablet 2 mg PO 0800,2000 ferrous sulfate 325 mg (65 mg iron) Tablet 325 mg PO DAILY acetaminophen 325 mg Tablet 325 mg PO Q8HP PRN (Reason: MILD PAIN/FEVER) polyethylene glycol 3350 [Miralax] 17 gram Powder In Packet 17 g PO BIDP PRN (Reason: Constipation) nystatin 100,000 unit/gram Cream 1 applic TOPICAL BID ergocalciferol (vitamin D2) [Vitamin D2] 1,250 mcg (50,000 unit) Capsule 1,250 mcg PO FR olanzapine 5 mg tablet,disintegrating 5 mg PO HS aripiprazole 10 mg tablet 10 mg PO HS Referrals Follow up/Referrals: Provider,Referral, MD [Primary Care Provider] - See instructions Clinical Impressions Clinical Impression: Sepsis, Fever, Cellulitis of leg Print Language Print Language: Welsh Discharge ED Provider: Jayson Farmer General Adult HPI General Chief complaint: Fever Stated complaint: Head ache Time Seen by Provider: 05/21/24 23:30 Mode of Arrival: EMS Source of Information: Patient and EMS Description of Symptoms (Recalled from ER Triage Doc. by RN): pt presents from local assisted living facility for eval of confusion that has increased gradually with dark urination, incontinence and fever. Pt also presents with pieces of his toes missing, looking chronic in nature with redness and swelling to BLE. Pt presents with a GCS 14 that is not baseline for him. History of Present Illness HPI narrative: 63-year-old male presents from [facility] for confusion as well as dark urination, incontinence, fever. Patient also has redness and swelling in the bilateral lower extremities and facility reported this was worse than normal. He does have a history of hyperlipidemia, atrial fibrillation, HFpEF, CHF, cellulitis of the lower extremities. Reportedly he is usually fully oriented and a GCS 15, he presents confused with a GCS 14. EMS reports tachycardia but otherwise stable vitals in route, blood glucose 221. Patient typically does not wear oxygen but he required nasal cannula support in route according to EMS. Patient is slightly confused but reports no pain, he states his legs are fine , he denies any difficulty breathing, no nausea or vomiting, no painful urination. He denies chest pain, headache, dizziness, or weakness. Related Data Home Medications ?Medication ?Instructions ?Recorded ?Confirmed atorvastatin 40 mg tablet 40 mg PO HS Cholesterol 09/08/20 04/30/24 glimepiride 4 mg tablet 4 mg PO DAILY Diabetes 09/08/20 04/30/24 insulin glargine 100 unit/mL 25 unit SQ HS Diabetes 09/08/20 05/01/24 subcutaneous solution (Lantus U-100 Insulin) tamsulosin 0.4 mg capsule 0.4 mg PO HS Prostate 09/08/20 05/01/24 trazodone 50 mg tablet 50 mg PO HS Sleep 09/08/20 04/30/24 oxybutynin chloride 10 mg 10 mg PO HS Bladder 11/22/22 05/01/24 tablet,extended release 24 hr aspirin 81 mg tablet,delayed 81 mg PO DAILY Heart Health 04/07/23 04/30/24 release bupropion HCl 150 mg 24 hr tablet, 150 mg PO DAILY 04/30/24 04/30/24 extended release gabapentin 100 mg capsule 100 mg PO HS 04/30/24 05/01/24 omeprazole 20 mg capsule,delayed 20 mg PO HS 04/30/24 04/30/24 release oxcarbazepine 300 mg tablet 300 mg PO BID 04/30/24 04/30/24 sertraline 100 mg tablet 150 mg PO BID 04/30/24 05/01/24 acetaminophen 325 mg tablet 325 mg PO Q8HP PRN MILD PAIN/FEVER 05/01/24 05/01/24 aripiprazole 10 mg tablet 10 mg PO HS 05/01/24 05/01/24 bumetanide 2 mg tablet 2 mg PO 0800,199905/01/24 05/01/24 ergocalciferol (vitamin D2) 1,250 1,250 mcg PO FR 05/01/24 05/01/24 mcg (50,000 unit) capsule (Vitamin D2) ferrous sulfate 325 mg (65 mg 325 mg PO DAILY 05/01/24 05/01/24 iron) tablet nystatin 100,000 unit/gram topical 1 applic topical BID 05/01/24 05/01/24 cream olanzapine 5 mg disintegrating 5 mg PO HS 05/01/24 05/01/24 tablet polyethylene glycol 3350 17 gram 17 g PO BIDP PRN Constipation 05/01/24 05/01/24 oral powder packet (Miralax) Allergies Allergy/AdvReac Type Severity Reaction Status Date / Time No Known Allergies Allergy Verified 11/22/22 18:46 [facility] Disclaimer: The information contained in this section may have been updated after the patient was seen, as this information can be updated by other users. Medical History Scrotal edema Edema (HFpEF) heart failure with preserved ejection fraction Pleural effusion Pulmonary edema Hypoxic respiratory failure UTI (urinary tract infection) Cellulitis of left thigh Cellulitis of right thigh Abdominal wall cellulitis Depression Tobacco dependence Mood disorder Chronic anticoagulation Varicose veins of both lower extremities Chronic venous insufficiency Hernia Urinary retention HLD (hyperlipidemia) Acid reflux Smoker Neuropathy Pulmonary embolism DVT (deep venous thrombosis) Diabetes Family History Other No significant family history Social History Smoking Status: Former smoker alcohol intake: never current occupational status: disabled Travel in the last 8 weeks: None housing: [facility] Other Medical History Have you received the Flu Vaccine for this season: No Have you received the Pneumonia Vaccine: No ROS Obtained: Yes Systems reviewed as appropriate & no additional complaints except as documented Per HPI Physical Exam General General appearance: alert Comment: Ill-appearing, disheveled, unkempt, malodorous Head Head exam: atraumatic and normocephalic Eye Eye exam: Present PERRL and EOMI ENT ENT exam: Present mucous membranes moist Neck Neck exam: Present normal inspection and full ROM Chest Chest inspection: Present symmetric chest wall rise; Absent tenderness Respiratory Respiratory exam: Present normal lung sounds bilaterally and other (Saturating 95% on 2 L nasal cannula); Absent respiratory distress, wheezes or stridor Cardiovascular Cardiovascular exam: Present tachycardia and irregular rhythm Abdominal Exam Abdominal exam: Present soft; Absent distention or tenderness exam: Present normal testicular lie and other (Patient has erythema of the skin throughout the groin with yeast dermatitis in the skin folds, no induration or tenderness); Absent scrotal swelling Extremities Exam Extremities exam: Present full ROM, normal capillary refill, edema (+1 bilateral lower extremity pitting edema) and other (Erythema of the bilateral lower extremities extending from the feet to the knee on the left and from the feet to the upper inner thigh on the right. Erythema is not significantly indurated, no raised borders, it is blanching. patches of petechiae over the left knee and the right inner thigh.); Absent tenderness (Despite erythema and swelling of the lower extremities he reports no tenderness), joint swelling or calf tenderness Back Exam Back exam: Present full ROM; Absent tenderness Neurological Exam Neurological exam: Present alert; Absent oriented X3 (Oriented to self and location, disoriented to time) or motor sensory deficit Psychiatric Psychiatric exam: Present normal affect and normal mood Skin Skin exam: Present warm, dry and other (Patient has cracks on the bilateral great toes as well as over the ball of the right foot that are quite deep but hemostatic. Feet required extensive cleaning to be able to fully visualize these wounds.) Medical Decision Making Medical Records Medical records reviewed: Yes I reviewed the patient's medical records. Screening: Per USPSTF and CDC recommendations, given the prevalence of disease in our region, it is our hospital?s policy to screen for HIV and viral Hepatitis for all patients aged 18 and over and those with ongoing risk factors. MR Comment: Patient was evaluated in our ER in early April and admitted to the hospital for concerns of acute on chronic anemia with right thigh hematoma, CHF with BNP 3960. Eliquis was discontinued after that admission due to the concerns of the incidentally found hematoma despite no known trauma. [place] Inquiry Pt receiving controlled substance: No Vital Signs: 05/21/24 23:14 05/21/24 23:19 05/21/24 23:38 Temperature 101.2 F H Temperature Source Oral Oral Pulse Rate 132 H Pulse Rate [Radial] 133 H Respiratory Rate 16 16 Blood Pressure 121/65 Blood Pressure [Right Arm] 113/59 L Blood Pressure Mean [Right Arm] 77 Blood Pressure Position Sitting Blood Pressure Position [Right Arm] Sitting 02 Sat by Pulse Oximetry 95 95 Oxygen Delivery Method Nasal Cannula Nasal Cannula Oxygen Flow Rate (LPM) 2 2 05/22/24 00:23 05/22/24 00:30 05/22/24 00:35 Temperature 98.9 F Temperature Source Oral Pulse Rate 100 H 108 H 115 H Pulse Rate [Radial] Respiratory Rate 24 22 27 H Blood Pressure 95/53 L 90/50 L 85/47 L Blood Pressure [Right Arm] Blood Pressure Mean [Right Arm] Blood Pressure Position Blood Pressure Position [Right Arm] 02 Sat by Pulse Oximetry 94 L 97 96 Oxygen Delivery Method Oxygen Flow Rate (LPM) 05/22/24 00:42 05/22/24 00:45 05/22/24 01:00 Temperature Temperature Source Pulse Rate 119 H 99 H 99 H Pulse Rate [Radial] Respiratory Rate 22 21 23 Blood Pressure 90/59 L 88/58 L 87/51 L Blood Pressure [Right Arm] Blood Pressure Mean [Right Arm] Blood Pressure Position Blood Pressure Position [Right Arm] 02 Sat by Pulse Oximetry 93 L 96 92 L Oxygen Delivery Method Oxygen Flow Rate (LPM) 05/22/24 01:01 05/22/24 01:05 05/22/24 01:13 Temperature Temperature Source Pulse Rate 101 H 103 H 106 H Pulse Rate [Radial] Respiratory Rate 21 20 19 Blood Pressure 81/53 L 90/56 L 96/51 L Blood Pressure [Right Arm] Blood Pressure Mean [Right Arm] Blood Pressure Position Blood Pressure Position [Right Arm] 02 Sat by Pulse Oximetry 93 L 89 L 90 L Oxygen Delivery Method Oxygen Flow Rate (LPM) 2 2 05/22/24 01:15 Temperature Temperature Source Pulse Rate 103 H Pulse Rate [Radial] Respiratory Rate 21 Blood Pressure 91/55 L Blood Pressure [Right Arm] Blood Pressure Mean [Right Arm] Blood Pressure Position Blood Pressure Position [Right Arm] 02 Sat by Pulse Oximetry 91 L Oxygen Delivery Method Oxygen Flow Rate (LPM) Lab Data Lab Results 05/21/24 00:00: NT-Pro-B Natriuret Pep 7140 H 05/21/24 23:10: WBC 13.4 H, RBC 2.91 L, Hgb 7.8 L, Hct 25.0 L, MCV 85.9, MCH 26.8 L, MCHC 31.2 L, RDW 15.9, Plt Count 196, MPV 8.7, Neut % (Auto) 91.1 H, Lymph % (Auto) 3.1 L, [place] % (Auto) 4.6, Eos % (Auto) 0.0 L, Baso % (Auto) 0.2, Neut # (Auto) 12.2 H, Lymph # (Auto) 0.4 L, [place] # (Auto) 0.6, Eos # (Auto) 0.0, Baso # (Auto) 0.0, Total Counted 100, Neutrophils % (Manual) 87 H, Lymphocytes % (Manual) 7 L, Monocytes % (Manual) 6, Platelet Estimate Normal, RBC Morphology Normal, ESR 103 H, PT 13.0 H, INR 1.18 H, Sodium 130 L, Potassium 3.7, Chloride 96 L, Carbon Dioxide 28, Anion Gap 9.7, BUN 19, Creatinine 1.10, Estimated Creat Clear 132, Estimated GFR 68, Est GFR ( Amer) 82, Glucose 153 H, Lactate 1.7, Calcium 8.4, Total Bilirubin 2.1 H, AST 119 H, ALT 109 H, Alkaline Phosphatase 211 H, Troponin I < 0.01, C-Reactive Protein 156.0 H, Total Protein 7.3, Albumin 3.8, Globulin 3.5 H, Albumin/Globulin Ratio 1.1, Plasma/Serum Alcohol < 10 05/21/24 23:13: VBG pH 7.45 H, VBG pCO2 37.8, VBG pO2 38.6, VBG HCO3 25.4, VBG Total CO2 26.6, VBG O2 Saturation 70.7 H, VBG Base Excess 1.4, VBG Lactic Acid 2.1 H 05/21/24 23:15: Lipase 12 L 05/21/24 23:28: Urine Color Yellow, Urine Appearance Clear, Urine pH 6.0, Ur Specific [place] 1.015, Urine Protein Trace, Urine Glucose (UA) 100, Urine Ketones Negative, Urine Blood Trace-l, Urine Nitrate Negative, Urine Bilirubin Negative, Urine Urobilinogen >=8.0, Ur Leukocyte Esterase Negative, Urine RBC 5-10, Urine WBC Occasional, Ur Squamous Epith Cells Occasional, Urine Bacteria 1+, Urine Opiates Screen Negative, Urine Methadone Screen Negative, Ur Barbituates Screen Negative, Ur Phencyclidine Scrn Negative, Ur Amphetamines Screen Negative, U Benzodiazepines Scrn Negative, Urine Cocaine Screen Negative, U Marijuana (THC) Screen Negative 05/21/24 23:10 05/21/24 23:10 Orders (Tests/Meds): ED MEDICATIONS Generic Name Dose Route Start Last Admin Trade Name Freq PRN Reason Stop Dose Admin Acetaminophen 650 mg 05/22/24 01:35 Acetaminophen 325mg Tab PO 06/21/24 01:34 Q6HP PRN Fever or Mild Pain (1-3) Hydrocodone Bitart/Acetaminophen 1 tab 05/22/24 01:35 Hydrocodone/Apap 5/325 Mg Tablet PO 06/21/24 01:34 Q6HP PRN Moderate Pain (4-6) Norepinephrine/Dextrose 8 mg in 250 mls @ 15 mls/hr 05/22/24 01:05 05/22/24 01:17 Levophed 8mg/250ml-D5w Premix IV 06/21/24 01:04 8 mcg/min .[id number] JUANITA 15 mls/hr Administration Protocol 8 MCG/MIN Piperacillin Sod/Tazobactam 50 mls @ 100 mls/hr 05/22/24 01:45 Sod 3.375 gm/ Sodium Chloride IV 06/01/24 01:44 Q6H JUANITA Vancomycin HCl 1,000 mg/ 250 mls @ 125 mls/hr 05/22/24 01:45 Sodium Chloride IV 06/01/24 01:44 Q12H [facility] Insulin Human Lispro 0 unit 05/22/24 06:00 Humalog 100 Units/Ml 10ml Vial (Ssi) SQ 06/21/24 05:59 ACHS [facility] Protocol Miscellaneous 1 each 05/21/24 23:15 Vancomycin Consult Request NOTAPPLIC 06/20/24 23:14 CONSULT PHARMACY [facility] Miscellaneous 1 each 05/22/24 01:45 Vancomycin Consult Request NOTAPPLIC 06/21/24 01:44 CONSULT PHARMACY [facility] Ondansetron HCl 4 mg 05/22/24 01:35 Ondansetron 4mg/2ml Vial IV 06/21/24 01:34 Q6HP PRN Nausea Discontinued Medications Generic Name Dose Route Start Last Admin Trade Name Freq PRN Reason Stop Dose Admin Acetaminophen 1,000 mg 05/21/24 23:15 05/21/24 23:31 Acetaminophen 1,000mg/100ml Vial IV 05/21/24 23:16 1,000 mg ONCE ONE Administration Bacitracin 1 gm 05/21/24 23:38 05/21/24 23:41 Bacitracin Zinc Oint 30gm Tube TP 05/21/24 23:39 28 % ONCE ONE Administration Lactated Ringer's 1,000 mls @ 1,000 mls/hr 05/21/24 23:15 05/21/24 23:31 Lactated Ringer's 1000 Ml Bag IV 05/22/24 00:14 1,000 mls/hr .Q1H ONE Administration Piperacillin Sod/Tazobactam 100 mls @ 200 mls/hr 05/21/24 23:15 05/21/24 23:31 Sod 4.5 gm/ Sodium Chloride IV 05/21/24 23:44 200 mls/hr ONCE ONE Administration Clindamycin Phosphate 900 mg in 50 mls @ 100 mls/hr 05/21/24 23:27 05/21/24 23:41 Clindamycin 900mg/50ml D5w Premix IV 05/21/24 23:56 100 mls/hr ONCE ONE Administration Vancomycin HCl 2,000 mg/ 250 mls @ 125 mls/hr 05/21/24 23:45 05/22/24 00:44 Sodium Chloride IV 05/22/24 01:44 125 mls/hr ONCE ONE Administration Lactated Ringer's 500 mls @ 999 mls/hr 05/22/24 01:04 05/22/24 01:04 Lactated Ringer's 500ml IV 05/22/24 01:34 999 mls/hr .Q31M ONE Administration Iopamidol 70 ml 05/21/24 23:58 05/22/24 00:07 Iopamidol-370 (76%);100ml Bottle IV 05/21/24 23:59 70 ml ONCE ONE Administration Iopamidol 120 ml 05/21/24 23:59 05/22/24 00:12 Iopamidol-370 (76%);100ml Bottle IV 05/22/24 00:00 120 ml ONCE ONE Administration Nystatin 3 gm 05/21/24 23:39 05/22/24 00:32 Nystatin Topical Powder 30gm TP 05/21/24 23:40 3 gm ONCE ONE Administration Sodium Chloride 50 ml 05/21/24 23:58 05/22/24 00:07 0.9 % Sodium Chloride 50 Ml Vial IV 05/21/24 23:59 50 ml ONCE ONE Administration Sodium Chloride 10 ml 05/21/24 23:58 05/22/24 00:07 Sodium Chloride 0.9% 10ml Syr (Rad Only) IV 05/21/24 23:59 10 ml ONCE ONE Administration Sodium Chloride 50 ml 05/21/24 23:59 05/22/24 00:11 0.9 % Sodium Chloride 50 Ml Vial IV 05/22/24 00:00 50 ml ONCE ONE Administration Sodium Chloride 10 ml 05/21/24 23:59 05/22/24 00:11 Sodium Chloride 0.9% 10ml Syr (Rad Only) IV 05/22/24 00:00 10 ml ONCE ONE Administration ORDERS Category Date Time Status CT angio abdomen/femoral Stat Cat Scan 05/21/24 23:[address] angio chest PE protocol Stat Cat Scan 05/21/24 23:[address] head/brain wo con Stat Cat Scan 05/21/24 23:13 Completed CXR --portable [XR chest portable] Stat Exams 05/21/24 23:13 Completed POCUS Point of Care (ER Only) Stat Exams 05/22/24 01:05 Ordered BNP [NT Pro Brain Natriuretic Pep.] Stat Lab 05/22/24 01:03 Completed Bilirubin Group (Ind,Dir,Tot) Timed Lab 05/22/24 06:00 Ordered C-Reactive Protein Stat Lab 05/21/24 23:10 Completed Complete Blood Count Auto Diff AMLAB Lab 05/22/24 06:00 Ordered Complete Blood Count Auto Diff AMLAB Lab 05/23/24 06:00 Ordered Complete Blood Count Auto Diff AMLAB Lab 05/24/24 06:00 Ordered Complete Blood Count Auto Diff AMLAB Lab 05/25/24 06:00 Ordered Complete Blood Count Auto Diff AMLAB Lab 05/26/24 06:00 Ordered Complete Blood Count Auto Diff AMLAB Lab 05/27/24 06:00 Ordered Complete Blood Count Auto Diff AMLAB Lab 05/28/24 06:00 Ordered Complete Blood Count Auto Diff AMLAB Lab 05/29/24 06:00 Ordered Complete Blood Count Auto Diff AMLAB Lab 05/30/24 06:00 Ordered Complete Blood Count Auto Diff AMLAB Lab 05/31/24 06:00 Ordered Complete Blood Count Auto Diff Stat Lab 05/21/24 23:10 Completed Comprehensive Metabolic Panel AMLAB Lab 05/22/24 06:00 Ordered Comprehensive Metabolic Panel AMLAB Lab 05/23/24 06:00 Ordered Comprehensive Metabolic Panel AMLAB Lab 05/24/24 06:00 Ordered Comprehensive Metabolic Panel AMLAB Lab 05/25/24 06:00 Ordered Comprehensive Metabolic Panel AMLAB Lab 05/26/24 06:00 Ordered Comprehensive Metabolic Panel AMLAB Lab 05/27/24 06:00 Ordered Comprehensive Metabolic Panel AMLAB Lab 05/28/24 06:00 Ordered Comprehensive Metabolic Panel AMLAB Lab 05/29/24 06:00 Ordered Comprehensive Metabolic Panel AMLAB Lab 05/30/24 06:00 Ordered Comprehensive Metabolic Panel AMLAB Lab 05/31/24 06:00 Ordered Comprehensive Metabolic Panel Stat Lab 05/21/24 23:10 Completed Erythrocyte Sedimentation Rate Stat Lab 05/21/24 23:10 Completed Ethyl Alcohol Stat Lab 05/21/24 23:10 Completed Full Resp Panel w/COVID ([facility]) Routine Lab 05/21/24 23:39 Ordered Lactic Acid AMLAB Lab 05/22/24 06:00 Ordered Lactic Acid Stat Lab 05/21/24 23:10 Completed Lipase Stat Lab 05/22/24 00:00 Completed Procalcitonin Routine Lab 05/22/24 06:00 Ordered Prothrombin Time INR Stat Lab 05/21/24 23:10 Completed Trop I [Troponin I] Stat Lab 05/21/24 23:10 Completed Troponin I Q3H Lab 05/22/24 02:30 Ordered Troponin I Q3H Lab 05/22/24 05:30 Ordered UDS [Drug Screen,Urine] Stat Lab 05/21/24 23:28 Completed Urinalysis and Microscopic Stat Lab 05/21/24 23:28 Completed Blood Culture Stat Micro 05/21/24 23:10 Received Urine Culture Stat Micro 05/21/24 23:28 Received VBG [Venous Blood Gas] Stat RT 05/21/24 23:13 Completed Tissue Perfus/Sepsis Re-Eval Sepsis Re-Evaluation Performed: Yes Date Performed: 05/22/24 Time Performed: 00:50 (Capillary refill is now more brisk and patient's mental status has improved) Medical Decision Narrative: In summary, this 63-year-old male with comorbidities described in the HPI not at goal therapy presents to the emergency department today with confusion, incontinence, increased redness of the legs from [facility]. On initial evaluation patient is in atrial fibrillation with rapid ventricular response but normotensive, febrile, GCS 14 secondary to confusion but no localizing neurologic deficits, patient has extensive erythematous changes as well as swelling of the lower extremities but no induration or evidence of abscess. She does have a few patches of petechiae on the legs as well. He was extremely unkempt, disheveled, he had to be cleaned extensively to visualize wounds on the feet which appear old and hemostatic. Differential diagnosis includes but is not limited to sepsis, severe sepsis, patient does not demonstrate evidence of shock at this time, I considered electrolyte abnormality, dehydration, urinary tract infection, pneumonia, PE, intra-abdominal infection, considered cellulitis, abscess, NSTI, CHF exacerbation, ACS, altered mental status could be from hypercarbia, sepsis, infection, or intracranial abnormality, among other. Based on these concerns, I ordered broad workup including cardiac workup, serum labs, urine studies, blood cultures, urine cultures, CT imaging of the head, chest, abdomen, pelvis with runoff to visualize the legs and hopefully evaluate for infectious etiology of the erythema and swelling of the legs. ECG personally interpreted demonstrates atrial fibrillation with rapid ventricular response, rate 121, indeterminate axis, normal QTc, no STEMI. I am not going to treat the RVR with rate control at this time since patient is febrile and demonstrating signs of sepsis. Will treat with antipyretics and fluids initially and reassess. Patient received broad-spectrum antibiotics including vancomycin and Zosyn, also added clindamycin for toxin coverage in case patient has NSTI, additionally he received IV fluids but is not receiving a full 30 mL/kg bolus due to evidence of fluid overload and history of CHF. Labs personally reviewed demonstrate leukocytosis with WBC 13.4, increased from patient's admission in early April, patient still has anemia with hemoglobin 7.8 but this is improved from the day of discharge at patient's last admission. Platelets normal at 196 though decreased from May 01, patient does have neutrophilia concerning for bacterial infection. PT/INR slightly elevated but not specific or actionable at this time, pH 7.45 on VBG but no hypercarbia, VBG lactic 2.1. Patient has mild hyponatremia and hypochloremia new from his recent admission. Lactic normal at 1.7 on chemistry. Patient does have a transaminitis new from April 29. He also has new hyperbilirubinemia with bilirubin 2.1 up from 1.1 at the beginning of the month. Possible patient has hepatic or biliary pathology such as stone, cholecystitis, cholelithiasis, choledocholithiasis. Lipase to workup. Patient does have benign abdomen on exam. UA negative for findings of infection. UDS negative. EtOH negative. Patient refused the nasal swab. On reassessment patient's heart rate has improved, now in the low 100s to 110s. His blood pressure is slightly softer but he still is maintaining MAP above 65. He is resting comfortably more alert. More keenly answering questions though still disoriented to time. XR personally interpreted demonstrates no lobar infiltrate. See radiology read for final interpretation. CT head personally interpreted does not demonstrate acute intracranial abnormality, see radiology read for final interpretation. I personally interpreted CTA PE as well as CTA abdomen pelvis with runoff. On my personal interpretation of the CTA PE I do not appreciate large PE, no lobar infiltrate, see radiology read for full interpretation. On CTA abdomen with runoff I do not appreciate evidence of mesenteric ischemia, gallbladder wall appears slightly thickened but no pericholecystic fluid or stone, no acute intra-abdominal pathology, patient has evidence of previously identified right leg hematoma. No evidence of NSTI. See radiology reads for full interpretations. I called the radiologist and discussed the patient's right upper quadrant with him since patient has pneumonitis and I have not yet identified a source of infection. He states the right upper quadrant appears stable from previous and no evidence of acute cholecystitis or other intra-abdominal pathology. Patient's blood pressure had gotten more soft in the ER so he was given additional 500 of IV fluids. This slightly improved his pressure but his MAP was still below 65 so I started him on norepinephrine. Patient reports he has a history of low blood pressure and review of previous records demonstrates this is true, however his blood pressure is not typically quite this low. With his evidence of sepsis but unidentified source of infection at this time, I believe norepinephrine and the continued interventions as described above are still appropriate. I performed [id number] bedside ultrasound and patient does not have pericardial effusion or acute cardiac abnormality on ultrasound on my personal interpretation. He requires admission for continued management. He is appropriate for admission at this facility. I discussed this case with the hospitalist and he graciously accepted the patient for admission to the ICU. Procedures Miscellaneous Procedure Procedure Performed: Limited Cardiac Ultrasound Indication: Hypotension Identified cardiac views: [-Cardiac parasternal long axis] [-Cardiac parasternal short axis] [-Cardiac apical four-chamber] [-Cardiac subxiphoid] Findings: Cardiac activity present with no gross wall motion abnormality, no pericardial effusion, no right heart strain Impression: Cardiac activity present with no gross wall motion abnormality, no pericardial effusion, no right heart strain Images were saved to permanent archive The study was technically adequate CPT: 76559 This study was performed by me, and I personally interpreted all images/videos. Based on my clinical judgement, these images were adequate and did not necessitate further imaging. Critical Care Critical Care Time Critical Care Time: Yes Attestation: On 05/21/24, the high probability of a clinically significant, sudden or life threatening deterioration of the following system(s) (hemodynamic) required my full and direct attention, intervention and personal management. The time I documented below is in addition to time spent performing reported procedures but includes the following listed in this critical care notation. Total Time Total Critical Care Time: 35
[2024-05-21 23:38] VITALS: BP 121/65; PULSE 132; RESP 16; O2SAT 95
--- NOTE | 2024-05-21 23:39 | PC.NURSE ---
pt refusing nasal swab, refusing to hold still reports that it hurts him to bad
[2024-05-21 23:40] LABS: Albumin Level 3.8 g/dl (3.5-5.0); Chloride 96 mmol/L (98-107); Potassium 3.7 mmoL/L (3.5-5.1); Sodium 130 mmol/L (136-145)
[2024-05-21] MEDS: CLINDAMYCIN PHOSPHATE/D5W 900 MG/50 ML PIGGYBACK 100 MG IV (23:41)
[2024-05-21] MEDS: BACITRACIN ZINC OINT 30GM TUBE TP (23:41)
[2024-05-21 23:42] LABS: VBG Base Excess 1.4 mmol/L (-2.4-2.3); VBG HCO3 25.4 mmol/L (23-30); VBG Oxygen Saturation 70.7 % (50-70); VBG PCO2 37.8 mmol/L (35-51); VBG PH 7.45 mmol/L (7.31-7.41); VBG PO2 38.6 mmol/L (28-40); VBG Total CO2 26.6 mmol/L (23-27)
[2024-05-21 23:43] LABS: Alanine Aminotransferase 109 U/L (12-78); Albumin/Globulin Ratio 1.1 (1.1-1.8); Alkaline Phosphatase 211 U/L (38-126); Anion Gap 9.7 mEq/L (5-15); Aspartate Amino Transferase 119 U/L (17-59); Bilirubin,Total 2.1 mg/dl (0.2-1.3); Blood Urea Nitrogen 19 mg/dl (9-20); Carbon Dioxide 28 mmol/L (22.0-30.0); Creatinine Clearance Estimated 132 mL/min (50-200); Estimated Glomerular Filt Rate 68 ml/min (>60); GFR (African American) 82 ML/MIN (>60); Globulin 3.5 g/dL (1.3-3.2); INR 1.18 (0.9-1.1); Total Protein,Serum 7.3 g/dl (6.3-8.2)
[2024-05-21 23:43] LABS: Lactate Venous 2.1 mmol/L (0.4-2.0)
[2024-05-21 23:44] LABS: Calcium 8.4 mg/dl (8.4-10.2); Glucose 153 mg/dl (74-100); Lactic Acid 1.7 mmol/L (0.7-2.1)
[2024-05-21 23:45] LABS: Bacteria,Urine 1+ /lpf; Squamous Epithelial Cell,Urine Occasional #/hpf (0-5); WBC,Urine Occasional #/hpf (0-3)
--- NOTE | 2024-05-21 23:48 | PC.NURSE ---
pt taken to ct scan at this time
[2024-05-21 23:49] LABS: Benzodiazepines Screen,Urine Negative ng/ml (<200)
--- NOTE | 2024-05-21 23:49 | PC.NURSE ---
BRAYAN Cox and I bathed pt at this time. Also applied bacitracin, and kerlex to pt feet.
[2024-05-21 23:50] LABS: Amphetamine/Metha Screen,Urine Negative ng/ml (<1000); Barbiturates Screen,Urine Negative ng/ml (<200)
[2024-05-21 23:51] LABS: Ethyl Alcohol < 10 mg/dl (0-10); Lymphocytes % 7 % (10-50); Monocytes % 6 % (2-9); Neutrophils % 87 % (42-76); Platelet Estimate Normal; RBC Morphology Normal; Total Cells Counted 100
[2024-05-21 23:51] LABS: Cannabinoid Screen,Urine Negative ng/ml (<50)
[2024-05-21 23:52] LABS: Cocaine Screen,Urine Negative ng/ml (<300); Methadone Screen,Urine Negative ng/ml (<300)
[2024-05-21 23:53] LABS: Opiate Screen,Urine Negative ng/ml (<300)
[2024-05-21 23:54] LABS: Phencyclidine Screen,Urine Negative ng/ml (<25)
[2024-05-22] VITALS (73 sets, daily range): BP systolic 64–129; BP diastolic 42–84; PULSE 71–119; RESP 14–27; TEMP 36.6–37.4; O2SAT 88–100; BMI 32.9
[2024-05-22 00:07] LABS: Troponin I < 0.01 ng/ml (0.00-0.034)
[2024-05-22] MEDS: 0.9 % SODIUM CHLORIDE 50 ML VIAL IV ×2 (00:07→00:11)
[2024-05-22] MEDS: IOPAMIDOL-370 (76%);100ML BOTTLE 70 ML IV (00:07)
[2024-05-22] MEDS: SODIUM CHLORIDE 0.9% 10ML SYR (RAD ONLY) 10 ML IV ×2 (00:07→00:11)
[2024-05-22 00:09] LABS: Erythrocyte Sedimentation Rate 103 mm/hr (0-20)
[2024-05-22] MEDS: IOPAMIDOL-370 (76%);100ML BOTTLE 120 ML IV (00:12)
[2024-05-22 00:13] LABS: Lipase 12 U/L (23-300)
[2024-05-22] MEDS: NYSTATIN TOPICAL POWDER 30GM TP (00:32)
--- NOTE | 2024-05-22 00:41 | PC.NURSE ---
Fluids hung with pressure bag for hypotension.
--- NOTE | 2024-05-22 00:41 | PC.NURSE ---
BP 85/47. Fluids placed on pressure bag. MD Farmer aware.
--- NOTE | 2024-05-22 00:43 | PC.NURSE ---
provider at the bedside
[2024-05-22] MEDS: VANCOMYCIN HCL 2,000 MG in 0.9 % SODIUM CHLORIDE 250 ML 125 MG IV (00:44)
--- NOTE | 2024-05-22 00:53 | PC.NURSE ---
warm blanket given upon request, pt readjusted in bed, NAD noted, RR even and non labored, skin pwd, pt more alert and answering questions more clearly.
[2024-05-22] MEDS: RINGERS SOLUTION,LACTATED 500 ML 999 ML IV (01:04)
--- NOTE | 2024-05-22 01:10 | PC.NURSE ---
bedside US machine and ED provider at the bedside
[2024-05-22] MEDS: NOREPINEPHRINE BITARTRATE/D5W 8 MG/250 ML PLAST..BAG 15 MG IV (01:17)
[2024-05-22 01:30] LABS: NT Pro Brain Natriuretic Pep. 7140 pg/mL (0-125)
--- NOTE | 2024-05-22 01:43 | P.HP_ITS ---
<Statement entered by Mynor Ascencio MD - 05/29/24 11:03> I personally examined patient and agree with the plan of care outlined by the DANCING MASTER. History of Present Illness *Admission Date: 05/22/24 *Reason for visit:: Fever and confusion *History of present illness: This is a 63-year-old male who has a past medical history significant for hematoma of the right thigh, scrotal edema, congestive heart failure with diastolic dysfunction, pulmonary edema, hernia, chronic venous insufficiency, urinary retention, hyperlipidemia, GERD, neuropathy, pulmonary embolism, DVT, and diabetes who presents from [place] with a chief complaint of dark-colored urine, incontinence, fever, and confusion. Due to patient's symptoms, he presented to the emergency room for evaluation. While in the emergency room, patient was noted to be in atrial fibrillation with rapid ventricular response, had a high heart rate, and his white blood cell count was elevated. CT scan of the abdomen pelvis revealed mild arthrosclerotic disease within the Arteries, thin-walled fluid collection within the lateral aspect of the right quadricep muscle that measures 9.0 x 3.7 x 17 cm (noted on previous imaging), the remainder of the abdomen pelvis without any acute intra-abdominal intrapelvic findings. CTA of the chest was negative for any acute cardiopulmonary or intrathoracic process but was significant for severe cardiomegaly. Patient was requiring supplemental oxygen; as a result of these findings, patient is being admitted for further management. It is worth mentioning the ER provider states that patient is normally confused to time and that is currently his baseline. Patient was confused to time while in the emergency room. During my evaluation of the patient, patient states that he was having a headache to the right zoroastrian that was rated [address] scan of the head was negative for any acute intracranial process. Patient states he has chronic wounds to his bilateral lower extremities. On previous admission, he was noted to have some cellulitis/redness to his bilateral lower extremities. He does have some redness and edema to his lower extremities. Patient does have bandages or Kerlix to his bilateral feet. They were clean dry and intact. He is currently denying chest pain, lightheadedness, dizziness, fever, chills, rigors, nausea, vomiting, or diarrhea. additional pertinent values obtained include white blood cell count of 13.4, red blood cell count of 2.91, hemoglobin 7.8, hematocrit 25, neutrophils 91.1%, ESR 103, INR 1.18, sodium 130, chloride of 96, blood glucose of 153, total bilirubin of 2.1, AST of 119, ALT of 109, alkaline phosphate of 211, C-reactive protein 856, BNP of 7140, heart rate of 132, and blood pressure of 81/53 PFSH [facility] Disclaimer: The information contained in this section may have been updated after the patient was seen, as this information can be updated by other users. Medical History Scrotal edema Edema (HFpEF) heart failure with preserved ejection fraction Pleural effusion Pulmonary edema Hypoxic respiratory failure UTI (urinary tract infection) Cellulitis of left thigh Cellulitis of right thigh Abdominal wall cellulitis Depression Tobacco dependence Mood disorder Chronic anticoagulation Varicose veins of both lower extremities Chronic venous insufficiency Hernia Urinary retention HLD (hyperlipidemia) Acid reflux Smoker Neuropathy Pulmonary embolism DVT (deep venous thrombosis) Diabetes Family History Other No significant family history Social History Smoking Status: Former smoker alcohol intake: never current occupational status: disabled Travel in the last 8 weeks: None housing: group home Other Medical History Have you received the Flu Vaccine for this season: No Have you received the Pneumonia Vaccine: No Review of Systems Review of Systems Review of systems:: pertinent systems reviewed and negative unless documented below Constitutional Constitutional: Reports system reviewed and no additional complaints, except as documented and Reports headache(s) Eyes Eyes: Reports system reviewed and no additional complaints, except as documented ENT Ears, Nose, Mouth, and Throat: Reports headache(s) *Cardiovascular Cardiovascular: Reports system reviewed and no additional complaints, except as documented *Respiratory Respiratory: Reports system reviewed and no additional complaints, except as documented *Gastrointestinal Gastrointestinal: Reports system reviewed and no additional complaints, except as documented *Genitourinary Genitourinary: Reports system reviewed and no additional complaints, except as documented Integumentary/Breasts Skin/Breast: Reports change in pigmentation and Reports dry skin *Neurologic Neurologic: Reports headache(s) Psychiatric Psychiatric: Reports system reviewed and no additional complaints, except as documented Endocrine Endocrine: Reports system reviewed and no additional complaints, except as documented Hematologic/Lymphatic Hematologic/Lymphatic: Reports system reviewed and no additional complaints, except as documented Allergic/Immunologic Allergic/Immunologic: Reports system reviewed and no additional complaints, except as documented Meds Home Medications and Allergies Home Medications ?Medication ?Instructions ?Recorded ?Confirmed ?Type atorvastatin 40 mg tablet 40 mg PO HS Cholesterol 09/08/20 04/30/24 History glimepiride 4 mg tablet 4 mg PO DAILY Diabetes 09/08/20 04/30/24 History insulin glargine 100 unit/mL 25 unit SQ HS Diabetes 09/08/20 05/01/24 History subcutaneous solution (Lantus U-100 Insulin) tamsulosin 0.4 mg capsule 0.4 mg PO HS Prostate 09/08/20 05/01/24 History trazodone 50 mg tablet 50 mg PO HS Sleep 09/08/20 04/30/24 History oxybutynin chloride 10 mg 10 mg PO HS Bladder 11/22/22 05/01/24 History tablet,extended release 24 hr aspirin 81 mg tablet,delayed 81 mg PO DAILY Heart Health 04/07/23 04/30/24 History release bupropion HCl 150 mg 24 hr tablet, 150 mg PO DAILY 04/30/24 04/30/24 History extended release gabapentin 100 mg capsule 100 mg PO HS 04/30/24 05/01/24 History omeprazole 20 mg capsule,delayed 20 mg PO HS 04/30/24 04/30/24 History release oxcarbazepine 300 mg tablet 300 mg PO BID 04/30/24 04/30/24 History sertraline 100 mg tablet 150 mg PO BID 04/30/24 05/01/24 History acetaminophen 325 mg tablet 325 mg PO Q8HP PRN MILD PAIN/FEVER 05/01/24 05/01/24 History aripiprazole 10 mg tablet 10 mg PO HS 05/01/24 05/01/24 History bumetanide 2 mg tablet 2 mg PO 0800,199905/01/24 05/01/24 History ergocalciferol (vitamin D2) 1,250 1,250 mcg PO FR 05/01/24 05/01/24 History mcg (50,000 unit) capsule (Vitamin D2) ferrous sulfate 325 mg (65 mg 325 mg PO DAILY 05/01/24 05/01/24 History iron) tablet nystatin 100,000 unit/gram topical 1 applic topical BID 05/01/24 05/01/24 History cream olanzapine 5 mg disintegrating 5 mg PO HS 05/01/24 05/01/24 History tablet polyethylene glycol 3350 17 gram 17 g PO BIDP PRN Constipation 05/01/24 05/01/24 History oral powder packet (Miralax) New Prescriptions to Start Prescriptions: Allergies Allergy/AdvReac Type Severity Reaction Status Date / Time No Known Allergies Allergy Verified 11/22/22 18:46 Exam Data for Last 24 hours Vital signs and Labs for Last 24 Hours: Temp Pulse Resp BP Pulse Ox O2 Del Method O2 Flow Rate 98.9 F 103 H 21 91/55 L 91 L Nasal Cannula 2 05/22/24 00:23 05/22/24 01:15 05/22/24 01:15 05/22/24 01:15 05/22/24 01:15 05/21/24 23:38 05/22/24 01:05 Laboratory Results - last 24 hr 05/21/24 23:10: WBC 13.4 H, RBC 2.91 L, Hgb 7.8 L, Hct 25.0 L, MCV 85.9, MCH 26.8 L, MCHC 31.2 L, RDW 15.9, Plt Count 196, MPV 8.7, Neut % (Auto) 91.1 H, Lymph % (Auto) 3.1 L, [place] % (Auto) 4.6, Eos % (Auto) 0.0 L, Baso % (Auto) 0.2, Neut # (Auto) 12.2 H, Lymph # (Auto) 0.4 L, [place] # (Auto) 0.6, Eos # (Auto) 0.0, Baso # (Auto) 0.0, Total Counted 100, Neutrophils % (Manual) 87 H, Lymphocytes % (Manual) 7 L, Monocytes % (Manual) 6, Platelet Estimate Normal, RBC Morphology Normal, ESR 103 H, PT 13.0 H, INR 1.18 H, Sodium 130 L, Potassium 3.7, Chloride 96 L, Carbon Dioxide 28, Anion Gap 9.7, BUN 19, Creatinine 1.10, Estimated Creat Clear 132, Estimated GFR 68, Est GFR ( Amer) 82, Glucose 153 H, Lactate 1.7, Calcium 8.4, Total Bilirubin 2.1 H, AST 119 H, ALT 109 H, Alkaline Phosphatase 211 H, Troponin I < 0.01, C-Reactive Protein 156.0 H, Total Protein 7.3, Albumin 3.8, Globulin 3.5 H, Albumin/Globulin Ratio 1.1, Plasma/Serum Alcohol < 10 05/21/24 23:13: VBG pH 7.45 H, VBG pCO2 37.8, VBG pO2 38.6, VBG HCO3 25.4, VBG Total CO2 26.6, VBG O2 Saturation 70.7 H, VBG Base Excess 1.4, VBG Lactic Acid 2.1 H 05/21/24 23:15: Lipase 12 L 05/21/24 23:28: Urine Color Yellow, Urine Appearance Clear, Urine pH 6.0, Ur Specific [place] 1.015, Urine Protein Trace, Urine Glucose (UA) 100, Urine Ketones Negative, Urine Blood Trace-l, Urine Nitrate Negative, Urine Bilirubin Negative, Urine Urobilinogen >=8.0, Ur Leukocyte Esterase Negative, Urine RBC 5- 10, Urine WBC Occasional, Ur Squamous Epith Cells Occasional, Urine Bacteria 1+, Urine Opiates Screen Negative, Urine Methadone Screen Negative, Ur Barbituates Screen Negative, Ur Phencyclidine Scrn Negative, Ur Amphetamines Screen Negative, U Benzodiazepines Scrn Negative, Urine Cocaine Screen Negative, U Marijuana (THC) Screen Negative I & O for Last 24 hours: Intake & Output 05/19/24 05/20/24 05/21/24 05/22/24 23:59 23:59 23:59 23:59 Weight 136.078 kg Constitutional Constitutional: no acute distress *Routine HEENT Exam Head: Present normocephalic and atraumatic Eye: Present EOMI, PERRL and normal accommodation ENT: Present mucous membranes moist *Routine Neck Exam Neck: Present supple, full ROM and trachea midline *Routine Respiratory Exam Respiratory: Present CTA bilaterally, normal respiratory effort, able to speak in complete sentences and symmetric chest movement *Routine Cardiovascular Exam Cardiovascular: Present irregular rhythm and irregularly irregular *Routine Abdominal Exam Abdominal: Present soft and normoactive bowel sounds *Routine Rectal Exam Rectal:: deferred *Routine Genitalia Exam Genitalia:: deferred *Routine Extremities Exam Extremities: Present edema, full ROM, pulses intact and normal capillary refill Comments: Noted erythema to bilateral lower lower extremities Routine Back/Spine/Pelvis Exam Back/Spine: Present full ROM *Routine Skin Exam Skin: Present erythema, dry, warm, wounds and cracked *Routine Neurological Exam Neurological: Present CN II-XII intact, altered mental status, moving all extremities and normal speech Routine Psychiatric Exam Psychiatric: Present normal affect, normal thought process, cooperative and good insight H&P: Result Impressions 63-year-old male who presents with altered mental status, supplemental oxygen requirement, and incontinence with an unknown infectious source. Lower extremities do have some redness which may be the source of infection but not totally convinced Assessment and Plan *Assessment and plan (1) Sepsis: Status: Acute Qualifiers: Sepsis type: sepsis due to unspecified organism Sepsis acute organ dysfunction status: with acute organ dysfunction Severe sepsis acute organ dysfunction type: acute respiratory failure Acute respiratory failure type: with hypoxia Severe sepsis shock status: with septic shock Qualified Code(s): A41.9 - Sepsis, unspecified organism; R65.21 - Severe sepsis with septic shock; J96.01 - Acute respiratory failure with hypoxia Category: Medical Code(s): A41.9 - Sepsis, unspecified organism (2) Cellulitis of leg: Status: Acute Qualifiers: Laterality: unspecified laterality Qualified Code(s): L03.119 - Cellulitis of unspecified part of limb Category: Medical Code(s): L03.119 - Cellulitis of unspecified part of limb (3) Leukocytosis: Status: Acute Qualifiers: Leukocytosis type: unspecified Qualified Code(s): D72.829 - Elevated white blood cell count, unspecified Category: Medical Code(s): D72.829 - Elevated white blood cell count, unspecified (4) Afib: Status: Acute Qualifiers: Atrial fibrillation type: unspecified Qualified Code(s): I48.91 - Unspecified atrial fibrillation Category: Medical Code(s): I48.91 - Unspecified atrial fibrillation (5) Hematoma of right thigh: Status: Acute Qualifiers: Encounter type: initial encounter Qualified Code(s): S70.11XA - Contusion of right thigh, initial encounter Category: Medical Code(s): S70.11XA - Contusion of right thigh, initial encounter (6) AMS (altered mental status): Status: Acute Qualifiers: Altered mental status type: unspecified Qualified Code(s): R41.82 - Altered mental status, unspecified Category: Medical Code(s): R41.82 - Altered mental status, unspecified (7) Normocytic hypochromic anemia: Status: Acute Category: Medical Code(s): D50.9 - Iron deficiency anemia, unspecified (8) Elevated erythrocyte sedimentation rate: Status: Acute Category: Medical Code(s): R70.0 - Elevated erythrocyte sedimentation rate (9) Elevated C-reactive protein (CRP): Status: Acute Category: Medical Code(s): R79.82 - Elevated C-reactive protein (CRP) (10) Transaminitis: Status: Acute Category: Medical Code(s): R74.01 - Elevation of levels of liver transaminase levels (11) Hyperglycemia: Status: Acute Category: Medical Code(s): R73.9 - Hyperglycemia, unspecified (12) Hyponatremia: Status: Acute Category: Medical Code(s): E87.1 - Hypo-osmolality and hyponatremia (13) Acute hypoxemic respiratory failure: Status: Acute Category: Medical Code(s): J96.01 - Acute respiratory failure with hypoxia (14) Hypotension: Status: Acute Qualifiers: Hypotension type: other hypotension type Qualified Code(s): I95.89 - Other hypotension Category: Medical Code(s): I95.9 - Hypotension, unspecified Plan Assessment: Sepsis -Patient did not receive 30 mL/kg of body weight of IV hydration due to prior history of congestive heart failure. I believe given him additional fluid may be more harmful than good -Patient's source is not clearly identified it may be a cellulitis however I am totally not convinced of cellulitis alone -Will monitor patient's blood cultures -If no growth will consider LP -Sepsis reperfusion assessment performed -Lactic acid has been obtained -Patient does have shock and respiratory failure Acute hypoxic respiratory failure -Supplemental oxygen to maintain oxygen saturation greater 94% Hypotension -Continue Levophed drip to maintain systolic blood pressure greater 95 and MAP greater than 65 Bilateral lower extremity cellulitis -Will continue Zosyn 3.375 g IV every 6 hours -Will continue vancomycin 1 g IV twice daily pharmacy to dose Leukocytosis with left shift -Continue antibiotics as listed above Atrial fibrillation with rapid ventricular response: Improved -Patient has a [id number] score of 4 points which is a 4.8 percent risk of annual event -Will obtain 2D echo -Will consider director cardiology consultation Hematoma of the right thigh -Will continue to monitor Altered mental status -May be at patient's baseline versus metabolic encephalopathy due to infection Normocytic normochromic anemia: Most likely due to iron deficiency -Once med rec is updated we will continue patient's iron supplementation -Patient is at baseline hemoglobin Elevated ESR/CRP -Will trend CRP -Obtain procalcitonin Transaminitis -Will fractionate bilirubin -Will monitor with CMP Hyperglycemia -Sliding scale insulin ACH S with mild scale coverage Hyponatremia -Patient does have elevated BNP -Will monitor sodium daily -Will hold off on any sodium chloride supplementation-sodium level was mildly low Plan: Admit patient to the intensive care unit Ambulate as tolerated SCDs to bilateral lower extremities Will hold off on any heparin or enoxaparin in the event patient needs lumbar puncture Cardiac/1800 ADA diet CMP/CBC daily Repeat lactic acid in a.m. 5 mg of [place] p.o. every 6 hours as needed moderate pain 4 mg Zofran IV push every 6 hours. Nausea vomiting Full code Total critical care time of 40 minutes I will discuss this case with attending physician Dr. Ascencio and I look forward to more input
--- NOTE | 2024-05-22 02:13 | EXP.SEPSISRE ---
[facility] Tissue Perfusion Eval Sepsis Re-Evaluation Performed: Yes Date Performed: 05/22/24 Time Performed: 02:13
--- NOTE | 2024-05-22 02:15 | PC.NURSE ---
Report given to Macey SCHMIDT
[2024-05-22 02:30] LABS: Reflex Lactic Add Lactic Reflex
[2024-05-22] MEDS: VANCOMYCIN CONSULT REQUEST 1 EACH NOTAPPLIC (02:59)
--- NOTE | 2024-05-22 03:00 | PC.NURSE ---
patient arrived to ICU unit via stretcher @02:36
[2024-05-22 03:05] LABS: C-Reactive Protein 151.9 mg/L (0-4)
[2024-05-22 03:17] LABS: Troponin I < 0.01 ng/ml (0.00-0.034)
[2024-05-22 03:18] LABS: POC Glucose,Bedside 103 (70-110)
--- NOTE | 2024-05-22 03:53 | PC.WOUNDNOTE ---
pt groin and right thigh, nystatin powder applied after being cleaned.
--- NOTE | 2024-05-22 03:55 | PC.WOUNDNOTE ---
pts right and left legs.
--- NOTE | 2024-05-22 03:57 | PC.WOUNDNOTE ---
pt right foot
--- NOTE | 2024-05-22 03:58 | PC.WOUNDNOTE ---
pt left foot.
[2024-05-22] MEDS: PIPERCILLIN/TAZO 3.375 GM in 0.9 % SODIUM CHLORIDE 50 ML IV (04:39)
[2024-05-22 05:43] LABS: Adenovirus,PCR Not Detected (NotDetected); Bordetella Pertussis Not Detected (NotDetected); Chlamydophila Pneumoniae, PCR Not Detected (NotDetected); Coronavirus 19, PCR Not Detected (NotDetected); Coronavirus 229E Not Detected (NotDetected); Coronavirus NL63 Not Detected (NotDetected); Coronavirus OC43 Not Detected (NotDetected); Coronovirus HKU1,PCR Not Detected (NotDetected); Human Metapneumovirus Not Detected (NotDetected); Influenza A, PCR Not Detected (NotDetected); Influenza AH1, 2009 Not Detected (NotDetected); Influenza AH1, PCR Not Detected (NotDetected); Influenza AH3,PCR Not Detected (NotDetected); Influenza B, PCR Not Detected (NotDetected); Mycoplasma Pneumoniae, PCR Not Detected (NotDetected); Parainfluenza 1, PCR Not Detected (NotDetected); Parainfluenza 2, PCR Not Detected (NotDetected); Parainfluenza 3, PCR Not Detected (NotDetected); Parainfluenza 4, PCR Not Detected (NotDetected); Respiratory Syncytial Virus Not Detected (NotDetected); Rhinovirus/Enterovirus Not Detected (NotDetected)
[2024-05-22 05:43] LABS: Basophils % 0.3 % (0.1-2.0); Hematocrit 26.9 % (42.0-52.0); Hemoglobin 8.4 g/dL (14.1-18.0); Lymphocytes # 0.7 K/mm3 (0.7-4.5); Lymphocytes % 5.6 % (10-50); Mean Corpuscular HGB Conc 31.2 g/dL (31.8-35.4); Mean Corpuscular Hemoglobin 26.3 pg (27.0-31.2); Mean Corpuscular Volume 84.3 fl (80-94); Mean Platelet Volume 9.2 fl (7.4-10.4); Monocytes # 0.8 K/mm3 (0.1-1.0); Monocytes % 6.5 % (1.7-9.3); Neutrophils # 10.3 K/mm3 (1.8-7.8); Neutrophils % 86.7 % (37.0-80.0); Platelet Count 219 K/mm3 (142-424); Red Blood Count 3.19 M/mm3 (4.60-6.20); Red Cell Distribution Width 15.9 % (11.5-17.5); White Blood Count 11.8 K/mm3 (4.8-10.8)
[2024-05-22 05:49] LABS: Albumin Level 3.1 g/dl (3.5-5.0); Chloride 99 mmol/L (98-107); Potassium 3.2 mmoL/L (3.5-5.1); Sodium 132 mmol/L (136-145)
[2024-05-22 05:51] LABS: Bilirubin, Conjugated 0.3 mg/dL (0.0-0.3); Bilirubin,Indirect 0.7 mg/dL (0.0-0.9); Bilirubin,Total 1.7 mg/dl (0.2-1.3); Bilirubin,Unconjugated 0.7 mg/dL (0.0-1.1)
[2024-05-22 05:52] LABS: Alanine Aminotransferase 85 U/L (12-78); Alkaline Phosphatase 160 U/L (38-126); Anion Gap 7.2 mEq/L (5-15); Aspartate Amino Transferase 86 U/L (17-59); Bilirubin,Total 1.8 mg/dl (0.2-1.3); Blood Urea Nitrogen 19 mg/dl (9-20); Calcium 8.1 mg/dl (8.4-10.2); Carbon Dioxide 29 mmol/L (22.0-30.0); Creatinine Clearance Estimated 128 mL/min (50-200); Estimated Glomerular Filt Rate 75 ml/min (>60); GFR (African American) 91 ML/MIN (>60); Globulin 3.1 g/dL (1.3-3.2); Glucose 85 mg/dl (74-100); Total Protein,Serum 6.2 g/dl (6.3-8.2)
[2024-05-22 05:53] LABS: Lactic Acid 0.7 mmol/L (0.7-2.1)
[2024-05-22 06:04] LABS: Troponin I < 0.01 ng/ml (0.00-0.034)
--- NOTE | 2024-05-22 06:15 | CA_ITS ---
APPROVED REPORT EXAM: Comprehensive 2D, Doppler, and color-flow Echocardiogram Solar Installation Technician: PEPPER Jaimes, RVS Ht: 6 ft 0 in Wt: 300lbs BSA: 2.53 BP: 121/65 mmHg Rhythm: Atrial Fibrillation Indications: Afib, HFrEF, DM, Smoker, Anemia-Hgb=7.8, Edema, HLD 2D Dimensions Left Atrium 4.23 cm M: 3.0 - 4.0 LA Volume 139.80 mL LA Volume Index 55.367271 mL/m2 (M/F) 16-34 M-Mode Dimensions RVDd 2.25 cm (0.9-2.6) LA Diam 5.03 cm (1.9-4.0) LVDd 5.26 cm (3.5-5.7) LVDs 3.10 cm (3.5-5.7) IVSd 1.31 cm (0.6-1.1) PWd 1.48 cm (0.6-1.1) EF (Teich) 71.50% EPSs 0.30 cm FS 41.10% EDV (Teich) 133.00 mL TAPSE 2.37 (<1.7) ESV (Teich) 37.90 mL LV Diastology E Decel Time 200 (160-240 msec) E/A Ratio 5.83 MED A' 6.90 cm/s LAT A' 5.80 cm/s Aortic Valve CHICHO Index 1.27 cm2/m2 AoV Peak Juan [place]. 125.0 (50-130 cm/s) AO Peak GR. 6.20 mmHg AO Mean GR. 3.00 (<5 mmHg) AO VTI 21.8 (18-25 cm) [place]IC[place] (VTI) 3.30 (2.5-4.5 cm2) Mitral Valve MV A Velocity 23.0 (40-130 cm/s) E/A Ratio 5.83 Tricuspid Valve TR P. Velocity 313.00 cm/s RAP Estimate 10.00 mmHg RVSP 49.20 mmHg Left Ventricle The left ventricle is normal size. The left ventricular systolic function is normal. The left ventricular ejection fraction is within the normal range. There is increased LV wall thickness. Diastolic function is indeterminate. There is normal LV segmental wall motion. LVEF is 55%. Right Ventricle Right ventricle is mildly dilated. The right ventricular systolic function is normal. Atria Left atrium is moderately dilated. Right atrium is moderately dilated. There is no Doppler evidence of interatrial shunt. Aortic Valve Aortic valve is mildly thickened. There is no aortic valvular stenosis. Trace aortic regurgitation. Mitral Valve The mitral valve leaflets are mildly thickened. Mild mitral regurgitation. No evidence of mitral valve stenosis. Tricuspid Valve Tricuspid valve is grossly normal in structure and function. Mild to moderate tricuspid regurgitation. RVSP is 40-45 mmHg. Pulmonic Valve The pulmonary valve is normal in structure. Trace pulmonic regurgitation. Great Vessels The aortic root is normal in size. IVC is normal in size and collapses >50% with inspiration. Pericardium There is no pericardial effusion. Other Information Study Quality: Fair Conclusion Normal biventricular systolic function. Mild RV dilation. Biatrial dilation. Mild to moderate TR. Mild MR. Electronically signed by : Breanna Guerrero MD 05/23/2024 13:06:21
[2024-05-22 06:29] LABS: POC Glucose,Bedside 95 (70-110)
[2024-05-22] MEDS: POTASSIUM CHLORIDE 20MEQ TAB 40 MEQ PO ×2 (06:57→11:50)
[2024-05-22 07:06] LABS: Procalcitonin 1.34 ng/mL (0.0-2.0)
--- NOTE | 2024-05-22 07:40 | P.CONPHA_ITS ---
Pharmacy Consult Date: 05/22/24 Time: 07:40 Referring provider: Renate CONLEY Reason for Consult:: VANCOMYIN DOSING Allergies Allergy/AdvReac Type Severity Reaction Status Date / Time No Known Allergies Allergy Verified 11/22/22 18:46 Home Medications ?Medication ?Instructions ?Recorded ?Confirmed ?Type atorvastatin 40 mg tablet 40 mg PO HS Cholesterol 09/08/20 05/22/24 History glimepiride 4 mg tablet 4 mg PO DAILY Diabetes 09/08/20 05/22/24 History insulin glargine 100 unit/mL 25 unit SQ HS Diabetes 09/08/20 05/22/24 History subcutaneous solution (Lantus U-100 Insulin) tamsulosin 0.4 mg capsule 0.4 mg PO HS Prostate 09/08/20 05/22/24 History trazodone 50 mg tablet 50 mg PO HS Sleep 09/08/20 05/22/24 History oxybutynin chloride 10 mg 10 mg PO HS Bladder 11/22/22 05/22/24 History tablet,extended release 24 hr aspirin 81 mg tablet,delayed 81 mg PO DAILY Heart Health 04/07/23 05/22/24 History release bupropion HCl 150 mg 24 hr tablet, 150 mg PO DAILY 04/30/24 05/22/24 History extended release gabapentin 100 mg capsule 100 mg PO HS 04/30/24 05/22/24 History omeprazole 20 mg capsule,delayed 20 mg PO HS 04/30/24 05/22/24 History release oxcarbazepine 300 mg tablet 300 mg PO BID 04/30/24 05/22/24 History sertraline 100 mg tablet 150 mg PO BID 04/30/24 05/22/24 History acetaminophen 325 mg tablet 325 mg PO Q8HP PRN MILD PAIN/FEVER 05/01/24 05/22/24 History aripiprazole 10 mg tablet 10 mg PO HS 05/01/24 05/22/24 History bumetanide 2 mg tablet 2 mg PO 0800,199905/01/24 05/22/24 History ergocalciferol (vitamin D2) 1,250 1,250 mcg PO FR 05/01/24 05/22/24 History mcg (50,000 unit) capsule (Vitamin D2) ferrous sulfate 325 mg (65 mg 325 mg PO DAILY 05/01/24 05/22/24 History iron) tablet nystatin 100,000 unit/gram topical 1 applic topical BID 05/01/24 05/22/24 History cream olanzapine 5 mg disintegrating 5 mg PO HS 05/01/24 05/22/24 History tablet polyethylene glycol 3350 17 gram 17 g PO BIDP PRN Constipation 05/01/24 05/22/24 History oral powder packet (Miralax) New Prescriptions to Start Prescriptions: Height: 1.91 m Weight: 120.111 kg Laboratory Results:: Laboratory Results - last 24 hr 05/21/24 23:10: WBC 13.4 H, RBC 2.91 L, Hgb 7.8 L, Hct 25.0 L, MCV 85.9, MCH 26.8 L, MCHC 31.2 L, RDW 15.9, Plt Count 196, MPV 8.7, Neut % (Auto) 91.1 H, Lymph % (Auto) 3.1 L, [place] % (Auto) 4.6, Eos % (Auto) 0.0 L, Baso % (Auto) 0.2, Neut # (Auto) 12.2 H, Lymph # (Auto) 0.4 L, [place] # (Auto) 0.6, Eos # (Auto) 0.0, Baso # (Auto) 0.0, Total Counted 100, Neutrophils % (Manual) 87 H, Lymphocytes % (Manual) 7 L, Monocytes % (Manual) 6, Platelet Estimate Normal, RBC Morphology Normal, ESR 103 H, PT 13.0 H, INR 1.18 H, Sodium 130 L, Potassium 3.7, Chloride 96 L, Carbon Dioxide 28, Anion Gap 9.7, BUN 19, Creatinine 1.10, Estimated Creat Clear 132, Estimated GFR 68, Est GFR ( Amer) 82, Glucose 153 H, Lactate 1.7, Calcium 8.4, Total Bilirubin 2.1 H, AST 119 H, ALT 109 H, Alkaline Phosphatase 211 H, Troponin I < 0.01, C-Reactive Protein 156.0 H, NT-Pro-B Natriuret Pep 7140 H, Total Protein 7.3, Albumin 3.8, Globulin 3.5 H, Albumin/Globulin Ratio 1.1, Lipase 12 L, Plasma/Serum Alcohol < 10 05/21/24 23:13: VBG pH 7.45 H, VBG pCO2 37.8, VBG pO2 38.6, VBG HCO3 25.4, VBG Total CO2 26.6, VBG O2 Saturation 70.7 H, VBG Base Excess 1.4, VBG Lactic Acid 2.1 H 05/21/24 23:28: Urine Color Yellow, Urine Appearance Clear, Urine pH 6.0, Ur Specific [place] 1.015, Urine Protein Trace, Urine Glucose (UA) 100, Urine Ketones Negative, Urine Blood Trace-l, Urine Nitrate Negative, Urine Bilirubin Negative, Urine Urobilinogen >=8.0, Ur Leukocyte Esterase Negative, Urine RBC 5- 10, Urine WBC Occasional, Ur Squamous Epith Cells Occasional, Urine Bacteria 1+, Urine Opiates Screen Negative, Urine Methadone Screen Negative, Ur Barbituates Screen Negative, Ur Phencyclidine Scrn Negative, Ur Amphetamines Screen Negative, U Benzodiazepines Scrn Negative, Urine Cocaine Screen Negative, U Marijuana (THC) Screen Negative 05/22/24 02:43: Lactate 1.0, Troponin I < 0.01, C-Reactive Protein 151.9 H 05/22/24 03:09: POC Glucose 103 05/22/24 05:14: WBC 11.8 H, RBC 3.19 L, Hgb 8.4 L, Hct 26.9 L, MCV 84.3, MCH 26.3 L, MCHC 31.2 L, RDW 15.9, Plt Count 219, MPV 9.2, Neut % (Auto) 86.7 H, Lymph % (Auto) 5.6 L, [place] % (Auto) 6.5, Eos % (Auto) 0.0 L, Baso % (Auto) 0.3, Neut # (Auto) 10.3 H, Lymph # (Auto) 0.7, [place] # (Auto) 0.8, Eos # (Auto) 0.0, Baso # (Auto) 0.0, Sodium 132 L, Potassium 3.2 L, Chloride 99, Carbon Dioxide 29, Anion Gap 7.2, BUN 19, Creatinine 1.00, Estimated Creat Clear 128, Estimated GFR 75, Est GFR ( Amer) 91, Glucose 85 D, Lactate 0.7, Calcium 8.1 L, To radha Bilirubin 1.8 H 05/22/24 05:14: Total Bilirubin 1.7 H, Direct Bilirubin 1.0 H, Conjugated Bilirubin 0.3, Indirect Bilirubin 0.7, Unconjugated Bilirubin 0.7, AST 86 H D, ALT 85 H, Alkaline Phosphatase 160 H, Troponin I < 0.01, Total Protein 6.2 L, Albumin 3.1 L D, Globulin 3.1, Albumin/Globulin Ratio 1.0 L, Procalcitonin 1.34 05/22/24 06:22: POC Glucose 95 Medical History: Medical History (Updated 05/22/24 @ 02:08 by Jeremy Conley APRN) Scrotal edema Edema (HFpEF) heart failure with preserved ejection fraction Pleural effusion Pulmonary edema Hypoxic respiratory failure UTI (urinary tract infection) Cellulitis of left thigh Cellulitis of right thigh Abdominal wall cellulitis Depression Tobacco dependence Mood disorder Chronic anticoagulation Varicose veins of both lower extremities Chronic venous insufficiency Hernia Urinary retention HLD (hyperlipidemia) Acid reflux Smoker Neuropathy Pulmonary embolism DVT (deep venous thrombosis) Diabetes Assessment and Plan Assessment and plan all Dx Assessment and Plan for all problems:: Pharmacokinetic dosing service Objective: Patient: Floor: Age: 63 yo Serum creatinine: 1.00 mg/dL Height: 75.2 Inches Weight (kg): 120.1 Assessment: IBW (kg): 84.96 Dosing wt(kg): 120.1 Estimated Creatinine clearance (ml/min): 90.9 CRCL method: Cockcroft and Gault using ibw(default). Drug selected: Vancomycin Loading dose (mg): Vd (liters): 96.1 (factor used: 0.8 L/kg) Ndaer (hr-1): 0.080 Half life (hrs): 8.66 CLvanco=?? 7.688 L/hr Recommended dose: 2250 mg Interval: 12 hrs Infusion time (hrs): 2.0 Predicted peak (mcg/mL): 35.1 Predicted trough (mcg/mL): 15.77 Total body weight is being used for vancomycin dosing. Recommendations: Give Vancomycin 2250 mg q 12 hrs with an expected Cpeak of 35.1 mcg/ml and an expected Ctrough of 15.77 mcg/ml AUC 0-24 /FAYE Data: FAYE 0.5 mcg/mL:?? AUC/FAYE:? 1170.7 FAYE 1.0 mcg/mL:?? AUC/FAYE:? 585.3 --------- FAYE 1.5 mcg/mL:?? AUC/FAYE:? 390.2 FAYE 2.0 mcg/mL:?? AUC/FAYE:? 292.7 Thank you for the consult, will continue to follow. -AMIE SANDS, LAMARD
--- NOTE | 2024-05-22 08:14 | US_ITS ---
FINAL REPORT TECHNIQUE: Sonographic images of the right upper quadrant were obtained. CLINICAL HISTORY: elevated LFTs COMPARISON: None FINDINGS: PANCREAS: Unremarkable. LIVER: Homogeneous. No focal hepatic lesion. No intrahepatic biliary ductal dilatation. GALLBLADDER: Gallbladder appears partially contracted around sludge and stones. No gallbladder wall thickening or pericholecystic fluid. COMMON DUCT: 5 mm. Normal for age. RIGHT KIDNEY: The right kidney measures 11.2 cm. There is no hydronephrosis, mass, or stone. FREE FLUID: None. IMPRESSION: Gallbladder contracted around sludge and stones. Otherwise no acute findings. Reviewed, Interpreted and Dictated by Celi Rosario MD Transcribed by Mahi Herron Authenticated and [facility]
--- NOTE | 2024-05-22 08:18 | PC.NURSE ---
pt made NPO as of 814 for gallbladder US order. no water or food at BS at this time. call light is within reach and will offer mouth swabs to prevent discomfort of dry mouth.
[2024-05-22 09:30] LABS: Chol/HDL Ratio 3.6 (1-3.5); Cholesterol 58 mg/dl (140-200); HDL Cholesterol 16 mg/dl (40-60); Triglycerides 44 mg/dl (30-150); VLDL Cholesterol 9 mg/dL (0-40)
[2024-05-22 09:41] LABS: Direct LDL Cholesterol < 30.00 mg/dL (100-129)
[2024-05-22] MEDS: PIPERACILLIN/TAZO 4.5 GM in 0.9 % SODIUM CHLORIDE 100 ML IV ×3 (09:51→21:44)
[2024-05-22] MEDS: ENOXAPARIN 120MG/0.8ML SYRINGE 120 MG SUBCUT ×2 (09:51→21:44)
[2024-05-22 10:14] LABS: Hemoglobin A1C 5.6 % (4.0-6.0)
--- NOTE | 2024-05-22 11:07 | CA_ITS ---
FINAL REPORT CLINICAL HISTORY: NON-HEALING ULCERS BILATERAL FEET,CELLULITIS BILATERAL LE'S,DM,EDEMA COMPARISON: None FINDINGS: BILATERAL LOWER EXTREMITY DUPLEX DOPPLER Color Doppler and duplex Doppler of the bilateral lower extremity was performed. Spectral analysis was also performed. Velocities were measured at multiple levels. All velocities are in centimeters per second. RIGHT LOSS CONTROL ENGINEER: 104 Prof: 70 SFA Prox: 91 SFA Mid: 100 SFA Distal: 102 Pop : 54 STEAM BLOCKER Prox: 101 STEAM BLOCKER Mid: 90 STEAM BLOCKER Dist: 90 Per Prox: 64 SUSU Dist: 96 Waveforms are multiphasic. There is mild plaque with no evidence of occlusion. LEFT LOSS CONTROL ENGINEER: 135 Prof: 180 SFA Prox: 188 SFA Mid: 168 SFA Distal: 145 Pop : 101 STEAM BLOCKER Prox: 123 STEAM BLOCKER Mid: 143 STEAM BLOCKER Dist: 137 Per Prox: 104 SUSU Dist: 145 Waveforms are waveforms predominantly monophasic. Plaque with no evidence of occlusion. IMPRESSION: Atherosclerotic disease bilateral lower extremities. No large vessel occlusion Reviewed, Interpreted and Dictated by Celi Rosario MD Transcribed by Mahi Herron Authenticated and [facility]
--- NOTE | 2024-05-22 11:07 | CA_ITS ---
FINAL REPORT CLINICAL HISTORY: REDNESS BILATERAL LOWER EXTRMEITES,PAIN,EDEMA FINDINGS: DUPLEX VENOUS SONOGRAPHY OF THE BILATERAL LOWER EXTREMITIES Multiple transverse and longitudinal scans were performed of the femoropopliteal deep venous systems, with augmentation and compression maneuvers. FINDINGS: Normal phasic flow was noted in the visualized deep venous systems. No intraluminal increased echogenicity is noted to suggest thrombus. There is normal compression and augmentation of the venous structures. No abnormal venous collaterals are seen. Note is made of benign-appearing normal-sized inguinal lymph nodes. IMPRESSION: No evidence of deep venous thrombosis of the bilateral lower extremities. Reviewed, Interpreted and Dictated by Celi Rosario MD Transcribed by Gina Cortes Authenticated and [facility]
[2024-05-22 11:42] LABS: POC Glucose,Bedside 129 (70-110)
--- NOTE | 2024-05-22 11:52 | HMH.PTEV ---
Physical Therapy Evaluation Rehab PT IP Evaluation Start: 05/22/24 08:21 Freq: ONCE Status: Active Protocol: Document 05/22/24 11:47 ISAAK (Rec: 05/22/24 11:52 ISAAK [id number]) Subjective/History History History 63-year-old male who has a past medical history significant for hematoma of the right thigh, scrotal edema , congestive heart failure with diastolic dysfunction, pulmonary edema, hernia, chronic venous insufficiency, urinary retention, hyperlipidemia, GERD, neuropathy, pulmonary embolism , DVT, and diabetes who presents from [facility] with a chief complaint of dark- colored urine, incontinence, fever, and confusion. Due to patient's symptoms, he presented to the emergency room for evaluation. While in the emergency room, patient was noted to be in atrial fibrillation with rapid ventricular response, had a high heart rate, and his white blood cell count was elevated . CT scan of the abdomen pelvis revealed mild arthrosclerotic disease within the Arteries, thin-walled fluid collection within the lateral aspect of the right quadricep muscle that measures 9.0 x 3.7 x 17 cm (noted on previous imaging), the remainder of the abdomen pelvis without any acute intra -abdominal intrapelvic findings. CTA of the chest was negative for any acute cardiopulmonary or intrathoracic process but was significant for severe cardiomegaly. Patient was requiring supplemental oxygen; as a result of these findings , patient is being admitted for further management. It is worth mentioning the ER provider states that patient is normally confused to time and that is currently his baseline. Patient was confused to time while in the emergency room. Pt reports he lives at a local personal alf, he is generally independent with all mobility without an AD, and he has suffered from similar symptoms previously. Subjective Subjective Pt currently has no c/o, he reports feeling tired, but overall better. He agrees to OOB mobility assessment. [facility] How much help from another person do you currently need... Turning from your back to your side None while in a flat bed without using bedrails? Moving from lying on back to sitting on None the side of a flat bed without using bedrails? Moving to and from a bed to a chair ( A little including a wheelchair)? Standing up from a chair using your arms A little ? (e.g., wheelchair, bedside chair) Walking in hospital room? A little Climbing 3-5 steps with a railing? A little Mobility Score 20 Mobility Level [facility] Mobility Calculator Mobility 6 Walk 10 steps or more Rehab PT IP Eval Objective Appearance Patient Behavior Appropriate Patient Orientation Person,Place Difficulty following instructions none Speech Pattern Clear Ambulation Patient Able to Ambulate Yes Ambulation Observation IP General Gait Pattern Observation Shuffling Step Ambulation Distance (feet) 5 Ambulation Assistive Device None Ambulation Ability Minimal x 1 (25% assist) Balance Ability to Arise Able, uses arms to help Sitting Balance Steady, safe Standing Balance Steady, wide stance Dynamic Sitting Balance Ability Good Dynamic Standing Balance Ability Fair Transfers Bed Transfer Ability Contact Guard/Hand Hold Chair Transfer Ability Minimal x 1 (25% assist) Sit to Stand Bed Transfer Ability Minimal x 1 (25% assist) Sit to Stand Chair Transfer Ability Minimal x 1 (25% assist) Rehab PT IP prob,goals,plan Problems Date of Evaluation: 05/22/24 PT IP Problems Transfers,Gait Rehab Potential Rehab Potential Good Plan PT Intervention Plan Transfers,Gait,Therapeutic Exercise PT Plan Frequency Daily Duration LOS Discharge Goals Bed Transfer Ability Supervision/Stand by Sit to Stand Chair Transfer Ability Supervision/Stand by Ambulation Assistive Device Rolling Walker Ambulation Distance (feet) 30 Discharge Plan PT Discharge Plan Pt is currently most appropriate to return to personal alf once medically stable for d/c. Skilled acute therapy services are indicated to improve transfers and ambulation in order to aid pt return to [facility] . Eval Complexity Eval Charge Codes 22772 - High Complexity PHYSICIAN CERTIFICATION: I certify the specified therapy services for Avi Maximiliano are required, authorized, and reviewed every 30 days.
--- NOTE | 2024-05-22 12:34 | EXP.POD.CONS ---
History of Present Illness *Admission Date: 05/22/24 *History of present illness: This is a 63-year-old male who has a past medical history significant for hematoma of the right thigh, scrotal edema, congestive heart failure with diastolic dysfunction, pulmonary edema, hernia, chronic venous insufficiency, urinary retention, hyperlipidemia, GERD, neuropathy, pulmonary embolism, DVT, and diabetes who presents from [place] with a chief complaint of dark-colored urine, incontinence, fever, and confusion. Due to patient's symptoms, he presented to the emergency room for evaluation. While in the emergency room, patient was noted to be in atrial fibrillation with rapid ventricular response, had a high heart rate, and his white blood cell count was elevated. CT scan of the abdomen pelvis revealed mild arthrosclerotic disease within the Arteries, thin-walled fluid collection within the lateral aspect of the right quadricep muscle that measures 9.0 x 3.7 x 17 cm (noted on previous imaging), the remainder of the abdomen pelvis without any acute intra-abdominal intrapelvic findings. CTA of the chest was negative for any acute cardiopulmonary or intrathoracic process but was significant for severe cardiomegaly. Patient was requiring supplemental oxygen; as a result of these findings, patient is being admitted for further management. It is worth mentioning the ER provider states that patient is normally confused to time and that is currently his baseline. Patient was confused to time while in the emergency room. During my evaluation of the patient, patient states that he was having a headache to the right adventism that was rated [address] scan of the head was negative for any acute intracranial process. Patient states he has chronic wounds to his bilateral lower extremities. On previous admission, he was noted to have some cellulitis/redness to his bilateral lower extremities. He does have some redness and edema to his lower extremities. Patient does have bandages or Kerlix to his bilateral feet. They were clean dry and intact. He is currently denying chest pain, lightheadedness, dizziness, fever, chills, rigors, nausea, vomiting, or diarrhea. additional pertinent values obtained include white blood cell count of 13.4, red blood cell count of 2.91, hemoglobin 7.8, hematocrit 25, neutrophils 91.1%, ESR 103, INR 1.18, sodium 130, chloride of 96, blood glucose of 153, total bilirubin of 2.1, AST of 119, ALT of 109, alkaline phosphate of 211, C-reactive protein 856, BNP of 7140, heart rate of 132, and blood pressure of 81/53 05/22/24:Podiatry Consult Patient awake and oriented sitting up in chair upon entering the room. Patient has socks covering his feet and no dressings on wounds. He appears to have erythema and edema to b/l lower legs with black markings outlining the redness which remains at the borders. Patient has not been seen by our office before nor by any Podiatry office at this time. He is a Diabetic and will require routine DFC with nail trimming, callus debridements, and wound care management services. He has agreed to come to our office for those routine services but will require transportation assistance. He resides at [facility] in [place], [place]. [facility] Disclaimer: The information contained in this section may have been updated after the patient was seen, as this information can be updated by other users. Medical History Scrotal edema Edema (HFpEF) heart failure with preserved ejection fraction Pleural effusion Pulmonary edema Hypoxic respiratory failure UTI (urinary tract infection) Cellulitis of left thigh Cellulitis of right thigh Abdominal wall cellulitis Depression Tobacco dependence Mood disorder Chronic anticoagulation Varicose veins of both lower extremities Chronic venous insufficiency Hernia Urinary retention HLD (hyperlipidemia) Acid reflux Smoker Neuropathy Pulmonary embolism DVT (deep venous thrombosis) Diabetes Family History Other No significant family history Social History (Updated 05/22/24 @ 03:27 by Macey Ya RN) Smoking Status: Current every day smoker alcohol intake: never current occupational status: disabled Travel in the last 8 weeks: None housing: shelter Contact w/someone who lives/traveled outside US past 30 days?: No Exposure to someone with infectious disease in past 14 days?: No Do you have a fever (greater than 100.4 F or 38 C)?: Yes Have you tested positive for COVID-19: No Exposed to someone with COVID-19 in past 14 days?: No Do you have a sore throat?: No Do you have a cough?: No Do you have any weakness?: No Are you experiencing any nausea/vomitting?: No Do you have any diarrhea?: No Are you experiencing any unusual bleeding?: No Do you have any muscle aches/pain?: No Do you have any abdominal pain?: No Are you experiencing loss of taste or smell?: No Review of Systems Constitutional Constitutional: Reports headache(s) ENT Ears, Nose, Mouth, and Throat: Reports headache(s) *Neurologic Neurologic: Reports headache(s) Meds Home Medications and Allergies Home Medications ?Medication ?Instructions ?Recorded ?Confirmed ?Type atorvastatin 40 mg tablet 40 mg PO HS Cholesterol 09/08/20 05/22/24 History glimepiride 4 mg tablet 4 mg PO DAILY Diabetes 09/08/20 05/22/24 History insulin glargine 100 unit/mL 25 unit SQ HS Diabetes 09/08/20 05/22/24 History subcutaneous solution (Lantus U-100 Insulin) tamsulosin 0.4 mg capsule 0.4 mg PO HS Prostate 09/08/20 05/22/24 History trazodone 50 mg tablet 50 mg PO HS Sleep 09/08/20 05/22/24 History oxybutynin chloride 10 mg 10 mg PO HS Bladder 11/22/22 05/22/24 History tablet,extended release 24 hr aspirin 81 mg tablet,delayed 81 mg PO DAILY Heart Health 04/07/23 05/22/24 History release bupropion HCl 150 mg 24 hr tablet, 150 mg PO DAILY 04/30/24 05/22/24 History extended release gabapentin 100 mg capsule 100 mg PO HS 04/30/24 05/22/24 History omeprazole 20 mg capsule,delayed 20 mg PO HS 04/30/24 05/22/24 History release oxcarbazepine 300 mg tablet 300 mg PO BID 04/30/24 05/22/24 History sertraline 100 mg tablet 150 mg PO BID 04/30/24 05/22/24 History acetaminophen 325 mg tablet 325 mg PO Q8HP PRN MILD PAIN/FEVER 05/01/24 05/22/24 History aripiprazole 10 mg tablet 10 mg PO HS 05/01/24 05/22/24 History bumetanide 2 mg tablet 2 mg PO 0800,2000 05/01/24 05/22/24 History ergocalciferol (vitamin D2) 1,250 1,250 mcg PO FR 05/01/24 05/22/24 History mcg (50,000 unit) capsule (Vitamin D2) ferrous sulfate 325 mg (65 mg 325 mg PO DAILY 05/01/24 05/22/24 History iron) tablet nystatin 100,000 unit/gram topical 1 applic topical BID 05/01/24 05/22/24 History cream olanzapine 5 mg disintegrating 5 mg PO HS 05/01/24 05/22/24 History tablet polyethylene glycol 3350 17 gram 17 g PO BIDP PRN Constipation 05/01/24 05/22/24 History oral powder packet (Miralax) New Prescriptions to Start Prescriptions: Allergies Allergy/AdvReac Type Severity Reaction Status Date / Time No Known Allergies Allergy Verified 11/22/22 18:46 Exam (Inpt) Vital signs and Labs for Last 24 Hours: Temp Pulse Resp BP Pulse Ox O2 Del Method O2 Flow Rate 97.8 F 78 19 103/59 L 93 L Room Air 2 05/22/24 08:00 05/22/24 11:00 05/22/24 11:00 05/22/24 11:00 05/22/24 11:00 05/22/24 11:00 05/22/24 09:45 Laboratory Results - last 24 hr 05/21/24 05:18: Chlamy pneumoniae PCR Not detected, Adenovirus (PCR) Not detected, B. pertussis DNA (PCR) Not detected, Coronavirus OC43 (PCR) Not detected, Coronavirus HKU1 (PCR) Not detected, Coronavirus 229E (PCR) Not detected, SARS-CoV-2 (PCR) Not detected, Coronavirus NL63 (PCR) Not detected, Human Metapneumovir PCR Not detected, Influenza A (H1) PCR Not detected, Influ A (H1N1/09) PCR Not detected, Influenza A (H3) PCR Not detected, Influenza Type A (PCR) Not detected, Influenza Type B (PCR) Not detected, M. pneumoniae (PCR) Not detected, Parainfluenza 1 (PCR) Not detected, Parainfluenza 2 (PCR) Not detected, Parainfluenza 3 (PCR) Not detected, Parainfluenza 4 (PCR) Not detected, RSV (PCR) Not detected, Entero/Rhino (PCR) Not detected 05/21/24 23:10: WBC 13.4 H, RBC 2.91 L, Hgb 7.8 L, Hct 25.0 L, MCV 85.9, MCH 26.8 L, MCHC 31.2 L, RDW 15.9, Plt Count 196, MPV 8.7, Neut % (Auto) 91.1 H, Lymph % (Auto) 3.1 L, [place] % (Auto) 4.6, Eos % (Auto) 0.0 L, Baso % (Auto) 0.2, Neut # (Auto) 12.2 H, Lymph # (Auto) 0.4 L, [place] # (Auto) 0.6, Eos # (Auto) 0.0, Baso # (Auto) 0.0, Total Counted 100, Neutrophils % (Manual) 87 H, Lymphocytes % (Manual) 7 L, Monocytes % (Manual) 6, Platelet Estimate Normal, RBC Morphology Normal, ESR 103 H, PT 13.0 H, INR 1.18 H, Sodium 130 L, Potassium 3.7, Chloride 96 L, Carbon Dioxide 28, Anion Gap 9.7, BUN 19, Creatinine 1.10, Estimated Creat Clear 132, Estimated GFR 68, Est GFR ( Amer) 82, Glucose 153 H, Lactate 1.7, Calcium 8.4, Total Bilirubin 2.1 H, AST 119 H, ALT 109 H, Alkaline Phosphatase 211 H, Troponin I < 0.01, C-Reactive Protein 156.0 H, NT-Pro-B Natriuret Pep 7140 H, Total Protein 7.3, Albumin 3.8, Globulin 3.5 H, Albumin/Globulin Ratio 1.1, Lipase 12 L, Plasma/Serum Alcohol < 10 05/21/24 23:13: VBG pH 7.45 H, VBG pCO2 37.8, VBG pO2 38.6, VBG HCO3 25.4, VBG Total CO2 26.6, VBG O2 Saturation 70.7 H, VBG Base Excess 1.4, VBG Lactic Acid 2.1 H 05/21/24 23:28: Urine Color Yellow, Urine Appearance Clear, Urine pH 6.0, Ur Specific [place] 1.015, Urine Protein Trace, Urine Glucose (UA) 100, Urine Ketones Negative, Urine Blood Trace-l, Urine Nitrate Negative, Urine Bilirubin Negative, Urine Urobilinogen >=8.0, Ur Leukocyte Esterase Negative, Urine RBC 5-10, Urine WBC Occasional, Ur Squamous Epith Cells Occasional, Urine Bacteria 1+, Urine Opiates Screen Negative, Urine Methadone Screen Negative, Ur Barbituates Screen Negative, Ur Phencyclidine Scrn Negative, Ur Amphetamines Screen Negative, U Benzodiazepines Scrn Negative, Urine Cocaine Screen Negative, U Marijuana (THC) Screen Negative 05/22/24 02:43: Lactate 1.0, Troponin I < 0.01, C-Reactive Protein 151.9 H 05/22/24 03:09: POC Glucose 103 05/22/24 05:14: WBC 11.8 H, RBC 3.19 L, Hgb 8.4 L, Hct 26.9 L, MCV 84.3, MCH 26.3 L, MCHC 31.2 L, RDW 15.9, Plt Count 219, MPV 9.2, Neut % (Auto) 86.7 H, Lymph % (Auto) 5.6 L, [place] % (Auto) 6.5, Eos % (Auto) 0.0 L, Baso % (Auto) 0.3, Neut # (Auto) 10.3 H, Lymph # (Auto) 0.7, [place] # (Auto) 0.8, Eos # (Auto) 0.0, Baso # (Auto) 0.0, Sodium 132 L, Potassium 3.2 L, Chloride 99, Carbon Dioxide 29, Anion Gap 7.2, BUN 19, Creatinine 1.00, Estimated Creat Clear 128, Estimated GFR 75, Est GFR ( Amer) 91, Glucose 85 D, Hemoglobin A1c 5.6, Lactate 0.7, Calcium 8.1 L, Total Bilirubin 1.8 H 05/22/24 05:14: Total Bilirubin 1.7 H, Direct Bilirubin 1.0 H, Conjugated Bilirubin 0.3, Indirect Bilirubin 0.7, Unconjugated Bilirubin 0.7, AST 86 H D, ALT 85 H, Alkaline Phosphatase 160 H, Troponin I < 0.01, Total Protein 6.2 L, Albumin 3.1 L D, Globulin 3.1, Albumin/Globulin Ratio 1.0 L, Triglycerides 44, Cholesterol 58 L, LDL Cholesterol Direct < 30.00 L, VLDL Cholesterol 9, HDL Cholesterol 16 L, Cholesterol/HDL Ratio 3.6 H, Procalcitonin 1.34 05/22/24 06:22: POC Glucose 95 05/22/24 11:34: POC Glucose 129 H I & O for Labs for Last 24 Hours: Intake & Output 05/19/24 05/20/24 05/21/24 05/22/24 23:59 23:59 23:59 23:59 Intake Total 246.438 / 246.438 Output Total 2199 / 2200 Balance -1952.562 / -1952.56 Weight 300 lb 264 lb 12.791 oz Constitutional: Present no acute distress and cooperative Head: Present normocephalic Eye: Present as per HPI Neck: Present trachea midline Respiratory: Present normal respiratory effort, able to speak in complete sentences and symmetric chest movement Cardiac: Present posterior tibial pulses present (weakly palpable ) and pedal pulses present Comment:: Cardio Pulses: Palpable pedal pulses noted b/l DP and Posterior tibial pulses present but weakly palpable. CFT wnl. Skin temp wnl proximal to distal b/l LE. No pedal edema noted, he has 1+b/l lower extremity with erythema noted. Comments:: deferred Rectal (male): Present deferred (male): Present deferred Extremities: Present tenderness, normal capillary refill and edema Comment:: -B/L DFU noted from dry thick callused skin that busted open. No active drainage noted from any of the sites.. -B/L medial hallux ulcers, B/L medial sub 1st ulcers, Debrided with a curette and a 15' blade sharply, excisionally through skin into the subcu layer. Fibrotic tissue was removed. Good bleeding was noted. Granular base was noted. -Post debridement the wounds measured : -Left medial hallux- 2.2 x 0.8 x 0.2 cm -Left sub 1st- 5.4 x 0.7 x 0.2 cm -Right medial hallux- 2.0 x 1.5 x 0.1 cm -Right sub 1st- 4.0 x 0.5 x 0.1 cm Skin: Present erythema (b/l lower legs ), dry, warm, lesions (thick callused skin to heels and ball of foot ) and wounds (b/l feet DFU's ) Neuro: Present Tingling, oriented x 3, tone normal and moves all extremities Ankle: bilateral: erythema, bilateral: swelling (1+ pedal edema ), bilateral: tenderness (b/l DFU's tender), bilateral: wound (B/L medial hallux, B/L medial sub 1St ) and bilateral: decreased ROM Feet/Toes: bilateral: erythema (b/l lower legs 1+ edema outlined ), bilateral: hammer toe, bilateral: nail abnormalities (Thick and discolored ), bilateral: onychomycosis (suspected ), bilateral: swelling (lower legs ), bilateral: tenderness (pain at ulcer and callus sites), bilateral: wound (b/l medial hallux, b/l medial sub 1st ulcers ) and bilateral: decreased ROM Inspection: Present foot deformity deformity: Present hammer toes, nail disorder, calluses/corns and ulceration Pulses: L dorsalis pedis pulse: normal, R dorsalis pedis pulse: normal, L posterior tibial pulse: diminished and R posterior tibial pulse: diminished CFT: normal: CFT Pinprick: L great toe: normal and R great toe: normal Ankle reflex: Left: normal and Right: normal Results Labs 05/22/24 05:14 05/22/24 05:14 Labs: Abnormal lab results 05/21/24 05/21/24 05/22/24 Range/Units 23:10 23:13 02:43 WBC 13.4 H (4.8-10.8) K/mm3 RBC 2.91 L (4.60-6.20) M/mm3 Hgb 7.8 L (14.1-18.0) g/dL Hct 25.0 L (42.0-52.0) % MCH 26.8 L (27.0-31.2) pg MCHC 31.2 L (31.8-35.4) g/dL Neut % (Auto) 91.1 H (37.0-80.0) % Lymph % (Auto) 3.1 L (10-50) % Eos % (Auto) 0.0 L (0.1-12.0) % Neut # (Auto) 12.2 H (1.8-7.8) K/mm3 Lymph # (Auto) 0.4 L (0.7-4.5) K/mm3 Neutrophils % (Manual) 87 H (42-76) % Lymphocytes % (Manual) 7 L (10-50) % ESR 103 H (0-20) mm/hr PT 13.0 H (10.1-12.5) seconds INR 1.18 H (0.9-1.1) VBG pH 7.45 H (7.31-7.41) mmol/L VBG O2 Saturation 70.7 H (50-70) % VBG Lactic Acid 2.1 H (0.4-2.0) mmol/L Sodium 130 L (136-145) mmol/L Potassium (3.5-5.1) mmoL/L Chloride 96 L (98-107) mmol/L Glucose 153 H (74-100) mg/dl POC Glucose (70-110) Calcium (8.4-10.2) mg/dl Total Bilirubin 2.1 H (0.2-1.3) mg/dl Direct Bilirubin (0.0-0.4) mg/dl AST 119 H (17-59) U/L ALT 109 H (12-78) U/L Alkaline Phosphatase 211 H (38-126) U/L C-Reactive Protein 156.0 H 151.9 H (0-4) mg/L NT-Pro-B Natriuret Pep 7140 H (0-125) pg/mL Total Protein (6.3-8.2) g/dl Albumin (3.5-5.0) g/dl Globulin 3.5 H (1.3-3.2) g/dL Albumin/Globulin Ratio (1.1-1.8) Cholesterol (140-200) mg/dl LDL Cholesterol Direct (100-129) mg/dL HDL Cholesterol (40-60) mg/dl Cholesterol/HDL Ratio (1-3.5) Lipase 12 L (23-300) U/L 05/22/24 05/22/24 05/22/24 Range/Units 05:14 05:14 11:34 WBC 11.8 H (4.8-10.8) K/mm3 RBC 3.19 L (4.60-6.20) M/mm3 Hgb 8.4 L (14.1-18.0) g/dL Hct 26.9 L (42.0-52.0) % MCH 26.3 L (27.0-31.2) pg MCHC 31.2 L (31.8-35.4) g/dL Neut % (Auto) 86.7 H (37.0-80.0) % Lymph % (Auto) 5.6 L (10-50) % Eos % (Auto) 0.0 L (0.1-12.0) % Neut # (Auto) 10.3 H (1.8-7.8) K/mm3 Lymph # (Auto) (0.7-4.5) K/mm3 Neutrophils % (Manual) (42-76) % Lymphocytes % (Manual) (10-50) % ESR (0-20) mm/hr PT (10.1-12.5) seconds INR (0.9-1.1) VBG pH (7.31-7.41) mmol/L VBG O2 Saturation (50-70) % VBG Lactic Acid (0.4-2.0) mmol/L Sodium 132 L (136-145) mmol/L Potassium 3.2 L (3.5-5.1) mmoL/L Chloride (98-107) mmol/L Glucose (74-100) mg/dl POC Glucose 129 H (70-110) Calcium 8.1 L (8.4-10.2) mg/dl Total Bilirubin 1.8 H 1.7 H (0.2-1.3) mg/dl Direct Bilirubin 1.0 H (0.0-0.4) mg/dl AST 86 H D (17-59) U/L ALT 85 H (12-78) U/L Alkaline Phosphatase 160 H (38-126) U/L C-Reactive Protein (0-4) mg/L NT-Pro-B Natriuret Pep (0-125) pg/mL Total Protein 6.2 L (6.3-8.2) g/dl Albumin 3.1 L D (3.5-5.0) g/dl Globulin (1.3-3.2) g/dL Albumin/Globulin Ratio 1.0 L (1.1-1.8) Cholesterol 58 L (140-200) mg/dl LDL Cholesterol Direct < 30.00 L (100-129) mg/dL HDL Cholesterol 16 L (40-60) mg/dl Cholesterol/HDL Ratio 3.6 H (1-3.5) Lipase (23-300) U/L H & H 05/21/24 05/22/24 Range/Units 23:10 05:14 Hgb 7.8 L 8.4 L (14.1-18.0) g/dL Hct 25.0 L 26.9 L (42.0-52.0) % Coagulation 05/21/24 Range/Units 23:10 INR 1.18 H (0.9-1.1) All other labs normal. Assessment and Plan *Assessment and plan (1) Callus of foot: Status: Acute Category: Medical Code(s): L84 - Corns and callosities (2) Callus of heel: Status: Acute Category: Medical Code(s): L84 - Corns and callosities (3) Acquired hammer toes of both feet: Status: Acute Category: Medical Code(s): M20.41 - Other hammer toe(s) (acquired), right foot; M20.42 - Other hammer toe(s) (acquired), left foot (4) Ulcers of both great toes: Status: Acute Category: Medical Code(s): L97.519 - Non-pressure chronic ulcer of other part of right foot with unspecified severity; L97.529 - Non-pressure chronic ulcer of other part of left foot with unspecified severity (5) Diabetic ulcer of foot associated with diabetes mellitus due to underlying condition, limited to breakdown of skin: Start date: 05/22/24 Start time: 11:30 Problem Comment: b/l medial sub 1st ulcers, limited to skin breakdown Status: Acute Qualifiers: Diabetic foot ulcer location: toe Laterality: unspecified laterality Qualified Code(s): E08.621 - Diabetes mellitus due to underlying condition with foot ulcer; L97.501 - Non-pressure chronic ulcer of other part of unspecified foot limited to breakdown of skin Category: Medical Code(s): E08.621 - Diabetes mellitus due to underlying condition with foot ulcer; L97.501 - Non-pressure chronic ulcer of other part of unspecified foot limited to breakdown of skin (6) Keratosis: Status: Acute Category: Medical Code(s): L57.0 - Actinic keratosis (7) Onychogryposis of toenail: Status: Acute Category: Medical Code(s): L60.2 - Onychogryphosis (8) Discoloration and thickening of nails both feet: Status: Acute Category: Medical Code(s): L60.8 - Other nail disorders (9) Cellulitis of leg: Status: Acute Qualifiers: Laterality: unspecified laterality Qualified Code(s): L03.119 - Cellulitis of unspecified part of limb Category: Medical Code(s): L03.119 - Cellulitis of unspecified part of limb (10) Diabetes: Status: Inactive Qualifiers: Diabetes mellitus complication status: with other specified complication 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 -Patient tolerated the procedure well. -Recommend the use of angelique board to file nails down and keep thinner. -Recommend Patient to start routine DFC with nail trimming every 3 months or as needed. Diabetic ulcers to b/l feet (B/L medial hallux, medial sub-first)/callus care: -Wounds cleaned with wound acid tank cleaner -Debrided with curette and #15 blade see above for measurements -Dressed with betadine and silver, gauze, kerlix and lety wrap -Plan to debride and change dressings again tomorrow. -Ulcers are pretty superficial, they do not probe or have drainage. -WBC appears to be trending down, although his ESR and CRP are elevated I feel as though it is from another source and not his feet. -Dr. Winslow is out of town this week but I don't feel that they will require any surgical debridement at this time. -All order and recommendations per Dr. Winslow
[2024-05-22] MEDS: VANCOMYCIN HCL 2,250 MG in 0.9 % SODIUM CHLORIDE 250 ML 125 MG IV (13:10)
--- NOTE | 2024-05-22 13:24 | P.CONCA_ITS ---
History of Present Illness History of Present Illness Consult date: 05/22/24 Requesting physician: Mynor Ascencio Consult reason: atrial fibrillation Chief complaint: Sepsis, A. fib Additional Medical History:: 1. Hospitalization for acute on chronic right-sided heart failure, NYHA II-III, 03/2023 A. Echo, 03/2023, normal EF, severely dilated RV with reduced RV function and evidence of RV pressure overload. Mild MR/moderate TR/mild PI with RVSP 41 mmHg B. SGLT2 inhibitor avoided due to history of UTI and incontinence C. Blood pressure chronically low D. Chronic lower extremity edema with recurrent cellulitis of the legs and feet 2. Hypertension 3. Hyperlipidemia 4. History of DVT/PE A. Eliquis therapy 5. Chronic venous insufficiency of the lower extremity 6. History of schizophrenia 7. Large hematoma of the right thigh, 04/2024 A. Ortho evaluation with review of CT of LE's with no need for surgery 8. Chronic anemia with Hgb in the 9 range A. Recently in the 7-8 range with right thigh hematoma 9. Insulin-dependent diabetes mellitus History of present illness: 63-year-old white male resident of a local assisted living home was brought to the emergency department for evaluation due to confusion, dark-colored urine, incontinence and fever. Extensive workup performed in the ER including CT of the head negative for any acute abnormalities, CT of the abdomen revealing no acute findings outside of a known right quadricep thin-walled fluid collection and CT of the chest negative for PE. Due to low blood pressure patient was st arted on norepinephrine. Suspected to have sepsis but unable to identify source. Cardiology consulted for atrial fibrillation. Patient is on chronic anticoagulation with Eliquis due to history of DVT and pulmonary embolus. Atrial fibrillation is rate controlled at this time. Currently on norepinephrine for BP support. 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 [facility] Disclaimer: The information contained in this section may have been updated after the patient was seen, as this information can be updated by other users. Medical History Scrotal edema Edema (HFpEF) heart failure with preserved ejection fraction Pleural effusion Pulmonary edema Hypoxic respiratory failure UTI (urinary tract infection) Cellulitis of left thigh Cellulitis of right thigh Abdominal wall cellulitis Depression Tobacco dependence Mood disorder Chronic anticoagulation Varicose veins of both lower extremities Chronic venous insufficiency Hernia Urinary retention HLD (hyperlipidemia) Acid reflux Smoker Neuropathy Pulmonary embolism DVT (deep venous thrombosis) Diabetes Family History Other No significant family history Social History (Updated 05/22/24 @ 03:27 by Macey Ya RN) Smoking Status: Current every day smoker alcohol intake: never current occupational status: disabled Travel in the last 8 weeks: None housing: [facility] Contact w/someone who lives/traveled outside [place] past 30 days?: No Exposure to someone with infectious disease in past 14 days?: No Do you have a fever (greater than 100.4 F or 38 C)?: Yes Have you tested positive for COVID-19: No Exposed to someone with COVID-19 in past 14 days?: No Do you have a sore throat?: No Do you have a cough?: No Do you have any weakness?: No Are you experiencing any nausea/vomitting?: No Do you have any diarrhea?: No Are you experiencing any unusual bleeding?: No Do you have any muscle aches/pain?: No Do you have any abdominal pain?: No Are you experiencing loss of taste or smell?: No Review of Systems Review of Systems Review of systems:: pertinent systems reviewed and negative unless documented below Constitutional Constitutional: Reports headache(s) ENT Ears, Nose, Mouth, and Throat: Reports headache(s) *Cardiovascular Cardiovascular: Denies chest pain and Reports dyspnea on exertion *Respiratory Respiratory: Reports dyspnea on exertion *Neurologic Neurologic: Reports headache(s) Exam Data for Last 24 hours Vital signs and Labs for Last 24 Hours: Temp Pulse Resp BP Pulse Ox O2 Del Method O2 Flow Rate 97.8 F 82 19 108/63 L 97 Room Air 2 05/22/24 12:01 05/22/24 13:00 05/22/24 13:00 05/22/24 13:00 05/22/24 13:00 05/22/24 13:00 05/22/24 09:45 Laboratory Results - last 24 hr 05/21/24 05:18: Chlamy pneumoniae PCR Not detected, Adenovirus (PCR) Not detected, B. pertussis DNA (PCR) Not detected, Coronavirus OC43 (PCR) Not detected, Coronavirus HKU1 (PCR) Not detected, Coronavirus 229E (PCR) Not detected, SARS-CoV-2 (PCR) Not detected, Coronavirus NL63 (PCR) Not detected, Human Metapneumovir PCR Not detected, Influenza A (H1) PCR Not detected, Influ A (H1N1/09) PCR Not detected, Influenza A (H3) PCR Not detected, Influenza Type A (PCR) Not detected, Influenza Type B (PCR) Not detected, M. pneumoniae (PCR) Not detected, Parainfluenza 1 (PCR) Not detected, Parainfluenza 2 (PCR) Not detected, Parainfluenza 3 (PCR) Not detected, Parainfluenza 4 (PCR) Not detected, RSV (PCR) Not detected, Entero/Rhino (PCR) Not detected 05/21/24 23:10: WBC 13.4 H, RBC 2.91 L, Hgb 7.8 L, Hct 25.0 L, MCV 85.9, MCH 26.8 L, MCHC 31.2 L, RDW 15.9, Plt Count 196, MPV 8.7, Neut % (Auto) 91.1 H, Lymph % (Auto) 3.1 L, [place] % (Auto) 4.6, Eos % (Auto) 0.0 L, Baso % (Auto) 0.2, Neut # (Auto) 12.2 H, Lymph # (Auto) 0.4 L, [place] # (Auto) 0.6, Eos # (Auto) 0.0, Baso # (Auto) 0.0, Total Counted 100, Neutrophils % (Manual) 87 H, Lymphocytes % (Manual) 7 L, Monocytes % (Manual) 6, Platelet Estimate Normal, RBC Morphology Normal, ESR 103 H, PT 13.0 H, INR 1.18 H, Sodium 130 L, Potassium 3.7, Chloride 96 L, Carbon Dioxide 28, Anion Gap 9.7, BUN 19, Creatinine 1.10, Estimated Creat Clear 132, Estimated GFR 68, Est GFR ( Amer) 82, Glucose 153 H, Lactate 1.7, Calcium 8.4, Total Bilirubin 2.1 H, AST 119 H, ALT 109 H, Alkaline Phosphatase 211 H, Troponin I < 0.01, C-Reactive Protein 156.0 H, NT-Pro-B Natriuret Pep 7140 H, Total Protein 7.3, Albumin 3.8, Globulin 3.5 H, Albumin/Globulin Ratio 1.1, Lipase 12 L, Plasma/Serum Alcohol < 10 05/21/24 23:13: VBG pH 7.45 H, VBG pCO2 37.8, VBG pO2 38.6, VBG HCO3 25.4, VBG Total CO2 26.6, VBG O2 Saturation 70.7 H, VBG Base Excess 1.4, VBG Lactic Acid 2.1 H 05/21/24 23:28: Urine Color Yellow, Urine Appearance Clear, Urine pH 6.0, Ur Specific Ingalls 1.015, Urine Protein Trace, Urine Glucose (UA) 100, Urine Ketones Negative, Urine Blood Trace-l, Urine Nitrate Negative, Urine Bilirubin Negative, Urine Urobilinogen >=8.0, Ur Leukocyte Esterase Negative, Urine RBC 5- 10, Urine WBC Occasional, Ur Squamous Epith Cells Occasional, Urine Bacteria 1+, Urine Opiates Screen Negative, Urine Methadone Screen Negative, Ur Barbituates Screen Negative, Ur Phencyclidine Scrn Negative, Ur Amphetamines Screen Negative, U Benzodiazepines Scrn Negative, Urine Cocaine Screen Negative, U Marijuana (THC) Screen Negative 05/22/24 02:43: Lactate 1.0, Troponin I < 0.01, C-Reactive Protein 151.9 H 05/22/24 03:09: POC Glucose 103 05/22/24 05:14: WBC 11.8 H, RBC 3.19 L, Hgb 8.4 L, Hct 26.9 L, MCV 84.3, MCH 26.3 L, MCHC 31.2 L, RDW 15.9, Plt Count 219, MPV 9.2, Neut % (Auto) 86.7 H, Lymph % (Auto) 5.6 L, Fre[place] % (Auto) 6.5, Eos % (Auto) 0.0 L, Baso % (Auto) 0.3, Neut # (Auto) 10.3 H, Lymph # (Auto) 0.7, [place] # (Auto) 0.8, Eos # (Auto) 0.0, Baso # (Auto) 0.0, Sodium 132 L, Potassium 3.2 L, Chloride 99, Carbon Dioxide 29, Anion Gap 7.2, BUN 19, Creatinine 1.00, Estimated Creat Clear 128, Estimated GFR 75, Est GFR ( Amer) 91, Glucose 85 D, Hemoglobin A1c 5.6, Lactate 0.7, Calcium 8.1 L, Total Bilirubin 1.8 H 05/22/24 05:14: Total Bilirubin 1.7 H, Direct Bilirubin 1.0 H, Conjugated Bilirubin 0.3, Indirect Bilirubin 0.7, Unconjugated Bilirubin 0.7, AST 86 H D, ALT 85 H, Alkaline Phosphatase 160 H, Troponin I < 0.01, Total Protein 6.2 L, Albumin 3.1 L D, Globulin 3.1, Albumin/Globulin Ratio 1.0 L, Triglycerides 44, Cholesterol 58 L, LDL Cholesterol Direct < 30.00 L, VLDL Cholesterol 9, HDL Cholesterol 16 L, Cholesterol/HDL Ratio 3.6 H, Procalcitonin 1.34 05/22/24 06:22: POC Glucose 95 05/22/24 11:34: POC Glucose 129 H I & O for Last 24 hours: Intake & Output 05/20/24 05/21/24 05/22/24 05/23/24 11:59 11:59 11:59 11:59 Intake Total 246.438 / 246.438 Output Total 2200 / 2200 0 / 0 Balance -1953.562 / -1953.562 0 / 0 Weight 264 lb 12.791 oz Constitutional Constitutional: no acute distress *Routine Respiratory Exam Respiratory: Present decreased breath sounds; Absent rhonchi or wheezes *Routine Cardiovascular Exam Cardiovascular: Present irregularly irregular; Absent murmur, gallop or rubs *Routine Extremities Exam Extremities: Present edema *Routine Neurological Exam Neurological: Present alert Meds Home Medications and Allergies Home Medications ?Medication ?Instructions ?Recorded ?Confirmed ?Type atorvastatin 40 mg tablet 40 mg PO HS Cholesterol 09/08/20 05/22/24 History glimepiride 4 mg tablet 4 mg PO DAILY Diabetes 09/08/20 05/22/24 History insulin glargine 100 unit/mL 25 unit SQ HS Diabetes 09/08/20 05/22/24 History subcutaneous solution (Lantus U-100 Insulin) tamsulosin 0.4 mg capsule 0.4 mg PO HS Prostate 09/08/20 05/22/24 History trazodone 50 mg tablet 50 mg PO HS Sleep 09/08/20 05/22/24 History oxybutynin chloride 10 mg 10 mg PO HS Bladder 11/22/22 05/22/24 History tablet,extended release 24 hr aspirin 81 mg tablet,delayed 81 mg PO DAILY Heart Health 04/07/23 05/22/24 History release bupropion HCl 150 mg 24 hr tablet, 150 mg PO DAILY 04/30/24 05/22/24 History extended release gabapentin 100 mg capsule 100 mg PO HS 04/30/24 05/22/24 History omeprazole 20 mg capsule,delayed 20 mg PO HS 04/30/24 05/22/24 History release oxcarbazepine 300 mg tablet 300 mg PO BID 04/30/24 05/22/24 History sertraline 100 mg tablet 150 mg PO BID 04/30/24 05/22/24 History acetaminophen 325 mg tablet 325 mg PO Q8HP PRN MILD PAIN/FEVER 05/01/24 05/22/24 History aripiprazole 10 mg tablet 10 mg PO HS 05/01/24 05/22/24 History bumetanide 2 mg tablet 2 mg PO 0800,199905/01/24 05/22/24 History ergocalciferol (vitamin D2) 1,250 1,250 mcg PO FR 05/01/24 05/22/24 History mcg (50,000 unit) capsule (Vitamin D2) ferrous sulfate 325 mg (65 mg 325 mg PO DAILY 05/01/24 05/22/24 History iron) tablet nystatin 100,000 unit/gram topical 1 applic topical BID 05/01/24 05/22/24 History cream olanzapine 5 mg disintegrating 5 mg PO HS 05/01/24 05/22/24 History tablet polyethylene glycol 3350 17 gram 17 g PO BIDP PRN Constipation 05/01/24 05/22/24 History oral powder packet (Miralax) New Prescriptions to Start Prescriptions: Allergies Allergy/AdvReac Type Severity Reaction Status Date / Time No Known Allergies Allergy Verified 11/22/22 18:46 Assessment and Plan *Assessment and plan (1) Sepsis: Status: Acute Qualifiers: Acute respiratory failure type: with hypoxia Sepsis acute organ dysfunction status: with acute organ dysfunction Sepsis type: sepsis due to unspecified organism Severe sepsis acute organ dysfunction type: acute respiratory failure Severe sepsis shock status: with septic shock Qualified Code(s): A41.9 - Sepsis, unspecified organism; R65.21 - Severe sepsis with septic shock; J96.01 - Acute respiratory failure with hypoxia Category: Medical Code(s): A41.9 - Sepsis, unspecified organism (2) (HFpEF) heart failure with preserved ejection fraction: Status: Acute Qualifiers: Heart failure chronicity: acute Qualified Code(s): I50.31 - Acute diastolic (congestive) heart failure Category: Medical Code(s): I50.30 - Unspecified diastolic (congestive) heart failure (3) Afib: Status: Acute Qualifiers: Atrial fibrillation type: unspecified Qualified Code(s): I48.91 - Unspecified atrial fibrillation Category: Medical Code(s): I48.91 - Unspecified atrial fibrillation (4) Hematoma of right thigh: Status: Acute Qualifiers: Encounter type: initial encounter Qualified Code(s): S70.11XA - Contusion of right thigh, initial encounter Category: Medical Code(s): S70.11XA - Contusion of right thigh, initial encounter (5) HLD (hyperlipidemia): Status: Acute Qualifiers: Hyperlipidemia type: mixed hyperlipidemia Qualified Code(s): E78.2 - Mixed hyperlipidemia Category: Medical Code(s): E78.5 - Hyperlipidemia, unspecified Plan 1. Sepsis of unknown origin, possible pneumonitis vs cellulitis (possibly chronic) vs cholecystitis (no symptoms) -on Abx per Hospitalist (piperacillin and vancomycin) -on norepi for BP support -CRP 156, ESR 103 -procalcitonin 1.34 2. A. fib with CVR -use lovenox while in hospital in case surgery is needed 3. HFpEF/Right heart failure -recommend Right heart cath due to concern for constrictive pericarditis and to guide diuretics -BNP 7140 -troponins normal 4. Right thigh hematoma -chronic since earlier this month 5. Chronic anemia in the range of 9 -recently down to 7-8 with right thigh hematoma 6. Hypokalemia -supplement -check Mag level 7. Transaminitis without symptoms -improving -mild GB thickening on CT 8. Hyponatremia -improving Right heart cath tomorrow due to concern for constrictive pericarditis and to guide diuretic Hold lovenox in AM
--- NOTE | 2024-05-22 14:06 | SW/DCPLANNER ---
This patient currently resides at [facility]. PT has evaluated patient today and stated that he is safe to [facility]. I have updated Ana kelley/ [facility] and she stated that patient can return once medically stable for discharge. Ana stated that she will not need to do onsite evaluation. Per MD patient could be ready for discharge tomorrow pending no setbacks.
--- NOTE | 2024-05-22 15:07 | HMH.PHAINT1 ---
Pharmacy Intervention Comments: MEDICATION RECONCILIATION COMPLETED ON PATIENT USING DISCHARGE SUMMARY FROM PREVIOUS ADMISSION. -AMIE SANDS, LAMARD
[2024-05-22 15:22] LABS: Magnesium 2.1 mg/dl (1.6-2.3)
[2024-05-22] MEDS: SODIUM CHLORIDE 0.9% 10ML FLUSH SYRINGE 10 ML IV (15:46)
[2024-05-22 15:54] LABS: POC Glucose,Bedside 214 (70-110)
[2024-05-22] MEDS: humaLOG 100 UNITS/ML 10ML VIAL (SSI) SUBCUT (16:04)
--- NOTE | 2024-05-22 16:43 | PC.NURSE ---
No acute events this shift. Pt on room air for majority of shift, but placed back on 2 L recently while pt was resting in bed d/t desatting to mid 80's. Remains in A-Fib/Flutter on tele w/ rate in the 80-90's. Levo gtt stopped @ 1350, MAP remains >65. Pt up to chair for most of the shift, tolerates activity well. When transferring from side of bed to chair pt requires minimal standby assistance. Pt calls out appropriately. Call huffman w/in reach. No complaints voiced. POC ongoing.
[2024-05-22 21:12] LABS: POC Glucose,Bedside 143 (70-110)
[2024-05-22] MEDS: POTASSIUM CHLORIDE 20MEQ TAB 20 MEQ PO (21:44)
[2024-05-23] VITALS (24 sets, daily range): BP systolic 87–116; BP diastolic 41–65; PULSE 61–98; RESP 14–23; TEMP 36.6–37.1; O2SAT 90–98; BMI 32.8
[2024-05-23] MEDS: VANCOMYCIN HCL 2,250 MG in 0.9 % SODIUM CHLORIDE 250 ML 125 MG IV (01:55)
[2024-05-23] MEDS: PIPERACILLIN/TAZO 4.5 GM in 0.9 % SODIUM CHLORIDE 100 ML IV ×4 (05:30→21:30)
[2024-05-23 06:07] LABS: Basophils % 0.4 % (0.1-2.0); Eosinophils # 0.2 K/mm3 (0.0-0.4); Eosinophils % 1.8 % (0.1-12.0); Hematocrit 29.7 % (42.0-52.0); Hemoglobin 9.1 g/dL (14.1-18.0); Lymphocytes # 1.2 K/mm3 (0.7-4.5); Lymphocytes % 14.3 % (10-50); Mean Corpuscular HGB Conc 30.6 g/dL (31.8-35.4); Mean Corpuscular Hemoglobin 26.2 pg (27.0-31.2); Mean Corpuscular Volume 85.6 fl (80-94); Mean Platelet Volume 9.4 fl (7.4-10.4); Monocytes # 0.7 K/mm3 (0.1-1.0); Monocytes % 7.6 % (1.7-9.3); Neutrophils # 6.4 K/mm3 (1.8-7.8); Neutrophils % 74.4 % (37.0-80.0); Platelet Count 252 K/mm3 (142-424); Red Blood Count 3.47 M/mm3 (4.60-6.20); White Blood Count 8.6 K/mm3 (4.8-10.8)
[2024-05-23 06:15] LABS: POC Glucose,Bedside 148 (70-110)
[2024-05-23 06:35] LABS: Alanine Aminotransferase 109 U/L (12-78); Albumin Level 3.3 g/dl (3.5-5.0); Albumin/Globulin Ratio 0.9 (1.1-1.8); Alkaline Phosphatase 150 U/L (38-126); Anion Gap 14.1 mEq/L (5-15); Aspartate Amino Transferase 117 U/L (17-59); Blood Urea Nitrogen 22 mg/dl (9-20); Calcium 9.1 mg/dl (8.4-10.2); Carbon Dioxide 27 mmol/L (22.0-30.0); Chloride 101 mmol/L (98-107); Creatinine Clearance Estimated 99 mL/min (50-200); Estimated Glomerular Filt Rate 56 ml/min (>60); GFR (African American) 67 ML/MIN (>60); Globulin 3.5 g/dL (1.3-3.2); Glucose 128 mg/dl (74-100); Potassium 4.1 mmoL/L (3.5-5.1); Sodium 138 mmol/L (136-145); Total Protein,Serum 6.8 g/dl (6.3-8.2)
[2024-05-23 06:41] LABS: C-Reactive Protein 175.8 mg/L (0-4)
--- NOTE | 2024-05-23 06:56 | EXP.ORTH.PN ---
Subjective *Date: 05/23/24 *Time: 10:27 Interval history: Patient doing well this morning, stated he rested well in the night, denies pain at this time. He was sitting up in chair and saturation was in low 80's, the nurse came in and applied his nasal cannula and sats instantly raised to upper 97-98%. Ortho Exam (Inpt) Vital signs and Labs for Last 24 Hours: Temp Pulse Resp BP Pulse Ox O2 Del Method O2 Flow Rate 97.9 F 64 20 99/59 L 91 L Room Air 2 05/23/24 04:00 05/23/24 06:05 05/23/24 06:05 05/23/24 06:05 05/23/24 06:05 05/23/24 06:05 05/22/24 19:00 Laboratory Results - last 24 hr 05/21/24 05:18: Chlamy pneumoniae PCR Not detected, Adenovirus (PCR) Not detected, B. pertussis DNA (PCR) Not detected, Coronavirus OC43 (PCR) Not detected, Coronavirus HKU1 (PCR) Not detected, Coronavirus 229E (PCR) Not detected, SARS-CoV-2 (PCR) Not detected, Coronavirus NL63 (PCR) Not detected, Human Metapneumovir PCR Not detected, Influenza A (H1) PCR Not detected, Influ A (H1N1/09) PCR Not detected, Influenza A (H3) PCR Not detected, Influenza Type A (PCR) Not detected, Influenza Type B (PCR) Not detected, M. pneumoniae (PCR) Not detected, Parainfluenza 1 (PCR) Not detected, Parainfluenza 2 (PCR) Not detected, Parainfluenza 3 (PCR) Not detected, Parainfluenza 4 (PCR) Not detected, RSV (PCR) Not detected, Entero/Rhino (PCR) Not detected 05/22/24 05:14: Hemoglobin A1c 5.6, Magnesium 2.1, Triglycerides 44, Cholesterol 58 L, LDL Cholesterol Direct < 30.00 L, VLDL Cholesterol 9, HDL Cholesterol 16 L, Cholesterol/HDL Ratio 3.6 H, Procalcitonin 1.34 05/22/24 11:34: POC Glucose 129 H 05/22/24 15:47: POC Glucose 214 H 05/22/24 21:04: POC Glucose 143 H 05/23/24 05:15: WBC 8.6 D, RBC 3.47 L, Hgb 9.1 L, Hct 29.7 L, MCV 85.6, MCH 26.2 L, MCHC 30.6 L, RDW 16.0, Plt Count 252, MPV 9.4, Neut % (Auto) 74.4, Lymph % (Auto) 14.3, Johnston % (Auto) 7.6, Eos % (Auto) 1.8, Baso % (Auto) 0.4, Neut # (Auto) 6.4, Lymph # (Auto) 1.2, [place] # (Auto) 0.7, Eos # (Auto) 0.2, Baso # (Auto) 0.0, Sodium 138, Potassium 4.1 D, Chloride 101, Carbon Dioxide 27, Anion Gap 14.1, BUN 22 H, Creatinine 1.30 H D, Estimated Creat Clear 99, Estimated GFR 56 L, Est GFR ( Amer) 67 D, Glucose 128 H, Calcium 9.1, Total Bilirubin 1.0, AST 117 H D, ALT 109 H D, Alkaline Phosphatase 150 H, C-Reactive Protein 175.8 H, Total Protein 6.8, Albumin 3.3 L, Globulin 3.5 H, Albumin/Globulin Ratio 0.9 L 05/23/24 05:55: POC Glucose 148 H I & O for Labs for Last 24 Hours: Intake & Output 05/20/24 05/21/24 05/22/24 05/23/24 23:59 23:59 23:59 23:59 Intake Total 762.626 / 762.626 100 / 100 Output Total 2475 / 2475 300 / 300 Balance -1712.374 / -1712.374 -200 / -200 Weight 300 lb 264 lb 12.755 oz 264 lb 8.875 oz Microbiology Reports for the Last 24 Hours: Microbiology 05/21/24 23:10 Blood Blood Culture - Preliminary NO GROWTH AFTER 24 HOURS 05/21/24 23:10 Blood Blood Culture - Preliminary NO GROWTH AFTER 24 HOURS Constitutional: Present no acute distress and cooperative Head: Present normocephalic Eyes: Present as per HPI Neck: Present normal inspection Respiratory: Present normal respiratory effort and able to speak in complete sentences Cardiac: Present posterior tibial pulses present (Present but weakly palpable) and pedal pulses present Comments:: Deferred Rectal (male): Present deferred (male): Present deferred Extremities: Present tenderness (ulcers and calluses are tender ), normal capillary refill, edema and other Comment:: B/L DFU noted from dry thick callused skin that busted open. No active drainage noted from any of the sites.. -B/L medial hallux ulcers, B/L medial sub 1st ulcers, Debrided with a curette and a 15' blade sharply, excisionally through skin into the subcu layer. Fibrotic tissue was removed. Good bleeding was noted. Granular base was noted. -Post debridement the wounds measured : wounds improving and smaller today. -Left medial hallux- 05/23 - 1.7 x 0.4x 0.1 cm 05/22 -2.2 x 0.8 x 0.2 cm -Left sub 5th (lateral side) - 05/23- 3.5 x 0.5 x 0.2 cm 05/22- 5.4 x 0.7 x 0.2 cm -Right medial hallux- 05/23- 1.2 x 0.5x 0.1 cm 05/22- 2.0 x 1.5 x 0.1 cm -Right sub 1st 05/23 05/23 - 2.5x 0.3x 0.1 cm 05/22 - 4.0 x 0.5 x 0.1 cm (thin fissure that opened creating this wound) Muscle Strength (Extremity): Mild Weakness Skin: Present erythema (B/L lower legs), warm, lesions (Thick callused skin to heels and ball of foot ), wounds (Bilateral feet DFU's) and cracked (Dry cracked skin to bilateral feet/heels) Neuro: Present Tingling (Mild decrease in sensation), Weakness, oriented x 3, tone normal and moves all extremities Ankle: bilateral: erythema, bilateral: swelling (Plus pedal edema), bilateral: tenderness (B/L DFU's tender), bilateral: wound (B/L medial hallux, B/L medial sub 1st) and bilateral: decreased ROM Feet/Toes: bilateral: erythema (B/L lower legs 1+ edema outlined), bilateral: hammer toe, bilateral: nail abnormalities (Nails are thickened discolored), bilateral: onychomycosis (Suspected), bilateral: swelling (Lower legs), bilateral: tenderness (Pain and ulcer and callus sites), bilateral: wound (B/L medial hallux, right subfirst, Left sub-5th ulcers) and bilateral: decreased ROM Assessment and Plan *Assessment and plan (1) Callus of foot: Status: Acute Category: Medical Code(s): L84 - Corns and callosities (2) Callus of heel: Status: Acute Category: Medical Code(s): L84 - Corns and callosities (3) Acquired hammer toes of both feet: Status: Acute Category: Medical Code(s): M20.41 - Other hammer toe(s) (acquired), right foot; M20.42 - Other hammer toe(s) (acquired), left foot (4) Ulcers of both great toes: Status: Acute Category: Medical Code(s): L97.519 - Non-pressure chronic ulcer of other part of right foot with unspecified severity; L97.529 - Non-pressure chronic ulcer of other part of left foot with unspecified severity (5) Diabetic ulcer of foot associated with diabetes mellitus due to underlying condition, limited to breakdown of skin: Start date: 05/22/24 Start time: 11:30 Problem Comment: b/l medial sub 1st ulcers, limited to skin breakdown Status: Acute Qualifiers: Diabetic foot ulcer location: toe Laterality: unspecified laterality Qualified Code(s): E08.621 - Diabetes mellitus due to underlying condition with foot ulcer; L97.501 - Non-pressure chronic ulcer of other part of unspecified foot limited to breakdown of skin Category: Medical Code(s): E08.621 - Diabetes mellitus due to underlying condition with foot ulcer; L97.501 - Non-pressure chronic ulcer of other part of unspecified foot limited to breakdown of skin (6) Keratosis: Status: Acute Category: Medical Code(s): L57.0 - Actinic keratosis (7) Onychogryposis of toenail: Status: Acute Category: Medical Code(s): L60.2 - Onychogryphosis (8) Discoloration and thickening of nails both feet: Status: Acute Category: Medical Code(s): L60.8 - Other nail disorders (9) Cellulitis of leg: Status: Acute Qualifiers: Laterality: unspecified laterality Qualified Code(s): L03.119 - Cellulitis of unspecified part of limb Category: Medical Code(s): L03.119 - Cellulitis of unspecified part of limb (10) Diabetes: Status: Inactive Qualifiers: Diabetes mellitus complication status: with other specified complication Diabetes mellitus superintendent container terminal insulin use: with snf use Diabetes mellitus type: type 2 Qualified Code(s): E11.69 - Type 2 diabetes mellitus with other specified complication; Z79.4 - intermediate (current) use of insulin Category: Medical Code(s): E11.9 - Type 2 diabetes mellitus without complications Plan 05/22/24: Onychodystophy/Onychogr Onychodystrophy Plan -Nails were debrided x?s 10 utilizing manual debridement with a nail nipper. -Patient tolerated the procedure well. -Recommend the use of angelique board to file nails down and keep thinner. -Recommend Patient to start routine DFC with nail trimming every 3 months or as needed. Diabetic ulcers to b/l feet (B/L medial hallux, medial sub-first)/callus care: -Wounds cleaned with wound venetian blind cleaner and repairer -Debrided with curette and #15 blade see above for measurements -Dressed with betadine and silver, gauze, kerlix and lety wrap -Plan to debride and change dressings again tomorrow. -Ulcers are pretty superficial, they do not probe or have drainage. -WBC appears to be trending down, although his ESR and CRP are elevated I feel as though it is from another source and not his feet. -Dr. Winslow is out of town this week but I don't feel that they will require any surgical debridement at this time. -All order and recommendations per Dr. Winslow 05/23/24: Podiatry consult day #2 Inpatient Diabetic ulcers to b/l feet (B/L medial hallux, medial sub-first)/callus care: -Ulcers looking better and smaller today -Wounds cleaned with Hibiclens and wound venetian blind cleaner and repairer -Debrided with curette and #15 blade see above for measurements -Dressed with betadine and silver, gauze, kerlix and lety wrap -Nursing will continue with his daily dressing changes as above starting tomorrow -Ulcers are pretty superficial, they do not probe or have drainage. -WBC appears to be trending down 8.6 today, ESR not finalized yet and CRP 175.8 are elevated -I still think that infection is from another source and not his feet. -Dr. Winslow is out of town this week but I don't feel that they will require any surgical debridement at this time. -All order and recommendations per Dr. Winslow
[2024-05-23] MEDS: POTASSIUM CHLORIDE 20MEQ TAB 20 MEQ PO ×3 (08:20→21:25)
[2024-05-23 08:30] LABS: Procalcitonin 1.08 ng/mL (0.0-2.0)
--- NOTE | 2024-05-23 09:16 | P.PN_ITS ---
Subjective Subjective Date: 05/23/24 Time: 09:16 Principal diagnosis: right heart failure Interval history: 63 yo WM in bedside chair in NAD. Discussed recommendation for right heart cath. Questions answered and pt agrees to proceed. Diuresed 2 liters this admission More alert and breathing normally. Exam Data for Last 24 hours Vital signs and Labs for Last 24 Hours: Temp Pulse Resp BP Pulse Ox O2 Del Method O2 Flow Rate 98.6 F 59 L 14 96/54 L 79 L Nasal Cannula 2 05/23/24 08:01 05/23/24 08:01 05/23/24 08:01 05/23/24 08:01 05/23/24 08:01 05/23/24 08:01 05/23/24 08:01 Laboratory Results - last 24 hr 05/21/24 05:18: Chlamy pneumoniae PCR Not detected, Adenovirus (PCR) Not detected, B. pertussis DNA (PCR) Not detected, Coronavirus OC43 (PCR) Not detected, Coronavirus HKU1 (PCR) Not detected, Coronavirus 229E (PCR) Not detected, SARS-CoV-2 (PCR) Not detected, Coronavirus NL63 (PCR) Not detected, Human Metapneumovir PCR Not detected, Influenza A (H1) PCR Not detected, Influ A (H1N1/09) PCR Not detected, Influenza A (H3) PCR Not detected, Influenza Type A (PCR) Not detected, Influenza Type B (PCR) Not detected, M. pneumoniae (PCR) Not detected, Parainfluenza 1 (PCR) Not detected, Parainfluenza 2 (PCR) Not detected, Parainfluenza 3 (PCR) Not detected, Parainfluenza 4 (PCR) Not detected, RSV (PCR) Not detected, Entero/Rhino (PCR) Not detected 05/22/24 05:14: Hemoglobin A1c 5.6, Magnesium 2.1, Triglycerides 44, Cholesterol 58 L, LDL Cholesterol Direct < 30.00 L, VLDL Cholesterol 9, HDL Cholesterol 16 L , Cholesterol/HDL Ratio 3.6 H 05/22/24 11:34: POC Glucose 129 H 05/22/24 15:47: POC Glucose 214 H 05/22/24 21:04: POC Glucose 143 H 05/23/24 05:15: WBC 8.6 D, RBC 3.47 L, Hgb 9.1 L, Hct 29.7 L, MCV 85.6, MCH 26.2 L, MCHC 30.6 L, RDW 16.0, Plt Count 252, MPV 9.4, Neut % (Auto) 74.4, Lymph % (Auto) 14.3, [place] % (Auto) 7.6, Eos % (Auto) 1.8, Baso % (Auto) 0.4, Neut # (Auto) 6.4, Lymph # (Auto) 1.2, [place] # (Auto) 0.7, Eos # (Auto) 0.2, Baso # (Auto) 0.0, Sodium 138, Potassium 4.1 D, Chloride 101, Carbon Dioxide 27, Anion Gap 14.1, BUN 22 H, Creatinine 1.30 H D, Estimated Creat Clear 99, Estimated GFR 56 L, Est GFR ( Amer) 67 D, Glucose 128 H, Calcium 9.1, Total Bilirubin 1.0, AST 117 H D, ALT 109 H D, Alkaline Phosphatase 150 H, C-Reactive Protein 175.8 H, Total Protein 6.8, Albumin 3.3 L, Globulin 3.5 H, Albumin/Globulin Ratio 0.9 L, Procalcitonin 1.08 05/23/24 05:55: POC Glucose 148 H I & O for Last 24 hours: Intake & Output 05/20/24 05/21/24 05/22/24 05/23/24 11:59 11:59 11:59 11:59 Intake Total 246.438 / 246.438 616.188 / 616.188 Output Total 2200 / 2200 575 / 575 Balance -1952.562 / -1952.562 41.188 / 41.188 Weight 264 lb 12.791 oz 264 lb 8.875 oz Microbiology Reports for the Last 24 Hours: Microbiology 05/21/24 23:28 Urine,Catheterized Urine Culture - Preliminary 05/21/24 23:10 Blood Blood Culture - Preliminary NO GROWTH AFTER 24 HOURS 05/21/24 23:10 Blood Blood Culture - Preliminary NO GROWTH AFTER 24 HOURS Constitutional Constitutional: no acute distress *Routine Respiratory Exam Respiratory: Present decreased breath sounds *Routine Cardiovascular Exam Cardiovascular: Present irregularly irregular *Routine Extremities Exam Extremities: Present edema Progress Note: A&P Assessment and plan (1) Callus of foot: Status: Acute (2) Callus of heel: Status: Acute (3) Acquired hammer toes of both feet: Status: Acute (4) Ulcers of both great toes: Status: Acute (5) Diabetic ulcer of foot associated with diabetes mellitus due to underlying condition, limited to breakdown of skin: Problem details: b/l medial sub 1st ulcers, limited to skin breakdown Status: Acute (6) Keratosis: Status: Acute (7) Onychogryposis of toenail: Status: Acute (8) Discoloration and thickening of nails both feet: Status: Acute (9) Cellulitis of leg: Status: Acute (10) Diabetes: Status: Inactive Assessment and Plan Assessment and Plan for All Diagnoses:: 1. Sepsis of unknown origin, possible pneumonitis vs cellulitis (possibly chronic) vs cholecystitis (no symptoms) -on Abx per Hospitalist (piperacillin and vancomycin) -on norepi for BP support -CRP 156, ESR 103 -procalcitonin 1.34 2. A. fib with CVR -use lovenox while in hospital in case surgery is needed 3. HFpEF/Right heart failure -recommend Right heart cath due to concern for constrictive pericarditis and to guide diuretics -BNP 7140 -troponins normal 4. Right thigh hematoma -chronic since earlier this month 5. Chronic anemia in the range of 9 -recently down to 7-8 with right thigh hematoma -up to 9.1 this admission 6. Hypokalemia -resolved on supplement - Mag level 2.1 7. Transaminitis without symptoms -improving -mild GB thickening on CT 8. Hyponatremia -resolved 9. DM -Hgb A1C 5.6 Proceed with Right heart cath today
[2024-05-23 11:17] LABS: POC Glucose,Bedside 118 (70-110)
--- NOTE | 2024-05-23 11:41 | PC.NURSE ---
Spoke to Katelyn LeeRN in [facility] about pt's procedure time. [facility] staff will place pt on schedule.
--- NOTE | 2024-05-23 12:18 | PC.NURSE ---
V/O, pt may eat lunch because [facility]HC will not be until later this afternoon. Order placed and dietary called for tray.
[2024-05-23 12:26] LABS: Vancomycin,Trough 25.8 ug/mL (5.0-10.0)
--- NOTE | 2024-05-23 12:36 | IR_ITS ---
APPROVED REPORT Patient Location: Inpatient PROCEDURES Right heart catheterization INDICATION Right heart failure, Pulmonary hypertension Informed consent was obtained prior to the procedure. COMPLICATIONS NONE Estimated Blood Loss: LESS THAN 10 ML TECHNIQUE One percent lidocaine was used to anesthetize the right anterior aspect of the neck. A engineering lab technician needle was used to identify the right internal jugular vein. Following this a larger cannulation needle was used to cannulate the right internal jugular vein and a wire was passed into the vein. Prior to the 7 Syriac sheath being inserted the wire was confirmed under fluoroscopic guidance to be in the inferior vena cava. A 7 Syriac sheath was introduced and a [place] catheter was floated using hemodynamic waveforms in the pulmonary artery, right ventricle , and right atrium. Saturations were obtained in the pulmonary artery and the right atrium. At the end of the procedure the patient was transferred to the postop holding area in stable condition for sheath removal. ANGIOGRAPHIC RESULTS Right atrial pressure 12 mmHg Right ventricular pressure 50/12 mmHg Pulmonary artery pressure 50/25 mmHg Pulmonary artery occlusion pressure 20 mmHg Right atrial saturation 60% Pulmonary artery saturation 60% Aortic saturation 100% Hemoglobin 9.1 Cardiac output 6.4 L/min IMPRESSION Moderate pulmonary hypertension Elevated left-sided filling pressures PLAN 1. Treatment per primary team Electronically signed by : Jerman Dominguez MD 05/23/2024 16:59:39
--- NOTE | 2024-05-23 15:46 | PC.NURSE ---
Pt to [facility] via stretcher, with [facility] staff.
[2024-05-23] MEDS: MIDAZOLAM HCL 1MG/ML 5ML VIAL 1 MG IV (16:23)
[2024-05-23] MEDS: FENTANYL 100MCG/2ML VIAL 50 MCG IV (16:24)
[2024-05-23] MEDS: 0.9 % SODIUM CHLORIDE 500 ML 25 ML IV (16:42)
--- NOTE | 2024-05-23 16:58 | SUR.PHASEII ---
Right IJ removed using sterile technique.
[2024-05-23 17:10] LABS: CATHL Arterial O2 SAT 60.6 % (90-100); CATHL Venous O2 SAT 60.8 % (75-80)
[2024-05-23 18:27] LABS: POC Glucose,Bedside 200 (70-110)
[2024-05-23] MEDS: humaLOG 100 UNITS/ML 10ML VIAL (SSI) SUBCUT ×2 (18:28→21:25)
[2024-05-23] MEDS: ENOXAPARIN 120MG/0.8ML SYRINGE 120 MG SUBCUT (21:25)
[2024-05-23 21:51] LABS: POC Glucose,Bedside 309 (70-110)
--- NOTE | 2024-05-23 21:59 | EXP.PN ---
Subjective *Date: 05/23/24 *Time: 21:59 Interval history: Patient states he feels really well today, but transaminitis and inflammatory markers slightly worsening. Follow-up MRCP in the morning, GI consulted. Exam Data for Last 24 hours Vital signs and Labs for Last 24 Hours: Temp Pulse Resp BP Pulse Ox O2 Del Method O2 Flow Rate 98.2 F 91 H 18 103/62 L 94 L Nasal Cannula 2 05/23/24 18:30 05/23/24 18:30 05/23/24 18:30 05/23/24 18:30 05/23/24 18:30 05/23/24 21:00 05/23/24 21:00 Laboratory Results - last 24 hr 05/23/24 05:15: WBC 8.6 D, RBC 3.47 L, Hgb 9.1 L, Hct 29.7 L, MCV 85.6, MCH 26.2 L, MCHC 30.6 L, RDW 16.0, Plt Count 252, MPV 9.4, Neut % (Auto) 74.4, Lymph % (Auto) 14.3, [place] % (Auto) 7.6, Eos % (Auto) 1.8, Baso % (Auto) 0.4, Neut # (Auto) 6.4, Lymph # (Auto) 1.2, [place] # (Auto) 0.7, Eos # (Auto) 0.2, Baso # (Auto) 0.0, Sodium 138, Potassium 4.1 D, Chloride 101, Carbon Dioxide 27, Anion Gap 14.1, BUN 22 H, Creatinine 1.30 H D, Estimated Creat Clear 99, Estimated GFR 56 L, Est GFR ( Amer) 67 D, Glucose 128 H, Calcium 9.1, Total Bilirubin 1.0, AST 117 H D, ALT 109 H D, Alkaline Phosphatase 150 H, C-Reactive Protein 175.8 H, Total Protein 6.8, Albumin 3.3 L, Globulin 3.5 H, Albumin/Globulin Ratio 0.9 L, Procalcitonin 1.08 05/23/24 05:55: POC Glucose 148 H 05/23/24 11:10: POC Glucose 118 H 05/23/24 11:40: Vancomycin Trough 25.8 H 05/23/24 17:07: ABG O2 Sat (Measured) 60.6 L, POC VBG O2 Sat (Cliff) 60.8 L 05/23/24 18:20: POC Glucose 200 H 05/23/24 20:43: POC Glucose 309 H* I & O for Last 24 hours: Intake & Output 05/20/24 05/21/24 05/22/24 05/23/24 23:59 23:59 23:59 23:59 Intake Total 762.626 / 777.227 2819 / 1495 Output Total 2475 / 2475 900 / 900 Balance -1712.374 / -1612.374 595 / 595 Weight 136.078 kg 120.11 kg 120 kg Microbiology Reports for the Last 24 Hours: Microbiology 05/21/24 23:28 Urine,Catheterized Urine Culture - Preliminary 05/21/24 23:10 Blood Blood Culture - Preliminary NO GROWTH AFTER 24 HOURS 05/21/24 23:10 Blood Blood Culture - Preliminary NO GROWTH AFTER 24 HOURS Constitutional Constitutional: no acute distress *Routine Respiratory Exam Respiratory: Present decreased breath sounds *Routine Cardiovascular Exam Cardiovascular: Present irregularly irregular *Routine Extremities Exam Extremities: Present edema Assessment and Plan *Assessment and plan (1) Sepsis: Status: Acute Qualifiers: Acute respiratory failure type: with hypoxia Sepsis acute organ dysfunction status: with acute organ dysfunction Sepsis type: sepsis due to unspecified organism Severe sepsis acute organ dysfunction type: acute respiratory failure Severe sepsis shock status: with septic shock Qualified Code(s): A41.9 - Sepsis, unspecified organism; R65.21 - Severe sepsis with septic shock; J96.01 - Acute respiratory failure with hypoxia Category: Medical Code(s): A41.9 - Sepsis, unspecified organism (2) Cellulitis of leg: Status: Acute Qualifiers: Laterality: unspecified laterality Qualified Code(s): L03.119 - Cellulitis of unspecified part of limb Category: Medical Code(s): L03.119 - Cellulitis of unspecified part of limb (3) Leukocytosis: Status: Acute Qualifiers: Leukocytosis type: unspecified Qualified Code(s): D72.829 - Elevated white blood cell count, unspecified Category: Medical Code(s): D72.829 - Elevated white blood cell count, unspecified (4) Afib: Status: Acute Qualifiers: Atrial fibrillation type: unspecified Qualified Code(s): I48.91 - Unspecified atrial fibrillation Category: Medical Code(s): I48.91 - Unspecified atrial fibrillation (5) Hematoma of right thigh: Status: Acute Qualifiers: Encounter type: initial encounter Qualified Code(s): S70.11XA - Contusion of right thigh, initial encounter Category: Medical Code(s): S70.11XA - Contusion of right thigh, initial encounter (6) AMS (altered mental status): Status: Acute Qualifiers: Altered mental status type: unspecified Qualified Code(s): R41.82 - Altered mental status, unspecified Category: Medical Code(s): R41.82 - Altered mental status, unspecified (7) Normocytic hypochromic anemia: Status: Acute Category: Medical Code(s): D50.9 - Iron deficiency anemia, unspecified (8) Elevated erythrocyte sedimentation rate: Status: Acute Category: Medical Code(s): R70.0 - Elevated erythrocyte sedimentation rate (9) Elevated C-reactive protein (CRP): Status: Acute Category: Medical Code(s): R79.82 - Elevated C-reactive protein (CRP) (10) Transaminitis: Status: Acute Category: Medical Code(s): R74.01 - Elevation of levels of liver transaminase levels (11) Hyperglycemia: Status: Acute Category: Medical Code(s): R73.9 - Hyperglycemia, unspecified (12) Hyponatremia: Status: Acute Category: Medical Code(s): E87.1 - Hypo-osmolality and hyponatremia (13) Acute hypoxemic respiratory failure: Status: Acute Category: Medical Code(s): J96.01 - Acute respiratory failure with hypoxia (14) Hypotension: Status: Acute Qualifiers: Hypotension type: other hypotension type Qualified Code(s): I95.89 - Other hypotension Category: Medical Code(s): I95.9 - Hypotension, unspecified Plan Avi Lyn is a 63-year-old male who presented with confusion and apparent fevers from [facility] and admitted for suspected sepsis. #Sepsis #Suspected choledocholithiasis versus congestive hepatopathy #Transaminitis #Cholelithiasis ? AST/ALT bumped to 117/109, ALP 150. Initial total bilirubin elevated, downtrending now normal. ? Gallbladder ultrasound reveals contracted gallbladder with gallstones. No evidence of acute cholecystitis. Patient does not endorse abdominal pain at all. ? Will follow-up with MRCP in the morning. ? GI consulted, pending further recommendations. ? Continue Zosyn. WBC improved to 8.6. Weaned off Levophed early in hospitalization. ? Follow-up hepatitis panel. ? Blood cultures normal. ? Inflammatory markers uptrending. ? Hematoma in right thigh does not seem to be infected, no pain. #HFpEF exacerbation ? BNP elevated to 7140, lower extremity pitting edema. ? However, patient continues to have low pressures, holding diuretics at this time. Will discuss further with cardiology tomorrow. ? Right heart cath does show elevated left heart pressures. #Low normal blood pressure ? Patient states he has always had low blood pressures, maps are high 60s low 70s. ? Follow-up orthostatic vitals. ? Follow-up morning cortisol, ACTH. TSH normal. #Suspected venous stasis dermatitis ? Lower extremities have pitting edema, erythema with tenderness. Venous Doppler negative for DVT. #A-fib ? Currently rate controlled. Lovenox therapeutic Lovenox for now. Full code DVT prophylaxis: Therapeutic Lovenox as above
[2024-05-24 00:02] LABS: POC Glucose,Bedside 175 (70-110)
[2024-05-24 04:00] VITALS: BMI 32.8
[2024-05-24] MEDS: PIPERACILLIN/TAZO 4.5 GM in 0.9 % SODIUM CHLORIDE 100 ML IV ×2 (04:35→11:44)
[2024-05-24 05:08] LABS: HBsAg Screen Negative (Negative); HCV Ab Non Reactive (Non Reactive); Hep A Ab, IGM Negative (Negative); Hep B Core Ab, IgM Negative (Negative)
--- NOTE | 2024-05-24 05:55 | PC.NURSE ---
v/s, ox4. Iv ABX tolerated. Blood glucose monitored. MRCP in the AM. Npo at midnight. No acute events to report. Plan of care ongoing.
--- NOTE | 2024-05-24 06:00 | MR_ITS ---
FINAL REPORT TECHNIQUE: MR imaging of the abdomen was performed without contrast using multiplanar imaging. In addition, an MRCP was performed with three-dimensional reconstructions. CLINICAL HISTORY: Transaminitis. F/U FROM US COMPARISON: None FINDINGS: Multiplanar MR imaging of the abdomen was performed without contrast. There is degradation of overall image quality secondary to respiratory motion. A trace right pleural effusion is present. Images of the liver reveal no evidence of mass. There is no evidence of biliary ductal dilatation. The gallbladder contains a gallstone measuring up to 12 mm in size, as well as a small amount of sludge. MRCP images reveal normal-sized common bile duct and common hepatic duct, without evidence of choledocholithiasis. Hepatosplenomegaly is present, the liver measuring 20 cm in length, and the spleen measuring 14 cm in length. Limited visualization of the kidneys is unremarkable other than slight stranding in the perinephric fat. No other mass or adenopathy is identified. No evidence of peripancreatic inflammatory change to suggest pancreatitis is identified. No focal pancreatic abnormality is identified. IMPRESSION: The gallbladder contains a gallstone measuring up to 12 mm in size, as well as sludge. MRCP images do not reveal any evidence of choledocholithiasis. Hepatosplenomegaly, and no evidence of pancreatitis or focal pancreatic mass. Reviewed, Interpreted and Dictated by Blayne Melgar MD Transcribed by Blanquita Jimenez Authenticated and [facility]
[2024-05-24 06:42] LABS: POC Glucose,Bedside 142 (70-110)
[2024-05-24 06:53] LABS: Basophils % 0.6 % (0.1-2.0); Eosinophils # 0.2 K/mm3 (0.0-0.4); Eosinophils % 2.3 % (0.1-12.0); Hematocrit 29.4 % (42.0-52.0); Hemoglobin 8.8 g/dL (14.1-18.0); Lymphocytes # 1.1 K/mm3 (0.7-4.5); Lymphocytes % 15.3 % (10-50); Mean Corpuscular HGB Conc 29.9 g/dL (31.8-35.4); Mean Corpuscular Hemoglobin 25.9 pg (27.0-31.2); Mean Corpuscular Volume 86.5 fl (80-94); Mean Platelet Volume 9.3 fl (7.4-10.4); Monocytes # 0.4 K/mm3 (0.1-1.0); Monocytes % 6.4 % (1.7-9.3); Neutrophils % 72.3 % (37.0-80.0); Platelet Count 248 K/mm3 (142-424); White Blood Count 6.9 K/mm3 (4.8-10.8)
[2024-05-24 07:01] LABS: Alanine Aminotransferase 102 U/L (12-78); Albumin Level 3.1 g/dl (3.5-5.0); Albumin/Globulin Ratio 0.9 (1.1-1.8); Alkaline Phosphatase 140 U/L (38-126); Anion Gap 11.8 mEq/L (5-15); Aspartate Amino Transferase 89 U/L (17-59); Bilirubin,Total 0.8 mg/dl (0.2-1.3); Blood Urea Nitrogen 17 mg/dl (9-20); Calcium 8.9 mg/dl (8.4-10.2); Carbon Dioxide 26 mmol/L (22.0-30.0); Chloride 106 mmol/L (98-107); Creatinine Clearance Estimated 117 mL/min (50-200); Estimated Glomerular Filt Rate 68 ml/min (>60); GFR (African American) 82 ML/MIN (>60); Globulin 3.4 g/dL (1.3-3.2); Glucose 128 mg/dl (74-100); Potassium 4.8 mmoL/L (3.5-5.1); Sodium 139 mmol/L (136-145); Total Protein,Serum 6.5 g/dl (6.3-8.2)
[2024-05-24 07:07] LABS: C-Reactive Protein 86.2 mg/L (0-4)
[2024-05-24 07:13] LABS: Erythrocyte Sedimentation Rate 125 mm/hr (0-20)
[2024-05-24 07:54] LABS: Free T4 (Free Thyroxine) 1.46 ng/dl (0.78-2.19)
[2024-05-24] MEDS: BUMETANIDE 1MG/4ML VIAL 2 MG IV ×2 (09:00→16:52)
[2024-05-24] MEDS: MIDODRINE HCL 5 MG TABLET PO (09:01)
[2024-05-24] MEDS: POTASSIUM CHLORIDE 20MEQ TAB 20 MEQ PO ×2 (09:02→13:51)
[2024-05-24] MEDS: ENOXAPARIN 120MG/0.8ML SYRINGE 120 MG SUBCUT ×2 (09:02→20:45)
[2024-05-24 09:05] LABS: Chol/HDL Ratio 5.1 (1-3.5); Cholesterol 77 mg/dl (140-200); HDL Cholesterol 15 mg/dl (40-60); Magnesium 2.5 mg/dl (1.6-2.3); Triglycerides 59 mg/dl (30-150); VLDL Cholesterol 12 mg/dL (0-40)
[2024-05-24 09:13] LABS: NT Pro Brain Natriuretic Pep. 3300 pg/mL (0-125)
[2024-05-24 09:15] VITALS: BP 110/60; PULSE 91; RESP 18; TEMP 36.6; O2SAT 92
[2024-05-24 09:16] LABS: Direct LDL Cholesterol 43.34 mg/dL (100-129)
[2024-05-24] MEDS: humaLOG 100 UNITS/ML 10ML VIAL (SSI) SUBCUT ×2 (11:50→16:51)
[2024-05-24 11:54] VITALS: BP 122/69; PULSE 88; RESP 17; TEMP 36.9; O2SAT 91
[2024-05-24 11:59] LABS: POC Glucose,Bedside 181 (70-110)
--- NOTE | 2024-05-24 12:15 | EXP.CARD.PN ---
Subjective Subjective Date: 05/24/24 Time: 12:15 Principal diagnosis: right heart failure, chronic LE venous insufficiency Interval history: 63 yo WM in bed in NAD. Lieing supine without resp distress. Still with LE edema and erythema (this is likely chronic) RHC showed mod Pulm HTN with mildly elevated pulm artery occlusion pressure at 20 mm Hg Exam Data for Last 24 hours Vital signs and Labs for Last 24 Hours: Temp Pulse Resp BP Pulse Ox O2 Del Method O2 Flow Rate 98.4 F 88 17 122/69 91 L Room Air 2 05/24/24 11:54 05/24/24 11:54 05/24/24 11:54 05/24/24 11:54 05/24/24 11:54 05/24/24 11:54 05/24/24 01:00 Laboratory Results - last 24 hr 05/23/24 08:42: Hepatitis A IgM Ab Negative, Hep Bs Antigen Negative, Hep B Core IgM Ab Negative, Hepatitis C Antibody Non reactive, HCV RNA PCR Test Info Comment 05/23/24 11:40: Vancomycin Trough 25.8 H 05/23/24 17:07: ABG O2 Sat (Measured) 60.6 L, POC VBG O2 Sat (Cliff) 60.8 L 05/23/24 18:20: POC Glucose 200 H 05/23/24 20:43: POC Glucose 309 H* 05/23/24 23:53: POC Glucose 175 H 05/24/24 06:31: WBC 6.9, RBC 3.40 L, Hgb 8.8 L, Hct 29.4 L, MCV 86.5, MCH 25.9 L, MCHC 29.9 L, RDW 16.0, Plt Count 248, MPV 9.3, Neut % (Auto) 72.3, Lymph % (Auto) 15.3, [place] % (Auto) 6.4, Eos % (Auto) 2.3, Baso % (Auto) 0.6, Neut # (Auto) 5.0, Lymph # (Auto) 1.1, [place] # (Auto) 0.4, Eos # (Auto) 0.2, Baso # (Auto) 0.0, ESR 125 H, Sodium 139, Potassium 4.8, Chloride 106, Carbon Dioxide 26, Anion Gap 11.8, BUN 17, Creatinine 1.10, Estimated Creat Clear 117, Estimated GFR 68, Est GFR ( Amer) 82 D, Glucose 128 H, Calcium 8.9, Magnesium 2.5 H D, Total Bilirubin 0.8, AST 89 H, ALT 102 H, Alkaline Phosphatase 140 H, C-Reactive Protein 86.2 H D, NT-Pro-B Natriuret Pep 3300 H, Total Protein 6.5, Albumin 3.1 L, Globulin 3.4 H, Albumin/Globulin Ratio 0.9 L, Triglycerides 59, Cholesterol 77 L, LDL Cholesterol Direct 43.34 L, VLDL Cholesterol 12, HDL Cholesterol 15 L, Cholesterol/HDL Ratio 5.1 H, Free T4 1.46 05/24/24 06:35: POC Glucose 142 H 05/24/24 11:42: POC Glucose 181 H I & O for Last 24 hours: Intake & Output 05/22/24 05/23/24 05/24/24 05/25/24 11:59 11:59 11:59 11:59 Intake Total 246.438 / 687.946 5824.188 / 5277.094 3969 / 2182 Output Total 2200 / 2200 875 / 875 2750 / 2750 Balance -1953.562 / -1953.562 296.188 / 296.188 -568 / -568 Weight 264 lb 12.791 oz 264 lb 8.875 oz 264 lb 8.875 oz Microbiology Reports for the Last 24 Hours: Microbiology 05/22/24 02:55 Anus CRE Surveillance Culture - Final Negative 05/21/24 23:28 Urine,Catheterized Urine Culture - Preliminary 05/21/24 23:10 Blood Blood Culture - Preliminary NO GROWTH AFTER 48 HOURS 05/21/24 23:10 Blood Blood Culture - Preliminary NO GROWTH AFTER 48 HOURS Constitutional Constitutional: no acute distress *Routine Respiratory Exam Respiratory: Present decreased breath sounds and CTA bilaterally *Routine Cardiovascular Exam Cardiovascular: Present RRR; Absent murmur, gallop or rubs *Routine Extremities Exam Extremities: Present edema Progress Note: A&P Assessment and plan (1) Sepsis: Status: Acute (2) Cellulitis of leg: Status: Acute (3) Leukocytosis: Status: Acute (4) Afib: Status: Acute (5) Hematoma of right thigh: Status: Acute (6) AMS (altered mental status): Status: Acute (7) Normocytic hypochromic anemia: Status: Acute (8) Elevated erythrocyte sedimentation rate: Status: Acute (9) Elevated C-reactive protein (CRP): Status: Acute (10) Transaminitis: Status: Acute (11) Hyponatremia: Status: Acute (12) Acute hypoxemic respiratory failure: Status: Acute (13) Hypotension: Status: Acute (14) Diabetes: Status: Inactive Assessment and Plan Assessment and Plan for All Diagnoses:: 1. Sepsis of unknown origin, possible pneumonitis vs cellulitis (possibly chronic) vs cholecystitis (no symptoms) -on Abx per Hospitalist (piperacillin and vancomycin) -off vasopressor -CRP 156, ESR 103 -procalcitonin 1.34 2. A. fib with CVR -use lovenox while in hospital in case surgery is needed 3. HFpEF/Right heart failure -right heart cath showed evidence of mod pulm HTN and mild elevated PAOP at 20 mm Hg -BNP 7140 down to 3300 -troponins normal 4. Right thigh hematoma -chronic since earlier this month 5. Chronic anemia in the range of 9 -recently down to 7-8 with right thigh hematoma -stable 6. Hypokalemia -resolved on supplement - Mag level 2.1 7. Transaminitis without symptoms -improving -mild GB thickening on CT 8. Hyponatremia -resolved 9. DM -Hgb A1C 5.6 Recommend continue diuresis while monitoring renal functions and BP. Hold off on midodrine for now. If pt develops symptomatic BP then stop diuretics.
[2024-05-24 13:58] LABS: Iron 36 ug/dL (49-181)
[2024-05-24 14:08] LABS: Total Iron Binding Capacity 247 ug/dL (261-462)
[2024-05-24 14:35] LABS: Ferritin 164 ng/ml (17.9-464)
[2024-05-24] MEDS: CLINDAMYCIN PHOSPHATE/D5W 600 MG/50 ML PIGGYBACK 100 MG IV ×2 (14:37→21:07)
[2024-05-24] MEDS: SPIRONOLACTONE 25MG TABLET 25 MG PO (14:37)
[2024-05-24 16:00] VITALS: BP 102/63; PULSE 97; RESP 17; TEMP 37.1; O2SAT 98
--- NOTE | 2024-05-24 16:24 | EXP.PN ---
Subjective *Date: 05/24/24 *Time: 16:24 Interval history: Patient doing well, increased lower extremity swelling. Started diuresis. Follow-up blood pressures. Exam Data for Last 24 hours Vital signs and Labs for Last 24 Hours: Temp Pulse Resp BP Pulse Ox O2 Del Method O2 Flow Rate 98.8 F 97 H 17 102/63 L 98 Room Air 2 05/24/24 16:00 05/24/24 16:00 05/24/24 16:00 05/24/24 16:00 05/24/24 16:00 05/24/24 16:00 05/24/24 01:00 Laboratory Results - last 24 hr 05/23/24 08:42: Hepatitis A IgM Ab Negative, Hep Bs Antigen Negative, Hep B Core IgM Ab Negative, Hepatitis C Antibody Non reactive, HCV RNA PCR Test Info Comment 05/23/24 17:07: ABG O2 Sat (Measured) 60.6 L, POC VBG O2 Sat (Cliff) 60.8 L 05/23/24 18:20: POC Glucose 200 H 05/23/24 20:43: POC Glucose 309 H* 05/23/24 23:53: POC Glucose 175 H 05/24/24 06:31: WBC 6.9, RBC 3.40 L, Hgb 8.8 L, Hct 29.4 L, MCV 86.5, MCH 25.9 L, MCHC 29.9 L, RDW 16.0, Plt Count 248, MPV 9.3, Neut % (Auto) 72.3, Lymph % (Auto) 15.3, [place] % (Auto) 6.4, Eos % (Auto) 2.3, Baso % (Auto) 0.6, Neut # (Auto) 5.0, Lymph # (Auto) 1.1, [place] # (Auto) 0.4, Eos # (Auto) 0.2, Baso # (Auto) 0.0, ESR 125 H, Sodium 139, Potassium 4.8, Chloride 106, Carbon Dioxide 26, Anion Gap 11.8, BUN 17, Creatinine 1.10, Estimated Creat Clear 117, Estimated GFR 68, Est GFR ( Amer) 82 D, Glucose 128 H, Calcium 8.9, Magnesium 2.5 H D, Iron 36 L, TIBC 247 L, Iron Saturation 14.16880 L, Ferritin 164 D, Total Bilirubin 0.8, AST 89 H, ALT 102 H, Alkaline Phosphatase 140 H, C-Reactive Protein 86.2 H D, NT-Pro-B Natriuret Pep 3300 H, Total Protein 6.5, Albumin 3.1 L, Globulin 3.4 H, Albumin/Globulin Ratio 0.9 L, Triglycerides 59, Cholesterol 77 L, LDL Cholesterol Direct 43.34 L, VLDL Cholesterol 12, HDL Cholesterol 15 L, Cholesterol/HDL Ratio 5.1 H, Free T4 1.46 05/24/24 06:35: POC Glucose 142 H 05/24/24 11:42: POC Glucose 181 H I & O for Last 24 hours: Intake & Output 05/21/24 05/22/24 05/23/24 05/24/24 23:59 23:59 23:59 23:59 Intake Total 762.626 / 682.908 3225 / 2315 1582 / 1582 Output Total 2475 / 2475 900 / 1400 3500 / 3500 Balance -1712.374 / -1612.374 595 / 915 -1918 / -1918 Weight 136.078 kg 120.11 kg 120 kg 120 kg Microbiology Reports for the Last 24 Hours: Microbiology 05/22/24 02:55 Anus CRE Surveillance Culture - Final Negative 05/21/24 23:28 Urine,Catheterized Urine Culture - Preliminary 05/21/24 23:10 Blood Blood Culture - Preliminary NO GROWTH AFTER 48 HOURS 05/21/24 23:10 Blood Blood Culture - Preliminary NO GROWTH AFTER 48 HOURS Constitutional Constitutional: no acute distress *Routine HEENT Exam Head: Present normocephalic Eye: Present EOMI and PERRL ENT: Present mucous membranes moist *Routine Neck Exam Neck: Present supple; Absent lymphadenopathy *Routine Respiratory Exam Respiratory: Present decreased breath sounds *Routine Cardiovascular Exam Cardiovascular: Present irregularly irregular *Routine Abdominal Exam Abdominal: Present soft and normoactive bowel sounds; Absent tenderness *Routine Extremities Exam Extremities: Present edema *Routine Skin Exam Skin: Present warm; Absent rash *Routine Neurological Exam Neurological: Present alert and oriented X3 Assessment and Plan *Assessment and plan (1) Sepsis: Status: Acute Qualifiers: Acute respiratory failure type: with hypoxia Sepsis acute organ dysfunction status: with acute organ dysfunction Sepsis type: sepsis due to unspecified organism Severe sepsis acute organ dysfunction type: acute respiratory failure Severe sepsis shock status: with septic shock Qualified Code(s): A41.9 - Sepsis, unspecified organism; R65.21 - Severe sepsis with septic shock; J96.01 - Acute respiratory failure with hypoxia Category: Medical Code(s): A41.9 - Sepsis, unspecified organism (2) Cellulitis of leg: Status: Acute Qualifiers: Laterality: unspecified laterality Qualified Code(s): L03.119 - Cellulitis of unspecified part of limb Category: Medical Code(s): L03.119 - Cellulitis of unspecified part of limb (3) Leukocytosis: Status: Acute Qualifiers: Leukocytosis type: unspecified Qualified Code(s): D72.829 - Elevated white blood cell count, unspecified Category: Medical Code(s): D72.829 - Elevated white blood cell count, unspecified (4) Afib: Status: Acute Qualifiers: Atrial fibrillation type: unspecified Qualified Code(s): I48.91 - Unspecified atrial fibrillation Category: Medical Code(s): I48.91 - Unspecified atrial fibrillation (5) Hematoma of right thigh: Status: Acute Qualifiers: Encounter type: initial encounter Qualified Code(s): S70.11XA - Contusion of right thigh, initial encounter Category: Medical Code(s): S70.11XA - Contusion of right thigh, initial encounter (6) AMS (altered mental status): Status: Acute Qualifiers: Altered mental status type: unspecified Qualified Code(s): R41.82 - Altered mental status, unspecified Category: Medical Code(s): R41.82 - Altered mental status, unspecified (7) Normocytic hypochromic anemia: Status: Acute Category: Medical Code(s): D50.9 - Iron deficiency anemia, unspecified (8) Elevated erythrocyte sedimentation rate: Status: Acute Category: Medical Code(s): R70.0 - Elevated erythrocyte sedimentation rate (9) Elevated C-reactive protein (CRP): Status: Acute Category: Medical Code(s): R79.82 - Elevated C-reactive protein (CRP) (10) Transaminitis: Status: Acute Category: Medical Code(s): R74.01 - Elevation of levels of liver transaminase levels (11) Hyperglycemia: Status: Acute Category: Medical Code(s): R73.9 - Hyperglycemia, unspecified (12) Hyponatremia: Status: Acute Category: Medical Code(s): E87.1 - Hypo-osmolality and hyponatremia (13) Acute hypoxemic respiratory failure: Status: Acute Category: Medical Code(s): J96.01 - Acute respiratory failure with hypoxia (14) Hypotension: Status: Acute Qualifiers: Hypotension type: other hypotension type Qualified Code(s): I95.89 - Other hypotension Category: Medical Code(s): I95.9 - Hypotension, unspecified Plan Avi Lyn is a 63-year-old male who presented with confusion and apparent fevers from [facility] jail and admitted for suspected sepsis. #HFpEF exacerbation #Congestive hepatopathy #Transaminitis #Cholelithiasis ? AST/ALT/ALP improved to 89/102/140. Initial total bilirubin elevated, downtrending and now normal. ? Gallbladder ultrasound reveals contracted gallbladder with gallstones. No evidence of acute cholecystitis. Patient does not endorse abdominal pain at all. ? MRCP revealed cholelithiasis but no evidence of cholecystitis or choledocholithiasis. ? Hepatitis panel normal. ? ESR elevated to 125, CRP down trended to 86. Likely representing congestive hepatopathy. ? Initial BNP elevated to 7140, with lower extremity pitting edema. Diuresis initially held due to soft pressures but will start today. ? Right heart cath does show elevated left heart pressures. ? IV Bumex 2 mg twice daily. Follow-up renal function, electrolytes, blood pressures. #Suspected venous stasis dermatitis #Possible cellulitis ? Lower extremities have pitting edema, erythema with tenderness. Venous Doppler negative for DVT. ? Though this likely represents venous stasis dermatitis, inflammatory markers elevated. ? Will switch to clindamycin today in case MRSA infection is involved. ? IV clindamycin every 6 hours. #Right thigh hematoma ? Hematoma in right thigh does not seem to be infected, no pain. #Low normal blood pressure ? Patient states he has always had low blood pressures, maps are high 60s low 70s. ? Follow-up orthostatic vitals. ? Follow-up morning cortisol, ACTH. TSH normal. ? Now she started midodrine, but discontinued for now due to HFpEF. #A-fib ? Currently rate controlled. Lovenox therapeutic Lovenox for now. Full code DVT prophylaxis: Therapeutic Lovenox as above
--- NOTE | 2024-05-24 18:31 | PC.NURSE ---
pt now on strict I&O with 1500ml daily intake. independent with ambulation. lt leg still red with +3 swelling, no complaints of pain and pt states he feels pretty good . still need occult stool, pt aware and hat has been placed in br. A&O x4. pt has spent majority opf the day in the chair at bs
[2024-05-24 19:59] LABS: POC Glucose,Bedside 98 (70-110)
[2024-05-24 20:00] VITALS: BP 96/47; PULSE 98; RESP 16; TEMP 36.7; O2SAT 95
[2024-05-24 21:40] LABS: Occult Blood,Stool Negative (Negative)
[2024-05-25] VITALS (9 sets, daily range): BP systolic 82–109; BP diastolic 47–71; PULSE 70–91; RESP 16–18; TEMP 36.6–36.9; O2SAT 92–96; BMI 31.9
[2024-05-25] MEDS: CLINDAMYCIN PHOSPHATE/D5W 600 MG/50 ML PIGGYBACK 100 MG IV ×2 (05:57→14:21)
[2024-05-25] MEDS: humaLOG 100 UNITS/ML 10ML VIAL (SSI) SUBCUT ×2 (06:20→16:15)
[2024-05-25 06:29] LABS: POC Glucose,Bedside 221 (70-110)
--- NOTE | 2024-05-25 06:35 | PC.NURSE ---
Pt is A&Ox4 and has tolerated room air. 3+ edema noted to bilateral lower extremities. He has received IV abx throughout the night. He has remained on strict I&O's. He has ambulated room independently. No complaints at this time, call light within reach.
--- NOTE | 2024-05-25 07:18 | XR_ITS ---
PROCEDURE INFORMATION: Exam: XR Right Foot Complete; Alignment Exam date and time: 05/25/2024 7:53 AM Age: 63 years old Clinical indication: Swelling, leg or foot and other: Update baseline and R/O bone infection, b/l dfu's TECHNIQUE: Imaging protocol: Radiologic exam of the right foot. Views: 3 or more views. COMPARISON: CT ANGIO ABDOMEN/FEMORAL 05/22/2024 12:11 AM FINDINGS: Bones/joints: No visible fracture or dislocation. No definitive osseous erosive lesions. Soft tissues: Normal. IMPRESSION: 1. No visible fracture or dislocation. 2. No definitive osseous erosive lesions.
--- NOTE | 2024-05-25 07:18 | XR_ITS ---
PROCEDURE INFORMATION: Exam: XR Left Foot Complete; Alignment Exam date and time: 05/25/2024 7:53 AM Age: 63 years old Clinical indication: Other: Update baseline and R/O bone infection, b/l dfu's TECHNIQUE: Imaging protocol: Radiologic exam of the left foot. Views: 3 or more views. COMPARISON: CT ANGIO ABDOMEN/FEMORAL 05/22/2024 12:11 AM FINDINGS: Bones/joints: No visible fracture or dislocation. No definitive osseous erosive lesions. Soft tissues: Normal. Other findings: There is a ulceration overlying the 5th MTP joint. IMPRESSION: 1. No visible fracture or dislocation. 2. No definitive osseous erosive lesions. 3. There is a ulceration overlying the 5th MTP joint.
[2024-05-25 07:25] LABS: Basophils # 0.1 K/mm3 (0-0.2); Basophils % 0.7 % (0.1-2.0); Eosinophils # 0.3 K/mm3 (0.0-0.4); Eosinophils % 3.5 % (0.1-12.0); Hematocrit 31.9 % (42.0-52.0); Hemoglobin 9.7 g/dL (14.1-18.0); Lymphocytes # 1.5 K/mm3 (0.7-4.5); Lymphocytes % 21.2 % (10-50); Mean Corpuscular HGB Conc 30.4 g/dL (31.8-35.4); Mean Corpuscular Hemoglobin 25.9 pg (27.0-31.2); Mean Corpuscular Volume 85.3 fl (80-94); Mean Platelet Volume 9.4 fl (7.4-10.4); Monocytes # 0.4 K/mm3 (0.1-1.0); Monocytes % 6.2 % (1.7-9.3); Neutrophils # 4.3 K/mm3 (1.8-7.8); Neutrophils % 60.9 % (37.0-80.0); Platelet Count 319 K/mm3 (142-424); Red Blood Count 3.74 M/mm3 (4.60-6.20); White Blood Count 7.1 K/mm3 (4.8-10.8)
[2024-05-25 07:59] LABS: Albumin Level 3.3 g/dl (3.5-5.0); Chloride 102 mmol/L (98-107)
[2024-05-25 08:00] LABS: Potassium 4.2 mmoL/L (3.5-5.1); Sodium 138 mmol/L (136-145)
[2024-05-25 08:02] LABS: Blood Urea Nitrogen 17 mg/dl (9-20); Creatinine Clearance Estimated 104 mL/min (50-200); Estimated Glomerular Filt Rate 61 ml/min (>60); GFR (African American) 74 ML/MIN (>60)
[2024-05-25 08:03] LABS: Alanine Aminotransferase 89 U/L (12-78); Albumin/Globulin Ratio 0.9 (1.1-1.8); Alkaline Phosphatase 160 U/L (38-126); Anion Gap 12.2 mEq/L (5-15); Aspartate Amino Transferase 59 U/L (17-59); Bilirubin,Total 0.7 mg/dl (0.2-1.3); Calcium 9.2 mg/dl (8.4-10.2); Carbon Dioxide 28 mmol/L (22.0-30.0); Globulin 3.7 g/dL (1.3-3.2); Glucose 145 mg/dl (74-100)
[2024-05-25 08:08] LABS: C-Reactive Protein 57.8 mg/L (0-4)
[2024-05-25] MEDS: ENOXAPARIN 120MG/0.8ML SYRINGE 120 MG SUBCUT ×2 (08:18→20:22)
[2024-05-25] MEDS: BUMETANIDE 1MG/4ML VIAL 2 MG IV ×2 (08:19→16:23)
[2024-05-25 08:26] LABS: NT Pro Brain Natriuretic Pep. 3790 pg/mL (0-125)
[2024-05-25 09:04] LABS: Erythrocyte Sedimentation Rate 99 mm/hr (0-20)
[2024-05-25 10:40] LABS: POC Glucose,Bedside 129 (70-110)
[2024-05-25] MEDS: AQUAPHOR (PETROLATUM) OINT 85GM TP (14:48)
--- NOTE | 2024-05-25 15:02 | PC.NURSE ---
PT IS SITTING UP IN THE CHAIR. ALERT AND ORIENTED X4. EATING AND DRINKING WELL. NO COMPLAINTS OF DISCOMFORT. PT HAS TOLERATED AMBULATING IN THE ROOM. DRESSING TO BILATERAL FEET CHANGED THIS SHIFT. 3+ PITTING EDEMA NOTED TO LLE. 2+ EDEMA NOTED TO RLE. REDNESS/DRYING NOTED BLE. AQUAPHOR APPLIED TO BLE. LUNG SOUNDS DIMINISHED. ABDOMEN SOFT/NON TENDER WITH ACTIVE BOWEL SOUNDS. WILL CONTINUE TO MONITOR.
[2024-05-25 16:25] LABS: POC Glucose,Bedside 202 (70-110)
--- NOTE | 2024-05-25 16:48 | PC.NURSE ---
CARE PROVIDED BY [employer] TE[employer] UNDER [employer]T SUPERVISION
--- NOTE | 2024-05-25 16:54 | P.PN_ITS ---
Subjective *Date: 05/25/24 *Time: 17:58 Interval history: Patient doing well today, lower extremity swelling is slowly improving. No acute concerns. No fever/chills. Exam Data for Last 24 hours Vital signs and Labs for Last 24 Hours: Temp Pulse Resp BP Pulse Ox O2 Del Method O2 Flow Rate 98.1 F 82 16 93/47 L 93 L Room Air 2 05/25/24 16:00 05/25/24 16:00 05/25/24 16:00 05/25/24 16:00 05/25/24 16:00 05/25/24 16:38 05/24/24 01:00 Laboratory Results - last 24 hr 05/24/24 19:52: POC Glucose 98 05/24/24 21:05: Stool Occult Blood Negative 05/25/24 05:58: POC Glucose 221 H 05/25/24 07:00: WBC 7.1, RBC 3.74 L, Hgb 9.7 L, Hct 31.9 L, MCV 85.3, MCH 25.9 L , MCHC 30.4 L, RDW 16.0, Plt Count 319 D, MPV 9.4, Neut % (Auto) 60.9, Lymph % (Auto) 21.2, [place] % (Auto) 6.2, Eos % (Auto) 3.5, Baso % (Auto) 0.7, Neut # (Auto) 4.3, Lymph # (Auto) 1.5, [place] # (Auto) 0.4, Eos # (Auto) 0.3, Baso # (Auto) 0.1, ESR 99 H, Sodium 138, Potassium 4.2, Chloride 102, Carbon Dioxide 28, Anion Gap 12.2, BUN 17, Creatinine 1.20, Estimated Creat Clear 104, Estimated GFR 61, Est GFR ( Amer) 74, Glucose 145 H, Calcium 9.2, Total Bilirubin 0.7, AST 59 D, ALT 89 H, Alkaline Phosphatase 160 H, C-Reactive Protein 57.8 H D, NT-Pro-B Natriuret Pep 3790 H, Total Protein 7.0, Albumin 3.3 L, Globulin 3.7 H, Albumin/Globulin Ratio 0.9 L 05/25/24 10:33: POC Glucose 129 H 05/25/24 16:08: POC Glucose 202 H I & O for Last 24 hours: Intake & Output 05/22/24 05/23/24 05/24/24 05/25/24 23:59 23:59 23:59 23:59 Intake Total 762.626 / 667.081 0698 / 2315 1882 / 2102 820 / 820 Output Total 2475 / 2475 900 / 1400 4550 / 4800 400 / 400 Balance -1712.374 / -1612.374 595 / 915 -2668 / -2698 420 / 420 Weight 120.11 kg 120 kg 120 kg 116.664 kg Microbiology Reports for the Last 24 Hours: Microbiology 05/21/24 23:28 Urine,Catheterized Urine Culture - Preliminary Gram Negative Rods Constitutional Constitutional: no acute distress *Routine HEENT Exam Head: Present normocephalic Eye: Present EOMI and PERRL ENT: Present mucous membranes moist *Routine Neck Exam Neck: Present supple; Absent lymphadenopathy *Routine Respiratory Exam Respiratory: Present decreased breath sounds *Routine Cardiovascular Exam Cardiovascular: Present irregularly irregular *Routine Abdominal Exam Abdominal: Present soft and normoactive bowel sounds; Absent tenderness *Routine Extremities Exam Extremities: Present edema *Routine Skin Exam Skin: Present warm; Absent rash *Routine Neurological Exam Neurological: Present alert and oriented X3 Assessment and Plan *Assessment and plan (1) Sepsis: Status: Acute Qualifiers: Acute respiratory failure type: with hypoxia Sepsis acute organ dysfunction status: with acute organ dysfunction Sepsis type: sepsis due to unspecified organism Severe sepsis acute organ dysfunction type: acute respiratory failure Severe sepsis shock status: with septic shock Qualified Code(s): A41.9 - Sepsis, unspecified organism; R65.21 - Severe sepsis with septic shock; J96.01 - Acute respiratory failure with hypoxia Category: Medical Code(s): A41.9 - Sepsis, unspecified organism (2) Cellulitis of leg: Status: Acute Qualifiers: Laterality: unspecified laterality Qualified Code(s): L03.119 - Cellulitis of unspecified part of limb Category: Medical Code(s): L03.119 - Cellulitis of unspecified part of limb (3) Leukocytosis: Status: Acute Qualifiers: Leukocytosis type: unspecified Qualified Code(s): D72.829 - Elevated white blood cell count, unspecified Category: Medical Code(s): D72.829 - Elevated white blood cell count, unspecified (4) Afib: Status: Acute Qualifiers: Atrial fibrillation type: unspecified Qualified Code(s): I48.91 - Unspecified atrial fibrillation Category: Medical Code(s): I48.91 - Unspecified atrial fibrillation (5) Hematoma of right thigh: Status: Acute Qualifiers: Encounter type: initial encounter Qualified Code(s): S70.11XA - Contusion of right thigh, initial encounter Category: Medical Code(s): S70.11XA - Contusion of right thigh, initial encounter (6) AMS (altered mental status): Status: Acute Qualifiers: Altered mental status type: unspecified Qualified Code(s): R41.82 - Altered mental status, unspecified Category: Medical Code(s): R41.82 - Altered mental status, unspecified (7) Normocytic hypochromic anemia: Status: Acute Category: Medical Code(s): D50.9 - Iron deficiency anemia, unspecified (8) Elevated erythrocyte sedimentation rate: Status: Acute Category: Medical Code(s): R70.0 - Elevated erythrocyte sedimentation rate (9) Elevated C-reactive protein (CRP): Status: Acute Category: Medical Code(s): R79.82 - Elevated C-reactive protein (CRP) (10) Transaminitis: Status: Acute Category: Medical Code(s): R74.01 - Elevation of levels of liver transaminase levels (11) Hyperglycemia: Status: Acute Category: Medical Code(s): R73.9 - Hyperglycemia, unspecified (12) Hyponatremia: Status: Acute Category: Medical Code(s): E87.1 - Hypo-osmolality and hyponatremia (13) Acute hypoxemic respiratory failure: Status: Acute Category: Medical Code(s): J96.01 - Acute respiratory failure with hypoxia (14) Hypotension: Status: Acute Qualifiers: Hypotension type: other hypotension type Qualified Code(s): I95.89 - Other hypotension Category: Medical Code(s): I95.9 - Hypotension, unspecified Plan Avi Lyn is a 63-year-old male who presented with confusion and apparent fevers from personal longterm and admitted for suspected sepsis. #HFpEF exacerbation #Congestive hepatopathy #Transaminitis #Cholelithiasis ? AST/ALT/ALP improved to 59/89/160. Initial total bilirubin elevated, downtrending and now normal. ? Gallbladder ultrasound reveals contracted gallbladder with gallstones. No evidence of acute cholecystitis. Patient does not endorse abdominal pain at all. ? MRCP revealed cholelithiasis but no evidence of cholecystitis or choledocholithiasis. ? Hepatitis panel normal. ? ESR improved to 99, CRP down trended to 57. Likely representing congestive hepatopathy. ? Initial BNP elevated to 7140, with lower extremity pitting edema. Diuresis initially held due to soft pressures but ultimately started with stable but low pressures. ? Right heart cath did show elevated left heart pressures. ? IV Bumex 2 mg twice daily. -3.3 L net output so far. Follow-up renal function, electrolytes, blood pressures. Creatinine stable 1.2, GFR 61. #Suspected bilateral venous stasis dermatitis ? Lower extremities have pitting edema, erythema with tenderness. This is chronic. Venous Doppler negative for DVT. ? This likely represents venous stasis dermatitis, inflammatory markers elevated but improving likely secondary to improving congestive hepatopathy. ? Clindamycin discontinued as low suspicion for cellulitis. WBC normal, no fevers. #Right thigh hematoma ? Hematoma in right thigh does not seem to be infected, no pain. #Low normal blood pressure ? Patient states he has always had low blood pressures, maps are high 60s low 70s. ? Follow-up orthostatic vitals. ? Follow-up morning cortisol, ACTH. TSH normal. ? Initially started midodrine, but discontinued for now due to HFpEF. #A-fib ? Currently rate controlled. Lovenox therapeutic Lovenox for now. Full code DVT prophylaxis: Therapeutic Lovenox as above
--- NOTE | 2024-05-25 21:05 | PC.NURSE ---
Per Sonu ROLLE's report for 05/25/24 (documented by 16:54, signed at 18:01), the patient's clindamycin order is discontinued as low suspicion for cellulitis. WBC have been within normal range, patient remains afebrile. However, the clindamycin order was still active in the APR. Last dose was given at 14:21 during the previous shift, and the patient has an upcoming dose due at 22:00 for this shift. Aleah HAYES was paged at this time to confirm the discontinuation.
[2024-05-26] VITALS: BP 120/62; PULSE 88; PULSE 90; RESP 17; TEMP 36.6; O2SAT 94
[2024-05-26 04:00] VITALS: BP 109/50; PULSE 108; PULSE 85; RESP 16; TEMP 36.9; O2SAT 91; BMI 31.1
--- NOTE | 2024-05-26 04:00 | PC.NURSE ---
Patient is alert and oriented x4. He was observed to have both wakeful periods and resting periods (eyes closed, respirations even/unlabored on room air) throughout the night. Strict intake/output ongoing (fluid restriction of 1500 mL). Patient's bilateral lower extremities were assessed. Dressings are clean and dry, and they remain in place to the bottom half of his lower extremities. Redness was noted bilaterally, and skin was hot to the touch. Left leg +3 edema, right leg +2 edema. The patient stated that he does not feel any pain in his legs, only tightness. Patient has redness on his bottom and in his groin area as well. Auscultation of his lungs and bowels were within normal findings. Irregular heart rhythm heard, running afib on telemetry. Incentive spirometer usage. Patient has been using the urinal at the bedside for voiding needs. Assistance x1 during ambulation/transfers. He tolerates his diet with a good appetite. Scheduled medications were administered as appropriately per MAR. [facility] glucose checks performed. Soft blood pressures noted; other vital signs stable. At this time, the patient is resting in bed without any further complaints. No acute changes noted thus far. Call light within reach.
[2024-05-26 05:34] LABS: POC Glucose,Bedside 131 (70-110)
[2024-05-26 07:48] VITALS: BP 97/55; PULSE 95; RESP 18; TEMP 36.5; O2SAT 90
[2024-05-26 08:00] VITALS: PULSE 83
[2024-05-26 08:00] LABS: Basophils # 0.1 K/mm3 (0-0.2); Basophils % 0.9 % (0.1-2.0); Eosinophils # 0.2 K/mm3 (0.0-0.4); Eosinophils % 2.4 % (0.1-12.0); Hematocrit 34.3 % (42.0-52.0); Hemoglobin 10.4 g/dL (14.1-18.0); Lymphocytes # 1.7 K/mm3 (0.7-4.5); Lymphocytes % 19.8 % (10-50); Mean Corpuscular HGB Conc 30.3 g/dL (31.8-35.4); Mean Corpuscular Hemoglobin 25.8 pg (27.0-31.2); Mean Corpuscular Volume 85.1 fl (80-94); Mean Platelet Volume 9.5 fl (7.4-10.4); Monocytes # 0.6 K/mm3 (0.1-1.0); Monocytes % 6.8 % (1.7-9.3); Neutrophils # 5.4 K/mm3 (1.8-7.8); Neutrophils % 61.5 % (37.0-80.0); Platelet Count 357 K/mm3 (142-424); Red Blood Count 4.03 M/mm3 (4.60-6.20); White Blood Count 8.7 K/mm3 (4.8-10.8)
[2024-05-26 08:18] LABS: Erythrocyte Sedimentation Rate 109 mm/hr (0-20)
[2024-05-26 09:08] LABS: Albumin Level 3.6 g/dl (3.5-5.0); Chloride 104 mmol/L (98-107); Sodium 139 mmol/L (136-145)
[2024-05-26 09:09] LABS: Potassium 4.1 mmoL/L (3.5-5.1)
[2024-05-26 09:11] LABS: Alanine Aminotransferase 68 U/L (12-78); Anion Gap 11.1 mEq/L (5-15); Aspartate Amino Transferase 42 U/L (17-59); Blood Urea Nitrogen 21 mg/dl (9-20); Carbon Dioxide 28 mmol/L (22.0-30.0); Creatinine Clearance Estimated 101 mL/min (50-200); Estimated Glomerular Filt Rate 61 ml/min (>60); GFR (African American) 74 ML/MIN (>60)
[2024-05-26 09:12] LABS: Alkaline Phosphatase 161 U/L (38-126); Bilirubin,Total 0.6 mg/dl (0.2-1.3); Calcium 9.4 mg/dl (8.4-10.2); Globulin 3.7 g/dL (1.3-3.2); Glucose 144 mg/dl (74-100); Total Protein,Serum 7.3 g/dl (6.3-8.2)
[2024-05-26] MEDS: ENOXAPARIN 120MG/0.8ML SYRINGE 120 MG SUBCUT (09:14)
[2024-05-26] MEDS: BUMETANIDE 1MG/4ML VIAL 2 MG IV (09:14)
[2024-05-26] MEDS: CEFTRIAXONE 1 GM 1 GM in 0.9 % SODIUM CHLORIDE 50 ML IV (09:14)
[2024-05-26 09:18] LABS: C-Reactive Protein 38.1 mg/L (0-4)
[2024-05-26] MEDS: AQUAPHOR (PETROLATUM) OINT 85GM TP (09:23)
[2024-05-26 11:41] VITALS: BP 105/62; PULSE 94; RESP 16; TEMP 36.6; O2SAT 98
[2024-05-26] MEDS: humaLOG 100 UNITS/ML 10ML VIAL (SSI) SUBCUT (11:44)
[2024-05-26 11:46] LABS: POC Glucose,Bedside 173 (70-110)
[2024-05-26 12:00] VITALS: PULSE 120
--- NOTE | 2024-05-26 12:14 | P.DS_ITS ---
General Admission date:: 05/22/24 HPI HPI HPI: This is a 63-year-old male who has a past medical history significant for hematoma of the right thigh, scrotal edema, congestive heart failure with diastolic dysfunction, pulmonary edema, hernia, chronic venous insufficiency, urinary retention, hyperlipidemia, GERD, neuropathy, pulmonary embolism, DVT, and diabetes who presents from [place] with a chief complaint of dark-colored urine, incontinence, fever, and confusion. Due to patient's symptoms, he presented to the emergency room for evaluation. While in the emergency room, patient was noted to be in atrial fibrillation with rapid ventricular response, had a high heart rate, and his white blood cell count was elevated. CT scan of the abdomen pelvis revealed mild arthrosclerotic disease within the Arteries, thin-walled fluid collection within the lateral aspect of the right quadricep muscle that measures 9.0 x 3.7 x 17 cm (noted on previous imaging), the remainder of the abdomen pelvis without any acute intra-abdominal intrapelvic findings. CTA of the chest was negative for any acute cardiopulmonary or intrathoracic process but was significant for severe cardiomegaly. Patient was requiring supplemental oxygen; as a result of these findings, patient is being admitted for further management. It is worth mentioning the ER provider states that patient is normally confused to time and that is currently his baseline. Patient was confused to time while in the emergency room. During my evaluation of the patient, patient states that he was having a headache to the right denominational that was rated [address] scan of the head was negative for any acute intracranial process. Patient states he has chronic wounds to his bilateral lower extremities. On previous admission, he was noted to have some cellulitis/redness to his bilateral lower extremities. He does have some redness and edema to his lower extremities. Patient does have bandages or Kerlix to his bilateral feet. They were clean dry and intact. He is currently denying chest pain, lightheadedness, dizziness, fever, chills, rigors, nausea, vomiting, or diarrhea. additional pertinent values obtained include white blood cell count of 13.4, red blood cell count of 2.91, hemoglobin 7.8, hematocrit 25, neutrophils 91.1%, ESR 103, INR 1.18, sodium 130, chloride of 96, blood glucose of 153, total bilirubin of 2.1, AST of 119, ALT of 109, alkaline phosphate of 211, C-reactive protein 856, BNP of 7140, heart rate of 132, and blood pressure of 81/53 05/22/24:Podiatry Consult Patient awake and oriented sitting up in chair upon entering the room. Patient has socks covering his feet and no dressings on wounds. He appears to have erythema and edema to b/l lower legs with black markings outlining the redness which remains at the borders. Patient has not been seen by our office before nor by any Podiatry office at this time. He is a Diabetic and will require routine DFC with nail trimming, callus debridements, and wound care management services. He has agreed to come to our office for those routine services but will require transportation assistance. He resides at [facility] in [place], [place]. Hospital Course Hospital Course Hospital Course: Avi Lyn is a 63-year-old male who presented with confusion and apparent fevers from [facility] [place] [facility] and admitted for suspected sepsis. #HFpEF exacerbation #Congestive hepatopathy #Transaminitis #Cholelithiasis ? Lower extremity pitting edema 4+, BNP 7140. ? AST/ALT/ALP improved to 59/89/160. Initial total bilirubin elevated, downtrending and now normal. ? Gallbladder ultrasound reveals contracted gallbladder with gallstones. No evidence of acute cholecystitis. Patient does not endorse abdominal pain at all. ? MRCP revealed cholelithiasis but no evidence of cholecystitis or choledocholithiasis. ? Hepatitis panel normal. ? Right heart cath did show elevated left heart pressures. ? Volume status Improved with IV Bumex diuresis. Transitioned back to Bumex 2 mg twice daily. #Sepsis #UTI ? Urine culture growing Morganella Morganii. Sensitive to ceftriaxone. Initially treated with Zosyn, clindamycin for initial suspicion of cellulitis as below. ? Discharged with cefdinir for 4 more days. #A-fib, new onset ? In the setting of sepsis. Currently rate controlled. Will withhold anticoagulation due to right thigh hematoma and high risk of bleeding. #Diabetic foot ulcers ? Podiatry consulted, wounds cleaned and debrided with curette bedside. Dressed with Betadine and silver gauze, Kerlix and Santy wrap. Low suspicion for und erlying infection, osteomyelitis. ? Referred to podiatry for further evaluation management outpatient. #Low normal blood pressure ? Patient states he has always had low blood pressures, maps are high 60s low 70s. ? Orthostatic vitals, morning cortisol, TSH normal. ? Initially started midodrine, but discontinued for now due to HFpEF. Can be considered if patient becomes symptomatic. #Suspected bilateral venous stasis dermatitis ? Lower extremities have pitting edema, erythema with tenderness. This is chronic. Venous Doppler negative for DVT. ? This likely represents venous stasis dermatitis, inflammatory markers elevated but improving likely secondary to improving congestive hepatopathy. ? Clindamycin discontinued as low suspicion for cellulitis. WBC normal, no fevers. #Right thigh hematoma, chronic ? Hematoma in right thigh does not seem to be infected, no pain. #Mood disorder ? Quite a bit of polypharmacy. Patient did not require his mood medications during admission. Very pleasant and conversational. ? Discontinued bupropion, oxcarbazepine, gabapentin, olanzapine. ? Continue home aripiprazole 10 mg, trazodone as needed for sleep. Total time spent on discharge: 32 minutes on chart review, counseling, documentation, and direct care with patient. Exam Data for Last 24 hours Vital signs and Labs for Last 24 Hours: Temp Pulse Resp BP Pulse Ox O2 Del Method O2 Flow Rate 97.9 F 94 H 16 105/62 L 98 Room Air 2 05/26/24 11:41 05/26/24 11:41 05/26/24 11:41 05/26/24 11:41 05/26/24 11:41 05/26/24 11:41 05/24/24 01:00 Laboratory Results - last 24 hr 05/25/24 16:08: POC Glucose 202 H 05/26/24 05:23: POC Glucose 131 H 05/26/24 07:10: WBC 8.7, RBC 4.03 L, Hgb 10.4 L, Hct 34.3 L, MCV 85.1, MCH 25.8 L, MCHC 30.3 L, RDW 16.0, Plt Count 357, MPV 9.5, Neut % (Auto) 61.5, Lymph % (Auto) 19.8, Carson % (Auto) 6.8, Eos % (Auto) 2.4, Baso % (Auto) 0.9, Neut # (Auto) 5.4, Lymph # (Auto) 1.7, Carson # (Auto) 0.6, Eos # (Auto) 0.2, Baso # (Auto) 0.1, ESR 109 H, Sodium 139, Potassium 4.1, Chloride 104, Carbon Dioxide 28, Anion Gap 11.1, BUN 21 H, Creatinine 1.20, Estimated Creat Clear 101, Estimated GFR 61, Est GFR ( Amer) 74, Glucose 144 H, Calcium 9.4, Total Bilirubin 0.6, AST 42 D, ALT 68, Alkaline Phosphatase 161 H, C-Reactive Protein 38.1 H D, Total Protein 7.3, Albumin 3.6, Globulin 3.7 H, Albumin/Globulin Ratio 1.0 L 05/26/24 11:38: POC Glucose 173 H I & O for Last 24 hours: Intake & Output 05/23/24 05/24/24 05/25/24 05/26/24 23:59 23:59 23:59 23:59 Intake Total 1495 / 2315 1882 / 2102 1340 / 1695 1015 / 1015 Output Total 900 / 1400 4550 / 4800 1850 / 2450 2450 / 2450 Balance 595 / 915 -2668 / -2698 -510 / -755 -1435 / -1435 Weight 120 kg 120 kg 116.664 kg 113.761 kg Microbiology Reports for the Last 24 Hours: Microbiology 05/21/24 23:28 Urine,Catheterized Urine Culture - Final Morganella morganii 05/21/24 23:10 Blood Blood Culture - Preliminary NO GROWTH AFTER 4 DAYS 05/21/24 23:10 Blood Blood Culture - Preliminary NO GROWTH AFTER 4 DAYS Constitutional Constitutional: no acute distress *Routine HEENT Exam Head: Present normocephalic Eye: Present EOMI and PERRL ENT: Present mucous membranes moist *Routine Neck Exam Neck: Present supple; Absent lymphadenopathy *Routine Respiratory Exam Respiratory: Present decreased breath sounds *Routine Cardiovascular Exam Cardiovascular: Present irregularly irregular *Routine Abdominal Exam Abdominal: Present soft and normoactive bowel sounds; Absent tenderness *Routine Extremities Exam Extremities: Present edema Comments: Lower extremity pitting admitted 2+. Chronic venous stasis changes, include erythema over shins. *Routine Skin Exam Skin: Present warm; Absent rash *Routine Neurological Exam Neurological: Present alert and oriented X3 Results Data Completed and Pending Labs on day of discharge: Labs from last 24 hours 05/26/24 05/26/24 05/26/24 11:38 07:10 05:23 WBC 8.7 RBC 4.03 L Hgb 10.4 L Hct 34.3 L MCV 85.1 MCH 25.8 L MCHC 30.3 L RDW 16.0 Plt Count 357 MPV 9.5 Neut % (Auto) 61.5 Lymph % (Auto) 19.8 Carson % (Auto) 6.8 Eos % (Auto) 2.4 Baso % (Auto) 0.9 Neut # (Auto) 5.4 Lymph # (Auto) 1.7 Carson # (Auto) 0.6 Eos # (Auto) 0.2 Baso # (Auto) 0.1 ESR 109 H Sodium 139 Potassium 4.1 Chloride 104 Carbon Dioxide 28 Anion Gap 11.1 BUN 21 H Creatinine 1.20 Estimated Creat Clear 101 Estimated GFR 61 Est GFR ( Amer) 74 Glucose 144 H POC Glucose 173 H 131 H Calcium 9.4 Total Bilirubin 0.6 AST 42 D ALT 68 Alkaline Phosphatase 161 H C-Reactive Protein 38.1 H D Total Protein 7.3 Albumin 3.6 Globulin 3.7 H Albumin/Globulin Ratio 1.0 L 05/25/24 16:08 WBC RBC Hgb Hct MCV MCH MCHC RDW Plt Count MPV Neut % (Auto) Lymph % (Auto) Carson % (Auto) Eos % (Auto) Baso % (Auto) Neut # (Auto) Lymph # (Auto) Carson # (Auto) Eos # (Auto) Baso # (Auto) ESR Sodium Potassium Chloride Carbon Dioxide Anion Gap BUN Creatinine Estimated Creat Clear Estimated GFR Est GFR ( Amer) Glucose POC Glucose 202 H Calcium Total Bilirubin AST ALT Alkaline Phosphatase C-Reactive Protein Total Protein Albumin Globulin Albumin/Globulin Ratio Preliminary micro results at discharge 05/21/24 23:10 Blood Culture - Preliminary Blood NO GROWTH AFTER 4 DAYS 05/21/24 23:10 Blood Culture - Preliminary Blood NO GROWTH AFTER 4 DAYS DS: Diagnosis Discharge Diagnosis (1) Sepsis: Status: Acute Code(s): A41.9 - Sepsis, unspecified organism Qualifiers: Acute respiratory failure type: with hypoxia Sepsis acute organ dysfunction status: with acute organ dysfunction Sepsis type: sepsis due to unspecified organism Severe sepsis acute organ dysfunction type: acute respiratory failure Severe sepsis shock status: with septic shock Qualified Code(s): A41.9 - Sepsis, unspecified organism; R65.21 - Severe sepsis with septic shock; J96.01 - Acute respiratory failure with hypoxia (2) Cellulitis of leg: Status: Acute Code(s): L03.119 - Cellulitis of unspecified part of limb Qualifiers: Laterality: unspecified laterality Qualified Code(s): L03.119 - Cellulitis of unspecified part of limb (3) Leukocytosis: Status: Acute Code(s): D72.829 - Elevated white blood cell count, unspecified Qualifiers: Leukocytosis type: unspecified Qualified Code(s): D72.829 - Elevated white blood cell count, unspecified (4) Afib: Status: Acute Code(s): I48.91 - Unspecified atrial fibrillation Qualifiers: Atrial fibrillation type: unspecified Qualified Code(s): I48.91 - Unspecified atrial fibrillation (5) Hematoma of right thigh: Status: Acute Code(s): S70.11XA - Contusion of right thigh, initial encounter Qualifiers: Encounter type: initial encounter Qualified Code(s): S70.11XA - Contusion of right thigh, initial encounter (6) AMS (altered mental status): Status: Acute Code(s): R41.82 - Altered mental status, unspecified Qualifiers: Altered mental status type: unspecified Qualified Code(s): R41.82 - Altered mental status, unspecified (7) Normocytic hypochromic anemia: Status: Acute Code(s): D50.9 - Iron deficiency anemia, unspecified (8) Elevated erythrocyte sedimentation rate: Status: Acute Code(s): R70.0 - Elevated erythrocyte sedimentation rate (9) Elevated C-reactive protein (CRP): Status: Acute Code(s): R79.82 - Elevated C-reactive protein (CRP) (10) Transaminitis: Status: Acute Code(s): R74.01 - Elevation of levels of liver transaminase levels (11) Hyperglycemia: Status: Acute Code(s): R73.9 - Hyperglycemia, unspecified (12) Hyponatremia: Status: Acute Code(s): E87.1 - Hypo-osmolality and hyponatremia (13) Acute hypoxemic respiratory failure: Status: Acute Code(s): J96.01 - Acute respiratory failure with hypoxia (14) Hypotension: Status: Acute Code(s): I95.9 - Hypotension, unspecified Qualifiers: Hypotension type: other hypotension type Qualified Code(s): I95.89 - Other hypotension Meds Home Medications and Allergies Home Medications ?Medication ?Instructions ?Recorded ?Confirmed ?Type atorvastatin 40 mg tablet 40 mg PO HS Cholesterol 09/08/20 05/22/24 History glimepiride 4 mg tablet 4 mg PO DAILY 09/08/20 05/22/24 History tamsulosin 0.4 mg capsule 0.4 mg PO HS 09/08/20 05/22/24 History trazodone 50 mg tablet 50 mg PO HSP PRN Insomnia 09/08/20 05/22/24 History oxybutynin chloride 10 mg 10 mg PO HS 11/22/22 05/22/24 History tablet,extended release 24 hr aspirin 81 mg tablet,delayed 81 mg PO DAILY 04/07/23 05/22/24 History release omeprazole 20 mg capsule,delayed 20 mg PO HS 04/30/24 05/22/24 History release acetaminophen 325 mg tablet 325 mg PO Q8HP PRN MILD PAIN/FEVER 05/01/24 05/22/24 History aripiprazole 10 mg tablet 10 mg PO HS 05/01/24 05/22/24 History bumetanide 2 mg tablet 2 mg PO 0800,2000 05/01/24 05/22/24 History ergocalciferol (vitamin D2) 1,250 1,250 mcg PO FR 05/01/24 05/22/24 History mcg (50,000 unit) capsule (Vitamin D2) ferrous sulfate 325 mg (65 mg 325 mg PO DAILY 05/01/24 05/22/24 History iron) tablet nystatin 100,000 unit/gram topical 1 applic topical BID 05/01/24 05/22/24 History cream polyethylene glycol 3350 17 gram 17 g PO BIDP PRN Constipation 05/01/24 05/22/24 History oral powder packet (Miralax) cefdinir 300 mg capsule 300 mg PO BID 4 days #8 caps 05/26/24 Rx sertraline 100 mg tablet 100 mg PO HS 30 days #0 tabs 05/26/24 05/22/24 Rx New Prescriptions to Start Prescriptions: cefdinir Mynor Ascencio Allergies Allergy/AdvReac Type Severity Reaction Status Date / Time No Known Allergies Allergy Verified 11/22/22 18:46 Discharge Plan Disposition Patient Disposition: Home, Self-Care Condition: Fair Discharge Order Discharge Orders: Discharge Order (Routine); Ordered 05/26/24 Ordered By: Mynor Ascencio Follow up Plan Follow up with: Chidi Thurman PA [Physician Powder Worker] - 06/03/24 Prescriptions/Medication Reconciliation: New cefdinir 300 mg capsule 300 mg PO BID 4 Days Qty: 8 0RF Rx Instructions: Starting 05/27/24. Continued tamsulosin 0.4 mg capsule 0.4 mg PO HS glimepiride 4 mg tablet 4 mg PO DAILY atorvastatin 40 mg tablet 40 mg PO HS trazodone 50 mg tablet 50 mg PO HSP PRN (Reason: Insomnia) oxybutynin chloride 10 mg tablet extended release 24hr 10 mg PO HS aspirin 81 mg tablet,delayed release (DR/EC) 81 mg PO DAILY omeprazole 20 mg capsule,delayed release(DR/EC) 20 mg PO HS bumetanide 2 mg tablet 2 mg PO 0800,2000 ferrous sulfate 325 mg (65 mg iron) Tablet 325 mg PO DAILY acetaminophen 325 mg Tablet 325 mg PO Q8HP PRN (Reason: MILD PAIN/FEVER) polyethylene glycol 3350 [Miralax] 17 gram Powder In Packet 17 g PO BIDP PRN (Reason: Constipation) nystatin 100,000 unit/gram Cream 1 applic TOPICAL BID ergocalciferol (vitamin D2) [Vitamin D2] 1,250 mcg (50,000 unit) Capsule 1,250 mcg PO FR aripiprazole 10 mg tablet 10 mg PO HS Changed sertraline 100 mg tablet 100 mg PO HS 30 Days Qty: 0 0RF Discontinued Lantus U-100 Insulin 100 unit/mL solution 25 unit SQ HS bupropion HCl 150 mg tablet extended release 24 hr 150 mg PO DAILY oxcarbazepine 300 mg tablet 300 mg PO BID gabapentin 100 mg capsule 100 mg PO HS olanzapine 5 mg tablet,disintegrating 5 mg PO HS Problem Reconciliation Problems Reviewed?: Yes Patient Discharge Instructions Patient Instructions: DI for Sepsis -- Adult, DI for Respiratory Failure Print Language: Lithuanian Providers Primary Care Provider: Provider,Referral Admit Provider: Mynor Ascencio Attending Provider: Mynor Ascencio
[2024-05-26 14:10] LABS: Cortisol,AM 16.4 ug/dL (6.2-19.4)
== END 2024-05-26 16:17 | disposition home or self-care (01) | DRG 853 ==
LOC: ER 05-22 01:27 → ICU 05-22 02:15 → 2ND 05-25 07:55 → ICU 05-25 13:43
PROVIDERS: Internal Medicine; Internal Medicine Gastroenterology; Nurse Practitioner Family; Physician Assistant; Admitting Provider Student in an Organized Health Care Education/Training Program; Emergency Provider Emergency Medicine; Visit Provider Student in an Organized Health Care Education/Training Program
PROC: 4A023N6 Measurement of Cardiac Sampling and Pressure, Right Heart, Percutaneous Approach (ICD-10-PCS; principal; 2024-05-23 13:00)
DX: A41.9 Sepsis, unspecified organism (principal); I50.31 Acute diastolic (congestive) heart failure; J96.01 Acute respiratory failure with hypoxia; R65.21 Severe sepsis with septic shock; L03.115 Cellulitis of right lower limb; L03.116 Cellulitis of left lower limb; S70.11XA Contusion of right thigh, initial encounter; L97.511 Non-pressure chronic ulcer of other part of right foot limited to breakdown of skin; L97.521 Non-pressure chronic ulcer of other part of left foot limited to breakdown of skin; E11.621 Type 2 diabetes mellitus with foot ulcer; I48.91 Unspecified atrial fibrillation; D50.9 Iron deficiency anemia, unspecified; E78.2 Mixed hyperlipidemia; L84 Corns and callosities; M20.41 Other hammer toe(s) (acquired), right foot; M20.42 Other hammer toe(s) (acquired), left foot; L57.0 Actinic keratosis; L60.2 Onychogryphosis; L60.8 Other nail disorders; E11.65 Type 2 diabetes mellitus with hyperglycemia; Z79.4 Long term (current) use of insulin; D72.829 Elevated white blood cell count, unspecified; R70.0 Elevated erythrocyte sedimentation rate; R79.82 Elevated C-reactive protein (CRP); R74.01 Elevation of levels of liver transaminase levels; I95.89 Other hypotension; F17.210 Nicotine dependence, cigarettes, uncomplicated; Z79.82 Long term (current) use of aspirin; Z79.899 Other long term (current) drug therapy; Z86.718 Personal history of other venous thrombosis and embolism; K76.1 Chronic passive congestion of liver; K80.20 Calculus of gallbladder without cholecystitis without obstruction; F39 Unspecified mood [affective] disorder
CPT/HCPCS: 36415; 70450; 71045; 71275; 73630; 74181; 75635; 76376; 76705; 80053; 80061; 80074; 80202; 80307; 80320; 81001; 82247; 82248; 82272; 82533; 82728; 82803; 82810; 82962; 83036; 83540; 83550; 83605; 83690; 83735; 83880; 84145; 84439; 84484; 85007; 85025; 85610; 85651; 86140; 86803; 87040; 87081; 87086; 87088; 87186; 87633; 93005; 93306; 93451; 93925; 93970; 97110; 97116; 97163; 99152; 99291; C1894; G0328; J0131; J0696; J0736; J1650; J1939; J2250; J2543; J3010; J3370; J7120; Q9967